=== PATIENT | male | born 1935 | race Caucasian/White ===

== ENCOUNTER 2020-09-07 16:32 | Inpatient (IN) | payer MEDICAID ==
[2020-09-07] MEDS ORDERED: SODIUM CHLORIDE 0.9% 1000 ML 2,000 ML ONE (16:50)
[2020-09-07] MEDS ORDERED: SODIUM CHLORIDE 0.9% 1000 ML 1,000 ML IV ONE ×2 (16:51)
--- NOTE | 2020-09-07 16:51 | Emergency Department Report ---
HPI - General Time Seen by Provider: 09/07/20 16:44 - HPI HPI: Room 22 The patient is an 85-year-old male present with a chief complaint of shortness of breath and altered mental status. Per EMS the patient was recently hospitalized for COVID-19 at [facility]. EMS states the patient was discharged from the hospital 09/03/2020. EMS reports over the past 2 days the patient has had worsening shortness of breath has become less responsive/altered. EMS found the patient today hypoxic in the 80s on room air. Patient was placed on a nonrebreather with improvement of his sats into the 90s. Patient has increased work of breathing and appears lethargic. When asked how he is feeling the patient replies "essence" ED Past Medical Hx - Past Medical History Hx CVA: Yes Hx HIV: No - Surgical History Past Surgical History?: No - Family History Family history: no significant - Social History Smoking Status: Unknown if ever smoked Substance Use Type: None - Medications Home Medications: Home Medications Medication Instructions Recorded Confirmed Last Taken Type Aspirin [Aspirin BABY CHEW TAB] 81 mg PO QDAY #30 tab.chew 12/12/13 Unknown Rx levoFLOXacin [Levaquin TAB] 500 mg PO QDAY #7 tablet 12/12/13 Unknown Rx ED Review of Systems ROS: Stated complaint: COVID Other details as noted in HPI Comment: Unobtainable due to pts medical conditions Physical Exam - Physical Exam Physical Exam: GENERAL: The patient is well-developed well-nourished male lying on stretcher exhibiting increased work of breathing appearing lethargic. [] HEENT: Normocephalic. Atraumatic. Patient has moist mucous membranes. NECK: Supple. Trachea midline CHEST/LUNGS: Increased work of breathing, accessory muscle use. HEART/CARDIOVASCULAR: Regular. There is no tachycardia. There is no gallop rub or murmur. ABDOMEN: Abdomen is soft, nontender. Patient has normal bowel sounds. There is no abdominal distention. SKIN: There is no rash. There is no diaphoresis. NEURO: The patient is awake but appears lethargic. The patient is cooperative. The patient has normal speech MUSCULOSKELETAL: There is no evidence of acute injury. - Central Line Placement Right Femoral Consent Obtained: emergent situation Time Out Performed: No Patient Placed on Monitor/Pulse Ox: Yes MD Prep: mask, gown, gloves Central Line Prep: Chlorhexidine scrub Local Anesthesia Used: Lidocaine 1% Amount of Anesthesia Used (mls): 3 Ultrasound Used for Placement: No Central Line Lumen Inserted: triple Bloods Obtained for Lab: No Central Line Position: good blood return, all ports aspirated, flus Dressing Applied: Tegaderm Patient Tolerated Procedure: no complications Complications: other (Blood return was dark red and nonpulsatile) - Intubation Sedative: Etomidate Mg Given: 20 Paralytic: Succinylcholine Mg Given: 100 Laryngoscope: fiberoptic video scope Size: 4 Assist Device Used: fiberoptic device ET Tube Size: 8 Tube Secured Depth (cm): 24 Tube Secured Location: lips Tube Placement Confirmation: visualized tube passing t, no breath sounds over epi, confirmation by capnometr Patient Tolerated Procedure: no complications Intubation Complications: other Additional Comments: The first 2 attempts using peripheral IV to push succinylcholine 100 mg did not result in paralysis. Central line was then placed by myself on third attempt succinylcholine the patient was paralyzed facilitating intubation. ED Medical Decision Making - Lab Data Result diagrams: 09/07/20 18:00 09/07/20 18:00 Laboratory Tests 09/07/20 09/07/20 09/07/20 17:25 18:00 18:00 WBC 23.5 H RBC 4.79 Hgb 15.2 Hct 45.0 MCV 94 MCH 32 MCHC 34 RDW 14.7 Plt Count 194 Add Manual Diff Complete Total Counted 100 Seg Neutrophils % Laboratory Manager Seg Neuts % (Manual) 94.0 H Band Neutrophils % 4.0 Lymphocytes % (Manual) 1.0 L Monocytes % (Manual) 1.0 Nucleated RBC % Not Reportable Seg Neutrophils # Man 22.1 H Band Neutrophils # 0.9 Lymphocytes # (Manual) 0.2 L Abs React Lymphs (Man) 0.0 Monocytes # (Manual) 0.2 Eosinophils # (Manual) 0.0 Basophils # (Manual) 0.0 Metamyelocytes # 0.0 Myelocytes # 0.0 Promyelocytes # 0.0 Blast Cells # 0.0 WBC Morphology Not Reportable Hypersegmented Neuts Not Reportable Hyposegmented Neuts Not Reportable Hypogranular Neuts Not Reportable Smudge Cells Not Reportable Toxic Granulation Not Reportable Toxic Vacuolation Not Reportable Dohle Bodies Not Reportable Pelger-Huet Anomaly Not Reportable Miroslava Rods Not Reportable Platelet Estimate Consistent w auto Clumped Platelets Not Reportable Plt Clumps, EDTA Not Reportable Large Platelets Not Reportable Giant Platelets Not Reportable Platelet Satelliting Not Reportable Plt Morphology Comment Not Reportable RBC Morphology Not Reportable Dimorphic RBCs Not Reportable Polychromasia Not Reportable Hypochromasia Not Reportable Poikilocytosis 2+ Anisocytosis 1+ Microcytosis Not Reportable Macrocytosis Not Reportable Spherocytes Not Reportable Pappenheimer Bodies Not Reportable Sickle Cells Not Reportable Target Cells Not Reportable Tear Drop Cells Not Reportable Ovalocytes Not Reportable Helmet Cells Not Reportable Morales-Kimbolton Bodies Not Reportable [place] Rings Not Reportable Vivienne Cells 2+ Bite Cells Not Reportable Crenated Cell Not Reportable Elliptocytes Not Reportable Acanthocytes (Spur) Not Reportable Rouleaux Not Reportable Hemoglobin C Crystals Not Reportable Schistocytes Not Reportable Malaria parasites Not Reportable Marquise Bodies Not Reportable Hem Pathologist Commnt No D-Dimer > 88692 H ABG pH ABG pCO2 ABG pO2 ABG HCO3 ABG O2 Saturation ABG O2 Content ABG Base Excess ABG Hemoglobin ABG Carboxyhemoglobin ABG Methemoglobin Oxyhemoglobin FiO2 Sodium Potassium Chloride Carbon Dioxide Anion Gap BUN Creatinine Estimated GFR BUN/Creatinine Ratio Glucose Lactic Acid Calcium Ferritin Total Bilirubin AST ALT Alkaline Phosphatase Troponin T Total Protein Albumin Albumin/Globulin Ratio Urine Color Leanna Urine Turbidity Clear Urine pH 5.0 Ur Specific Staples 1.023 Urine Protein 30 mg/dl Urine Glucose (UA) Neg Urine Ketones Tr Urine Blood Neg Urine Nitrite Neg Urine Bilirubin Neg Urine Urobilinogen 2.0 Ur Leukocyte Esterase Neg Urine WBC (Auto) 4.0 Urine RBC (Auto) 2.0 U Epithel Cells (Auto) 1.0 Urine Mucus 3+ 09/07/20 09/07/20 09/07/20 18:00 18:00 19:37 WBC RBC Hgb Hct MCV MCH MCHC RDW Plt Count Add Manual Diff Total Counted Seg Neutrophils % Seg Neuts % (Manual) Band Neutrophils % Lymphocytes % (Manual) Monocytes % (Manual) Nucleated RBC % Seg Neutrophils # Man Band Neutrophils # Lymphocytes # (Manual) Abs React Lymphs (Man) Monocytes # (Manual) Eosinophils # (Manual) Basophils # (Manual) Metamyelocytes # Myelocytes # Promyelocytes # Blast Cells # WBC Morphology Hypersegmented Neuts Hyposegmented Neuts Hypogranular Neuts Smudge Cells Toxic Granulation Toxic Vacuolation Dohle Bodies Pelger-Huet Anomaly Miroslava Rods Platelet Estimate Clumped Platelets Plt Clumps, EDTA Large Platelets Giant Platelets Platelet Satelliting Plt Morphology Comment RBC Morphology Dimorphic RBCs Polychromasia Hypochromasia Poikilocytosis Anisocytosis Microcytosis Macrocytosis Spherocytes Pappenheimer Bodies Sickle Cells Target Cells Tear Drop Cells Ovalocytes Helmet Cells Morales-Kimbolton Bodies [place] Rings [place] Cells Bite Cells Crenated Cell Elliptocytes Acanthocytes (Spur) Rouleaux Hemoglobin C Crystals Schistocytes Malaria parasites Marquise Bodies Hem Pathologist Commnt D-Dimer ABG pH ABG pCO2 ABG pO2 ABG HCO3 ABG O2 Saturation ABG O2 Content ABG Base Excess ABG Hemoglobin ABG Carboxyhemoglobin ABG Methemoglobin Oxyhemoglobin FiO2 Sodium 139 Potassium 4.2 Chloride 100.3 Carbon Dioxide 9 L* Anion Gap 34 BUN 24 H Creatinine 1.0 Estimated GFR > 60 BUN/Creatinine Ratio 24 Glucose 143 H Lactic Acid 8.80 H* Calcium 7.6 L Ferritin 849.7 H Total Bilirubin 1.80 H AST 45 H ALT 20 Alkaline Phosphatase 67 Troponin T < 0.010 Total Protein 5.6 L Albumin 2.8 L Albumin/Globulin Ratio 1.0 Urine Color Urine Turbidity Urine pH Ur Specific Staples Urine Protein Urine Glucose (UA) Urine Ketones Urine Blood Urine Nitrite Urine Bilirubin Urine Urobilinogen Ur Leukocyte Esterase Urine WBC (Auto) Urine RBC (Auto) U Epithel Cells (Auto) Urine Mucus 09/07/20 20:30 WBC RBC Hgb Hct MCV MCH MCHC RDW Plt Count Add Manual Diff Total Counted Seg Neutrophils % Seg Neuts % (Manual) Band Neutrophils % Lymphocytes % (Manual) Monocytes % (Manual) Nucleated RBC % Seg Neutrophils # Man Band Neutrophils # Lymphocytes # (Manual) Abs React Lymphs (Man) Monocytes # (Manual) Eosinophils # (Manual) Basophils # (Manual) Metamyelocytes # Myelocytes # Promyelocytes # Blast Cells # WBC Morphology Hypersegmented Neuts Hyposegmented Neuts Hypogranular Neuts Smudge Cells Toxic Granulation Toxic Vacuolation Dohle Bodies Pelger-Huet Anomaly Miroslava Rods Platelet Estimate Clumped Platelets Plt Clumps, EDTA Large Platelets Giant Platelets Platelet Satelliting Plt Morphology Comment RBC Morphology Dimorphic RBCs Polychromasia Hypochromasia Poikilocytosis Anisocytosis Microcytosis Macrocytosis Spherocytes Pappenheimer Bodies Sickle Cells Target Cells Tear Drop Cells Ovalocytes Helmet Cells Morales-Kimbolton Bodies [place] Rings Vivienne Cells Bite Cells Crenated Cell Elliptocytes Acanthocytes (Spur) Rouleaux Hemoglobin C Crystals Schistocytes Malaria parasites Marquise Bodies Hem Pathologist Commnt D-Dimer ABG pH 7.336 L ABG pCO2 26.9 ABG pO2 91.2 H ABG HCO3 14.1 L ABG O2 Saturation 96.8 ABG O2 Content 20.4 ABG Base Excess -9.9 L ABG Hemoglobin 15.2 ABG Carboxyhemoglobin 0.8 ABG Methemoglobin 0.6 Oxyhemoglobin 95.5 FiO2 100 Sodium Potassium Chloride Carbon Dioxide Anion Gap BUN Creatinine Estimated GFR BUN/Creatinine Ratio Glucose Lactic Acid Calcium Ferritin Total Bilirubin AST ALT Alkaline Phosphatase Troponin T Total Protein Albumin Albumin/Globulin Ratio Urine Color Urine Turbidity Urine pH Ur Specific Staples Urine Protein Urine Glucose (UA) Urine Ketones Urine Blood Urine Nitrite Urine Bilirubin Urine Urobilinogen Ur Leukocyte Esterase Urine WBC (Auto) Urine RBC (Auto) U Epithel Cells (Auto) Urine Mucus - EKG Data -: EKG Interpreted by Me Rate: tachycardia (160 bpm) - EKG Data When compared to previous EKG there are: previous EKG unavailable Interpretation: other (Atrial fibrillation with a rapid ventricular response) - Radiology Data Radiology results: report reviewed (Chest x-ray), image reviewed (Chest x-ray) interpreted by me: Chest [id number] bilateral infiltrates. No pneumothorax. No foreign body seen. Chest x-ray (read by radiologist)-patchy parenchymal opacities in both mid to lower lung zones are likely related to atypical pneumonia, including viral causes. - Differential Diagnosis COVID-19 pneumonia, respiratory failure, hypoxia Critical care attestation.: If time is entered above; I have spent that time in minutes in the direct care of this critically ill patient, excluding procedure time. ED Disposition Clinical Impression: Pneumonia, Suspected COVID-19 virus infection, Hypoxia, Atrial fibrillation with rapid ventricular response Disposition: OP ADMIT IP TO THIS HOSP Is pt being admited?: Yes Does the pt Need Aspirin: Yes Condition: Serious Instructions: Bacterial Pneumonia (ED) Referrals: PRIMARY CARE, [Primary Care Provider] - 3-5 Days Time of Disposition: 22:00 (Hospitalist notified (Dr. Olivares))
[2020-09-07 17:45] LABS: Bilirubin,Urine NEG (Negative); Blood,Urine NEG (Negative); Color,Urine Amber (Yellow); Mucus,Urine 3+ /HPF
--- NOTE | 2020-09-07 18:22 | XRay Report ---
CHEST 1 VIEW 6:00 PM INDICATION / CLINICAL INFORMATION: Hypoxia. COMPARISON: 12/09/13. FINDINGS: SUPPORT DEVICES: None. HEART / MEDIASTINUM: The heart size and pulmonary vasculature are normal. LUNGS / PLEURA: There are mild patchy multifocal parenchymal opacities in both mid to lower lung zone s, left greater than right. No pleural effusion. No pneumothorax. ADDITIONAL FINDINGS: No significant additional findings. IMPRESSION: Patchy parenchymal opacities in both mid to lower lung zones are likely related to atypic al pneumonia, including viral causes. Signer Name: Ashok Boone MD Signed: 09/07/2020 6:18 PM Workstation Name: [id number]
[2020-09-07 18:28] LABS: Hemoglobin 15.2 gm/dl (11.8-15.2); Mean Corpuscular HGB Conc 34 % (32-34); Mean Corpuscular Volume 94 fl (84-94); Platelet Count 194 K/mm3 (140-440); Red Blood Count 4.79 M/mm3 (3.65-5.03); Red Cell Distribution Width 14.7 % (13.2-15.2)
[2020-09-07] MEDS ORDERED: dexAMETHasone 20 MG/5 ML VIAL IV ONE (18:35)
[2020-09-07] MEDS ORDERED: NORepinephrine/NS 4 MG-250 ML 4 MG/250 ML BAG IV ONE (18:42)
[2020-09-07] MEDS ORDERED: SUCCINYLCHOLINE CHLORIDE 200 MG/10 ML INJ MDV ONE ×2 (18:44→19:01)
[2020-09-07] MEDS ORDERED: ETOMIDATE 20 MG/10 ML INJ IV ONE ×2 (18:44→19:48)
[2020-09-07 19:05] LABS: Anisocytosis 1+; Band Neutrophils # (Manual) 0.9 K/mm3; Burr Cells 2+; Poikilocytosis 2+; Total Cells Counted 100
[2020-09-07 19:06] LABS: Platelet Estimate Consistent w Auto
[2020-09-07] MEDS ORDERED: SUCCINYLCHOLINE CHLORIDE 200 MG/10 ML INJ MDV IV ONE (19:49)
[2020-09-07] MEDS ORDERED: dilTIAZem 25 MG/5 ML INJ IV ONE ×2 (19:57→20:37)
--- NOTE | 2020-09-07 20:46 | XRay Report ---
CHEST 1 VIEW INDICATION: Status post intubation COMPARISON: Compared to earlier the same day FINDINGS: SUPPORT DEVICES: Endotracheal tube has tip in the right mainstem bronchus. HEART / MEDIASTINUM: No significant abnormality. LUNGS / PLEURA: Bronchovascular markings-perihilar markings are increased. No pneumothorax. ADDITIONAL FINDINGS: IMPRESSION: 1. No interval change as compared to previous exam 2. Endotracheal tube placement as noted CRITICAL RESULT: Time of Discovery: 1940 hours central time Time of Communication: 194 hours Central time Licensed Practitioner Receiving Report: Dr. Isbell was notified by Dr. Frost Read Back Performed: Yes. Signer Name: Gagan Frost MD Signed: 09/07/2020 8:42 PM Workstation Name: [id number]
[2020-09-07 21:17] LABS: ABG Base Excess -9.9 mmol/L (-2.0-3.0); ABG HCO3 14.1 mmol/L (20.0-26.0); ABG Methemoglobin 0.6 % (0.0-1.5); ABG Oxygen Saturation 96.8 % (95.0-99.0); ABG PCO2 26.9 mm Hg; ABG PH 7.336 pH Units (7.350-7.450); ABG PO2 91.2 mm Hg (80.0-90.0)
[2020-09-07] MEDS: dilTIAZem/D5W 100 MG/100 ML BAG IV SCH (21:17)
--- NOTE | 2020-09-07 21:19 | XRay Report ---
CHEST 1 VIEW INDICATION: ET tube adjustment COMPARISON: Earlier the same day FINDINGS: SUPPORT DEVICES: Endotracheal tube has its tip 0.5 cm above the tatiana. Retraction of 2 cm is recomme nded. HEART / MEDIASTINUM: No significant abnormality. LUNGS / PLEURA: Bronchovascular markings remain prominent. No pneumothorax. ADDITIONAL FINDINGS: IMPRESSION: 1. Repositioned endotracheal tube as noted please see above comments Signer Name: Gagan Frost MD Signed: 09/07/2020 9:15 PM Workstation Name: [id number]
[2020-09-07] MEDS: NORepinephrine/NS 4 MG-250 ML 4 MG/250 ML BAG IV SCH (21:22)
[2020-09-07 21:51] LABS: Alanine Aminotransferase 20 units/L (7-56); Albumin 2.8 g/dL (3.9-5); BUN/Creatinine Ratio 24; Blood Urea Nitrogen 24 mg/dL (9-20); Calcium 7.6 mg/dL (8.4-10.2); Hemolysis Index 19
[2020-09-07] MEDS ORDERED: NORepinephrine/NS 4 MG-250 ML 4 MG/250 ML BAG IV SCH (22:00)
[2020-09-07] MEDS ORDERED: MINERAL OIL/PETROLATUM, WHITE OPHTH OINT 3.5 GM OU PRN (22:11)
[2020-09-07] MEDS ORDERED: LIP THERAPY VASELINE TP PRN (22:11)
[2020-09-07] MEDS ORDERED: MIDAZOLAM 2 MG/2 ML INJ IV PRN (22:11)
[2020-09-07 22:18] LABS: Partial Thromboplastin Time 72.7 Sec. (24.2-36.6)
[2020-09-07] MEDS: MIDAZOLAM 100 MG in SODIUM CHLORIDE 0.9% 80 ML IV SCH (23:00)
--- NOTE | 2020-09-08 00:49 | XRay Report ---
CHEST 1 VIEW 2256 INDICATION / CLINICAL INFORMATION: ET tube adjusted COMPARISON: 2058 FINDINGS: SUPPORT DEVICES: Endotracheal tube has been withdrawn mildly and is in better position with tip appro ximately 1.5 cm above the tatiana. HEART / MEDIASTINUM: Stable LUNGS / PLEURA: Patchy bilateral pulmonary infiltrates continue with perhaps mild worsening in the ri ght base better aeration in the left base. No pneumothorax. ADDITIONAL FINDINGS: No significant additional findings. Signer Name: Melo Tejada MD Signed: 09/08/2020 12:45 AM Workstation Name: [id number]
[2020-09-08] MEDS: NORepinephrine/NS 4 MG-250 ML 4 MG/250 ML BAG IV SCH ×5 (03:04→23:12)
[2020-09-08 04:40] LABS: ABG Base Excess -4.1 mmol/L (-2.0-3.0); ABG HCO3 17.2 mmol/L (20.0-26.0); ABG Methemoglobin 0.7 % (0.0-1.5); ABG PCO2 23.4 mm Hg; ABG PH 7.484 pH Units (7.350-7.450); ABG PO2 148.2 mm Hg (80.0-90.0)
--- NOTE | 2020-09-08 06:21 | History and Physical Report ---
History of Present Illness Date of examination: 09/07/20 Date of admission: 09/07/20 21:40 Chief complaint: Shortness of breath for 2 days. History of present illness: 85-year-old male with a recent diagnosis of Covid pneumonia with acute respiratory failure/hypoxia discharged on Thursday [facility] on 09/03/2020 has been short of breath for the past 2 days because of which EMS was called. When the EMS arrived the patient was found to be hypoxic with room air oxygenation is running around 80s and also patient with altered sensorium. Patient was placed on nonrebreather and that his oxygen saturations improved to the 90s. No fever. Patient is lethargic. Patient also has increased work of breathing and was getting tired because of which ER physician has intubated the patient. No fevers. Known Covid positive patient with decompensation. No chest pain. No diaphoresis. No palpitations. - Past Medical History --CVA: Yes - Surgical History Past Surgical History?: No - Family History Family history: no significant - Social History Smoking Status: Unknown if ever smoked Substance Use Type: None - Medications Home Medications: Home Medications Medication Instructions Recorded Confirmed Last Taken Type Aspirin [Aspirin BABY CHEW TAB] 81 mg PO QDAY #30 tab.chew 12/12/13 Unknown Rx levoFLOXacin [Levaquin TAB] 500 mg PO QDAY #7 tablet 12/12/13 Unknown Rx --Review of Systems ROS: Stated complaint: COVID Other details as noted in HPI Comment: Unobtainable due to pts medical conditions Medications and Allergies Allergies Allergy/AdvReac Type Severity Reaction Status Date / Time ceftriaxone Allergy Rash Verified 12/10/13 11:03 Home Medications Medication Instructions Recorded Confirmed Last Taken Type Aspirin [Aspirin BABY CHEW TAB] 81 mg PO QDAY #30 tab.chew 12/12/13 Unknown Rx levoFLOXacin [Levaquin TAB] 500 mg PO QDAY #7 tablet 12/12/13 Unknown Rx Active Meds: Active Medications Hydrophilic Ointment (Lip Therapy Vaseline) 1 applic TP Q2HR PRN PRN Reason: Dry Lips Diltiazem HCl (Cardizem/D5w 100mg/100ml) 100 mg in 100 mls @ 5 mls/hr IV TITR CRISTIN; Protocol Last Titration: 09/08/20 03:28 Dose: 15 mg/hr, 15 mls/hr Documented by: Norepinephrine (Levophed Drip 4 Mg/Ns 250 Ml) 4 mg in 250 mls @ 7.5 mls/hr IV TITR CRISTIN; Protocol Last Admin: 09/08/20 03:04 Dose: 2 mcg/min, 7.5 mls/hr Documented by: Midazolam HCl 100 mg/ Sodium (Chloride) 100 mls @ 2 mls/hr IV TITR CRISTIN; Protocol Last Titration: 09/08/20 00:00 Dose: 3 mg/hr, 3 mls/hr Documented by: Midazolam HCl (Midazolam 2 Mg/2 Ml Inj) 2 mg IV Q10MIN PRN PRN Reason: Sedation Multi-Ingred Cream/Lotion/Oil/Oint (Mineral Oil/Petrolatum, White Ophth Oint 3.5 Gm) 1 applic OU Q4HR PRN PRN Reason: Dry Eye(s) Exam - Physical Exam Narrative exam: Patient intubated. - Constitutional Vitals: Temp Pulse Resp BP Pulse Ox 97.5 F L 94 H 22 102/72 100 09/07/20 16:50 09/08/20 05:45 09/08/20 05:45 09/08/20 05:45 09/08/20 05:45 General appearance: Present: severe distress, well-nourished - EENT Eyes: Present: PERRL ENT: hearing intact, clear oral mucosa - Neck Neck: Present: supple, normal ROM - Respiratory Respiratory effort: normal Respiratory: bilateral: CTA, rhonchi (Scattered) - Cardiovascular Heart rate: 98 Rhythm: regular Heart Sounds: Present: S1 & S2. Absent: rub, click - Extremities Extremities: no ischemia, pulses intact, pulses symmetrical, No edema Peripheral Pulses: within normal limits - Abdominal General gastrointestinal: Present: soft, non-tender, non-distended, normal bowel sounds Male genitourinary: Present: normal - Integumentary Integumentary: Present: clear, warm, dry - Musculoskeletal Musculoskeletal: generalized weakness, other (Patient intubated) - Psychiatric Psychiatric: other (Patient intubated) - Neurologic Neurologic: moves all extremities, other (Neurologic examination could not be done because the patient was sedated) - Allied Health Allied health notes reviewed: nursing, case management HEART Score - HEART Score Troponin: Troponin T < 0.010 ng/mL (0.00-0.029) 09/07/20 18:00 Results - Labs CBC & Chem 7: 09/07/20 18:00 09/07/20 18:00 Labs: Laboratory Last Values WBC 23.5 K/mm3 (4.5-11.0) H 09/07/20 18:00 RBC 4.79 M/mm3 (3.65-5.03) 09/07/20 18:00 Hgb 15.2 gm/dl (11.8-15.2) 09/07/20 18:00 Hct 45.0 % (35.5-45.6) 09/07/20 18:00 MCV 94 fl (84-94) 09/07/20 18:00 MCH 32 pg (28-32) 09/07/20 18:00 MCHC 34 % (32-34) 09/07/20 18:00 RDW 14.7 % (13.2-15.2) 09/07/20 18:00 Plt Count 194 K/mm3 (140-440) 09/07/20 18:00 Add Manual Diff Complete 09/07/20 18:00 Total Counted 100 09/07/20 18:00 Seg Neutrophils % Condenser Setter 09/07/20 18:00 Seg Neuts % (Manual) 94.0 % (40.0-70.0) H 09/07/20 18:00 Band Neutrophils % 4.0 % 09/07/20 18:00 Lymphocytes % (Manual) 1.0 % (13.4-35.0) L 09/07/20 18:00 Monocytes % (Manual) 1.0 % (0.0-7.3) 09/07/20 18:00 Nucleated RBC % Not Reportable 09/07/20 18:00 Seg Neutrophils # Man 22.1 K/mm3 (1.8-7.7) H 09/07/20 18:00 Band Neutrophils # 0.9 K/mm3 09/07/20 18:00 Lymphocytes # (Manual) 0.2 K/mm3 (1.2-5.4) L 09/07/20 18:00 Abs React Lymphs (Man) 0.0 K/mm3 09/07/20 18:00 Monocytes # (Manual) 0.2 K/mm3 (0.0-0.8) 09/07/20 18:00 Eosinophils # (Manual) 0.0 K/mm3 (0.0-0.4) 09/07/20 18:00 Basophils # (Manual) 0.0 K/mm3 (0.0-0.1) 09/07/20 18:00 Metamyelocytes # 0.0 K/mm3 09/07/20 18:00 Myelocytes # 0.0 K/mm3 09/07/20 18:00 Promyelocytes # 0.0 K/mm3 09/07/20 18:00 Blast Cells # 0.0 K/mm3 09/07/20 18:00 WBC Morphology Not Reportable 09/07/20 18:00 Hypersegmented Neuts Not Reportable 09/07/20 18:00 Hyposegmented Neuts Not Reportable 09/07/20 18:00 Hypogranular Neuts Not Reportable 09/07/20 18:00 Smudge Cells Not Reportable 09/07/20 18:00 Toxic Granulation Not Reportable 09/07/20 18:00 Toxic Vacuolation Not Reportable 09/07/20 18:00 Dohle Bodies Not Reportable 09/07/20 18:00 Pelger-Huet Anomaly Not Reportable 09/07/20 18:00 Miroslava Rods Not Reportable 09/07/20 18:00 Platelet Estimate Consistent w auto 09/07/20 18:00 Clumped Platelets Not Reportable 09/07/20 18:00 Plt Clumps, EDTA Not Reportable 09/07/20 18:00 Large Platelets Not Reportable 09/07/20 18:00 Giant Platelets Not Reportable 09/07/20 18:00 Platelet Satelliting Not Reportable 09/07/20 18:00 Plt Morphology Comment Not Reportable 09/07/20 18:00 RBC Morphology Not Reportable 09/07/20 18:00 Dimorphic RBCs Not Reportable 09/07/20 18:00 Polychromasia Not Reportable 09/07/20 18:00 Hypochromasia Not Reportable 09/07/20 18:00 Poikilocytosis 2+ 09/07/20 18:00 Anisocytosis 1+ 09/07/20 18:00 Microcytosis Not Reportable 09/07/20 18:00 Macrocytosis Not Reportable 09/07/20 18:00 Spherocytes Not Reportable 09/07/20 18:00 Pappenheimer Bodies Not Reportable 09/07/20 18:00 Sickle Cells Not Reportable 09/07/20 18:00 Target Cells Not Reportable 09/07/20 18:00 Tear Drop Cells Not Reportable 09/07/20 18:00 Ovalocytes Not Reportable 09/07/20 18:00 Helmet Cells Not Reportable 09/07/20 18:00 Morales-Rosebud Bodies Not Reportable 09/07/20 18:00 [place] Rings Not Reportable 09/07/20 18:00 Vivienne Cells 2+ 09/07/20 18:00 Bite Cells Not Reportable 09/07/20 18:00 Crenated Cell Not Reportable 09/07/20 18:00 Elliptocytes Not Reportable 09/07/20 18:00 Acanthocytes (Spur) Not Reportable 09/07/20 18:00 Rouleaux Not Reportable 09/07/20 18:00 Hemoglobin C Crystals Not Reportable 09/07/20 18:00 Schistocytes Not Reportable 09/07/20 18:00 Malaria parasites Not Reportable 09/07/20 18:00 Marquise Bodies Not Reportable 09/07/20 18:00 Hem Pathologist Commnt No 09/07/20 18:00 APTT 72.7 Sec. (24.2-36.6) H* 09/07/20 18:00 D-Dimer > 92450 ng/mlDDU (0-234) H 09/07/20 18:00 D-Dimer Condenser Setter 09/07/20 18:00 ABG pH 7.484 pH Units (7.350-7.450) H 09/08/20 04:25 ABG pCO2 23.4 mm Hg 09/08/20 04:25 ABG pO2 148.2 mm Hg (80.0-90.0) H 09/08/20 04:25 ABG HCO3 17.2 mmol/L (20.0-26.0) L 09/08/20 04:25 ABG O2 Saturation 99.0 % (95.0-99.0) 09/08/20 04:25 ABG O2 Content 20.8 (0.0-44) 09/08/20 04:25 ABG Base Excess -4.1 mmol/L (-2.0-3.0) L 09/08/20 04:25 ABG Hemoglobin 15.0 gm/dl (14.0-18.0) 09/08/20 04:25 ABG Carboxyhemoglobin 0.6 % (0.0-5.0) 09/08/20 04:25 ABG Methemoglobin 0.7 % (0.0-1.5) 09/08/20 04:25 Oxyhemoglobin 97.6 % (95.0-99.0) 09/08/20 04:25 FiO2 100 % 09/08/20 04:25 Sodium 139 mmol/L (137-145) 09/07/20 18:00 Potassium 4.2 mmol/L (3.6-5.0) 09/07/20 18:00 Chloride 100.3 mmol/L (98-107) 09/07/20 18:00 Carbon Dioxide 9 mmol/L (22-30) L* 09/07/20 18:00 Anion Gap 34 mmol/L 09/07/20 18:00 BUN 24 mg/dL (9-20) H 09/07/20 18:00 Creatinine 1.0 mg/dL (0.8-1.3) 09/07/20 18:00 Estimated GFR > 60 ml/min 09/07/20 18:00 BUN/Creatinine Ratio 24 % 09/07/20 18:00 Glucose 143 mg/dL (75-100) H 09/07/20 18:00 Lactic Acid 3.80 mmol/L (0.7-2.0) H* 09/08/20 01:07 Calcium 7.6 mg/dL (8.4-10.2) L 09/07/20 18:00 Ferritin 849.7 ng/mL (30.0-300.0) H 09/07/20 18:00 Total Bilirubin 1.80 mg/dL (0.1-1.2) H 09/07/20 18:00 AST 45 units/L (5-40) H 09/07/20 18:00 ALT 20 units/L (7-56) 09/07/20 18:00 Alkaline Phosphatase 67 units/L (35-129) 09/07/20 18:00 Lactate Dehydrogenase 507 units/L (91-180) H 09/07/20 18:00 Troponin T < 0.010 ng/mL (0.00-0.029) 09/07/20 18:00 C-Reactive Protein 8.20 mg/dL (0.00-1.30) H 09/07/20 18:00 Total Protein 5.6 g/dL (6.3-8.2) L 09/07/20 18:00 Albumin 2.8 g/dL (3.9-5) L 09/07/20 18:00 Albumin/Globulin Ratio 1.0 % 09/07/20 18:00 Urine Color Leanna (Yellow) 09/07/20 17:25 Urine Turbidity Clear (Clear) 09/07/20 17:25 Urine pH 5.0 (5.0-7.0) 09/07/20 17:25 Ur Specific [place] 1.023 (1.003-1.030) 09/07/20 17: Urine Protein 30 mg/dl mg/dL (Negative) 09/07/20 17:25 Urine Glucose (UA) Neg mg/dL (Negative) 09/07/20 17:25 Urine Ketones Tr mg/dL (Negative) 09/07/20 17:25 Urine Blood Neg (Negative) 09/07/20 17:25 Urine Nitrite Neg (Negative) 09/07/20 17:25 Urine Bilirubin Neg (Negative) 09/07/20 17:25 Urine Urobilinogen 2.0 mg/dL (<2.0) 09/07/20 17:25 Ur Leukocyte Esterase Neg (Negative) 09/07/20 17:25 Urine WBC (Auto) 4.0 /HPF (0.0-6.0) 09/07/20 17:25 Urine RBC (Auto) 2.0 /HPF (0.0-6.0) 09/07/20 17:25 U Epithel Cells (Auto) 1.0 /HPF (0-13.0) 09/07/20 17:25 Urine Mucus 3+ /HPF 09/07/20 17:25 Short CBC 09/07/20 Range/Units 18:00 WBC 23.5 H (4.5-11.0) K/mm3 Hgb 15.2 (11.8-15.2) gm/dl Hct 45.0 (35.5-45.6) % Plt Count 194 (140-440) K/mm3 BMP 09/07/20 18:00 Sodium 139 Potassium 4.2 Chloride 100.3 Carbon Dioxide 9 L* BUN 24 H Creatinine 1.0 Glucose 143 H Calcium 7.6 L Cardiac Enzymes 09/07/20 Range/Units 18:00 Troponin T < 0.010 (0.00-0.029) ng/mL Liver Function 09/07/20 Range/Units 18:00 Total Bilirubin 1.80 H (0.1-1.2) mg/dL AST 45 H (5-40) units/L ALT 20 (7-56) units/L Alkaline Phosphatase 67 (35-129) units/L Albumin 2.8 L (3.9-5) g/dL Urine 09/07/20 Range/Units 17:25 Urine Color Leanna (Yellow) Urine pH 5.0 (5.0-7.0) Ur Specific [place] 1.023 (1.003-1.030) Urine Protein 30 mg/dl (Negative) mg/dL Urine Glucose (UA) Neg (Negative) mg/dL Microbiology: Microbiology 09/07/20 18:00 Peripheral/Venous Blood Culture - Preliminary Culture in Progress 09/07/20 18:00 Peripheral/Venous Blood Culture - Preliminary Culture in Progress - Imaging and Cardiology Chest x-ray: report reviewed Imaging and Cardiology: Chest x-ray IMPRESSION: Patchy parenchymal opacities in both mid to lower lung zones are likely related to atypical pneumonia, including viral causes. Reyez/IV: IV Catheter Type [Right INT / Saline Lock Antecubital] Assessment and Plan Assessment and plan: Critical care statement The high probability OF a clinically significant sudden or life-threatening deterioration of the cardiorespiratory system and endocrine system required my full and direct attention, intervention and postoperative management. The aggregate critical care time was 40 minutes. The time is in addition to time spent performing reported procedures but includes the followin: Data review and interpretation 2: Patient assessment and monitoring of vital signs 3: Documentation 4:: Medication orders and management Advance Directives: Yes (Full code) VTE prophylaxis?: Chemical Plan of care discussed with patient/family: Yes - Patient Problems (1) Acute respiratory failure with hypoxia Current Visit: Yes Status: Acute Plan to address problem: Patient intubated because of labored breathing and for protection of airway. Vent management Company Laborer consult requested (2) Pneumonia due to COVID-19 virus Current Visit: Yes Status: Acute Plan to address problem: Patient restarted on IV Decadron Patient was discharged on from [facility] We will get the records from [facility] ID consult (3) Sepsis Current Visit: Yes Status: Acute Qualifiers: Sepsis type: sepsis due to unspecified organism Plan to address problem: May be secondary to Covid or coronavirus Patient started on empiric antibiotics in the form of cefepime and vancomycin ID consult was requested No hypotension (4) Bilateral pneumonia Current Visit: Yes Status: Acute Qualifiers: Pneumonia type: due to unspecified organism Plan to address problem: Patient started on IV cefepime and vancomycin for sepsis which can be continued for the bilateral pneumonia also (5) 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: Chronic Qualifiers: CVA mechanism: thrombosis Laterality of affected vessel: unspecified Plan to address problem: PT OT after extubation (6) DVT prophylaxis Current Visit: Yes Status: Acute Plan to address problem: On Lovenox and GI prophylaxis
[2020-09-08] MEDS ORDERED: ACETAMINOPHEN 325 MG TAB PO PRN (06:29)
[2020-09-08] MEDS ORDERED: MORPHINE 2 MG/1 ML INJ IV PRN (06:29)
[2020-09-08] MEDS ORDERED: ONDANSETRON 4 MG/2 ML INJ IV PRN (06:29)
[2020-09-08] MEDS ORDERED: SODIUM CHLORIDE 0.9% 1000 ML 1,000 ML IV SCH (06:30)
[2020-09-08] MEDS ORDERED: SIMPLE SYRUP 15 ML FEEDTUBE PRN ×2 (06:31)
[2020-09-08] MEDS ORDERED: LIPASE 10,500/PROTEASE 25,000/AMYLASE 43,750 (UNITS) DR CAP FEEDTUBE PRN (06:31)
[2020-09-08] MEDS ORDERED: SODIUM BICARBONATE 325 MG TAB FEEDTUBE PRN (06:31)
[2020-09-08] MEDS ORDERED: VANCOMYCIN PHARMACY TO DOSE IV SCH (07:00)
[2020-09-08] MEDS ORDERED: CEFEPIME/NS 2 GM/100 ML 2 GM/100 ML BAG IV SCH (07:00)
[2020-09-08] MEDS ORDERED: ACETAMINOPHEN 325 MG/10.15 ML ORAL LIQD UNIT DOSE PO PRN (07:00)
[2020-09-08] MEDS ORDERED: VANCOMYCIN 2,000 MG in SODIUM CHLORIDE 0.9% 500 ML 500 ML IV SCH ×2 (08:00→16:00)
[2020-09-08] MEDS: dexAMETHasone 4 MG/ML VIAL IV SCH (09:47)
[2020-09-08] MEDS: FAMOTIDINE 20 MG/2 ML INJ IV SCH (09:48)
[2020-09-08 11:07] LABS: Hematocrit 49.6 % (35.5-45.6); Hemoglobin 17.1 gm/dl (11.8-15.2); Mean Corpuscular HGB Conc 35 % (32-34); Mean Corpuscular Volume 90 fl (84-94); Platelet Count 168 K/mm3 (140-440); Red Blood Count 5.49 M/mm3 (3.65-5.03); Red Cell Distribution Width 15.1 % (13.2-15.2)
[2020-09-08 11:27] LABS: Albumin 2.6 g/dL (3.9-5); Calcium 8.3 mg/dL (8.4-10.2)
[2020-09-08 11:29] LABS: Prealbumin 0.049 g/L (0.200-0.400)
[2020-09-08 11:47] LABS: Total Cells Counted 100
[2020-09-08 11:48] LABS: Anisocytosis 1+; Burr Cells 2+; Large Platelets Few; Platelet Estimate Consistent w Auto; Poikilocytosis 2+
[2020-09-08] MEDS: PIPERACILLIN/TAZOBACTAM 3.375 3.375 GM/50 ML BAG IV SCH (13:36)
--- NOTE | 2020-09-08 16:04 | XRay Report ---
ABDOMEN 1 VIEW(S) INDICATION: gastric tube placement COMPARISON: None available. FINDINGS: Nasogastric tube has its tip in the stomach Bowel gas pattern: Within normal limits. No dilated loops of large or small bowel. Free air: None. Calcified gallstones: None seen. Calcified urinary tract calculi: None seen. Additional Findings: None. Skeletal structures: No acute abnormality. IMPRESSION: 1. No acute findings. Signer Name: Gagan Frost MD Signed: 09/08/2020 3:59 PM Workstation Name: [id number]
[2020-09-08] MEDS: MIDAZOLAM 100 MG in SODIUM CHLORIDE 0.9% 80 ML IV SCH (17:43)
[2020-09-08] MEDS: dilTIAZem/D5W 100 MG/100 ML BAG IV SCH (17:51)
--- NOTE | 2020-09-08 18:16 | Consultation ---
History of Present Illness Consult date: 09/08/20 Requesting physician: BRIJESH CARDENAS Reason for consult: other (Acute Hypoxemic Respiratory Failure; COVID-19 infection) History of present illness: PULMONARY/CCM CONSULT NOTE (Full dictation # [id number]) Please see dictated notes for full details Medications and Allergies Allergies Allergy/AdvReac Type Severity Reaction Status Date / Time ceftriaxone Allergy Rash Verified 12/10/13 11:03 Home Medications Medication Instructions Recorded Confirmed Last Taken Type Aspirin [Aspirin BABY CHEW TAB] 81 mg PO QDAY #30 tab.chew 12/12/13 Unknown Rx levoFLOXacin [Levaquin TAB] 500 mg PO QDAY #7 tablet 12/12/13 Unknown Rx Active Meds: Active Medications Acetaminophen (Acetaminophen 325 Mg/10.15 Ml Oral Liqd Unit Dose) 650 mg PO Q4H PRN PRN Reason: Pain MILD(1-3)/Fever >100.5/BEST Lipase/Protease/Amylase (Lipase 10,500/Protease 25,000/Amylase 43,750 (Units) Dr Cap) 1 each FEEDTUBE PRN PRN PRN Reason: For Clogged Feeding Tube Dexamethasone (Dexamethasone 4 Mg/Ml Vial) 8 mg IV Q24HR CRISTIN Last Admin: 09/08/20 09:47 Dose: 8 mg Documented by: Enoxaparin Sodium (Enoxaparin 40 Mg/0.4 Ml Inj) 40 mg SUB-Q QDAY@2200 CRISTIN; Protocol Famotidine (Famotidine 20 Mg/2 Ml Inj) 20 mg IV BID CRISTIN Last Admin: 09/08/20 09:48 Dose: 20 mg Documented by: Hydrophilic Ointment (Lip Therapy Vaseline) 1 applic TP Q2HR PRN PRN Reason: Dry Lips Diltiazem HCl (Cardizem/D5w 100mg/100ml) 100 mg in 100 mls @ 5 mls/hr IV TITR CRISTIN; Protocol Last Admin: 09/08/20 17:51 Dose: 5 mg/hr, 5 mls/hr Documented by: Norepinephrine (Levophed Drip 4 Mg/Ns 250 Ml) 4 mg in 250 mls @ 7.5 mls/hr IV TITR CRISTIN; Protocol Last Admin: 09/08/20 17:25 Dose: 12 mcg/min, 45 mls/hr Documented by: Midazolam HCl 100 mg/ Sodium (Chloride) 100 mls @ 2 mls/hr IV TITR CRISTIN; Protocol Last Admin: 09/08/20 17:43 Dose: 4 mg/hr, 4 mls/hr Documented by: Sodium Chloride (Nacl 0.9% 1000 Ml) 1,000 mls @ 42 mls/hr IV DIRECT CRISTIN Piperacillin Sod/Tazobactam Sod (Zosyn/Ns 3.375gm/50ml) 3.375 gm in 50 mls @ 1 00 mls/hr IV Q8HR [facility] Last Admin: 09/08/20 13:36 Dose: 100 mls/hr Documented by: Vancomycin HCl 2,000 mg/ (Sodium Chloride) 540 mls @ 250 mls/hr IV Q24H CRISTIN Midazolam HCl (Midazolam 2 Mg/2 Ml Inj) 2 mg IV Q10MIN PRN PRN Reason: Sedation Morphine Sulfate (Morphine 2 Mg/1 Ml Inj) 2 mg IV Q4H PRN PRN Reason: Pain, Moderate (4-6) Multi-Ingred Cream/Lotion/Oil/Oint (Mineral Oil/Petrolatum, White Ophth Oint 3.5 Gm) 1 applic OU Q4HR PRN PRN Reason: Dry Eye(s) Ondansetron HCl (Ondansetron 4 Mg/2 Ml Inj) 4 mg IV Q8H PRN PRN Reason: Nausea And Vomiting Simple Syrup (Simple Syrup 15 Ml) 15 ml FEEDTUBE PRN PRN PRN Reason: Hypoglycemia Simple Syrup (Simple Syrup 15 Ml) 30 ml FEEDTUBE PRN PRN PRN Reason: Hypoglycemia Sodium Bicarbonate (Sodium Bicarbonate 325 Mg Tab) 325 mg FEEDTUBE PRN PRN PRN Reason: For Clogged Feeding Tube Sodium Chloride (Sodium Chloride 0.9% 10 Ml Flush Syringe) 10 ml IV BID [facility] Last Admin: 09/08/20 09:48 Dose: 10 ml Documented by: Sodium Chloride (Sodium Chloride 0.9% 10 Ml Flush Syringe) 10 ml IV PRN PRN PRN Reason: LINE FLUSH Physical Examination Vital signs: Vital Signs Pulse Resp Pulse Ox 161 H 30 H 92 09/07/20 16:35 09/07/20 16:35 09/07/20 16:35 Results - Laboratory Findings CBC and BMP: 09/09/20 04:54 09/09/20 04:54 ABG ABG pH 7.484 pH Units (7.350-7.450) H 09/08/20 04:25 ABG pCO2 23.4 mm Hg 09/08/20 04:25 ABG pO2 148.2 mm Hg (80.0-90.0) H 09/08/20 04:25 ABG O2 Saturation 99.0 % (95.0-99.0) 09/08/20 04:25 PT/INR, D-dimer D-Dimer > 28759 ng/mlDDU (0-234) H 09/07/20 18:00 D-Dimer Sales Inspector 09/07/20 18:00 Abnormal lab findings: Abnormal Labs 09/07/20 09/07/20 09/07/20 17:25 18:00 18:00 WBC 23.5 H RBC Hgb Hct MCHC Seg Neuts % (Manual) 94.0 H Lymphocytes % (Manual) 1.0 L Seg Neutrophils # Man 22.1 H Lymphocytes # (Manual) 0.2 L APTT D-Dimer > 09244 H ABG pH ABG pO2 ABG HCO3 ABG Base Excess Sodium Carbon Dioxide BUN Creatinine Glucose Hemoglobin A1c Lactic Acid Calcium Ferritin Total Bilirubin AST Lactate Dehydrogenase C-Reactive Protein Total Protein Albumin Prealbumin Coronavirus (PCR) Positive A 09/07/20 09/07/20 09/07/20 18:00 18:00 18:00 WBC RBC Hgb Hct MCHC Seg Neuts % (Manual) Lymphocytes % (Manual) Seg Neutrophils # Man Lymphocytes # (Manual) APTT 72.7 H* D-Dimer ABG pH ABG pO2 ABG HCO3 ABG Base Excess Sodium Carbon Dioxide 9 L* BUN 24 H Creatinine Glucose 143 H Hemoglobin A1c Lactic Acid Calcium 7.6 L Ferritin 849.7 H Total Bilirubin 1.80 H AST 45 H Lactate Dehydrogenase 507 H C-Reactive Protein 8.20 H Total Protein 5.6 L Albumin 2.8 L Prealbumin Coronavirus (PCR) 09/07/20 09/07/20 09/08/20 19:37 20:30 01:07 WBC RBC Hgb Hct MCHC Seg Neuts % (Manual) Lymphocytes % (Manual) Seg Neutrophils # Man Lymphocytes # (Manual) APTT D-Dimer ABG pH 7.336 L ABG pO2 91.2 H ABG HCO3 14.1 L ABG Base Excess -9.9 L Sodium Carbon Dioxide BUN Creatinine Glucose Hemoglobin A1c Lactic Acid 8.80 H* 3.80 H* Calcium Ferritin Total Bilirubin AST Lactate Dehydrogenase C-Reactive Protein Total Protein Albumin Prealbumin Coronavirus (PCR) 09/08/20 09/08/20 09/08/20 04:25 10:13 10:13 WBC 21.7 H RBC 5.49 H Hgb 17.1 H Hct 49.6 H MCHC 35 H Seg Neuts % (Manual) 96.0 H Lymphocytes % (Manual) 1.0 L Seg Neutrophils # Man 20.8 H Lymphocytes # (Manual) 0.2 L APTT D-Dimer ABG pH 7.484 H ABG pO2 148.2 H ABG HCO3 17.2 L ABG Base Excess -4.1 L Sodium Carbon Dioxide BUN Creatinine Glucose Hemoglobin A1c Lactic Acid 3.40 H* Calcium Ferritin Total Bilirubin AST Lactate Dehydrogenase C-Reactive Protein Total Protein Albumin Prealbumin Coronavirus (PCR) 09/08/20 09/08/20 09/08/20 10:13 10:13 10:13 WBC RBC Hgb Hct MCHC Seg Neuts % (Manual) Lymphocytes % (Manual) Seg Neutrophils # Man Lymphocytes # (Manual) APTT D-Dimer ABG pH ABG pO2 ABG HCO3 ABG Base Excess Sodium 135 L Carbon Dioxide 20 L D BUN 35 H Creatinine 1.6 H D Glucose 192 H Hemoglobin A1c 6.2 H Lactic Acid Calcium 8.3 L Ferritin Total Bilirubin 1.80 H AST 55 H Lactate Dehydrogenase C-Reactive Protein Total Protein Albumin 2.6 L Prealbumin 0.049 L Coronavirus (PCR)
--- NOTE | 2020-09-08 18:40 | Progress Note ---
Assessment and Plan -- Acute respiratory failure with hypoxia Patient intubated because of labored breathing and for protection of airway. Vent management Diesel Dinkey Engineer consult requested -- Pneumonia due to COVID-19 virus Patient restarted on IV Decadron Patient was discharged on from [facility] We will get the records from [facility] ID consult -- Sepsis with shock May be secondary to Covid or coronavirus Patient started on empiric antibiotics in the form of cefepime and vancomycin ID consult was requested started on levophed - wean as tolerated -- Bilateral pneumonia Patient started on IV cefepime and vancomycin for sepsis which can be continued for the bilateral pneumonia also --MYRON, likely ATN from profound sepsis monitor renal function, iv fluid, avoid nephrotoxin consult renal if no improvement -- CVA (cerebral vascular accident), h/o PT OT after extubation -- DVT prophylaxis On Lovenox and GI prophylaxis The high probability of a clinically significant, sudden or life threatening deterioration of the [department coordinator, 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 The aggregate critical care time was [34] minutes. This time is in addition to time spent performing reported procedures but includes the following: [x] Data Review and interpretation [x] Patient assessment and monitoring of vital signs [x] Documentation [x] Medication orders and management Brief History: 85-year-old male with a recent diagnosis of Covid pneumonia with acute respiratory failure/hypoxia discharged on [facility] on 09/03/2020 has been short of breath for the past 2 days because of which EMS was called. When the EMS arrived the patient was found to be hypoxic with room air oxygenation is running around 80s and also patient with altered sensorium. Patient was placed on nonrebreather and that his oxygen saturations improved to the 90s. Patient also has increased work of breathing and was getting tired because of which ER physician has intubated the patient. Placed on COVID protocol and admitted to ICU 09/08: resumed care. cont vent support, wean off pressor as tolerated. CC following. cont nebs, steroid for now. cont iv abx, follow ID recommendation. Subjective Date of service: 09/08/20 Interval history: Patient seen and examined remains on vent, on pressor discussed with RN at bedside Objective - Exam Narrative Exam: General appearance: Present: unresponsive on vent - EENT Eyes: Present: no congestion ENT:clear oral mucosa - Neck Neck: Present: supple, normal ROM - Respiratory Respiratory effort: on vent Respiratory: bilateral: CTA, rhonchi (Scattered) - Cardiovascular Heart rate: 98 Rhythm: regular Heart Sounds: Present: S1 & S2. Absent: rub, click - Extremities Extremities: no ischemia, pulses intact, pulses symmetrical, No edema Peripheral Pulses: within normal limits - Abdominal General gastrointestinal: Present: soft, non-tender, non-distended, normal bowel sounds Male genitourinary: Present: normal - Integumentary Integumentary: Present: clear, warm, dry - Musculoskeletal Musculoskeletal: generalized weakness, other (Patient intubated) - Psychiatric Psychiatric: other (Patient intubated and sedated) - Neurologic Neurologic: moves all extremities, other (Neurologic examination could not be done because the patient was sedated) - Constitutional Vitals: Vital Signs - 12hr 09/08/20 09/08/20 09/08/20 06:45 07:00 07:15 Temperature Pulse Rate 103 H 93 H 96 H Pulse Rate [ 100 H Right Radial] Respiratory 19 18 18 Rate Blood Pressure 102/67 100/76 102/69 O2 Sat by Pulse 97 97 97 Oximetry 09/08/20 09/08/20 09/08/20 07:30 07:31 07:45 Temperature Pulse Rate 93 H 88 97 H Pulse Rate [ Right Radial] Respiratory 18 18 Rate Blood Pressure 111/74 108/69 O2 Sat by Pulse 96 97 97 Oximetry 09/08/20 09/08/20 09/08/20 08:00 08:15 08:30 Temperature Pulse Rate 95 H 94 H 100 H Pulse Rate [ Right Radial] Respiratory 18 18 19 Rate Blood Pressure 115/76 109/85 104/75 O2 Sat by Pulse 97 97 96 Oximetry 09/08/20 09/08/20 09/08/20 08:45 09:00 09:15 Temperature Pulse Rate 94 H 95 H 94 H Pulse Rate [ 97 H Right Radial] Respiratory 18 18 18 Rate Blood Pressure 104/75 97/71 111/72 O2 Sat by Pulse 97 96 96 Oximetry 09/08/20 09/08/20 09/08/20 09:30 09:45 10:00 Temperature Pulse Rate 103 H 94 H 96 H Pulse Rate [ Right Radial] Respiratory 18 18 18 Rate Blood Pressure 100/74 109/70 109/74 O2 Sat by Pulse 96 97 97 Oximetry 09/08/20 09/08/20 09/08/20 10:15 10:30 10:45 Temperature Pulse Rate 95 H 100 H 92 H Pulse Rate [ Right Radial] Respiratory 18 17 20 Rate Blood Pressure 116/75 108/69 112/66 O2 Sat by Pulse 97 97 98 Oximetry 09/08/20 09/08/20 09/08/20 11:00 11:15 11:30 Temperature Pulse Rate 93 H 93 H 84 Pulse Rate [ Right Radial] Respiratory 17 18 18 Rate Blood Pressure 111/77 107/74 107/74 O2 Sat by Pulse 98 99 99 Oximetry 09/08/20 09/08/20 09/08/20 11:45 11:48 12:00 Temperature 97.8 F Pulse Rate 101 H 87 98 H Pulse Rate [ Right Radial] Respiratory 18 18 Rate Blood Pressure 118/79 118/79 108/84 O2 Sat by Pulse 98 98 98 Oximetry 09/08/20 09/08/20 09/08/20 12:15 12:30 12:45 Temperature Pulse Rate 94 H 95 H 86 Pulse Rate [ Right Radial] Respiratory 19 18 22 Rate Blood Pressure 108/84 115/79 113/73 O2 Sat by Pulse 99 96 97 Oximetry 09/08/20 09/08/20 09/08/20 13:00 13:15 13:30 Temperature Pulse Rate 92 H 98 H 102 H Pulse Rate [ Right Radial] Respiratory 17 22 18 Rate Blood Pressure 114/75 114/75 111/78 O2 Sat by Pulse 97 98 98 Oximetry 09/08/20 09/08/20 09/08/20 13:45 14:00 14:15 Temperature Pulse Rate 96 H 100 H 101 H Pulse Rate [ Right Radial] Respiratory 18 18 19 Rate Blood Pressure 107/71 116/78 106/77 O2 Sat by Pulse 98 98 97 Oximetry 09/08/20 09/08/20 09/08/20 14:30 14:45 15:00 Temperature Pulse Rate 110 H 100 H 103 H Pulse Rate [ Right Radial] Respiratory 18 17 18 Rate Blood Pressure 105/67 101/75 115/73 O2 Sat by Pulse 99 98 97 Oximetry 09/08/20 09/08/20 09/08/20 15:15 15:30 15:45 Temperature Pulse Rate 96 H 97 H 101 H Pulse Rate [ Right Radial] Respiratory 18 18 18 Rate Blood Pressure 109/74 95/74 111/75 O2 Sat by Pulse 98 96 97 Oximetry 09/08/20 09/08/20 09/08/20 16:00 16:15 16:28 Temperature 97.6 F Pulse Rate 101 H 101 H Pulse Rate [ 98 H Right Radial] Respiratory 20 24 18 Rate Blood Pressure 115/79 115/79 O2 Sat by Pulse 98 92 Oximetry 09/08/20 09/08/20 09/08/20 16:30 16:40 16:45 Temperature Pulse Rate 100 H 105 H 103 H Pulse Rate [ Right Radial] Respiratory 18 22 Rate Blood Pressure 91/64 91/64 91/64 O2 Sat by Pulse 96 97 96 Oximetry 09/08/20 09/08/20 09/08/20 17:00 17:15 17:30 Temperature Pulse Rate 104 H 102 H 100 H Pulse Rate [ Right Radial] Respiratory 22 25 H 22 Rate Blood Pressure 82/64 82/64 102/66 O2 Sat by Pulse 96 97 97 Oximetry 09/08/20 09/08/20 09/08/20 17:45 18:00 18:15 Temperature Pulse Rate 100 H 117 H 115 H Pulse Rate [ Right Radial] Respiratory 23 23 24 Rate Blood Pressure 112/73 110/71 120/78 O2 Sat by Pulse 97 97 96 Oximetry 09/08/20 09/08/20 18:31 18:39 Temperature 97.3 F L Pulse Rate 125 H Pulse Rate [ Right Radial] Respiratory 28 H Rate Blood Pressure 104/82 O2 Sat by Pulse 97 Oximetry - Labs CBC & Chem 7: 09/09/20 04:54 09/09/20 04:54 Labs: Abnormal lab results 09/07/20 09/07/20 09/07/20 Range/Units 17:25 18:00 18:00 WBC (4.5-11.0) K/mm3 RBC (3.65-5.03) M/mm3 Hgb (11.8-15.2) gm/dl Hct (35.5-45.6) % MCHC (32-34) % Seg Neuts % (Manual) 94.0 H (40.0-70.0) % Lymphocytes % (Manual) 1.0 L (13.4-35.0) % Seg Neutrophils # Man 22.1 H (1.8-7.7) K/mm3 Lymphocytes # (Manual) 0.2 L (1.2-5.4) K/mm3 APTT (24.2-36.6) Sec. D-Dimer > 26132 H (0-234) ng/mlDDU ABG pH (7.350-7.450) pH Units ABG pO2 (80.0-90.0) mm Hg ABG HCO3 (20.0-26.0) mmol/L ABG Base Excess (-2.0-3.0) mmol/L Sodium (137-145) mmol/L Carbon Dioxide (22-30) mmol/L BUN (9-20) mg/dL Creatinine (0.8-1.3) mg/dL Glucose (75-100) mg/dL Hemoglobin A1c (4-6) % Lactic Acid (0.7-2.0) mmol/L Calcium (8.4-10.2) mg/dL Ferritin (30.0-300.0) ng/mL Total Bilirubin (0.1-1.2) mg/dL AST (5-40) units/L Lactate Dehydrogenase (91-180) units/L C-Reactive Protein (0.00-1.30) mg/dL Total Protein (6.3-8.2) g/dL Albumin (3.9-5) g/dL Prealbumin (0.200-0.400) g/L Coronavirus (PCR) Positive A (Negative) 09/07/20 09/07/20 09/07/20 Range/Units 18:00 18:00 18:00 WBC (4.5-11.0) K/mm3 RBC (3.65-5.03) M/mm3 Hgb (11.8-15.2) gm/dl Hct (35.5-45.6) % MCHC (32-34) % Seg Neuts % (Manual) (40.0-70.0) % Lymphocytes % (Manual) (13.4-35.0) % Seg Neutrophils # Man (1.8-7.7) K/mm3 Lymphocytes # (Manual) (1.2-5.4) K/mm3 APTT 72.7 H* (24.2-36.6) Sec. D-Dimer (0-234) ng/mlDDU ABG pH (7.350-7.450) pH Units ABG pO2 (80.0-90.0) mm Hg ABG HCO3 (20.0-26.0) mmol/L ABG Base Excess (-2.0-3.0) mmol/L Sodium (137-145) mmol/L Carbon Dioxide 9 L* (22-30) mmol/L BUN 24 H (9-20) mg/dL Creatinine (0.8-1.3) mg/dL Glucose 143 H (75-100) mg/dL Hemoglobin A1c (4-6) % Lactic Acid (0.7-2.0) mmol/L Calcium 7.6 L (8.4-10.2) mg/dL Ferritin 849.7 H (30.0-300.0) ng/mL Total Bilirubin 1.80 H (0.1-1.2) mg/dL AST 45 H (5-40) units/L Lactate Dehydrogenase 507 H (91-180) units/L C-Reactive Protein 8.20 H (0.00-1.30) mg/dL Total Protein 5.6 L (6.3-8.2) g/dL Albumin 2.8 L (3.9-5) g/dL Prealbumin (0.200-0.400) g/L Coronavirus (PCR) (Negative) 09/07/20 09/07/20 09/08/20 Range/Units 19:37 20:30 01:07 WBC (4.5-11.0) K/mm3 RBC (3.65-5.03) M/mm3 Hgb (11.8-15.2) gm/dl Hct (35.5-45.6) % MCHC (32-34) % Seg Neuts % (Manual) (40.0-70.0) % Lymphocytes % (Manual) (13.4-35.0) % Seg Neutrophils # Man (1.8-7.7) K/mm3 Lymphocytes # (Manual) (1.2-5.4) K/mm3 APTT (24.2-36.6) Sec. D-Dimer (0-234) ng/mlDDU ABG pH 7.336 L (7.350-7.450) pH Units ABG pO2 91.2 H (80.0-90.0) mm Hg ABG HCO3 14.1 L (20.0-26.0) mmol/L ABG Base Excess -9.9 L (-2.0-3.0) mmol/L Sodium (137-145) mmol/L Carbon Dioxide (22-30) mmol/L BUN (9-20) mg/dL Creatinine (0.8-1.3) mg/dL Glucose (75-100) mg/dL Hemoglobin A1c (4-6) % Lactic Acid 8.80 H* 3.80 H* (0.7-2.0) mmol/L Calcium (8.4-10.2) mg/dL Ferritin (30.0-300.0) ng/mL Total Bilirubin (0.1-1.2) mg/dL AST (5-40) units/L Lactate Dehydrogenase (91-180) units/L C-Reactive Protein (0.00-1.30) mg/dL Total Protein (6.3-8.2) g/dL Albumin (3.9-5) g/dL Prealbumin (0.200-0.400) g/L Coronavirus (PCR) (Negative) 09/08/20 09/08/20 09/08/20 Range/Units 04:25 10:13 10:13 WBC 21.7 H (4.5-11.0) K/mm3 RBC 5.49 H (3.65-5.03) M/mm3 Hgb 17.1 H (11.8-15.2) gm/dl Hct 49.6 H (35.5-45.6) % MCHC 35 H (32-34) % Seg Neuts % (Manual) 96.0 H (40.0-70.0) % Lymphocytes % (Manual) 1.0 L (13.4-35.0) % Seg Neutrophils # Man 20.8 H (1.8-7.7) K/mm3 Lymphocytes # (Manual) 0.2 L (1.2-5.4) K/mm3 APTT (24.2-36.6) Sec. D-Dimer (0-234) ng/mlDDU ABG pH 7.484 H (7.350-7.450) pH Units ABG pO2 148.2 H (80.0-90.0) mm Hg ABG HCO3 17.2 L (20.0-26.0) mmol/L ABG Base Excess -4.1 L (-2.0-3.0) mmol/L Sodium (137-145) mmol/L Carbon Dioxide (22-30) mmol/L BUN (9-20) mg/dL Creatinine (0.8-1.3) mg/dL Glucose (75-100) mg/dL Hemoglobin A1c (4-6) % Lactic Acid 3.40 H* (0.7-2.0) mmol/L Calcium (8.4-10.2) mg/dL Ferritin (30.0-300.0) ng/mL Total Bilirubin (0.1-1.2) mg/dL AST (5-40) units/L Lactate Dehydrogenase (91-180) units/L C-Reactive Protein (0.00-1.30) mg/dL Total Protein (6.3-8.2) g/dL Albumin (3.9-5) g/dL Prealbumin (0.200-0.400) g/L Coronavirus (PCR) (Negative) 09/08/20 09/08/20 09/08/20 Range/Units 10:13 10:13 10:13 WBC (4.5-11.0) K/mm3 RBC (3.65-5.03) M/mm3 Hgb (11.8-15.2) gm/dl Hct (35.5-45.6) % MCHC (32-34) % Seg Neuts % (Manual) (40.0-70.0) % Lymphocytes % (Manual) (13.4-35.0) % Seg Neutrophils # Man (1.8-7.7) K/mm3 Lymphocytes # (Manual) (1.2-5.4) K/mm3 APTT (24.2-36.6) Sec. D-Dimer (0-234) ng/mlDDU ABG pH (7.350-7.450) pH Units ABG pO2 (80.0-90.0) mm Hg ABG HCO3 (20.0-26.0) mmol/L ABG Base Excess (-2.0-3.0) mmol/L Sodium 135 L (137-145) mmol/L Carbon Dioxide 20 L D (22-30) mmol/L BUN 35 H (9-20) mg/dL Creatinine 1.6 H D (0.8-1.3) mg/dL Glucose 192 H (75-100) mg/dL Hemoglobin A1c 6.2 H (4-6) % Lactic Acid (0.7-2.0) mmol/L Calcium 8.3 L (8.4-10.2) mg/dL Ferritin (30.0-300.0) ng/mL Total Bilirubin 1.80 H (0.1-1.2) mg/dL AST 55 H (5-40) units/L Lactate Dehydrogenase (91-180) units/L C-Reactive Protein (0.00-1.30) mg/dL Total Protein (6.3-8.2) g/dL Albumin 2.6 L (3.9-5) g/dL Prealbumin 0.049 L (0.200-0.400) g/L Coronavirus (PCR) (Negative) HEART Score - HEART Score Troponin: Troponin T < 0.010 ng/mL (0.00-0.029) 09/07/20 18:00
[2020-09-08 21:00] LABS: Hematocrit 45.1 % (35.5-45.6); Hemoglobin 15.3 gm/dl (11.8-15.2); Mean Corpuscular HGB Conc 34 % (32-34); Mean Corpuscular Volume 92 fl (84-94); Platelet Count 208 K/mm3 (140-440); Red Blood Count 4.91 M/mm3 (3.65-5.03); Red Cell Distribution Width 15.1 % (13.2-15.2)
[2020-09-08 21:11] LABS: Albumin 2.1 g/dL (3.9-5); Calcium 7.6 mg/dL (8.4-10.2)
[2020-09-08] MEDS ORDERED: ENOXAPARIN 40 MG/0.4 ML INJ SUB-Q SCH (22:00)
[2020-09-09 04:04] LABS: ABG Base Excess -7.5 mmol/L (-2.0-3.0); ABG HCO3 16.3 mmol/L (20.0-26.0); ABG Methemoglobin 0.6 % (0.0-1.5); ABG Oxygen Saturation 97.3 % (95.0-99.0); ABG PCO2 29.1 mm Hg; ABG PH 7.367 pH Units (7.350-7.450)
[2020-09-09 05:43] LABS: Hematocrit 44.3 % (35.5-45.6); Hemoglobin 15.2 gm/dl (11.8-15.2); Mean Corpuscular HGB Conc 34 % (32-34); Mean Corpuscular Volume 91 fl (84-94); Platelet Count 177 K/mm3 (140-440); Red Blood Count 4.86 M/mm3 (3.65-5.03)
[2020-09-09 05:48] LABS: Calcium 7.8 mg/dL (8.4-10.2)
[2020-09-09 06:09] LABS: Basophils % (Auto) 0.1 % (0.0-1.8); Lymphocytes % (Auto) 1.3 % (13.4-35.0); Monocytes % (Auto) 2.5 % (0.0-7.3)
[2020-09-09 06:10] LABS: Lymphocytes # (Auto) 0.4 K/mm3 (1.2-5.4); Monocytes # (Auto) 0.7 K/mm3 (0.0-0.8)
[2020-09-09] MEDS ORDERED: VANCOMYCIN/NS 1 GM/250 ML 1 GM/250 ML BAG IV SCH (09:00)
[2020-09-09] MEDS ORDERED: VANCOMYCIN 2,000 MG in SODIUM CHLORIDE 0.9% 500 ML 500 ML IV SCH (09:00)
--- NOTE | 2020-09-09 11:15 | Consultation ---
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 Of note, patient was admitted at [facility] from 08/26/2020-09/01/2020 secondary to severe COVID-19 pneumonia. Patient received oxygen supplementation via nasal cannula, dexamethasone and 3 days of remdesivir. Patient developed atrial fibrillation evaluated by cardiology, decision was noted to hold for long-term anticoagulation due to recent intracerebral hemorrhage. Repeat CT of the head shows resolution of previous hyperdense intraparenchymal hemorrhage in the right basal ganglia. Patient was offered subacute rehab but declined by family, patient is seen in the gym. Patient clinically improved and was discharged home. Upon EMS arrival patient was found hypoxic, O2 sats down to 80s, and also noted confused. Patient was placed on nonrebreather. In the ED, temperature 97.5, HR 161, RR 30, O2 sat 92, BP 60/42. Sats dropped to 89%. Patient was intubated. Initial WBC 23.5. Hemoglobin 15.2. Platelets 192. D-dimer 10,000. Ferritin 849. CRP 8.2. Lactate 8.8. Creatinine 1. AST 45. Urinalysis negative. Chest x-ray with bilateral patchy infiltrates. Blood cultures 09/07/2020 no growth today. Sputum culture 09/07/2020 pending. Review of Systems: Unable to obtain patient is intubated Medications and Allergies Allergies Allergy/AdvReac Type Severity Reaction Status Date / Time ceftriaxone Allergy Rash Verified 12/10/13 11:03 Home Medications Medication Instructions Recorded Confirmed Last Taken Type Aspirin [Aspirin BABY CHEW TAB] 81 mg PO QDAY #30 tab.chew 12/12/13 Unknown Rx levoFLOXacin [Levaquin TAB] 500 mg PO QDAY #7 tablet 12/12/13 Unknown Rx Active Meds: Active Medications Acetaminophen (Acetaminophen 325 Mg/10.15 Ml Oral Liqd Unit Dose) 650 mg PO Q4H PRN PRN Reason: Pain MILD(1-3)/Fever >100.5/BEST Lipase/Protease/Amylase (Lipase 10,500/Protease 25,000/Amylase 43,750 (Units) Dr Cap) 1 each FEEDTUBE PRN PRN PRN Reason: For Clogged Feeding Tube Dexamethasone (Dexamethasone 4 Mg/Ml Vial) 8 mg IV Q24HR CRISTIN Last Admin: 09/08/20 09:47 Dose: 8 mg Documented by: Enoxaparin Sodium (Enoxaparin 40 Mg/0.4 Ml Inj) 40 mg SUB-Q QDAY@2200 CRISTIN; Protocol Famotidine (Famotidine 20 Mg/2 Ml Inj) 20 mg IV BID CRISTIN Last Admin: 09/08/20 09:48 Dose: 20 mg Documented by: Hydrophilic Ointment (Lip Therapy Vaseline) 1 applic TP Q2HR PRN PRN Reason: Dry Lips Diltiazem HCl (Cardizem/D5w 100mg/100ml) 100 mg in 100 mls @ 5 mls/hr IV TITR CRISTIN; Protocol Last Titration: 09/08/20 18:57 Dose: 10 mg/hr, 10 mls/hr Documented by: Norepinephrine (Levophed Drip 4 Mg/Ns 250 Ml) 4 mg in 250 mls @ 7.5 mls/hr IV TITR CRISTIN; Protocol Last Admin: 09/08/20 23:12 Dose: 12 mcg/min, 45 mls/hr Documented by: Midazolam HCl 100 mg/ Sodium (Chloride) 100 mls @ 2 mls/hr IV TITR CRISTIN; Protocol Last Admin: 09/08/20 17:43 Dose: 4 mg/hr, 4 mls/hr Documented by: Sodium Chloride (Nacl 0.9% 1000 Ml) 1,000 mls @ 42 mls/hr IV DIRECT CRISTIN Piperacillin Sod/Tazobactam Sod (Zosyn/Ns 3.375gm/50ml) 3.375 gm in 50 mls @ 100 mls/hr IV Q8HR CRISTIN Last Admin: 09/08/20 13:36 Dose: 100 mls/hr Documented by: Vancomycin HCl (Vancomycin/Ns 1 Gm/250 Ml) 1 gm in 250 mls @ 166.667 mls/hr IV Q24H CRISTIN Midazolam HCl (Midazolam 2 Mg/2 Ml Inj) 2 mg IV Q10MIN PRN PRN Reason: Sedation Morphine Sulfate (Morphine 2 Mg/1 Ml Inj) 2 mg IV Q4H PRN PRN Reason: Pain, Moderate (4-6) Multi-Ingred Cream/Lotion/Oil/Oint (Mineral Oil/Petrolatum, White Ophth Oint 3.5 Gm) 1 applic OU Q4HR PRN PRN Reason: Dry Eye(s) Ondansetron HCl (Ondansetron 4 Mg/2 Ml Inj) 4 mg IV Q8H PRN PRN Reason: Nausea And Vomiting Simple Syrup (Simple Syrup 15 Ml) 15 ml FEEDTUBE PRN PRN PRN Reason: Hypoglycemia Simple Syrup (Simple Syrup 15 Ml) 30 ml FEEDTUBE PRN PRN PRN Reason: Hypoglycemia Sodium Bicarbonate (Sodium Bicarbonate 325 Mg Tab) 325 mg FEEDTUBE PRN PRN PRN Reason: For Clogged Feeding Tube Sodium Chloride (Sodium Chloride 0.9% 10 Ml Flush Syringe) 10 ml IV BID CRISTIN Last Admin: 09/08/20 09:48 Dose: 10 ml Documented by: Sodium Chloride (Sodium Chloride 0.9% 10 Ml Flush Syringe) 10 ml IV PRN PRN PRN Reason: LINE FLUSH Physical Examination - Physical Exam Narrative exam: General appearance: Sedated on the ventilator Eyes: anicteric sclerae, moist conjunctivae; no lid-lag; PERRLA HENT: Normocephalic, Atraumatic; normal external ears, nares open, oropharynx clear Neck: supple, tracheal midline, no JVD Lungs: CTA, with normal respiratory effort and no intercostal retractions CV: RRR no murmur Abdomen: Soft, non-tender; no masses or hepatosplenomegaly Extremities: no edema, no cyanosis Skin: No rash. Psych: no agitated Neuro: alert and oriented x 3. Moving all extermities - Constitutional Vitals: Vital Signs Temp Pulse Resp BP Pulse Ox 97.3 F L 89 18 113/76 96 09/08/20 18:39 09/09/20 08:13 09/09/20 06:45 09/09/20 08:13 09/09/20 08:13 Temperature -Last 24 Hours Temperature 97.3 F Temperature 97.6 F Temperature 97.8 F Results - Labs CBC & Chem 7: 09/09/20 04:54 09/09/20 04:54 Labs: Abnormal lab results 09/07/20 09/08/20 09/08/20 Range/Units 17:25 10:13 10:13 WBC 21.7 H (4.5-11.0) K/mm3 RBC 5.49 H (3.65-5.03) M/mm3 Hgb 17.1 H (11.8-15.2) gm/dl Hct 49.6 H (35.5-45.6) % MCHC 35 H (32-34) % Lymph % (Auto) (13.4-35.0) % Lymph # (Auto) (1.2-5.4) K/mm3 Seg Neutrophils % (40.0-70.0) % Seg Neuts % (Manual) 96.0 H (40.0-70.0) % Lymphocytes % (Manual) 1.0 L (13.4-35.0) % Seg Neutrophils # (1.8-7.7) K/mm3 Seg Neutrophils # Man 20.8 H (1.8-7.7) K/mm3 Lymphocytes # (Manual) 0.2 L (1.2-5.4) K/mm3 ABG pO2 (80.0-90.0) mm Hg ABG HCO3 (20.0-26.0) mmol/L ABG Base Excess (-2.0-3.0) mmol/L Sodium (137-145) mmol/L Carbon Dioxide (22-30) mmol/L BUN (9-20) mg/dL Creatinine (0.8-1.3) mg/dL Glucose (75-100) mg/dL Hemoglobin A1c (4-6) % Lactic Acid 3.40 H* (0.7-2.0) mmol/L Calcium (8.4-10.2) mg/dL Total Bilirubin (0.1-1.2) mg/dL AST (5-40) units/L Total Protein (6.3-8.2) g/dL Albumin (3.9-5) g/dL Prealbumin (0.200-0.400) g/L Coronavirus (PCR) Positive A (Negative) 09/08/20 09/08/20 09/08/20 Range/Units 10:13 10:13 10:13 WBC (4.5-11.0) K/mm3 RBC (3.65-5.03) M/mm3 Hgb (11.8-15.2) gm/dl Hct (35.5-45.6) % MCHC (32-34) % Lymph % (Auto) (13.4-35.0) % Lymph # (Auto) (1.2-5.4) K/mm3 Seg Neutrophils % (40.0-70.0) % Seg Neuts % (Manual) (40.0-70.0) % Lymphocytes % (Manual) (13.4-35.0) % Seg Neutrophils # (1.8-7.7) K/mm3 Seg Neutrophils # Man (1.8-7.7) K/mm3 Lymphocytes # (Manual) (1.2-5.4) K/mm3 ABG pO2 (80.0-90.0) mm Hg ABG HCO3 (20.0-26.0) mmol/L ABG Base Excess (-2.0-3.0) mmol/L Sodium 135 L (137-145) mmol/L Carbon Dioxide 20 L D (22-30) mmol/L BUN 35 H (9-20) mg/dL Creatinine 1.6 H D (0.8-1.3) mg/dL Glucose 192 H (75-100) mg/dL Hemoglobin A1c 6.2 H (4-6) % Lactic Acid (0.7-2.0) mmol/L Calcium 8.3 L (8.4-10.2) mg/dL Total Bilirubin 1.80 H (0.1-1.2) mg/dL AST 55 H (5-40) units/L Total Protein (6.3-8.2) g/dL Albumin 2.6 L (3.9-5) g/dL Prealbumin 0.049 L (0.200-0.400) g/L Coronavirus (PCR) (Negative) 09/08/20 09/08/20 09/08/20 Range/Units 20:18 20:18 20:18 WBC 29.8 H (4.5-11.0) K/mm3 RBC (3.65-5.03) M/mm3 Hgb 15.3 H (11.8-15.2) gm/dl Hct (35.5-45.6) % MCHC (32-34) % Lymph % (Auto) (13.4-35.0) % Lymph # (Auto) (1.2-5.4) K/mm3 Seg Neutrophils % (40.0-70.0) % Seg Neuts % (Manual) (40.0-70.0) % Lymphocytes % (Manual) (13.4-35.0) % Seg Neutrophils # (1.8-7.7) K/mm3 Seg Neutrophils # Man (1.8-7.7) K/mm3 Lymphocytes # (Manual) (1.2-5.4) K/mm3 ABG pO2 (80.0-90.0) mm Hg ABG HCO3 (20.0-26.0) mmol/L ABG Base Excess (-2.0-3.0) mmol/L Sodium 136 L (137-145) mmol/L Carbon Dioxide 17 L (22-30) mmol/L BUN 42 H (9-20) mg/dL Creatinine 1.9 H (0.8-1.3) mg/dL Glucose 203 H (75-100) mg/dL Hemoglobin A1c (4-6) % Lactic Acid 2.20 H* (0.7-2.0) mmol/L Calcium 7.6 L (8.4-10.2) mg/dL Total Bilirubin (0.1-1.2) mg/dL AST 51 H (5-40) units/L Total Protein 6.2 L (6.3-8.2) g/dL Albumin 2.1 L (3.9-5) g/dL Prealbumin (0.200-0.400) g/L Coronavirus (PCR) (Negative) 09/08/20 09/09/20 09/09/20 Range/Units 21:53 00:19 03:15 WBC (4.5-11.0) K/mm3 RBC (3.65-5.03) M/mm3 Hgb (11.8-15.2) gm/dl Hct (35.5-45.6) % MCHC (32-34) % Lymph % (Auto) (13.4-35.0) % Lymph # (Auto) (1.2-5.4) K/mm3 Seg Neutrophils % (40.0-70.0) % Seg Neuts % (Manual) (40.0-70.0) % Lymphocytes % (Manual) (13.4-35.0) % Seg Neutrophils # (1.8-7.7) K/mm3 Seg Neutrophils # Man (1.8-7.7) K/mm3 Lymphocytes # (Manual) (1.2-5.4) K/mm3 ABG pO2 97.0 H (80.0-90.0) mm Hg ABG HCO3 16.3 L (20.0-26.0) mmol/L ABG Base Excess -7.5 L (-2.0-3.0) mmol/L Sodium (137-145) mmol/L Carbon Dioxide (22-30) mmol/L BUN (9-20) mg/dL Creatinine (0.8-1.3) mg/dL Glucose (75-100) mg/dL Hemoglobin A1c (4-6) % Lactic Acid 3.20 H* 2.10 H* (0.7-2.0) mmol/L Calcium (8.4-10.2) mg/dL Total Bilirubin (0.1-1.2) mg/dL AST (5-40) units/L Total Protein (6.3-8.2) g/dL Albumin (3.9-5) g/dL Prealbumin (0.200-0.400) g/L Coronavirus (PCR) (Negative) 09/09/20 09/09/20 09/09/20 Range/Units 04:54 04:54 04:54 WBC 28.5 H (4.5-11.0) K/mm3 RBC (3.65-5.03) M/mm3 Hgb (11.8-15.2) gm/dl Hct (35.5-45.6) % MCHC (32-34) % Lymph % (Auto) 1.3 L (13.4-35.0) % Lymph # (Auto) 0.4 L (1.2-5.4) K/mm3 Seg Neutrophils % 96.1 H (40.0-70.0) % Seg Neuts % (Manual) (40.0-70.0) % Lymphocytes % (Manual) (13.4-35.0) % Seg Neutrophils # 27.4 H (1.8-7.7) K/mm3 Seg Neutrophils # Man (1.8-7.7) K/mm3 Lymphocytes # (Manual) (1.2-5.4) K/mm3 ABG pO2 (80.0-90.0) mm Hg ABG HCO3 (20.0-26.0) mmol/L ABG Base Excess (-2.0-3.0) mmol/L Sodium (137-145) mmol/L Carbon Dioxide 17 L (22-30) mmol/L BUN 45 H (9-20) mg/dL Creatinine 2.2 H (0.8-1.3) mg/dL Glucose 201 H (75-100) mg/dL Hemoglobin A1c (4-6) % Lactic Acid 2.90 H* (0.7-2.0) mmol/L Calcium 7.8 L (8.4-10.2) mg/dL Total Bilirubin (0.1-1.2) mg/dL AST (5-40) units/L Total Protein (6.3-8.2) g/dL Albumin (3.9-5) g/dL Prealbumin (0.200-0.400) g/L Coronavirus (PCR) (Negative) 09/09/20 09/09/20 Range/Units 06:56 09:04 WBC (4.5-11.0) K/mm3 RBC (3.65-5.03) M/mm3 Hgb (11.8-15.2) gm/dl Hct (35.5-45.6) % MCHC (32-34) % Lymph % (Auto) (13.4-35.0) % Lymph # (Auto) (1.2-5.4) K/mm3 Seg Neutrophils % (40.0-70.0) % Seg Neuts % (Manual) (40.0-70.0) % Lymphocytes % (Manual) (13.4-35.0) % Seg Neutrophils # (1.8-7.7) K/mm3 Seg Neutrophils # Man (1.8-7.7) K/mm3 Lymphocytes # (Manual) (1.2-5.4) K/mm3 ABG pO2 (80.0-90.0) mm Hg ABG HCO3 (20.0-26.0) mmol/L ABG Base Excess (-2.0-3.0) mmol/L Sodium (137-145) mmol/L Carbon Dioxide (22-30) mmol/L BUN (9-20) mg/dL Creatinine (0.8-1.3) mg/dL Glucose (75-100) mg/dL Hemoglobin A1c (4-6) % Lactic Acid 4.70 H* 3.70 H* (0.7-2.0) mmol/L Calcium (8.4-10.2) mg/dL Total Bilirubin (0.1-1.2) mg/dL AST (5-40) units/L Total Protein (6.3-8.2) g/dL Albumin (3.9-5) g/dL Prealbumin (0.200-0.400) g/L Coronavirus (PCR) (Negative) Assessment and Plan Cultures: Blood cultures 09/07/2020 no growth today. Sputum culture 09/07/2020 pending. 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 Urinalysis negative. #Severe COVID-19 pneumonia: Diagnosed initially on 08/26/2020, treated at [facility] with dexamethasone, remdesivir for 3 days. Anticoagulation was not given due to recent hemorrhagic CVA. Chest x-ray with bilateral patchy infiltrates. Inflammatory markers elevated, D-dimer> 10,000, f erritin 849, CRP 8.2. Procalcitonin 0.3. ? Bacterial pneumonia component. ?HAP #Acute hypoxemic respiratory failure: Initial sats dropped to 89%. Patient intubated in the ED, FiO2 40%, PEEP of 8 #A. fib: Diagnosed during recent admission at [facility]. Seen by cardiology, anticoagulation was hold off given recent hemorrhagic CVA. Currently on Cardizem drip. #Elevated LFTs: Likely secondary to COVID-19. #Recent hemorrhagic CVA: Diagnosed in July 2020. Recent CT of the head at [facility] shows resolution of previous hyperdense intraparenchymal hemorrhage in the right basal ganglia. #Ceftriaxone allergy? Unclear details. Tolerating Zosyn. Recommendations: Follow blood cultures, obtain sputum cultures Stop Zosyn Start Levaquin 750 mg IV daily Start vancomycin with PK consult Check MRSA PCR No indication for remdesivir as lack of benefit after 2 weeks of diagnosis, also patient received 3 days of treatment at [facility]. Continue steroids Anticoagulation per internal medicine and neurology, recent hemorrhagic CVA Cardiology consult [facility]VR A fib Dr. Alexander brown tomorrow Evaluation for DVT and PE Will follow. Guarded prognosis discussed with daughter Shona Rojo MD Infectious Diseases [facility] ([facility] M [phone] O [phone]
[2020-09-09] MEDS: PIPERACILLIN/TAZOBACTAM 3.375 3.375 GM/50 ML BAG IV SCH (11:49)
[2020-09-09] MEDS: FAMOTIDINE 20 MG/2 ML INJ IV SCH ×2 (11:50→13:18)
[2020-09-09] MEDS: dexAMETHasone 4 MG/ML VIAL IV SCH (13:18)
--- NOTE | 2020-09-09 14:38 | Progress Note ---
Assessment and Plan -- Acute respiratory failure with hypoxia due to Covid 19 vs Hospital acquired PNA Patient intubated because of labored breathing and for protection of airway. cont Vent management, Cupola Operator consult requested -- COVID-19 virus infection Diagnosed initially on 08/26/2020, treated at [facility] with dexamethasone, remdesivir for 3 days. Anticoagulation was not given due to recent hemorrhagic CVA. Chest x-ray with bilateral patchy infiltrates. Patient was discharged on from [facility] Patient restarted on IV Decadron ID consult -- Sepsis with shock May be secondary to Covid infection Patient started on empiric antibiotics in the form of cefepime and vancomycin ID consult was requested started on levophed - wean as tolerated -- Bilateral pneumonia due to Covid 19 vs Hospital acquired PNA Patient on IV levaquin and vancomycin, ID following --MYRON, likely ATN from profound sepsis monitor renal function, iv fluid, avoid nephrotoxin consult renal -- Hemorrhagic CVA (cerebral vascular accident), h/o PT OT after extubation --acute on chronic atrial fib cot rate control, not a candidate for AC for h/o recent Hemorrhagic CVA -- DVT prophylaxis On Lovenox and GI prophylaxis The high probability of a clinically significant, sudden or life threatening deterioration of the [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 The aggregate critical care time was [34] minutes. This time is in addition to time spent performing reported procedures but includes the following: [x] Data Review and interpretation [x] Patient assessment and monitoring of vital signs [x] Documentation [x] Medication orders and management Brief History: 85 years old male with history of hypertension, recent hemor rhagic CVA in July 2020, atrial fib not on AC for recent hemorrhagic CVA, COVID-19 pneumonia diagnosed on 08/26/2020, patient was admitted at [facility] from 08/26/2020-09/01/2020 secondary to severe COVID-19 pneumonia. Patient received oxygen supplementation via nasal cannula, dex amethasone and 3 days of remdesivir. Patient admitted on 09/07/2020 to [facility] secondary to worsening cough, dyspnea on exertion and shortness of breath for the past 2 days because of which EMS was called. When the EMS arrived the patient was found to be hypoxic with room air oxygenation is running around 80s and also patient with altered sensorium. Patient was placed on nonrebreather and that his oxygen saturations improved to the 90s. Patient also has increased work of breathing and was getting tired because of which ER physician has intubated the patient. Placed on COVID protocol and admitted to ICU 09/08: resumed care. cont vent support, wean off pressor as tolerated. CC following. cont nebs, steroid for now. cont iv abx, follow ID recommendation. 09/09: order CT head. cont current Mx. cont steroid, vent support, nebs. follow Id recommendation. consult renal for MYRON Subjective Date of service: 09/09/20 Interval history: Patient seen and examined remains on vent, on pressor discussed with RN at bedside Objective - Exam Narrative Exam: General appearance: Present: unresponsive on vent - EENT Eyes: Present: no congestion ENT:clear oral mucosa - Neck Neck: Present: supple, normal ROM - Respiratory Respiratory effort: on vent Respiratory: bilateral: CTA, rhonchi (Scattered) - Cardiovascular Heart rate: 98 Rhythm: regular Heart Sounds: Present: S1 & S2. Absent: rub, click - Extremities Extremities: no ischemia, pulses intact, pulses symmetrical, No edema Peripheral Pulses: within normal limits - Abdominal General gastrointestinal: Present: soft, non-tender, non-distended, normal bowel sounds Male genitourinary: Present: normal - Integumentary Integumentary: Present: clear, warm, dry - Musculoskeletal Musculoskeletal: generalized weakness, other (Patient intubated) - Psychiatric Psychiatric: other (Patient intubated and sedated) - Neurologic Neurologic: other (Neurologic examination could not be done because the patient was sedated) - Constitutional Vitals: Vital Signs - 12hr 09/09/20 09/09/20 09/09/20 02:45 03:00 03:15 Pulse Rate 107 H 107 H 103 H Respiratory 18 18 18 Rate Blood Pressure 108/78 116/75 116/77 O2 Sat by Pulse 97 97 97 Oximetry 09/09/20 09/09/20 09/09/20 03:30 03:45 04:00 Pulse Rate 108 H 101 H 99 H Respiratory 18 18 25 H Rate Blood Pressure 113/80 104/74 111/64 O2 Sat by Pulse 97 98 98 Oximetry 09/09/20 09/09/20 09/09/20 04:15 04:30 04:45 Pulse Rate 97 H 95 H 86 Respiratory 22 20 22 Rate Blood Pressure 107/71 113/62 124/76 O2 Sat by Pulse 97 97 97 Oximetry 09/09/20 09/09/20 09/09/20 05:01 05:15 05:30 Pulse Rate 94 H 97 H 96 H Respiratory 21 19 18 Rate Blood Pressure 124/76 120/83 107/74 O2 Sat by Pulse 98 97 97 Oximetry 09/09/20 09/09/20 09/09/20 05:45 06:00 06:15 Pulse Rate 99 H 98 H 90 Respiratory 18 25 H 18 Rate Blood Pressure 107/79 106/82 114/78 O2 Sat by Pulse 98 98 97 Oximetry 09/09/20 09/09/20 09/09/20 06:30 06:45 08:13 Pulse Rate 94 H 97 H 89 Respiratory 19 18 Rate Blood Pressure 112/76 112/76 113/76 O2 Sat by Pulse 98 96 96 Oximetry 09/09/20 12:33 Pulse Rate 96 H Respiratory Rate Blood Pressure 108/76 O2 Sat by Pulse 96 Oximetry - Labs CBC & Chem 7: 09/11/20 05:42 09/10/20 04:56 Labs: Abnormal lab results 09/07/20 09/08/20 09/08/20 Range/Units 17:25 20:18 20:18 WBC 29.8 H (4.5-11.0) K/mm3 Hgb 15.3 H (11.8-15.2) gm/dl Lymph % (Auto) (13.4-35.0) % Lymph # (Auto) (1.2-5.4) K/mm3 Seg Neutrophils % (40.0-70.0) % Seg Neutrophils # (1.8-7.7) K/mm3 ABG pO2 (80.0-90.0) mm Hg ABG HCO3 (20.0-26.0) mmol/L ABG Base Excess (-2.0-3.0) mmol/L Sodium 136 L (137-145) mmol/L Carbon Dioxide 17 L (22-30) mmol/L BUN 42 H (9-20) mg/dL Creatinine 1.9 H (0.8-1.3) mg/dL Glucose 203 H (75-100) mg/dL Lactic Acid (0.7-2.0) mmol/L Calcium 7.6 L (8.4-10.2) mg/dL AST 51 H (5-40) units/L Total Protein 6.2 L (6.3-8.2) g/dL Albumin 2.1 L (3.9-5) g/dL Coronavirus (PCR) Positive A (Negative) 09/08/20 09/08/20 09/09/20 Range/Units 20:18 21:53 00:19 WBC (4.5-11.0) K/mm3 Hgb (11.8-15.2) gm/dl Lymph % (Auto) (13.4-35.0) % Lymph # (Auto) (1.2-5.4) K/mm3 Seg Neutrophils % (40.0-70.0) % Seg Neutrophils # (1.8-7.7) K/mm3 ABG pO2 (80.0-90.0) mm Hg ABG HCO3 (20.0-26.0) mmol/L ABG Base Excess (-2.0-3.0) mmol/L Sodium (137-145) mmol/L Carbon Dioxide (22-30) mmol/L BUN (9-20) mg/dL Creatinine (0.8-1.3) mg/dL Glucose (75-100) mg/dL Lactic Acid 2.20 H* 3.20 H* 2.10 H* (0.7-2.0) mmol/L Calcium (8.4-10.2) mg/dL AST (5-40) units/L Total Protein (6.3-8.2) g/dL Albumin (3.9-5) g/dL Coronavirus (PCR) (Negative) 09/09/20 09/09/20 09/09/20 Range/Units 03:15 04:54 04:54 WBC 28.5 H (4.5-11.0) K/mm3 Hgb (11.8-15.2) gm/dl Lymph % (Auto) 1.3 L (13.4-35.0) % Lymph # (Auto) 0.4 L (1.2-5.4) K/mm3 Seg Neutrophils % 96.1 H (40.0-70.0) % Seg Neutrophils # 27.4 H (1.8-7.7) K/mm3 ABG pO2 97.0 H (80.0-90.0) mm Hg ABG HCO3 16.3 L (20.0-26.0) mmol/L ABG Base Excess -7.5 L (-2.0-3.0) mmol/L Sodium (137-145) mmol/L Carbon Dioxide 17 L (22-30) mmol/L BUN 45 H (9-20) mg/dL Creatinine 2.2 H (0.8-1.3) mg/dL Glucose 201 H (75-100) mg/dL Lactic Acid (0.7-2.0) mmol/L Calcium 7.8 L (8.4-10.2) mg/dL AST (5-40) units/L Total Protein (6.3-8.2) g/dL Albumin (3.9-5) g/dL Coronavirus (PCR) (Negative) 09/09/20 09/09/20 09/09/20 Range/Units 04:54 06:56 09:04 WBC (4.5-11.0) K/mm3 Hgb (11.8-15.2) gm/dl Lymph % (Auto) (13.4-35.0) % Lymph # (Auto) (1.2-5.4) K/mm3 Seg Neutrophils % (40.0-70.0) % Seg Neutrophils # (1.8-7.7) K/mm3 ABG pO2 (80.0-90.0) mm Hg ABG HCO3 (20.0-26.0) mmol/L ABG Base Excess (-2.0-3.0) mmol/L Sodium (137-145) mmol/L Carbon Dioxide (22-30) mmol/L BUN (9-20) mg/dL Creatinine (0.8-1.3) mg/dL Glucose (75-100) mg/dL Lactic Acid 2.90 H* 4.70 H* 3.70 H* (0.7-2.0) mmol/L Calcium (8.4-10.2) mg/dL AST (5-40) units/L Total Protein (6.3-8.2) g/dL Albumin (3.9-5) g/dL Coronavirus (PCR) (Negative) HEART Score - HEART Score Troponin: Troponin T < 0.010 ng/mL (0.00-0.029) 09/07/20 18:00
--- NOTE | 2020-09-09 14:45 | Consultation ---
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 Patient was not able to provide any history and there was no family member at the bedside. Patient was admitted at [facility] from 08/26/2020-09/01/2020 secondary to severe COVID-19 pneumonia. Patient received oxygen supplementation via nasal cannula, dexamethasone and 3 days of remdesivir. Patient developed atrial fibrillation evaluated by cardiology and put him on anticoagulation. Patient was offered subacute rehab but declined by family. Upon EMS arrival patient was found hypoxic, O2 sats down to 80s, and also noted confused. Patient was placed on nonrebreather. In the ED, temperature 97.5, HR 161, RR 30, O2 sat 92, BP 60/42. Sats dropped to 89%. Patient was intubated. Initial Creatinine was 1, increased to 2.2 today. Chest x-ray showed bilateral patchy infiltrates. Nephrology was consulted for further evaluation and treatment of MYRON. Past History Past Medical History: other (See HPI.) Medications and Allergies Allergies Allergy/AdvReac Type Severity Reaction Status Date / Time ceftriaxone Allergy Rash Verified 12/10/13 11:03 Home Medications Medication Instructions Recorded Confirmed Last Taken Type Aspirin [Aspirin BABY CHEW TAB] 81 mg PO QDAY #30 tab.chew 12/12/13 Unknown Rx levoFLOXacin [Levaquin TAB] 500 mg PO QDAY #7 tablet 12/12/13 Unknown Rx Active Meds: Active Medications Acetaminophen (Acetaminophen 325 Mg/10.15 Ml Oral Liqd Unit Dose) 650 mg PO Q4H PRN PRN Reason: Pain MILD(1-3)/Fever >100.5/BEST Lipase/Protease/Amylase (Lipase 10,500/Protease 25,000/Amylase 43,750 (Units) Dr Carey) 1 each FEEDTUBE PRN PRN PRN Reason: For Clogged Feeding Tube Dexamethasone (Dexamethasone 4 Mg/Ml Vial) 8 mg IV Q24HR CRISTIN Last Admin: 09/09/20 13:18 Dose: 8 mg Documented by: Enoxaparin Sodium (Enoxaparin 40 Mg/0.4 Ml Inj) 40 mg SUB-Q QDAY@2200 CRISTIN; Protocol Last Admin: 09/09/20 11:50 Dose: Not Given Documented by: Famotidine (Famotidine 20 Mg/2 Ml Inj) 20 mg IV BID [facility] Last Admin: 09/09/20 13:18 Dose: 20 mg Documented by: Hydrophilic Ointment (Lip Therapy Vaseline) 1 applic TP Q2HR PRN PRN Reason: Dry Lips Diltiazem HCl (Cardizem/D5w 100mg/100ml) 100 mg in 100 mls @ 5 mls/hr IV TITR CRISTIN; Protocol Last Titration: 09/08/20 18:57 Dose: 10 mg/hr, 10 mls/hr Documented by: Norepinephrine (Levophed Drip 4 Mg/Ns 250 Ml) 4 mg in 250 mls @ 7.5 mls/hr IV TITR CRISTIN; Protocol Last Admin: 09/08/20 23:12 Dose: 12 mcg/min, 45 mls/hr Documented by: Midazolam HCl 100 mg/ Sodium (Chloride) 100 mls @ 2 mls/hr IV TITR CRISTIN; Protocol Last Admin: 09/08/20 17:43 Dose: 4 mg/hr, 4 mls/hr Documented by: Sodium Chloride (Nacl 0.9% 1000 Ml) 1,000 mls @ 42 mls/hr IV DIRECT CRISTIN Last Admin: 09/09/20 13:18 Dose: 42 mls/hr Documented by: Vancomycin HCl (Vancomycin/Ns 1 Gm/250 Ml) 1 gm in 250 mls @ 166.667 mls/hr IV Q24H CRISTIN Levofloxacin/Dextrose (Levaquin 750mg/150ml) 750 mg in 150 mls @ 100 mls/hr IV Q48H CRISTIN Last Admin: 09/09/20 13:18 Dose: 100 mls/hr Documented by: Midazolam HCl (Midazolam 2 Mg/2 Ml Inj) 2 mg IV Q10MIN PRN PRN Reason: Sedation Morphine Sulfate (Morphine 2 Mg/1 Ml Inj) 2 mg IV Q4H PRN PRN Reason: Pain, Moderate (4-6) Multi-Ingred Cream/Lotion/Oil/Oint (Mineral Oil/Petrolatum, White Ophth Oint 3.5 Gm) 1 applic OU Q4HR PRN PRN Reason: Dry Eye(s) Ondansetron HCl (Ondansetron 4 Mg/2 Ml Inj) 4 mg IV Q8H PRN PRN Reason: Nausea And Vomiting Simple Syrup (Simple Syrup 15 Ml) 15 ml FEEDTUBE PRN PRN PRN Reason: Hypoglycemia Simple Syrup (Simple Syrup 15 Ml) 30 ml FEEDTUBE PRN PRN PRN Reason: Hypoglycemia Sodium Bicarbonate (Sodium Bicarbonate 325 Mg Tab) 325 mg FEEDTUBE PRN PRN PRN Reason: For Clogged Feeding Tube Sodium Chloride (Sodium Chloride 0.9% 10 Ml Flush Syringe) 10 ml IV BID CRISTIN Last Admin: 09/09/20 13:40 Dose: 10 ml Documented by: Sodium Chloride (Sodium Chloride 0.9% 10 Ml Flush Syringe) 10 ml IV PRN PRN PRN Reason: LINE FLUSH Review of Systems ROS unobtainable: due to mental status Exam - Vital Signs Vital signs: Vital Signs Pulse Resp Pulse Ox 161 H 30 H 92 09/07/20 16:35 09/07/20 16:35 09/07/20 16:35 Results - Lab Results 09/09/20 20:28 09/09/20 04:54 Most recent lab results ABG pH 7.367 pH Units (7.350-7.450) 09/09/20 03:15 ABG pCO2 29.1 mm Hg 09/09/20 03:15 ABG pO2 97.0 mm Hg (80.0-90.0) H 09/09/20 03:15 ABG HCO3 16.3 mmol/L (20.0-26.0) L 09/09/20 03:15 ABG O2 Saturation 97.3 % (95.0-99.0) 09/09/20 03:15 Calcium 7.8 mg/dL (8.4-10.2) L 09/09/20 04:54 Phosphorus 3.20 mg/dL (2.5-4.5) 09/08/20 10:13 Magnesium 2.00 mg/dL (1.7-2.3) 09/08/20 10:13 Assessment and Plan 1. Acute kidney injury: Vasomotor nephropathy in the setting of Shock and severe COVID infection. Low FeNa. Renal US ordered. Monitor renal function. Continue with IV fluids. Avoid nephrotoxic agents. Meds dosage based on GFR. 2. FEN: Anion-gap metabolic acidosis, 2/2 lactic acidosis, IV fluids, monitor. Monitor lytes and volume status. 3. Acute hypoxic resp failure, POA: 2/2 COVID PNA. Currently intubated on vent. Followed by Pulmonary. 4. Septic shock: 2/2 severe COVID infection. Levofloxacin and Vancomycin. Levophed, wean as tolerated. 5. Pneumonia due to COVID-19 virus, POA: IV Decadron. S/p Remdesivir at [facility]. Followed by ID. 6. H/o Hemorrhagic CVA. PT OT after extubation 7. Atrial fib: Rate control, per primary. Prognosis is guarded. Subjective: Patient was seen and examined at the bedside. Examination: General appearance: well-developed, appears emaciated, intubated, on vent HEENT: ATNC EYES: pupils appears equal Neck: trachea midline Respiratory: MV sounds Heart: S1S2, irregular, no murmur Gastrointestinal: soft, not tender, BS heard Integumentary: no rash, warm and dry Neurologic: not responding Ext: no edema : Reyez catheter
[2020-09-09 17:09] LABS: Creatinine,Urine 213.6 mg/dL (0.1-20.0)
--- NOTE | 2020-09-09 19:48 | Progress Note ---
Assessment and Plan Acute hypoxemic respiratory failure, on MVS COVID-19 infection. Bilateral pneumonia Acute encephalopathy, presumably toxic metabolic. Severe sepsis with shock. Acute kidney injury. History of cerebrovascular accident. Leukocytosis. Severe metabolic acidosis. Lactic acidosis. Elevated serum inflammatory markers to include D-dimers. - wean vasopressors for target MAP > 65 mmHg - continue Daily SAT and SBT assessment as tolerated - continue to wean supplemental oxygen for target O2 sat's > 90% acutely - VAP bundle addressed - continue lung protective strategies - continue bronchodilators with pulmonary hygiene per RT - wean per pulmonary driven protocols otherwise - continue accuchecks with glycemic control per SSI (While critically ill target blood glucose of 140-180 mg/dL; avoid hypoglycemia) - sedation prn for target RASS 0 to -1 - avoid nephrotoxins, renally dose all medications - continue to avoid benzodiazepine's, reduce the possibility of delirium - completed AB's per ID rec's - prn analgesia per CPOT score - Maintenance of sleep-wake cycle, avoid delirium - continue enteral nutritional support at goal rate as tolerated - G.I. & VTE prophylaxis - PT/OT/ROM exercises - continue mobility protocols for pressure ulcer prophylaxis - Monitor hemodynamics closely - continue other care per attending / other consultants - discharge planning ongoing concurrently COVID SPECIFIC INTERVENTIONS - Remdesivir / other COVID specific interventions per ID recommendations - continue systemic steroids for severe COVID-19 infection empirically - repeat COVID tests per facility protocol - Monitor inflammatory markers per facility protocol - ferritin, Ddimer, CRP - therapeutic anticoagulation per system Protocol based on d-dimer - Continue contact and airborne isolation - discharge planning ongoing concurrently .... Re-evaluate in am & prn CONDITION: CRITICAL PROGNOSIS: GUARDED CODE STATUS: FULL CODE The high probability of a clinically significant, sudden or life-threatening deterioration of the [respiratory, cardiovascular, hematologic, renal & neurologic] system(s) required my full and direct attention, intervention and personal management. The aggregate critical care time was [31] minutes without overlap. Time includes spent on; [x] Data Review and interpretation [x] Patient assessment and monitoring of vital signs [x] Documentation [x] Medication orders and management Subjective Date of service: 09/09/20 Principal diagnosis: Ac hypoxemic resp failure; COVID-19; Pneumonia; Septic Shock; MYRON; H/O CVA Interval history: Patient is seen today for: Acute hypoxemic respiratory failure; COVID-19 infection; Bilateral pneumonia; Acute encephalopathy, presumably toxic metabolic; Severe sepsis with shock; Acute kidney injury; History of cere brovascular accident Seen and examined at bedside; 24hour events reviewed; nursing and respiratory care staff consulted; no adverse overnight events reported to me; resting p eacefully in bed; remains on MVS; FiO2 at 60%; remains on Levophed drip; AMS is persistent; no emesis or overt aspiration Objective Vital Signs - 12hr 09/09/20 09/09/20 09/09/20 08:00 08:13 08:15 Pulse Rate 91 H 89 91 H Respiratory 18 18 Rate Blood Pressure 113/76 113/76 106/72 O2 Sat by Pulse 96 96 96 Oximetry 09/09/20 09/09/20 09/09/20 08:30 08:45 09:00 Pulse Rate 95 H 94 H 95 H Respiratory 17 20 21 Rate Blood Pressure 108/77 114/78 105/69 O2 Sat by Pulse 95 97 97 Oximetry 09/09/20 09/09/20 09/09/20 09:15 09:30 09:46 Pulse Rate 88 97 H 89 Respiratory 20 19 23 Rate Blood Pressure 103/64 120/74 95/65 O2 Sat by Pulse 96 96 96 Oximetry 09/09/20 09/09/20 09/09/20 10:00 10:15 10:30 Pulse Rate 96 H 90 81 Respiratory 21 23 21 Rate Blood Pressure 97/61 106/68 109/71 O2 Sat by Pulse 96 96 97 Oximetry 09/09/20 09/09/20 09/09/20 10:45 11:00 11:15 Pulse Rate 84 88 82 Respiratory 21 19 18 Rate Blood Pressure 113/75 103/81 124/74 O2 Sat by Pulse 97 97 97 Oximetry 09/09/20 09/09/20 09/09/20 11:30 11:45 12:00 Pulse Rate 94 H 85 85 Respiratory 21 22 22 Rate Blood Pressure 115/77 110/73 126/73 O2 Sat by Pulse 97 97 96 Oximetry 09/09/20 09/09/20 09/09/20 12:15 12:30 12:33 Pulse Rate 98 H 106 H 96 H Respiratory 22 22 Rate Blood Pressure 116/74 108/76 108/76 O2 Sat by Pulse 96 96 96 Oximetry 09/09/20 09/09/20 09/09/20 12:45 13:00 13:15 Pulse Rate 90 86 81 Respiratory 20 25 H 21 Rate Blood Pressure 118/83 113/73 111/85 O2 Sat by Pulse 96 96 96 Oximetry 09/09/20 09/09/20 09/09/20 13:30 13:45 14:00 Pulse Rate 93 H 83 89 Respiratory 22 24 23 Rate Blood Pressure 119/66 117/73 113/70 O2 Sat by Pulse 96 96 97 Oximetry 09/09/20 09/09/20 09/09/20 14:15 14:30 14:45 Pulse Rate 92 H 90 90 Respiratory 20 20 22 Rate Blood Pressure 119/74 114/78 109/78 O2 Sat by Pulse 97 97 97 Oximetry 09/09/20 09/09/20 09/09/20 15:00 15:15 15:30 Pulse Rate 83 83 99 H Respiratory 22 23 19 Rate Blood Pressure 109/77 113/76 118/75 O2 Sat by Pulse 97 97 97 Oximetry 09/09/20 09/09/20 09/09/20 15:45 16:00 16:12 Pulse Rate 90 83 99 H Respiratory 22 19 Rate Blood Pressure 111/73 102/73 102/73 O2 Sat by Pulse 97 97 97 Oximetry 09/09/20 09/09/20 09/09/20 16:15 16:30 16:45 Pulse Rate 81 95 H 84 Respiratory 22 22 19 Rate Blood Pressure 113/79 123/72 115/78 O2 Sat by Pulse 98 97 97 Oximetry 09/09/20 09/09/20 09/09/20 17:00 17:15 17:30 Pulse Rate 88 92 H 87 Respiratory 18 21 20 Rate Blood Pressure 111/69 114/67 117/75 O2 Sat by Pulse 97 97 98 Oximetry 09/09/20 09/09/20 09/09/20 17:45 18:00 18:15 Pulse Rate 86 84 91 H Respiratory 22 19 20 Rate Blood Pressure 112/70 109/67 113/68 O2 Sat by Pulse 98 98 98 Oximetry 09/09/20 18:30 Pulse Rate 85 Respiratory 19 Rate Blood Pressure 113/71 O2 Sat by Pulse 97 Oximetry Constitutional: appears uncomfortable, other (elderly obese male with mildly increased respiratory effort at rest on MVS) Eyes: non-icteric ENT: oropharynx moist, other (ETT 24 cm BREANN) Neck: supple, no lymphadenopathy, no JVD Effort: mildly labored Ascultation: Bilateral: diminished breath sounds, rhonchi Percussion: Bilateral: not dull Cardiovascular: regular rate and rhythm Gastrointestinal: normoactive bowel sounds, soft, non-tender, non-distended (protuberant) Integumentary: other (please see [facility] notes) Extremities: no cyanosis, pulses normal, no ischemia or petechiae Neurologic: pupils equal and round, unable to assess Psychiatric: other (unable to assess re: AMS) CBC and BMP: 09/10/20 04:56 09/10/20 04:56 ABG, PT/INR, D-dimer: ABG ABG pH 7.367 pH Units (7.350-7.450) 09/09/20 03:15 ABG pCO2 29.1 mm Hg 09/09/20 03:15 ABG pO2 97.0 mm Hg (80.0-90.0) H 09/09/20 03:15 ABG O2 Saturation 97.3 % (95.0-99.0) 09/09/20 03:15 PT/INR, D-dimer D-Dimer > 07396 ng/mlDDU (0-234) H 09/07/20 18:00 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 09/07/20 18:00 Abnormal lab findings: Abnormal Labs 09/07/20 09/07/20 09/07/20 17:25 18:00 18:00 WBC 23.5 H RBC Hgb Hct MCHC Lymph % (Auto) Lymph # (Auto) Seg Neutrophils % Seg Neuts % (Manual) 94.0 H Lymphocytes % (Manual) 1.0 L Seg Neutrophils # Seg Neutrophils # Man 22.1 H Lymphocytes # (Manual) 0.2 L APTT D-Dimer > 54005 H ABG pH ABG pO2 ABG HCO3 ABG Base Excess Sodium Carbon Dioxide BUN Creatinine Glucose Hemoglobin A1c Lactic Acid Calcium Ferritin Total Bilirubin AST Lactate Dehydrogenase C-Reactive Protein Total Protein Albumin Prealbumin Urine Creatinine Coronavirus (PCR) Positive A 09/07/20 09/07/20 09/07/20 18:00 18:00 18:00 WBC RBC Hgb Hct MCHC Lymph % (Auto) Lymph # (Auto) Seg Neutrophils % Seg Neuts % (Manual) Lymphocytes % (Manual) Seg Neutrophils # Seg Neutrophils # Man Lymphocytes # (Manual) APTT 72.7 H* D-Dimer ABG pH ABG pO2 ABG HCO3 ABG Base Excess Sodium Carbon Dioxide 9 L* BUN 24 H Creatinine Glucose 143 H Hemoglobin A1c Lactic Acid Calcium 7.6 L Ferritin 849.7 H Total Bilirubin 1.80 H AST 45 H Lactate Dehydrogenase 507 H C-Reactive Protein 8.20 H Total Protein 5.6 L Albumin 2.8 L Prealbumin Urine Creatinine Coronavirus (PCR) 09/07/20 09/07/20 09/08/20 19:37 20:30 01:07 WBC RBC Hgb Hct MCHC Lymph % (Auto) Lymph # (Auto) Seg Neutrophils % Seg Neuts % (Manual) Lymphocytes % (Manual) Seg Neutrophils # Seg Neutrophils # Man Lymphocytes # (Manual) APTT D-Dimer ABG pH 7.336 L ABG pO2 91.2 H ABG HCO3 14.1 L ABG Base Excess -9.9 L Sodium Carbon Dioxide BUN Creatinine Glucose Hemoglobin A1c Lactic Acid 8.80 H* 3.80 H* Calcium Ferritin Total Bilirubin AST Lactate Dehydrogenase C-Reactive Protein Total Protein Albumin Prealbumin Urine Creatinine Coronavirus (PCR) 09/08/20 09/08/20 09/08/20 04:25 10:13 10:13 WBC 21.7 H RBC 5.49 H Hgb 17.1 H Hct 49.6 H MCHC 35 H Lymph % (Auto) Lymph # (Auto) Seg Neutrophils % Seg Neuts % (Manual) 96.0 H Lymphocytes % (Manual) 1.0 L Seg Neutrophils # Seg Neutrophils # Man 20.8 H Lymphocytes # (Manual) 0.2 L APTT D-Dimer ABG pH 7.484 H ABG pO2 148.2 H ABG HCO3 17.2 L ABG Base Excess -4.1 L Sodium Carbon Dioxide BUN Creatinine Glucose Hemoglobin A1c Lactic Acid 3.40 H* Calcium Ferritin Total Bilirubin AST Lactate Dehydrogenase C-Reactive Protein Total Protein Albumin Prealbumin Urine Creatinine Coronavirus (PCR) 09/08/20 09/08/20 09/08/20 10:13 10:13 10:13 WBC RBC Hgb Hct MCHC Lymph % (Auto) Lymph # (Auto) Seg Neutrophils % Seg Neuts % (Manual) Lymphocytes % (Manual) Seg Neutrophils # Seg Neutrophils # Man Lymphocytes # (Manual) APTT D-Dimer ABG pH ABG pO2 ABG HCO3 ABG Base Excess Sodium 135 L Carbon Dioxide 20 L D BUN 35 H Creatinine 1.6 H D Glucose 192 H Hemoglobin A1c 6.2 H Lactic Acid Calcium 8.3 L Ferritin Total Bilirubin 1.80 H AST 55 H Lactate Dehydrogenase C-Reactive Protein Total Protein Albumin 2.6 L Prealbumin 0.049 L Urine Creatinine Coronavirus (PCR) 09/08/20 09/08/20 09/08/20 20:18 20:18 20:18 WBC 29.8 H RBC Hgb 15.3 H Hct MCHC Lymph % (Auto) Lymph # (Auto) Seg Neutrophils % Seg Neuts % (Manual) Lymphocytes % (Manual) Seg Neutrophils # Seg Neutrophils # Man Lymphocytes # (Manual) APTT D-Dimer ABG pH ABG pO2 ABG HCO3 ABG Base Excess Sodium 136 L Carbon Dioxide 17 L BUN 42 H Creatinine 1.9 H Glucose 203 H Hemoglobin A1c Lactic Acid 2.20 H* Calcium 7.6 L Ferritin Total Bilirubin AST 51 H Lactate Dehydrogenase C-Reactive Protein Total Protein 6.2 L Albumin 2.1 L Prealbumin Urine Creatinine Coronavirus (PCR) 09/08/20 09/09/20 09/09/20 21:53 00:19 03:15 WBC RBC Hgb Hct MCHC Lymph % (Auto) Lymph # (Auto) Seg Neutrophils % Seg Neuts % (Manual) Lymphocytes % (Manual) Seg Neutrophils # Seg Neutrophils # Man Lymphocytes # (Manual) APTT D-Dimer ABG pH ABG pO2 97.0 H ABG HCO3 16.3 L ABG Base Excess -7.5 L Sodium Carbon Dioxide BUN Creatinine Glucose Hemoglobin A1c Lactic Acid 3.20 H* 2.10 H* Calcium Ferritin Total Bilirubin AST Lactate Dehydrogenase C-Reactive Protein Total Protein Albumin Prealbumin Urine Creatinine Coronavirus (PCR) 09/09/20 09/09/20 09/09/20 04:54 04:54 04:54 WBC 28.5 H RBC Hgb Hct MCHC Lymph % (Auto) 1.3 L Lymph # (Auto) 0.4 L Seg Neutrophils % 96.1 H Seg Neuts % (Manual) Lymphocytes % (Manual) Seg Neutrophils # 27.4 H Seg Neutrophils # Man Lymphocytes # (Manual) APTT D-Dimer ABG pH ABG pO2 ABG HCO3 ABG Base Excess Sodium Carbon Dioxide 17 L BUN 45 H Creatinine 2.2 H Glucose 201 H Hemoglobin A1c Lactic Acid 2.90 H* Calcium 7.8 L Ferritin Total Bilirubin AST Lactate Dehydrogenase C-Reactive Protein Total Protein Albumin Prealbumin Urine Creatinine Coronavirus (PCR) 09/09/20 09/09/20 09/09/20 06:56 09:04 Unknown WBC RBC Hgb Hct MCHC Lymph % (Auto) Lymph # (Auto) Seg Neutrophils % Seg Neuts % (Manual) Lymphocytes % (Manual) Seg Neutrophils # Seg Neutrophils # Man Lymphocytes # (Manual) APTT D-Dimer ABG pH ABG pO2 ABG HCO3 ABG Base Excess Sodium Carbon Dioxide BUN Creatinine Glucose Hemoglobin A1c Lactic Acid 4.70 H* 3.70 H* Calcium Ferritin Total Bilirubin AST Lactate Dehydrogenase C-Reactive Protein Total Protein Albumin Prealbumin Urine Creatinine 213.6 H Coronavirus (PCR) Chest x-ray: other (none today) Allied health notes reviewed: nursing
[2020-09-09] MEDS ORDERED: fentaNYL 100 MCG/2 ML INJ IV PRN (19:53)
[2020-09-09] MEDS ORDERED: HEPARIN 10,000 UNITS/10 ML VIAL IV PRN (19:53)
[2020-09-09] MEDS ORDERED: fentaNYL DRIP Premix 2,000 MCG/100 ML BAG IV SCH (20:00)
[2020-09-09 21:48] LABS: Hematocrit 43.7 % (35.5-45.6); Hemoglobin 14.8 gm/dl (11.8-15.2)
[2020-09-09] MEDS: NORepinephrine/NS 4 MG-250 ML 4 MG/250 ML BAG IV SCH (21:53)
[2020-09-09] MEDS: MIDAZOLAM 100 MG in SODIUM CHLORIDE 0.9% 80 ML IV SCH (21:57)
[2020-09-09 22:03] LABS: INR 1.26 (0.87-1.13)
[2020-09-09 22:04] LABS: Partial Thromboplastin Time 40.7 Sec. (24.2-36.6)
[2020-09-10] MEDS: FAMOTIDINE 20 MG/2 ML INJ IV SCH ×2 (01:37→12:29)
[2020-09-10] MEDS: dexAMETHasone 4 MG/ML VIAL IV SCH ×2 (01:37→12:29)
[2020-09-10 03:30] LABS: ABG HCO3 15.1 mmol/L (20.0-26.0); ABG Methemoglobin 0.6 % (0.0-1.5); ABG Oxygen Saturation 98.3 % (95.0-99.0); ABG PCO2 25.8 mm Hg; ABG PH 7.386 pH Units (7.350-7.450); ABG PO2 120.7 mm Hg (80.0-90.0)
--- NOTE | 2020-09-10 04:05 | XRay Report ---
CHEST 1 VIEW 0128 INDICATION / CLINICAL INFORMATION: follow up respiratory failure COMPARISON: 09/07/2020 FINDINGS: SUPPORT DEVICES: Endotracheal tube is in a more proximal position now and is not satisfactory radiogr aphic position with tip approximately 6 cm above the tatiana. A nasogastric tube is now seen extending into the proximal stomach. HEART / MEDIASTINUM: Stable LUNGS / PLEURA: Bilateral interstitial infiltrates are again noted with slight worsening in the right base. No pneumothorax. ADDITIONAL FINDINGS: No significant additional findings. Signer Name: Melo Tejada MD Signed: 09/10/2020 4:00 AM Workstation Name: [id number]
--- NOTE | 2020-09-10 04:10 | Cat Scan Report ---
CT HEAD WITHOUT CONTRAST INDICATION: AMS TECHNIQUE: All CT scans at this location are performed using CT dose reduction for ALARA by means of automated exposure control. COMPARISON: 12/09/2013 FINDINGS: BRAIN: No hemorrhage or mass effect are seen. No evidence of acute infarction is noted. Atrophic hemphill ges are again noted. Moderate white matter microvascular changes have noticeably progressed. Interval right extreme capsular area infarction is seen which appears old. ORBITS: Normal as visualized. SOFT TISSUES OF HEAD: Normal. CALVARIUM: Normal. VISUALIZED PARANASAL SINUSES AND MASTOID AIR CELLS: Minimal mucosal thickening is seen in the right m axillary sinus. ADDITIONAL FINDINGS: None. IMPRESSION: No acute intracranial abnormality. Signer Name: Melo Tejada MD Signed: 09/10/2020 4:05 AM Workstation Name: [id number]
--- NOTE | 2020-09-10 04:34 | Consultation ---
PULMONARY CRITICAL CARE CONSULTATION CONSULTING PHYSICIAN: Dr. Olivares. REASON FOR CONSULTATION: Acute hypoxemic respiratory failure, COVID-19 infection. CHIEF COMPLAINT AND HISTORY OF PRESENT ILLNESS: As follows: The patient is now 85-year-old male with past medical history significant amongst other things for a diagnosis of prior cerebrovascular accident and apparently recent diagnosis of COVID pneumonia with acute hypoxemic respiratory failure, discharged on Thursday from medical center in the community and that is on the of this month who continued to remain short of breath. At home, emergency medical services were called. They found him hypoxemic. He was on room air. O2 sats were in the 80. He also had an acute encephalopathy, was placed on a nonrebreather and brought into the Emergency Room. In the Emergency Room, he was continued to remain lethargic, work of breathing was increased and he required intubation for airway protection and ventilatory support in the Emergency Room. We are asked to assist with management. When I stopped by to see him, he was resting on the mechanical ventilator with mildly increased respiratory effort at rest. He was not following commands, but had some spontaneous movements to his extremities. I do not have any history of vomiting or overt aspiration. The patient's tobacco use/abuse history is unknown. The above is as much of the history of presentation as I have. PAST MEDICAL HISTORY: As far as I can tell, cerebrovascular accident and his recent coronavirus positive diagnosis. PAST SURGICAL HISTORY: Unknown. MEDICATIONS: He was on at the time I stopped by to see him were reviewed. Pertinent medications included the following: Tylenol 650 mg p.o. q. 4 hours p.r.n. mild pain or fevers, Decadron 8 mg IV daily, Lovenox 40 mg subcutaneous daily, Pepcid 20 mg IV b.i.d., diltiazem drip was going at 5 mg per hour, Levophed drip had also been ordered at 12 mcg per minute, Versed drip at 4 mg per hour, Zosyn 3.375 grams IV q. 8 hours, vancomycin 2 g IV daily, morphine 2 mg IV q. 4 hours p.r.n. moderate pain, Zofran 4 mg IV q. 8 hours p.r.n. nausea and vomiting. ALLERGIES: ROCEPHIN, nature of this allergy is unknown. DIET: Obese gentleman, acute weight loss or gain history is unknown. FAMILY AND SOCIAL HISTORY: Apparently lived in the community. Alcohol, tobacco, or illicit drug use or abuse history is unknown. Family history is also unknown and unobtainable. REVIEW OF SYSTEMS: Unobtainable secondary to patient's medical and mental condition. Since he has been here, no gross hematochezia or melena, no gross hematuria, no hematemesis, no hemoptysis, no bloody tracheal secretions as you see, no witnessed seizures. Review of systems otherwise unobtainable or as in the body of the history above. PHYSICAL EXAMINATION: VITAL SIGNS: At presentation in the Emergency Room, review of the vital sign shows that he was afebrile, temperature was 97.5 degrees Fahrenheit with a pulse of 161, respiratory rate of 30, blood pressure 60/42 initially with O2 sats of 92%, inspired oxygen concentration at that time was not recorded. When I stopped by to see him, his O2 sats were 98% that was on the AC PRVC mode of ventilation, tidal volume 500, rate of 18, PEEP of 10 and 60% FiO2. GENERAL: He is an elderly looking obese male, normocephalic, on the mechanical ventilator with mildly increased respiratory effort at rest. HEAD, EYES, EARS, NOSE AND THROAT: Anicteric. No conjunctival erythema. Oropharynx was dry. No gross jugular venous distention. No thyromegaly. ET tube was taped at the lips around 24 cm. NECK: Grossly, there were no palpable lymph nodes in the supraclavicular or submandibular lymph node chains. LUNGS: Auscultation of both lung de leon revealed bilateral rhonchi. Slightly diminished breath sounds. No wheezing. HEART: Heart sounds 1 and 2 are heard. Regular tachycardia at the time of my evaluation without overt rubs or murmurs. ABDOMEN: Soft, full. Bowel sounds are positive, nontender, no palpable hepatosplenomegaly. EXTREMITIES: Without overt digital clubbing, no cyanosis, no pedal edema. Pedal pulses are 2+ bilaterally. NEUROLOGIC: Pupils are equal, round, about 3 mm, sluggishly reactive to light. Extraocular muscle movements could not be assessed. He had some spontaneous movements to his extremities with stimulation. SKIN: Poor turgor; however, without overt cellulitis or rash in the areas evaluated. PSYCHIATRIC: Mood and affect could not be assessed. LABORATORY DATA: From my review are as follows: Admission white cell count 23,500, hemoglobin 15.2, hematocrit 45.0, platelet count 194, 4% band forms on the manual differential. D-dimer was greater than 10,000. Arterial blood gas showed a pH of 7.34, pCO2 of 27, pO2 of 91 that was at presentation on 100%. Most recent gas showed a pH of 7.48, pCO2 of 23, pO2 of 148 that was on 100% at that time. Serum sodium 132, potassium 4.2, chloride 100, bicarbonate was 9, BUN was 24, creatinine was 1.0, glucose was 143. Lactic acid level was 8.8. Ferritin was up at 850, total bilirubin 1.8, AST 45. LDH 507. CRP 8.2. Procalcitonin 0.33. Urinalysis was negative for nitrites and leukocyte esterase. Coronavirus PCR was positive. Two sets of blood culture, no growth to rate. Chest x-ray showed endotracheal tube with the tip initially in the right main stem bronchus and retracted on the other x-ray. Mild interstitial infiltrates in the right lower lobe region in particular. No gross pneumothorax. No gross bony fracture that I can see. ASSESSMENT: 1. Acute hypoxemic respiratory failure, on mechanical ventilatory support. 2. COVID-19 infection. 3. Bilateral pneumonia, right greater than left. 4. Acute encephalopathy, presumably toxic metabolic. 5. Elevated serum inflammatory markers to include D-dimers. 6. Severe sepsis with shock. 7. History of cerebrovascular accident. 8. Leukocytosis. 9. Severe metabolic acidosis. 10. Lactic acidosis. 11. Acute kidney injury. 12. Elevated serum inflammatory markers. PLAN: We will keep him on full mechanical ventilatory support in the short time. Ventilator-associated pneumonia bundle has been introduced. Oxygen will be weaned to keep sats greater than or equal to about 92%. We will continue systemic steroids for severe COVID-19 infection. He will be kept in airborne and contact isolation. Repeat coronavirus PCR testing will be done per protocol. Infectious Disease consultation will be of benefit to assist with management of broad-spectrum antibiotics and de-escalation of therapy. We will trend inflammatory markers to help guide clinical decision making. He will be placed on full anticoagulation for severe hypercoagulable state with COVID-19 infection and elevated D-dimers. Enteral nutrition will be the feeding modality of choice. Vasopressors will be weaned to keep mean arterial pressures greater than or equal to about 65 mmHg. Gentle volume rehydration will be given for the acute kidney injury. Nephrology evaluation will be at the behest of the attending physician at this time. Inputs and outputs will be monitored. Electrolytes will be monitored closely and will be placed as necessary. He is appropriately on GI prophylaxis. He is going to be put on full anticoagulation. Flu and pneumonia vaccination will be addressed per protocol. Thank you very much for the consult. We will follow along and make further recommendations as picture progresses/becomes clearer. He is critically ill on life-sustaining interventions including mechanical ventilatory support and vasopressors at very high risk of from cardiopulmonary system, hematologic and renal system decompensation. At this time, I spent a total of about 35-40 minutes of critical care time without overlap and excluding any procedural time that may be necessary. I do believe he has a right femoral central line access ____ in a different location either with a PICC line or higher body central venous line once he is more stable. Again at this time, I spent about 35-40 minutes of critical care time without overlap and excluding any procedural time that may be necessary. Thank you very much for the consult. JOB# [id number] DEVANTE/DERRICK SAMUELS
[2020-09-10 05:13] LABS: Hematocrit 43.2 % (35.5-45.6); Hemoglobin 14.6 gm/dl (11.8-15.2); Mean Corpuscular HGB Conc 34 % (32-34); Mean Corpuscular Volume 90 fl (84-94); Platelet Count 164 K/mm3 (140-440); Red Cell Distribution Width 15.1 % (13.2-15.2)
[2020-09-10 05:28] LABS: Calcium 7.9 mg/dL (8.4-10.2)
[2020-09-10] MEDS: HEPARIN/ 0.45% NACL DRIP 25,000 UNIT/500 ML BAG IV SCH (05:53)
[2020-09-10 07:26] LABS: Anisocytosis 1+; Monocytes % (Manual) 1.5 % (0.0-7.3); Platelet Estimate Consistent w Auto; Total Cells Counted 200
--- NOTE | 2020-09-10 11:25 | Consultation ---
History of Present Illness Consult date: 09/10/20 Consult reason: atrial fibrillation History of present illness: This is an 85-year old male recently discharged [facility] with severe COVID-19 pneumonia, brought to this hospital 09/07 with altered mental status, shortness of breath, hypoxic respiratory failure subsequently requiring intubation in the emergency department. Chest x-ray reports bilateral infiltrates. Head CT scan reports no acute intracranial process. An ECG done shows atrial fibrillation with a rapid ventricular response for which he was place on intravenous Diltiazem for rate control. A cardiac consultation has been requested for management of atrial fibrillation. Past History Past Medical History: other (unable to obtain) Medications and Allergies Allergies Allergy/AdvReac Type Severity Reaction Status Date / Time ceftriaxone Allergy Rash Verified 12/10/13 11:03 Home Medications Medication Instructions Recorded Confirmed Last Taken Type Aspirin [Aspirin BABY CHEW TAB] 81 mg PO QDAY #30 tab.chew 12/12/13 Unknown Rx levoFLOXacin [Levaquin TAB] 500 mg PO QDAY #7 tablet 12/12/13 Unknown Rx Active Meds: Active Medications Acetaminophen (Acetaminophen 325 Mg/10.15 Ml Oral Liqd Unit Dose) 650 mg PO Q4H PRN PRN Reason: Pain MILD(1-3)/Fever >100.5/BEST Lipase/Protease/Amylase (Lipase 10,500/Protease 25,000/Amylase 43,750 (Units) Dr Carey) 1 each FEEDTUBE PRN PRN PRN Reason: For Clogged Feeding Tube Dexamethasone (Dexamethasone 4 Mg/Ml Vial) 6 mg IV Q24HR CRISTIN Stop: 09/18/20 10:01 Last Admin: 09/10/20 01:37 Dose: 6 mg Documented by: Famotidine (Famotidine 20 Mg/2 Ml Inj) 20 mg IV DAILY [facility] Fentanyl (Fentanyl 100 Mcg/2 Ml Inj) 50 mcg IV Q10MIN PRN PRN Reason: ANALGESIA Heparin Sodium (Porcine) (Heparin 10,000 Units/10 Ml Vial) 3,200 unit 40 unit/kg (3200 unit) IV Q6H PRN PRN Reason: Anti-Xa Assay < 0.1 units/ml Last Admin: 09/10/20 05:53 Dose: 3,200 unit Documented by: Hydrophilic Ointment (Lip Therapy Vaseline) 1 applic TP Q2HR PRN PRN Reason: Dry Lips Diltiazem HCl (Cardizem/D5w 100mg/100ml) 100 mg in 100 mls @ 5 mls/hr IV TITR CRISTIN; Protocol Last Titration: 09/08/20 18:57 Dose: 10 mg/hr, 10 mls/hr Documented by: Norepinephrine (Levophed Drip 4 Mg/Ns 250 Ml) 4 mg in 250 mls @ 7.5 mls/hr IV TITR CRISTIN; Protocol Last Admin: 09/09/20 21:53 Dose: 12 mcg/min, 45 mls/hr Documented by: Midazolam HCl 100 mg/ Sodium (Chloride) 100 mls @ 2 mls/hr IV TITR CRISTIN; Protocol Last Admin: 09/09/20 21:57 Dose: 4 mg/hr, 4 mls/hr Documented by: Sodium Chloride (Nacl 0.9% 1000 Ml) 1,000 mls @ 42 mls/hr IV DIRECT CRISTIN Last Admin: 09/09/20 13:18 Dose: 42 mls/hr Documented by: Levofloxacin/Dextrose (Levaquin 750mg/150ml) 750 mg in 150 mls @ 100 mls/hr IV Q48H CRISTIN Last Admin: 09/09/20 13:18 Dose: 100 mls/hr Documented by: Heparin Sodium/Sodium Chloride (Heparin/ 0.45% Nacl-25,000 Unit/500 Ml) 25,000 unit in 500 mls @ 23 mls/hr IV TITR CRISTIN; Protocol Last Admin: 09/10/20 05:53 Dose: 1,150 units/hr, 23 mls/hr Documented by: Fentanyl Citrate (Fentanyl Drip Premix) 2,000 mcg in 100 mls @ 3.98 mls/hr IV TITR CRISITN; Protocol Midazolam HCl (Midazolam 2 Mg/2 Ml Inj) 2 mg IV Q10MIN PRN PRN Reason: Sedation Morphine Sulfate (Morphine 2 Mg/1 Ml Inj) 2 mg IV Q4H PRN PRN Reason: Pain, Moderate (4-6) Multi-Ingred Cream/Lotion/Oil/Oint (Mineral Oil/Petrolatum, White Ophth Oint 3.5 Gm) 1 applic OU Q4HR PRN PRN Reason: Dry Eye(s) Ondansetron HCl (Ondansetron 4 Mg/2 Ml Inj) 4 mg IV Q8H PRN PRN Reason: Nausea And Vomiting Simple Syrup (Simple Syrup 15 Ml) 15 ml FEEDTUBE PRN PRN PRN Reason: Hypoglycemia Simple Syrup (Simple Syrup 15 Ml) 30 ml FEEDTUBE PRN PRN PRN Reason: Hypoglycemia Sodium Bicarbonate (Sodium Bicarbonate 325 Mg Tab) 325 mg FEEDTUBE PRN PRN PRN Reason: For Clogged Feeding Tube Sodium Chloride (Sodium Chloride 0.9% 10 Ml Flush Syringe) 10 ml IV BID CRISTIN Last Admin: 09/10/20 07:55 Dose: Not Given Documented by: Sodium Chloride (Sodium Chloride 0.9% 10 Ml Flush Syringe) 10 ml IV PRN PRN PRN Reason: LINE FLUSH Review of Systems ROS unobtainable: due to endotracheal tube Physical Examination Vital Signs Pulse Resp Pulse Ox 161 H 30 H 92 09/07/20 16:35 09/07/20 16:35 09/07/20 16:35 Narrative exam: Deferred due to isolation protocol Cardiac: Positive: irregularly irregular Results 09/10/20 04:56 09/10/20 04:56 Coagulation 09/09/20 Range/Units 20:28 PT 15.8 H (12.2-14.9) Sec. INR 1.26 H (0.87-1.13) APTT 40.7 H (24.2-36.6) Sec. CBC 09/09/20 09/10/20 Range/Units 20:28 04:56 WBC 24.2 H (4.5-11.0) K/mm3 RBC 4.80 (3.65-5.03) M/mm3 Hgb 14.8 14.6 (11.8-15.2) gm/dl Hct 43.7 43.2 (35.5-45.6) % Plt Count 153 164 (140-440) K/mm3 Comprehensive Metabolic Panel 09/10/20 Range/Units 04:56 Sodium 138 (137-145) mmol/L Potassium 4.6 (3.6-5.0) mmol/L Chloride 103.3 (98-107) mmol/L Carbon Dioxide 18 L (22-30) mmol/L BUN 62 H (9-20) mg/dL Creatinine 2.8 H (0.8-1.3) mg/dL Glucose 216 H (75-100) mg/dL Calcium 7.9 L (8.4-10.2) mg/dL Assessment and Plan - Patient Problems (1) Atrial fibrillation with rapid ventricular response Current Visit: Yes Status: Acute (2) Pneumonia due to COVID-19 virus Current Visit: Yes Status: Acute
--- NOTE | 2020-09-10 12:13 | Progress Note ---
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 Urinalysis negative. #Severe COVID-19 pneumonia: Diagnosed initially on 08/26/2020, treated at [facility] with dexamethasone, remdesivir for 3 days. Anticoagula tion was not given due to recent hemorrhagic CVA. Chest x-ray with bilateral patchy infiltrates. Inflammatory markers elevated, D-dimer> 10,000, ferritin 849, CRP 8.2. Procalcitonin 0.3. ? Bacterial pneumonia component. ?HAP #Acute hypoxemic respiratory failure: Initial sats dropped to 89%. Patient intubated in the ED, remains on the vent. #A. fib: Diagnosed during recent admission at [facility]. Cardiology following. #Elevated LFTs: Likely secondary to COVID-19. #Recent hemorrhagic CVA: Diagnosed in July 2020. Recent CT of the head at [facility] showed resolution of previous hyperdense intraparenchymal hemorrhage in the right basal ganglia. #Ceftriaxone allergy? Unclear details. Tolerating Zosyn. Recs: Continue renally adjusted levofloxacin, vancomycin empiric therapy f/u culture data No benefit with remdesivir at this time VTE evaluation given elevated D-dimer yAah Munoz MD, FACP [facility] O: [phone] F: [phone] Subjective Date of service: 09/10/20 Interval history: No fever. On the vent. Objective - Exam Narrative Exam: Physical Exam (reviewed in chart to minimize risk of transmission) Constitutional: deferred Head, Ears, Nose: deferred Eyes: deferred Neck: deferred Oral: deferred Cardiovascular: deferred Respiratory: deferred GI: deferred Musculoskeletal: deferred Skin: deferred Hem/Lymphatic: deferred Psych: deferred Neurological: deferred - Constitutional Vitals: Vital Signs Temp Pulse Resp BP Pulse Ox 97.3 F L 85 19 121/73 95 09/08/20 18:39 09/10/20 08:25 09/10/20 06:00 09/10/20 08:25 09/10/20 08:25 - Labs CBC & Chem 7: 09/10/20 04:56 09/10/20 04:56 Labs: Abnormal lab results 09/09/20 09/09/20 09/10/20 Range/Units 20:28 Unknown 02:24 WBC (4.5-11.0) K/mm3 Seg Neuts % (Manual) (40.0-70.0) % Lymphocytes % (Manual) (13.4-35.0) % Seg Neutrophils # Man (1.8-7.7) K/mm3 Lymphocytes # (Manual) (1.2-5.4) K/mm3 PT 15.8 H (12.2-14.9) Sec. INR 1.26 H (0.87-1.13) APTT 40.7 H (24.2-36.6) Sec. ABG pO2 120.7 H (80.0-90.0) mm Hg ABG HCO3 15.1 L (20.0-26.0) mmol/L ABG Base Excess -8.0 L (-2.0-3.0) mmol/L Carbon Dioxide (22-30) mmol/L BUN (9-20) mg/dL Creatinine (0.8-1.3) mg/dL Glucose (75-100) mg/dL Calcium (8.4-10.2) mg/dL Urine Creatinine 213.6 H (0.1-20.0) mg/dL 09/10/20 09/10/20 Range/Units 04:56 04:56 WBC 24.2 H (4.5-11.0) K/mm3 Seg Neuts % (Manual) 97.5 H (40.0-70.0) % Lymphocytes % (Manual) 1.0 L (13.4-35.0) % Seg Neutrophils # Man 23.6 H (1.8-7.7) K/mm3 Lymphocytes # (Manual) 0.2 L (1.2-5.4) K/mm3 PT (12.2-14.9) Sec. INR (0.87-1.13) APTT (24.2-36.6) Sec. ABG pO2 (80.0-90.0) mm Hg ABG HCO3 (20.0-26.0) mmol/L ABG Base Excess (-2.0-3.0) mmol/L Carbon Dioxide 18 L (22-30) mmol/L BUN 62 H (9-20) mg/dL Creatinine 2.8 H (0.8-1.3) mg/dL Glucose 216 H (75-100) mg/dL Calcium 7.9 L (8.4-10.2) mg/dL Urine Creatinine (0.1-20.0) mg/dL
[2020-09-10] MEDS: dilTIAZem/D5W 100 MG/100 ML BAG IV SCH (12:30)
--- NOTE | 2020-09-10 12:43 | Progress Note ---
Assessment and Plan Acute hypoxemic respiratory failure, on MVS COVID-19 infection. Bilateral pneumonia Acute encephalopathy, presumably toxic metabolic. Severe sepsis with shock. Acute kidney injury. History of cerebrovascular accident. Leukocytosis. Severe metabolic acidosis. Lactic acidosis. Elevated serum inflammatory markers to include D-dimers. - AMS is a rate limiting factor tyo safe extubation acutely if meets other criteria but will continue to monitor - continue care as below otherwise; - wean vasopressors for target MAP > 65 mmHg - continue Daily SAT and SBT assessment as tolerated - continue to wean supplemental oxygen for target O2 sat's > 90% acutely - VAP bundle addressed - continue lung protective strategies - continue bronchodilators with pulmonary hygiene per RT - wean per pulmonary driven protocols otherwise - continue accuchecks with glycemic control per SSI (While critically ill target blood glucose of 140-180 mg/dL; avoid hypoglycemia) - sedation prn for target RASS 0 to -1 - avoid nephrotoxins, renally dose all medications - continue to avoid benzodiazepine's, reduce the possibility of delirium - completed AB's per ID rec's - prn analgesia per CPOT score - Maintenance of sleep-wake cycle, avoid delirium - continue enteral nutritional support at goal rate as tolerated - G.I. & VTE prophylaxis - PT/OT/ROM exercises - continue mobility protocols for pressure ulcer prophylaxis - Monitor hemodynamics closely - continue other care per attending / other consultants - discharge planning ongoing concurrently COVID SPECIFIC INTERVENTIONS - Remdesivir / other COVID specific interventions per ID recommendations - continue systemic steroids for severe COVID-19 infection empirically - repeat COVID tests per facility protocol - Monitor inflammatory markers per facility protocol - ferritin, Ddimer, CRP - therapeutic anticoagulation per system Protocol based on d-dimer - Continue contact and airborne isolation - discharge planning ongoing concurrently .... Re-evaluate in am & prn CONDITION: CRITICAL PROGNOSIS: GUARDED CODE STATUS: FULL CODE The high probability of a clinically significant, sudden or life-threatening deterioration of the [respiratory, cardiovascular, hematologic, renal & neurologic] system(s) required my full and direct attention, intervention and personal management. The aggregate critical care time was [34] minutes without overlap. Time includes spent on; [x] Data Review and interpretation [x] Patient assessment and monitoring of vital signs [x] Documentation [x] Medication orders and management Subjective Date of service: 09/10/20 Principal diagnosis: Ac hypoxemic resp failure; COVID-19; Pneumonia; Septic Shock; MYRON; H/O CVA Interval history: Patient is seen today for: Acute hypoxemic respiratory failure; COVID-19 infection; Bilateral pneumonia; Acute encephalopathy, presumably toxic metabolic; Severe sepsis with shock; Acute kidney injury; History of cerebrovascular accident Seen and examined at bedside; 24hour events reviewed; nursing and respiratory care staff consulted; no adverse overnight events reported to me; resting peacefully in bed; remains on MVS; tolerating SBT with p-supp at 14 cm H2O Objective Vital Signs - 12hr 09/10/20 09/10/20 09/10/20 00:45 01:00 01:15 Pulse Rate 88 91 H 118 H Respiratory 19 18 20 Rate Blood Pressure 120/73 118/74 121/79 O2 Sat by Pulse 98 98 98 Oximetry 09/10/20 09/10/20 09/10/20 01:30 01:45 02:00 Pulse Rate 99 H 108 H 100 H Respiratory 20 18 19 Rate Blood Pressure 112/74 120/79 137/87 O2 Sat by Pulse 98 99 98 Oximetry 09/10/20 09/10/20 09/10/20 02:15 02:30 02:45 Pulse Rate 100 H 86 82 Respiratory 19 18 18 Rate Blood Pressure 128/74 119/76 123/73 O2 Sat by Pulse 98 98 98 Oximetry 09/10/20 09/10/20 09/10/20 03:00 03:07 03:52 Pulse Rate 88 105 H 103 H Respiratory 18 18 Rate Blood Pressure 125/88 125/88 125/88 O2 Sat by Pulse 98 98 92 Oximetry 09/10/20 09/10/20 09/10/20 04:00 04:15 04:30 Pulse Rate 86 102 H 97 H Respiratory 18 18 18 Rate Blood Pressure 133/85 135/92 135/84 O2 Sat by Pulse 93 94 93 Oximetry 09/10/20 09/10/20 09/10/20 04:45 05:00 05:15 Pulse Rate 88 95 H 93 H Respiratory 18 18 18 Rate Blood Pressure 136/85 140/83 138/76 O2 Sat by Pulse 93 93 94 Oximetry 09/10/20 09/10/20 09/10/20 05:30 05:45 06:00 Pulse Rate 111 H 87 104 H Respiratory 20 20 19 Rate Blood Pressure 132/79 131/82 137/78 O2 Sat by Pulse 93 94 94 Oximetry 09/10/20 09/10/20 09/10/20 06:15 06:30 06:45 Pulse Rate 107 H 101 H 91 H Respiratory 18 18 18 Rate Blood Pressure 131/84 132/78 133/72 O2 Sat by Pulse 94 95 95 Oximetry 09/10/20 09/10/20 09/10/20 07:00 07:15 07:30 Pulse Rate 90 89 93 H Respiratory 18 19 18 Rate Blood Pressure 141/81 124/76 113/77 O2 Sat by Pulse 95 92 95 Oximetry 09/10/20 09/10/20 09/10/20 07:46 08:00 08:15 Pulse Rate 100 H 86 93 H Respiratory 19 18 20 Rate Blood Pressure 118/71 112/71 121/73 O2 Sat by Pulse 95 95 95 Oximetry 09/10/20 09/10/20 09/10/20 08:25 08:30 08:45 Pulse Rate 85 118 H 101 H Respiratory 19 18 Rate Blood Pressure 121/73 110/77 112/67 O2 Sat by Pulse 95 95 96 Oximetry 09/10/20 09/10/20 09/10/20 09:00 09:15 09:30 Pulse Rate 90 92 H 83 Respiratory 17 17 18 Rate Blood Pressure 110/77 113/75 118/63 O2 Sat by Pulse 95 95 95 Oximetry 09/10/20 09/10/20 09/10/20 09:45 10:00 10:15 Pulse Rate 90 85 91 H Respiratory 17 18 18 Rate Blood Pressure 118/65 115/68 115/66 O2 Sat by Pulse 95 94 95 Oximetry 09/10/20 09/10/20 09/10/20 10:30 10:45 11:00 Pulse Rate 100 H 109 H 80 Respiratory 18 18 18 Rate Blood Pressure 109/76 113/69 120/70 O2 Sat by Pulse 94 94 94 Oximetry 09/10/20 09/10/20 09/10/20 11:15 11:30 11:45 Pulse Rate 87 77 91 H Respiratory 17 18 18 Rate Blood Pressure 114/65 106/67 123/76 O2 Sat by Pulse 95 95 95 Oximetry 09/10/20 09/10/20 12:00 12:15 Pulse Rate 100 H 81 Respiratory 18 18 Rate Blood Pressure 120/70 121/76 O2 Sat by Pulse 95 95 Oximetry Constitutional: appears uncomfortable, other (elderly obese male with mildly increased respiratory effort at rest on MVS) Eyes: non-icteric ENT: oropharynx moist, other (ETT 24 cm BREANN) Neck: supple, no lymphadenopathy, no JVD Effort: mildly labored Ascultation: Bilateral: diminished breath sounds, rhonchi Percussion: Bilateral: not dull Cardiovascular: regular rate and rhythm Gastrointestinal: normoactive bowel sounds, soft, non-tender, non-distended (protuberant) Integumentary: other (please see [facility] notes) Extremities: no cyanosis, pulses normal, no ischemia or petechiae Neurologic: pupils equal and round, unable to assess Psychiatric: other (unable to assess re: AMS) CBC and BMP: 09/11/20 05:42 09/11/20 05:42 ABG, PT/INR, D-dimer: ABG ABG pH 7.386 pH Units (7.350-7.450) 09/10/20 02:24 ABG pCO2 25.8 mm Hg 09/10/20 02:24 ABG pO2 120.7 mm Hg (80.0-90.0) H 09/10/20 02:24 ABG O2 Saturation 98.3 % (95.0-99.0) 09/10/20 02:24 PT/INR, D-dimer PT 15.8 Sec. (12.2-14.9) H 09/09/20 20:28 INR 1.26 (0.87-1.13) H 09/09/20 20:28 D-Dimer > 58556 ng/mlDDU (0-234) H 09/07/20 18:00 D-Dimer [employer] 09/07/20 18:00 Abnormal lab findings: Abnormal Labs 09/07/20 09/07/20 09/07/20 17:25 18:00 18:00 WBC 23.5 H RBC Hgb Hct MCHC Lymph % (Auto) Lymph # (Auto) Seg Neutrophils % Seg Neuts % (Manual) 94.0 H Lymphocytes % (Manual) 1.0 L Seg Neutrophils # Seg Neutrophils # Man 22.1 H Lymphocytes # (Manual) 0.2 L PT INR APTT D-Dimer > 86673 H ABG pH ABG pO2 ABG HCO3 ABG Base Excess Sodium Carbon Dioxide BUN Creatinine Glucose Hemoglobin A1c Lactic Acid Calcium Ferritin Total Bilirubin AST Lactate Dehydrogenase C-Reactive Protein Total Protein Albumin Prealbumin Urine Creatinine Coronavirus (PCR) Positive A 09/07/20 09/07/20 09/07/20 18:00 18:00 18:00 WBC RBC Hgb Hct MCHC Lymph % (Auto) Lymph # (Auto) Seg Neutrophils % Seg Neuts % (Manual) Lymphocytes % (Manual) Seg Neutrophils # Seg Neutrophils # Man Lymphocytes # (Manual) PT INR APTT 72.7 H* D-Dimer ABG pH ABG pO2 ABG HCO3 ABG Base Excess Sodium Carbon Dioxide 9 L* BUN 24 H Creatinine Glucose 143 H Hemoglobin A1c Lactic Acid Calcium 7.6 L Ferritin 849.7 H Total Bilirubin 1.80 H AST 45 H Lactate Dehydrogenase 507 H C-Reactive Protein 8.20 H Total Protein 5.6 L Albumin 2.8 L Prealbumin Urine Creatinine Coronavirus (PCR) 09/07/20 09/07/20 09/08/20 19:37 20:30 01:07 WBC RBC Hgb Hct MCHC Lymph % (Auto) Lymph # (Auto) Seg Neutrophils % Seg Neuts % (Manual) Lymphocytes % (Manual) Seg Neutrophils # Seg Neutrophils # Man Lymphocytes # (Manual) PT INR APTT D-Dimer ABG pH 7.336 L ABG pO2 91.2 H ABG HCO3 14.1 L ABG Base Excess -9.9 L Sodium Carbon Dioxide BUN Creatinine Glucose Hemoglobin A1c Lactic Acid 8.80 H* 3.80 H* Calcium Ferritin Total Bilirubin AST Lactate Dehydrogenase C-Reactive Protein Total Protein Albumin Prealbumin Urine Creatinine Coronavirus (PCR) 09/08/20 09/08/20 09/08/20 04:25 10:13 10:13 WBC 21.7 H RBC 5.49 H Hgb 17.1 H Hct 49.6 H MCHC 35 H Lymph % (Auto) Lymph # (Auto) Seg Neutrophils % Seg Neuts % (Manual) 96.0 H Lymphocytes % (Manual) 1.0 L Seg Neutrophils # Seg Neutrophils # Man 20.8 H Lymphocytes # (Manual) 0.2 L PT INR APTT D-Dimer ABG pH 7.484 H ABG pO2 148.2 H ABG HCO3 17.2 L ABG Base Excess -4.1 L Sodium Carbon Dioxide BUN Creatinine Glucose Hemoglobin A1c Lactic Acid 3.40 H* Calcium Ferritin Total Bilirubin AST Lactate Dehydrogenase C-Reactive Protein Total Protein Albumin Prealbumin Urine Creatinine Coronavirus (PCR) 09/08/20 09/08/20 09/08/20 10:13 10:13 10:13 WBC RBC Hgb Hct MCHC Lymph % (Auto) Lymph # (Auto) Seg Neutrophils % Seg Neuts % (Manual) Lymphocytes % (Manual) Seg Neutrophils # Seg Neutrophils # Man Lymphocytes # (Manual) PT INR APTT D-Dimer ABG pH ABG pO2 ABG HCO3 ABG Base Excess Sodium 135 L Carbon Dioxide 20 L D BUN 35 H Creatinine 1.6 H D Glucose 192 H Hemoglobin A1c 6.2 H Lactic Acid Calcium 8.3 L Ferritin Total Bilirubin 1.80 H AST 55 H Lactate Dehydrogenase C-Reactive Protein Total Protein Albumin 2.6 L Prealbumin 0.049 L Urine Creatinine Coronavirus (PCR) 09/08/20 09/08/20 09/08/20 20:18 20:18 20:18 WBC 29.8 H RBC Hgb 15.3 H Hct MCHC Lymph % (Auto) Lymph # (Auto) Seg Neutrophils % Seg Neuts % (Manual) Lymphocytes % (Manual) Seg Neutrophils # Seg Neutrophils # Man Lymphocytes # (Manual) PT INR APTT D-Dimer ABG pH ABG pO2 ABG HCO3 ABG Base Excess Sodium 136 L Carbon Dioxide 17 L BUN 42 H Creatinine 1.9 H Glucose 203 H Hemoglobin A1c Lactic Acid 2.20 H* Calcium 7.6 L Ferritin Total Bilirubin AST 51 H Lactate Dehydrogenase C-Reactive Protein Total Protein 6.2 L Albumin 2.1 L Prealbumin Urine Creatinine Coronavirus (PCR) 09/08/20 09/09/20 09/09/20 21:53 00:19 03:15 WBC RBC Hgb Hct MCHC Lymph % (Auto) Lymph # (Auto) Seg Neutrophils % Seg Neuts % (Manual) Lymphocytes % (Manual) Seg Neutrophils # Seg Neutrophils # Man Lymphocytes # (Manual) PT INR APTT D-Dimer ABG pH ABG pO2 97.0 H ABG HCO3 16.3 L ABG Base Excess -7.5 L Sodium Carbon Dioxide BUN Creatinine Glucose Hemoglobin A1c Lactic Acid 3.20 H* 2.10 H* Calcium Ferritin Total Bilirubin AST Lactate Dehydrogenase C-Reactive Protein Total Protein Albumin Prealbumin Urine Creatinine Coronavirus (PCR) 09/09/20 09/09/20 09/09/20 04:54 04:54 04:54 WBC 28.5 H RBC Hgb Hct MCHC Lymph % (Auto) 1.3 L Lymph # (Auto) 0.4 L Seg Neutrophils % 96.1 H Seg Neuts % (Manual) Lymphocytes % (Manual) Seg Neutrophils # 27.4 H Seg Neutrophils # Man Lymphocytes # (Manual) PT INR APTT D-Dimer ABG pH ABG pO2 ABG HCO3 ABG Base Excess Sodium Carbon Dioxide 17 L BUN 45 H Creatinine 2.2 H Glucose 201 H Hemoglobin A1c Lactic Acid 2.90 H* Calcium 7.8 L Ferritin Total Bilirubin AST Lactate Dehydrogenase C-Reactive Protein Total Protein Albumin Prealbumin Urine Creatinine Coronavirus (PCR) 09/09/20 09/09/20 09/09/20 06:56 09:04 20:28 WBC RBC Hgb Hct MCHC Lymph % (Auto) Lymph # (Auto) Seg Neutrophils % Seg Neuts % (Manual) Lymphocytes % (Manual) Seg Neutrophils # Seg Neutrophils # Man Lymphocytes # (Manual) PT 15.8 H INR 1.26 H APTT 40.7 H D-Dimer ABG pH ABG pO2 ABG HCO3 ABG Base Excess Sodium Carbon Dioxide BUN Creatinine Glucose Hemoglobin A1c Lactic Acid 4.70 H* 3.70 H* Calcium Ferritin Total Bilirubin AST Lactate Dehydrogenase C-Reactive Protein Total Protein Albumin Prealbumin Urine Creatinine Coronavirus (PCR) 09/09/20 09/10/20 09/10/20 Unknown 02:24 04:56 WBC 24.2 H RBC Hgb Hct MCHC Lymph % (Auto) Lymph # (Auto) Seg Neutrophils % Seg Neuts % (Manual) 97.5 H Lymphocytes % (Manual) 1.0 L Seg Neutrophils # Seg Neutrophils # Man 23.6 H Lymphocytes # (Manual) 0.2 L PT INR APTT D-Dimer ABG pH ABG pO2 120.7 H ABG HCO3 15.1 L ABG Base Excess -8.0 L Sodium Carbon Dioxide BUN Creatinine Glucose Hemoglobin A1c Lactic Acid Calcium Ferritin Total Bilirubin AST Lactate Dehydrogenase C-Reactive Protein Total Protein Albumin Prealbumin Urine Creatinine 213.6 H Coronavirus (PCR) 09/10/20 04:56 WBC RBC Hgb Hct MCHC Lymph % (Auto) Lymph # (Auto) Seg Neutrophils % Seg Neuts % (Manual) Lymphocytes % (Manual) Seg Neutrophils # Seg Neutrophils # Man Lymphocytes # (Manual) PT INR APTT D-Dimer ABG pH ABG pO2 ABG HCO3 ABG Base Excess Sodium Carbon Dioxide 18 L BUN 62 H Creatinine 2.8 H Glucose 216 H Hemoglobin A1c Lactic Acid Calcium 7.9 L Ferritin Total Bilirubin AST Lactate Dehydrogenase C-Reactive Protein Total Protein Albumin Prealbumin Urine Creatinine Coronavirus (PCR) Chest x-ray: image reviewed (RLL predominant infiltrate) Allied health notes reviewed: nursing
[2020-09-10] MEDS ORDERED: METOPROLOL TARTRATE 5 MG/5 ML INJ IV PRN (13:07)
--- NOTE | 2020-09-10 14:32 | Progress Note ---
Assessment and Plan -- Acute respiratory failure with hypoxia due to Covid 19 vs Hospital acquired PNA Patient intubated because of labored breathing and for protection of airway. cont Vent management, Optometric Technician consult requested -- COVID-19 virus infection Diagnosed initially on 08/26/2020, treated at [facility] with dexamethasone, remdesivir for 3 days. Anticoagulation was not given due to recent hemorrhagic CVA. Chest x-ray with bilateral patchy infiltrates. Patient was discharged on from [facility] repeat test on 09/07 for covid remains positive Patient restarted on IV Decadron ID consulted -- Sepsis with shock May be secondary to Covid infection Patient started on empiric antibiotics in the form of cefepime and vancomycin ID consult was requested started on levophed - wean as tolerated -- Bilateral pneumonia due to Covid 19 vs Hospital acquired PNA Patient on IV levaquin and vancomycin, ID following --MYRON, likely ATN from profound sepsis monitor renal function, iv fluid, avoid nephrotoxin consulted renal -- Hemorrhagic CVA (cerebral vascular accident), h/o PT OT after extubation --acute on chronic atrial fib cot rate control, initially not given AC for h/o recent Hemorrhagic CVA CT head showed no acute process, now on heparin drip -- DVT prophylaxis On heparin and GI prophylaxis The high probability of a clinically significant, sudden or life threatening deterioration of 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 The aggregate critical care time was [34] minutes. 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 Patient received oxygen supplementation via nasal cannula, dexamethasone and 3 days of remdesivir. Patient admitted on 09/07/2020 to [facility] secondary to worsening cough, dyspnea on exertion and shortness of breath for the past 2 days because of which EMS was called. When the EMS arrived the patient was found to be hypoxic with room air oxygenation is running around 80s and also patient with altered sensorium. Patient was placed on nonrebreather and that his oxygen saturations improved to the 90s. Patient also has increased work of breathing and was getting tired because of which ER physician has intubated the patient. Placed on COVID protocol and admitted to ICU 09/08: resumed care. cont vent support, wean off pressor as tolerated. CC following. cont nebs, steroid for now. cont iv abx, follow ID recommendation. 09/09: order CT head. cont current Mx. cont steroid, vent support, nebs. follow Id recommendation. consult renal for MYRON 09/10: CT head showed no acute process, patient started on heparin drip for chronic atrial fib. wean off vent as tolerated, started TF. follow clinically. called Son twice but no response. Subjective Date of service: 09/10/20 Principal diagnosis: Ac hypoxemic resp failure; COVID-19; Pneumonia; Septic Shock; MYRON; H/O CVA Interval history: Patient seen and examined remains on vent, on pressor discussed with RN at bedside Objective - Exam Narrative Exam: General appearance: Present: unresponsive on vent - EENT Eyes: Present: no congestion ENT:clear oral mucosa - Neck Neck: Present: supple, normal ROM - Respiratory Respiratory effort: on vent Respiratory: bilateral: CTA, rhonchi (Scattered) - Cardiovascular Heart rate: 98 Rhythm: regular Heart Sounds: Present: S1 & S2. Absent: rub, click - Extremities Extremities: no ischemia, pulses intact, pulses symmetrical, No edema Peripheral Pulses: within normal limits - Abdominal General gastrointestinal: Present: soft, non-tender, non-distended, normal bowel sounds Male genitourinary: Present: normal - Integumentary Integumentary: Present: clear, warm, dry - Musculoskeletal Musculoskeletal: generalized weakness, other (Patient intubated) - Psychiatric Psychiatric: other (Patient intubated and sedated) - Neurologic Neurologic: other (Neurologic examination could not be done because the patient was sedated) - Constitutional Vitals: Vital Signs - 12hr 09/10/20 09/10/20 09/10/20 02:45 03:00 03:07 Pulse Rate 82 88 105 H Respiratory 18 18 Rate Blood Pressure 123/73 125/88 125/88 O2 Sat by Pulse 98 98 98 Oximetry 09/10/20 09/10/20 09/10/20 03:52 04:00 04:15 Pulse Rate 103 H 86 102 H Respiratory 18 18 18 Rate Blood Pressure 125/88 133/85 135/92 O2 Sat by Pulse 92 93 94 Oximetry 09/10/20 09/10/20 09/10/20 04:30 04:45 05:00 Pulse Rate 97 H 88 95 H Respiratory 18 18 18 Rate Blood Pressure 135/84 136/85 140/83 O2 Sat by Pulse 93 93 93 Oximetry 09/10/20 09/10/20 09/10/20 05:15 05:30 05:45 Pulse Rate 93 H 111 H 87 Respiratory 18 20 20 Rate Blood Pressure 138/76 132/79 131/82 O2 Sat by Pulse 94 93 94 Oximetry 09/10/20 09/10/20 09/10/20 06:00 06:15 06:30 Pulse Rate 104 H 107 H 101 H Respiratory 19 18 18 Rate Blood Pressure 137/78 131/84 132/78 O2 Sat by Pulse 94 94 95 Oximetry 09/10/20 09/10/20 09/10/20 06:45 07:00 07:15 Pulse Rate 91 H 90 89 Respiratory 18 18 19 Rate Blood Pressure 133/72 141/81 124/76 O2 Sat by Pulse 95 95 92 Oximetry 09/10/20 09/10/20 09/10/20 07:30 07:46 08:00 Pulse Rate 93 H 100 H 86 Respiratory 18 19 18 Rate Blood Pressure 113/77 118/71 112/71 O2 Sat by Pulse 95 95 95 Oximetry 09/10/20 09/10/20 09/10/20 08:15 08:25 08:30 Pulse Rate 93 H 85 118 H Respiratory 20 19 Rate Blood Pressure 121/73 121/73 110/77 O2 Sat by Pulse 95 95 95 Oximetry 09/10/20 09/10/20 09/10/20 08:45 09:00 09:15 Pulse Rate 101 H 90 92 H Respiratory 18 17 17 Rate Blood Pressure 112/67 110/77 113/75 O2 Sat by Pulse 96 95 95 Oximetry 09/10/20 09/10/20 09/10/20 09:30 09:45 10:00 Pulse Rate 83 90 85 Respiratory 18 17 18 Rate Blood Pressure 118/63 118/65 115/68 O2 Sat by Pulse 95 95 94 Oximetry 09/10/20 09/10/20 09/10/20 10:15 10:30 10:45 Pulse Rate 91 H 100 H 109 H Respiratory 18 18 18 Rate Blood Pressure 115/66 109/76 113/69 O2 Sat by Pulse 95 94 94 Oximetry 09/10/20 09/10/20 09/10/20 11:00 11:15 11:30 Pulse Rate 80 86 77 Respiratory 18 18 18 Rate Blood Pressure 120/70 120/70 106/67 O2 Sat by Pulse 94 94 95 Oximetry 09/10/20 09/10/20 09/10/20 11:45 12:00 12:15 Pulse Rate 91 H 100 H 81 Respiratory 18 18 18 Rate Blood Pressure 123/76 120/70 121/76 O2 Sat by Pulse 95 95 95 Oximetry - Labs CBC & Chem 7: 09/11/20 05:42 09/10/20 04:56 Labs: Abnormal lab results 09/09/20 09/09/20 09/10/20 Range/Units 20:28 Unknown 02:24 WBC (4.5-11.0) K/mm3 Seg Neuts % (Manual) (40.0-70.0) % Lymphocytes % (Manual) (13.4-35.0) % Seg Neutrophils # Man (1.8-7.7) K/mm3 Lymphocytes # (Manual) (1.2-5.4) K/mm3 PT 15.8 H (12.2-14.9) Sec. INR 1.26 H (0.87-1.13) APTT 40.7 H (24.2-36.6) Sec. ABG pO2 120.7 H (80.0-90.0) mm Hg ABG HCO3 15.1 L (20.0-26.0) mmol/L ABG Base Excess -8.0 L (-2.0-3.0) mmol/L Carbon Dioxide (22-30) mmol/L BUN (9-20) mg/dL Creatinine (0.8-1.3) mg/dL Glucose (75-100) mg/dL Calcium (8.4-10.2) mg/dL Urine Creatinine 213.6 H (0.1-20.0) mg/dL 09/10/20 09/10/20 Range/Units 04:56 04:56 WBC 24.2 H (4.5-11.0) K/mm3 Seg Neuts % (Manual) 97.5 H (40.0-70.0) % Lymphocytes % (Manual) 1.0 L (13.4-35.0) % Seg Neutrophils # Man 23.6 H (1.8-7.7) K/mm3 Lymphocytes # (Manual) 0.2 L (1.2-5.4) K/mm3 PT (12.2-14.9) Sec. INR (0.87-1.13) APTT (24.2-36.6) Sec. ABG pO2 (80.0-90.0) mm Hg ABG HCO3 (20.0-26.0) mmol/L ABG Base Excess (-2.0-3.0) mmol/L Carbon Dioxide 18 L (22-30) mmol/L BUN 62 H (9-20) mg/dL Creatinine 2.8 H (0.8-1.3) mg/dL Glucose 216 H (75-100) mg/dL Calcium 7.9 L (8.4-10.2) mg/dL Urine Creatinine (0.1-20.0) mg/dL HEART Score - HEART Score Troponin: Troponin T < 0.010 ng/mL (0.00-0.029) 09/07/20 18:00
--- NOTE | 2020-09-10 14:34 | Progress Note ---
Assessment and Plan 1. Acute kidney injury: Vasomotor nephropathy in the setting of Shock and severe COVID infection. Low FeNa. Renal US ordered. Monitor renal function. Creatinine level continue to increase. Continue with IV fluids. Avoid nephrotoxic agents. Meds dosage based on GFR. 2. FEN: Anion-gap metabolic acidosis, 2/2 lactic acidosis, IV fluids, monitor. Monitor lytes and volume status. 3. Acute hypoxic resp failure, POA: 2/2 COVID PNA. Currently intubated on vent. Followed by Pulmonary. 4. Septic shock: 2/2 severe COVID infection. Levofloxacin and Vancomycin. Levophed, wean as tolerated. 5. Pneumonia due to COVID-19 virus, POA: IV Decadron. S/p Remdesivir at [facility]. Followed by ID. 6. H/o Hemorrhagic CVA. PT/OT after extubation 7. Atrial fib: Rate control, per primary. Prognosis is guarded. Subjective: Patient was seen and examined at the bedside. Examination: General appearance: well-developed, appears emaciated, intubated, on vent HEENT: ATNC EYES: pupils are equal Neck: trachea midline Respiratory: MV sounds Heart: S1S2, irregular, no murmur Gastrointestinal: soft, not tender, BS heard Integumentary: no rash, warm and dry Neurologic: not responding Ext: no edema : Reyez catheter Subjective Date of service: 09/10/20 Principal diagnosis: Ac hypoxemic resp failure; COVID-19; Pneumonia; Septic Shock; MYRON; H/O CVA Objective - Vital Signs Vital signs: Vital Signs - 12hr 09/10/20 09/10/20 09/10/20 02:45 03:00 03:07 Pulse Rate 82 88 105 H Respiratory 18 18 Rate Blood Pressure 123/73 125/88 125/88 O2 Sat by Pulse 98 98 98 Oximetry 09/10/20 09/10/20 09/10/20 03:52 04:00 04:15 Pulse Rate 103 H 86 102 H Respiratory 18 18 18 Rate Blood Pressure 125/88 133/85 135/92 O2 Sat by Pulse 92 93 94 Oximetry 09/10/20 09/10/20 09/10/20 04:30 04:45 05:00 Pulse Rate 97 H 88 95 H Respiratory 18 18 18 Rate Blood Pressure 135/84 136/85 140/83 O2 Sat by Pulse 93 93 93 Oximetry 09/10/20 09/10/20 09/10/20 05:15 05:30 05:45 Pulse Rate 93 H 111 H 87 Respiratory 18 20 20 Rate Blood Pressure 138/76 132/79 131/82 O2 Sat by Pulse 94 93 94 Oximetry 09/10/20 09/10/20 09/10/20 06:00 06:15 06:30 Pulse Rate 104 H 107 H 101 H Respiratory 19 18 18 Rate Blood Pressure 137/78 131/84 132/78 O2 Sat by Pulse 94 94 95 Oximetry 09/10/20 09/10/20 09/10/20 06:45 07:00 07:15 Pulse Rate 91 H 90 89 Respiratory 18 18 19 Rate Blood Pressure 133/72 141/81 124/76 O2 Sat by Pulse 95 95 92 Oximetry 09/10/20 09/10/20 09/10/20 07:30 07:46 08:00 Pulse Rate 93 H 100 H 86 Respiratory 18 19 18 Rate Blood Pressure 113/77 118/71 112/71 O2 Sat by Pulse 95 95 95 Oximetry 09/10/20 09/10/20 09/10/20 08:15 08:25 08:30 Pulse Rate 93 H 85 118 H Respiratory 20 19 Rate Blood Pressure 121/73 121/73 110/77 O2 Sat by Pulse 95 95 95 Oximetry 09/10/20 09/10/20 09/10/20 08:45 09:00 09:15 Pulse Rate 101 H 90 92 H Respiratory 18 17 17 Rate Blood Pressure 112/67 110/77 113/75 O2 Sat by Pulse 96 95 95 Oximetry 09/10/20 09/10/20 09/10/20 09:30 09:45 10:00 Pulse Rate 83 90 85 Respiratory 18 17 18 Rate Blood Pressure 118/63 118/65 115/68 O2 Sat by Pulse 95 95 94 Oximetry 09/10/20 09/10/20 09/10/20 10:15 10:30 10:45 Pulse Rate 91 H 100 H 109 H Respiratory 18 18 18 Rate Blood Pressure 115/66 109/76 113/69 O2 Sat by Pulse 95 94 94 Oximetry 09/10/20 09/10/20 09/10/20 11:00 11:15 11:30 Pulse Rate 80 86 77 Respiratory 18 18 18 Rate Blood Pressure 120/70 120/70 106/67 O2 Sat by Pulse 94 94 95 Oximetry 09/10/20 09/10/20 09/10/20 11:45 12:00 12:15 Pulse Rate 91 H 100 H 81 Respiratory 18 18 18 Rate Blood Pressure 123/76 120/70 121/76 O2 Sat by Pulse 95 95 95 Oximetry - Lab 09/10/20 04:56 09/10/20 04:56 Most recent lab results ABG pH 7.386 pH Units (7.350-7.450) 09/10/20 02:24 ABG pCO2 25.8 mm Hg 09/10/20 02:24 ABG pO2 120.7 mm Hg (80.0-90.0) H 09/10/20 02:24 ABG HCO3 15.1 mmol/L (20.0-26.0) L 09/10/20 02:24 ABG O2 Saturation 98.3 % (95.0-99.0) 09/10/20 02:24 Calcium 7.9 mg/dL (8.4-10.2) L 09/10/20 04:56 Phosphorus 3.20 mg/dL (2.5-4.5) 09/08/20 10:13 Magnesium 2.00 mg/dL (1.7-2.3) 09/08/20 10:13 Urine Creatinine 213.6 mg/dL (0.1-20.0) H 09/09/20 Unknown Urine Sodium 19 mmol/L 09/09/20 Unknown Medications & Allergies - Medications Allergies/Adverse Reactions: Allergies ceftriaxone Allergy (Verified 12/10/13 11:03) Rash RASH AND ITCHING PER OCTAVIO Home Medications: Home Medications Medication Instructions Recorded Confirmed Last Taken Type Aspirin [Aspirin BABY CHEW TAB] 81 mg PO QDAY #30 tab.chew 12/12/13 Unknown Rx levoFLOXacin [Levaquin TAB] 500 mg PO QDAY #7 tablet 12/12/13 Unknown Rx Active Medications: Generic Name Dose Route Start Last Admin Trade Name Freq PRN Reason Stop Dose Admin Acetaminophen 650 mg 09/08/20 07:00 Acetaminophen 325 Mg/10.15 Ml Oral Liqd Unit Dose PO Q4H PRN Pain MILD(1-3)/Fever >100.5/BEST Lipase/Protease/Amylase 1 each 09/08/20 06:31 Lipase 10,500/Protease 25,000/Amylase 43,750 (Units) Dr Cap FEEDTUBE PRN PRN For Clogged Feeding Tube Dexamethasone 6 mg 09/09/20 20:56 09/10/20 12:29 Dexamethasone 4 Mg/Ml Vial IV 09/18/20 10:01 6 mg Q24HR CRISTIN Administration Diltiazem HCl 60 mg 09/10/20 14:00 Diltiazem 60 Mg Tab PO Q6HR CRISTIN Famotidine 20 mg 09/10/20 10:00 09/10/20 12:29 Famotidine 20 Mg/2 Ml Inj IV 20 mg DAILY CRISTIN Administration Fentanyl 50 mcg 09/09/20 19:53 Fentanyl 100 Mcg/2 Ml Inj IV Q10MIN PRN ANALGESIA Heparin Sodium (Porcine) 3,200 unit 09/09/20 19:53 09/10/20 05:53 Heparin 10,000 Units/10 Ml Vial 40 unit/kg (3200 unit) 3,200 unit IV Administration Q6H PRN Anti-Xa Assay < 0.1 units/ml Hydrophilic Ointment 1 applic 09/07/20 22:11 Lip Therapy Vaseline TP Q2HR PRN Dry Lips Norepinephrine 4 mg in 250 mls @ 7.5 mls/hr 09/07/20 21:19 09/09/20 21:53 Levophed Drip 4 Mg/Ns 250 Ml IV 12 mcg/min TITR CRISTIN 45 mls/hr Administration Protocol 2 MCG/MIN Midazolam HCl 100 mg/ Sodium 100 mls @ 2 mls/hr 09/07/20 23:00 09/09/20 21:57 Chloride IV 4 mg/hr TITR CRISTIN 4 mls/hr Administration Protocol 2 MG/HR Sodium Chloride 1,000 mls @ 42 mls/hr 09/08/20 06:30 09/09/20 13:18 Nacl 0.9% 1000 Ml IV 42 mls/hr DIRECT CRISTIN Administration Levofloxacin/Dextrose 750 mg in 150 mls @ 100 mls/hr 09/09/20 13:00 09/09/20 13:18 Levaquin 750mg/150ml IV 100 mls/hr Q48H CRISTIN Administration Heparin Sodium/Sodium Chloride 25,000 unit in 500 mls @ 23 mls/hr 09/09/20 20:00 09/10/20 05:53 Heparin/ 0.45% Nacl-25,000 Unit/500 Ml IV 1,150 units/hr TITR CRISTIN 23 mls/hr Administration Protocol 1,150 UNITS/HR Fentanyl Citrate 2,000 mcg in 100 mls @ 3.98 mls/hr 09/09/20 20:00 Fentanyl Drip Premix IV TITR CRISTIN Protocol 1 MCG/KG/HR Metoprolol Tartrate 5 mg 09/10/20 13:07 Metoprolol Tartrate 5 Mg/5 Ml Inj IV Q6HR PRN HR>130 Midazolam HCl 2 mg 09/07/20 22:11 Midazolam 2 Mg/2 Ml Inj IV Q10MIN PRN Sedation Morphine Sulfate 2 mg 09/08/20 06:29 Morphine 2 Mg/1 Ml Inj IV Q4H PRN Pain, Moderate (4-6) Multi-Ingred Cream/Lotion/Oil/Oint 1 applic 09/07/20 22:11 Mineral Oil/Petrolatum, White Ophth Oint 3.5 Gm OU Q4HR PRN Dry Eye(s) Ondansetron HCl 4 mg 09/08/20 06:29 Ondansetron 4 Mg/2 Ml Inj IV Q8H PRN Nausea And Vomiting Simple Syrup 15 ml 09/08/20 06:31 Simple Syrup 15 Ml FEEDTUBE PRN PRN Hypoglycemia Simple Syrup 30 ml 09/08/20 06:31 Simple Syrup 15 Ml FEEDTUBE PRN PRN Hypoglycemia Sodium Bicarbonate 325 mg 09/08/20 06:31 Sodium Bicarbonate 325 Mg Tab FEEDTUBE PRN PRN For Clogged Feeding Tube Sodium Chloride 10 ml 09/08/20 10:00 09/10/20 12:29 Sodium Chloride 0.9% 10 Ml Flush Syringe IV 10 ml BID CRISTIN Administration Sodium Chloride 10 ml 09/08/20 06:29 Sodium Chloride 0.9% 10 Ml Flush Syringe IV PRN PRN LINE FLUSH
[2020-09-10] MEDS: dilTIAZem 60 MG TAB PO SCH ×2 (18:27→19:55)
[2020-09-11] MEDS: dilTIAZem 60 MG TAB PO SCH ×4 (01:49→18:17)
--- NOTE | 2020-09-11 03:14 | XRay Report ---
CHEST 1 VIEW [id number] INDICATION / CLINICAL INFORMATION: follow up respiratory failure COMPARISON: 09/10/2020 FINDINGS: SUPPORT DEVICES: Stable HEART / MEDIASTINUM: Stable LUNGS / PLEURA: Bilateral pulmonary infiltrates are again seen. These are cysts stable in the left [place] mildly more prominent on the right, particularly in the right upper lobe. There probably is a sm all right pleural effusion and may be a small left pleural effusion. No pneumothorax. ADDITIONAL FINDINGS: No significant additional findings. Signer Name: Melo Tejada MD Signed: 09/11/2020 3:10 AM Workstation Name: [id number]
[2020-09-11 06:22] LABS: Hematocrit 39.6 % (35.5-45.6); Hemoglobin 13.4 gm/dl (11.8-15.2)
[2020-09-11 06:46] LABS: Hematocrit 39.1 % (35.5-45.6); Hemoglobin 13.4 gm/dl (11.8-15.2); Mean Corpuscular HGB Conc 34 % (32-34); Mean Corpuscular Volume 91 fl (84-94); Platelet Count 118 K/mm3 (140-440); Red Blood Count 4.29 M/mm3 (3.65-5.03); Red Cell Distribution Width 15.3 % (13.2-15.2)
[2020-09-11 07:05] LABS: Calcium 7.5 mg/dL (8.4-10.2)
[2020-09-11] MEDS: HEPARIN/ 0.45% NACL DRIP 25,000 UNIT/500 ML BAG IV SCH ×2 (08:58→15:47)
[2020-09-11] MEDS: FAMOTIDINE 20 MG/2 ML INJ IV SCH (10:21)
[2020-09-11] MEDS: dexAMETHasone 4 MG/ML VIAL IV SCH (10:21)
--- NOTE | 2020-09-11 11:59 | Progress Note ---
Assessment and Plan Assessment and plan: -- Acute respiratory failure with hypoxia due to Covid 19 vs Hospital acquired PNA Patient intubated because of labored breathing and for protection of airway. cont Vent management, Chainstitch Elastic Attacher consult requested -- COVID-19 virus infection Diagnosed initially on 08/26/2020, treated at [facility] with dexamethasone, remdesivir for 3 days. Anticoagulation was not given due to recent hemorrhagic CVA. Chest x-ray with bilateral patchy infiltrates. Patient was discharged on from [facility] repeat test on 09/07 for covid remains positive Patient restarted on IV Decadron ID consulted -- Sepsis with shock May be secondary to Covid infection Patient started on empiric antibiotics in the form of cefepime and vancomycin ID consult was requested started on levophed - wean as tolerated -- Bilateral pneumonia due to Covid 19 vs Hospital acquired PNA Patient on IV levaquin and vancomycin, ID following --MYRON, likely ATN from profound sepsis monitor renal function, iv fluid, avoid nephrotoxin consulted renal -- Hemorrhagic CVA (cerebral vascular accident), h/o PT OT after extubation --acute on chronic atrial fib cot rate control, initially not given AC for h/o recent Hemorrhagic CVA CT head showed no acute process, now on heparin drip -- DVT prophylaxis On heparin and GI prophylaxis The high probability of a clinically significant, sudden or life threatening deterioration of the [wireless architect, 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 The aggregate critical care time was [34] minutes. 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 Patient received oxygen supplementation via nasal cannula, dexamethasone and 3 days of remdesivir. Patient admitted on 09/07/2020 to [facility] secondary to worsening cough, dyspnea on exertion and shortness of breath for the past 2 days because of which EMS was called. When the EMS arrived the patient was found to be hypoxic with room air oxygenation is running around 80s and also patient with altered sensorium. Patient was placed on nonrebreather and that his oxygen saturations improved to the 90s. Patient also has increased work of breathing and was getting tired because of which ER physician has intubated the patient. Placed on COVID protocol and admitted to ICU 09/08: resumed care. cont vent support, wean off pressor as tolerated. CC following. cont nebs, steroid for now. cont iv abx, follow ID recommendation. 09/09: order CT head. cont current Mx. cont steroid, vent support, nebs. follow Id recommendation. consult renal for MYRON 09/10: CT head showed no acute process, patient started on heparin drip for chronic atrial fib. wean off vent as tolerated, started TF. follow clinically. called Son twice but no response. 09/11/2020; continue on heparin drip, wean off vent as tolerated. Continue with tube feeding. Patient is comatose and prognosis is very poor. Discussed with patient daughter Brittanie at [phone] and discussed about his condition. Daughter said if his condition is no improvement by tomorrow we will make a decision whether to withdraw care. History Interval history: Patient was seen and evaluated this morning Patient is not sedated and on mechanical ventilation Hospitalist Physical - Physical exam Narrative exam: Patient is intubated and comatose The patient appeared well nourished and normally developed. Vital signs as documented. Head exam is unremarkable. No scleral icterus . Neck is without jugular venous distension, thyromegaly, or carotid bruits. Lungs are clear to auscultation. Cardiac exam reveals regular rate and Rhythm. Abdominal exam reveals normal bowel sounds, nontender, no organomegaly. Extremities are nonedematous and both femoral and pedal pulses are normal. 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 EXTRACTOR: Patient is comatose - Constitutional Vitals: Temp Pulse Resp BP Pulse Ox 96.1 F L 120 H 40 H 117/75 96 09/11/20 08:28 09/11/20 11:00 09/11/20 11:00 09/11/20 11:09/11/20 11:00 General appearance: Present: severe distress, well-nourished HEART Score - HEART Score Troponin: Troponin T < 0.010 ng/mL (0.00-0.029) 09/07/20 18:00 Results - Labs CBC & Chem 7: 09/11/20 05:42 09/11/20 05:42 Labs: Laboratory Last Values WBC 16.2 K/mm3 (4.5-11.0) H 09/11/20 05:42 RBC 4.29 M/mm3 (3.65-5.03) 09/11/20 05:42 Hgb 13.4 gm/dl (11.8-15.2) 09/11/20 05:42 Hgb 13.4 gm/dl (11.8-15.2) 09/11/20 05:42 Hct 39.1 % (35.5-45.6) 09/11/20 05:42 Hct 39.6 % (35.5-45.6) 09/11/20 05:42 MCV 91 fl (84-94) 09/11/20 05:42 MCH 31 pg (28-32) 09/11/20 05:42 MCHC 34 % (32-34) 09/11/20 05:42 RDW 15.3 % (13.2-15.2) H 09/11/20 05:42 Plt Count 116 K/mm3 (140-440) L 09/11/20 05:42 Plt Count 118 K/mm3 (140-440) L 09/11/20 05:42 Lymph % (Auto) 1.3 % (13.4-35.0) L 09/09/20 04:54 [place] % (Auto) 2.5 % (0.0-7.3) 09/09/20 04:54 Eos % (Auto) 0.0 % (0.0-4.3) 09/09/20 04:54 Baso % (Auto) 0.1 % (0.0-1.8) 09/09/20 04:54 Lymph # (Auto) 0.4 K/mm3 (1.2-5.4) L 09/09/20 04:54 [place] # (Auto) 0.7 K/mm3 (0.0-0.8) 09/09/20 04:54 Eos # (Auto) 0.0 K/mm3 (0.0-0.4) 09/09/20 04:54 Baso # (Auto) 0.0 K/mm3 (0.0-0.1) 09/09/20 04:54 Add Manual Diff Complete 09/10/20 04:56 Total Counted 200 09/10/20 04:56 Seg Neutrophils % Ignition Specialist 09/10/20 04:56 Seg Neuts % (Manual) 97.5 % (40.0-70.0) H 09/10/20 04:56 Band Neutrophils % 4.0 % 09/07/20 18:00 Lymphocytes % (Manual) 1.0 % (13.4-35.0) L 09/10/20 04:56 Monocytes % (Manual) 1.5 % (0.0-7.3) 09/10/20 04:56 Nucleated RBC % Not Reportable 09/10/20 04:56 Seg Neutrophils # 27.4 K/mm3 (1.8-7.7) H 09/09/20 04:54 Seg Neutrophils # Man 23.6 K/mm3 (1.8-7.7) H 09/10/20 04:56 Band Neutrophils # 0.0 K/mm3 09/10/20 04:56 Lymphocytes # (Manual) 0.2 K/mm3 (1.2-5.4) L 09/10/20 04:56 Abs React Lymphs (Man) 0.0 K/mm3 09/10/20 04:56 Monocytes # (Manual) 0.4 K/mm3 (0.0-0.8) 09/10/20 04:56 Eosinophils # (Manual) 0.0 K/mm3 (0.0-0.4) 09/10/20 04:56 Basophils # (Manual) 0.0 K/mm3 (0.0-0.1) 09/10/20 04:56 Metamyelocytes # 0.0 K/mm3 09/10/20 04:56 Myelocytes # 0.0 K/mm3 09/10/20 04:56 Promyelocytes # 0.0 K/mm3 09/10/20 04:56 Blast Cells # 0.0 K/mm3 09/10/20 04:56 WBC Morphology Not Reportable 09/10/20 04:56 Hypersegmented Neuts Not Reportable 09/10/20 04:56 Hyposegmented Neuts Not Reportable 09/10/20 04:56 Hypogranular Neuts Not Reportable 09/10/20 04:56 Smudge Cells Not Reportable 09/10/20 04:56 Toxic Granulation Not Reportable 09/10/20 04:56 Toxic Vacuolation Not Reportable 09/10/20 04:56 Dohle Bodies Not Reportable 09/10/20 04:56 Pelger-Huet Anomaly Not Reportable 09/10/20 04:56 Miroslava Rods Not Reportable 09/10/20 04:56 Platelet Estimate Consistent w auto 09/10/20 04:56 Clumped Platelets Not Reportable 09/10/20 04:56 Plt Clumps, EDTA Not Reportable 09/10/20 04:56 Large Platelets Not Reportable 09/10/20 04:56 Giant Platelets Not Reportable 09/10/20 04:56 Platelet Satelliting Not Reportable 09/10/20 04:56 Plt Morphology Comment Not Reportable 09/10/20 04:56 RBC Morphology Not Reportable 09/10/20 04:56 Dimorphic RBCs Not Reportable 09/10/20 04:56 Polychromasia Not Reportable 09/10/20 04:56 Hypochromasia Not Reportable 09/10/20 04:56 Poikilocytosis Not Reportable 09/10/20 04:56 Anisocytosis 1+ 09/10/20 04:56 Microcytosis Not Reportable 09/10/20 04:56 Macrocytosis Not Reportable 09/10/20 04:56 Spherocytes Not Reportable 09/10/20 04:56 Pappenheimer Bodies Not Reportable 09/10/20 04:56 Sickle Cells Not Reportable 09/10/20 04:56 Target Cells Not Reportable 09/10/20 04:56 Tear Drop Cells Not Reportable 09/10/20 04:56 Ovalocytes Not Reportable 09/10/20 04:56 Helmet Cells Not Reportable 09/10/20 04:56 Morales-[place]sk[place] Bodies Not Reportable 09/10/20 04:56 [place] Rings Not Reportable 09/10/20 04:56 [place] Cells Not Reportable 09/10/20 04:56 Bite Cells Not Reportable 09/10/20 04:56 Crenated Cell Not Reportable 09/10/20 04:56 Elliptocytes Not Reportable 09/10/20 04:56 Acanthocytes (Spur) Not Reportable 09/10/20 04:56 Rouleaux Not Reportable 09/10/20 04:56 Hemoglobin C Crystals Not Reportable 09/10/20 04:56 Schistocytes Not Reportable 09/10/20 04:56 Malaria parasites Not Reportable 09/10/20 04:56 Marquise Bodies Not Reportable 09/10/20 04:56 Hem Pathologist Commnt No 09/10/20 04:56 PT 15.8 Sec. (12.2-14.9) H 09/09/20 20:28 INR 1.26 (0.87-1.13) H 09/09/20 20:28 APTT 40.7 Sec. (24.2-36.6) H 09/09/20 20:28 D-Dimer > 92198 ng/mlDDU (0-234) H 09/07/20 18:00 D-Dimer Ignition Specialist 09/07/20 18:00 Heparin Anti-Xa Level 2.00 U.I./ml (0.3-0.7) H 09/11/20 01:02 ABG pH 7.428 (7.320-7.450) 09/11/20 05:11 POC ABG pCO2 22.8 mmHg (32.0-48.0) L 09/11/20 05:11 ABG pCO2 25.8 mm Hg 09/10/20 02:24 POC ABG pO2 76.3 mmHg (83-108) L 09/11/20 05:11 ABG pO2 120.7 mm Hg (80.0-90.0) H 09/10/20 02:24 POC ABG HCO3 14.7 09/11/20 05:11 ABG HCO3 15.1 mmol/L (20.0-26.0) L 09/10/20 02:24 ABG O2 Saturation 98.3 % (95.0-99.0) 09/10/20 02:24 ABG O2 Content 20.4 (0.0-44) 09/10/20 02:24 POC ABG Base Excess -7.1 09/11/20 05:11 ABG Base Excess -8.0 mmol/L (-2.0-3.0) L 09/10/20 02:24 ABG Hemoglobin 16.2 (12.0-17.5) 09/11/20 05:11 ABG Oxyhemoglobin 94.6 (94-98) 09/11/20 05:11 ABG Carboxyhemoglobin 0.8 % (0.0-5.0) 09/10/20 02:24 ABG Methemoglobin 0.3 (0.0-1.5) 09/11/20 05:11 ABG Sodium 136.0 mmol/L (136.0-145.0) 09/11/20 05:11 ABG Potassium 4.2 mmol/L (3.40-4.50) 09/11/20 05:11 ABG Chloride 106.0 mmol/L (98-107) 09/11/20 05:11 ABG Glucose 208 mg/dL (65-95) H 09/11/20 05:11 Oxyhemoglobin 97.0 % (95.0-99.0) 09/10/20 02:24 Carboxyhemoglobin 0.2 (0.5-1.5) L 09/11/20 05:11 FiO2 55 09/11/20 05:11 Sodium 140 mmol/L (137-145) 09/11/20 05:42 Potassium 4.4 mmol/L (3.6-5.0) 09/11/20 05:42 Chloride 108.7 mmol/L (98-107) H 09/11/20 05:42 Carbon Dioxide 15 mmol/L (22-30) L 09/11/20 05:42 Anion Gap 21 mmol/L 09/11/20 05:42 BUN 76 mg/dL (9-20) H 09/11/20 05:42 Creatinine 3.0 mg/dL (0.8-1.3) H 09/11/20 05:42 Estimated GFR 20 ml/min 09/11/20 05:42 BUN/Creatinine Ratio 25 % 09/11/20 05:42 Glucose 202 mg/dL (75-100) H 09/11/20 05:42 Hemoglobin A1c 6.2 % (4-6) H 09/08/20 10:13 Lactic Acid 3.70 mmol/L (0.7-2.0) H* 09/09/20 09:04 Calcium 7.5 mg/dL (8.4-10.2) L 09/11/20 05:42 Phosphorus 3.20 mg/dL (2.5-4.5) 09/08/20 10:13 Magnesium 2.00 mg/dL (1.7-2.3) 09/08/20 10:13 Ferritin 849.7 ng/mL (30.0-300.0) H 09/07/20 18:00 Total Bilirubin 1.20 mg/dL (0.1-1.2) 09/08/20 20:18 AST 51 units/L (5-40) H 09/08/20 20:18 ALT 22 units/L (7-56) 09/08/20 20:18 Alkaline Phosphatase 69 units/L (35-129) 09/08/20 20:18 Lactate Dehydrogenase 507 units/L (91-180) H 09/07/20 18:00 Troponin T < 0.010 ng/mL (0.00-0.029) 09/07/20 18:00 C-Reactive Protein 8.20 mg/dL (0.00-1.30) H 09/07/20 18:00 Total Protein 6.2 g/dL (6.3-8.2) L 09/08/20 20:18 Albumin 2.1 g/dL (3.9-5) L 09/08/20 20:18 Albumin/Globulin Ratio 0.5 % 09/08/20 20:18 Prealbumin 0.049 g/L (0.200-0.400) L 09/08/20 10:13 Procalcitonin 0.33 ng/mL (<0.15) 09/07/20 18:00 Arterial Blood Glucose 208 mg/dL (65-95) H 09/11/20 05:11 Arterial Blood Ionized Calcium 4.1 mg/dL (4.6-5.3) L 09/11/20 05:11 Urine Color Leanna (Yellow) 09/07/20 17:25 Urine Turbidity Clear (Clear) 09/07/20 17:25 Urine pH 5.0 (5.0-7.0) 09/07/20 17:25 Ur Specific [place] 1.023 (1.003-1.030) 09/07/20 17:25 Urine Protein 30 mg/dl mg/dL (Negative) 09/07/20 17:25 Urine Glucose (UA) Neg mg/dL (Negative) 09/07/20 17:25 Urine Ketones Tr mg/dL (Negative) 09/07/20 17:25 Urine Blood Neg (Negative) 09/07/20 17:25 Urine Nitrite Neg (Negative) 09/07/20 17:25 Urine Bilirubin Neg (Negative) 09/07/20 17: Urine Urobilinogen 2.0 mg/dL (<2.0) 09/07/20 17:25 Ur Leukocyte Esterase Neg (Negative) 09/07/20 17:25 Urine WBC (Auto) 4.0 /HPF (0.0-6.0) 09/07/20 17: Urine RBC (Auto) 2.0 /HPF (0.0-6.0) 09/07/20 17: U Epithel Cells (Auto) 1.0 /HPF (0-13.0) 09/07/20 17: Urine Mucus 3+ /HPF 09/07/20 17: Urine Creatinine 213.6 mg/dL (0.1-20.0) H 09/09/20 Unknown Urine Sodium 19 mmol/L 09/09/20 Unknown Random Vancomycin 14.3 ug/mL (0-40.0) 09/11/20 05:42 Coronavirus (PCR) Positive (Negative) A 09/07/20 17:25 Microbiology: Microbiology 09/07/20 18:00 Peripheral/Venous Blood Culture - Preliminary NO GROWTH AFTER 72 HOURS 09/07/20 18:00 Peripheral/Venous Blood Culture - Preliminary NO GROWTH AFTER 72 HOURS 09/07/20 Unknown Tracheal Aspirate Sputum Culture - Final Rain Albicans Reyez/IV: Voiding Method Indwelling Catheter IV Catheter Type [Right Triple Lumen Cath Femoral] IV Catheter Type [Right INT / Saline Lock Antecubital] Active Medications - Current Medications Current Medications: Generic Name Dose Route Start Last Admin Trade Name Freq PRN Reason Stop Dose Admin Acetaminophen 650 mg 09/08/20 07:00 Acetaminophen 325 Mg/10.15 Ml Oral Liqd Unit Dose PO Q4H PRN Pain MILD(1-3)/Fever >100.5/BEST Lipase/Protease/Amylase 1 each 09/08/20 06:31 Lipase 10,500/Protease 25,000/Amylase 43,750 (Units) Cap FEEDTUBE PRN PRN For Clogged Feeding Tube Dexamethasone 6 mg 09/09/20 20:56 09/11/20 10:21 Dexamethasone 4 Mg/Ml Vial IV 09/18/20 10:01 6 mg Q24HR CRISTIN Administration Diltiazem HCl 60 mg 09/10/20 14:00 09/11/20 05:33 Diltiazem 60 Mg Tab PO Not Given Q6HR CRISTIN Famotidine 20 mg 09/10/20 10:00 09/11/20 10:21 Famotidine 20 Mg/2 Ml Inj IV 20 mg DAILY CRISTIN Administration Fentanyl 50 mcg 09/09/20 19:53 Fentanyl 100 Mcg/2 Ml Inj IV Q10MIN PRN ANALGESIA Heparin Sodium (Porcine) 3,200 unit 09/09/20 19:53 09/10/20 05:53 Heparin 10,000 Units/10 Ml Vial 40 unit/kg (3200 unit) 3,200 unit IV Administration Q6H PRN Anti-Xa Assay < 0.1 units/ml Hydrophilic Ointment 1 applic 09/07/20 22:11 Lip Therapy Vaseline TP Q2HR PRN Dry Lips Norepinephrine 4 mg in 250 mls @ 7.5 mls/hr 09/07/20 21:19 09/09/20 21:53 Levophed Drip 4 Mg/Ns 250 Ml IV 12 mcg/min TITR CRISTIN 45 mls/hr Administration Protocol 2 MCG/MIN Midazolam HCl 100 mg/ Sodium 100 mls @ 2 mls/hr 09/07/20 23:00 09/09/20 21:57 Chloride IV 4 mg/hr TITR CRISTIN 4 mls/hr Administration Protocol 2 MG/HR Sodium Chloride 1,000 mls @ 42 mls/hr 09/08/20 06:30 09/09/20 13:18 Nacl 0.9% 1000 Ml IV 42 mls/hr DIRECT CRISTIN Administration Levofloxacin/Dextrose 750 mg in 150 mls @ 100 mls/hr 09/09/20 13:00 09/09/20 13:18 Levaquin 750mg/150ml IV 100 mls/hr Q48H CRISTIN Administration Heparin Sodium/Sodium Chloride 25,000 unit in 500 mls @ 23 mls/hr 09/09/20 20:00 09/11/20 08:58 Heparin/ 0.45% Nacl-25,000 Unit/500 Ml IV 850 units/hr TITR CRISTIN 17 mls/hr Administration Protocol 1,150 UNITS/HR Fentanyl Citrate 2,000 mcg in 100 mls @ 3.98 mls/hr 09/09/20 20:00 Fentanyl Drip Premix IV TITR CRISTIN Protocol 1 MCG/KG/HR Metoprolol Tartrate 5 mg 09/10/20 13:07 Metoprolol Tartrate 5 Mg/5 Ml Inj IV Q6HR PRN HR>130 Midazolam HCl 2 mg 09/07/20 22:11 Midazolam 2 Mg/2 Ml Inj IV Q10MIN PRN Sedation Morphine Sulfate 2 mg 09/08/20 06:29 Morphine 2 Mg/1 Ml Inj IV Q4H PRN Pain, Moderate (4-6) Multi-Ingred Cream/Lotion/Oil/Oint 1 applic 09/07/20 22:11 Mineral Oil/Petrolatum, White Ophth Oint 3.5 Gm OU Q4HR PRN Dry Eye(s) Ondansetron HCl 4 mg 09/08/20 06:29 Ondansetron 4 Mg/2 Ml Inj IV Q8H PRN Nausea And Vomiting Simple Syrup 15 ml 09/08/20 06:31 Simple Syrup 15 Ml FEEDTUBE PRN PRN Hypoglycemia Simple Syrup 30 ml 09/08/20 06:31 Simple Syrup 15 Ml FEEDTUBE PRN PRN Hypoglycemia Sodium Bicarbonate 325 mg 09/08/20 06:31 Sodium Bicarbonate 325 Mg Tab FEEDTUBE PRN PRN For Clogged Feeding Tube Sodium Chloride 10 ml 09/08/20 10:00 09/11/20 10:21 Sodium Chloride 0.9% 10 Ml Flush Syringe IV 10 ml BID CRISTIN Administration Sodium Chloride 10 ml 09/08/20 06:29 Sodium Chloride 0.9% 10 Ml Flush Syringe IV PRN PRN LINE FLUSH Nutrition/Malnutrition Assess - Dietary Evaluation Nutrition/Malnutrition Findings: Nutrition Notes Start: 09/08/20 09:03 Freq: Status: Active Protocol: Document 09/08/20 09:03 (Rec: 09/08/20 09:16 [id number]) Nutrition Notes Need for Assessment generated from: MD Order Initial or Follow up Assessment Current Diagnosis Sepsis,Stroke Other Pertinent Diagnosis COVID(+), ARF, pneumonia Current Diet TF Labs/Tests 09/07: BUN 24 Pertinent Medications Levophed Height 5 ft 4 in Weight 150 kg [place]l Body Weight (kg) 59.09 BMI 56.7 Weight Status Morbidly Obese Subjective/Other Information MD order for TF. Pt on hold in ED. Pt on the vent. Burn Absent Trauma Absent Current % PO Negligible Minimum of two criteria No physical signs of malnutrition #1 Nutrition Diagnosis Inadequate oral intake Etiology ARF As Evidenced by Signs and Symptoms Pt on vent and unable to consume PO Is patient on ventilator? Yes Is Patient Ambulatory and/or Out of Bed No REE-([facility]conf[facility]) 2509.752 Kcal/Kg value to use for calculation 12 Approximate Energy Requirements Using 1800 kcal/Kg Calculation Used for Recommendations Kcal/kg Additional Notes Pro: less than 148g (up to 2. 5g/kg IBW) Fluid: 1 ml/kcal Nutrition Intervention Change Diet Order: Start TF Nutrition Support: Vital AF 1.2 at 65 ml/hr Flush 100 ml q4h Kcal 1,872 Protein (gm) 117 Fluid (mL) 1,265 Goal #1 TF start/tolerance Goal #2 Meet at least 75% of protein and energy needs via TF Anticipated Discharge Needs: Unable to determine at this time Follow-Up By: 09/11/20 Additional Comments FU for TF start/tolerance
--- NOTE | 2020-09-11 12:08 | Progress Note ---
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 Urinalysis negative. #Severe COVID-19 pneumonia: Diagnosed initially on 08/26/2020, treated at [facility] with dexamethasone, remdesivir for 3 days. Anticoagulation was not given due to recent hemorrhagic CVA. Chest x-ray with bilateral patchy infiltrates. Inflammatory markers elevated, D-dimer> 10,000, ferritin 849, CRP 8.2. Procalcitonin 0.3. ? Bacterial pneumonia component. ?HAP #Acute hypoxemic respiratory failure: Initial sats dropped to 89%. Patient intubated in the ED, remains on the vent. #A. fib: Diagnosed during recent admission at [facility]. Cardiology following. #Elevated LFTs: Likely secondary to COVID-19. #Recent hemorrhagic CVA: Diagnosed in July 2020. Recent CT of the head at [facility] showed resolution of previous hyperdense intraparenchymal hemorrhage in the right basal ganglia. #Ceftriaxone allergy? Unclear details. Recs: Continue renally adjusted levofloxacin, empiric therapy, complete 5 days Vancomycin discontinued, negative cultures for MRSA agree with steroids No benefit with remdesivir VTE evaluation given elevated D-dimer, already on anticoagulation with heparin drip though for A.fib guarded prognosis Ayah Munoz MD, FACP [facility] O: [phone] F: [phone] Subjective Date of service: 09/11/20 Principal diagnosis: Ac hypoxemic resp failure; COVID-19; Pneumonia; Septic Shock; MYRON; H/O CVA Interval history: No fever. Remains on the vent. Objective - Exam Narrative Exam: Physical Exam (reviewed in chart to minimize risk of transmission) Constitutional: deferred Head, Ears, Nose: deferred Eyes: deferred Neck: deferred Oral: deferred Cardiovascular: deferred Respiratory: deferred GI: deferred Musculoskeletal: deferred Skin: deferred Hem/Lymphatic: deferred Psych: deferred Neurological: deferred - Constitutional Vitals: Vital Signs Temp Pulse Resp BP Pulse Ox 96.1 F L 120 H 40 H 117/75 96 09/11/20 08:28 09/11/20 11:00 09/11/20 11:00 09/11/20 11:00 09/11/20 11:00 Temperature -Last 24 Hours Temperature 96.1 F Temperature 93.3 F - Labs CBC & Chem 7: 09/11/20 05:42 09/11/20 05:42 Labs: Abnormal lab results 09/10/20 09/11/20 09/11/20 Range/Units 17:58 01:02 05:11 WBC (4.5-11.0) K/mm3 RDW (13.2-15.2) % Plt Count (140-440) K/mm3 Heparin Anti-Xa Level > 2.00 H 2.00 H (0.3-0.7) U.I./ml POC ABG pCO2 22.8 L (32.0-48.0) mmHg POC ABG pO2 76.3 L (83-108) mmHg ABG Glucose 208 H (65-95) mg/dL Carboxyhemoglobin 0.2 L (0.5-1.5) Chloride (98-107) mmol/L Carbon Dioxide (22-30) mmol/L BUN (9-20) mg/dL Creatinine (0.8-1.3) mg/dL Glucose (75-100) mg/dL Calcium (8.4-10.2) mg/dL Arterial Blood Glucose 208 H (65-95) mg/dL Arterial Blood Ionized Calcium 4.1 L (4.6-5.3) mg/dL 09/11/20 09/11/20 09/11/20 Range/Units 05:42 05:42 05:42 WBC 16.2 H (4.5-11.0) K/mm3 RDW 15.3 H (13.2-15.2) % Plt Count 116 L 118 L (140-440) K/mm3 Heparin Anti-Xa Level (0.3-0.7) U.I./ml POC ABG pCO2 (32.0-48.0) mmHg POC ABG pO2 (83-108) mmHg ABG Glucose (65-95) mg/dL Carboxyhemoglobin (0.5-1.5) Chloride 108.7 H (98-107) mmol/L Carbon Dioxide 15 L (22-30) mmol/L BUN 76 H (9-20) mg/dL Creatinine 3.0 H (0.8-1.3) mg/dL Glucose 202 H (75-100) mg/dL Calcium 7.5 L (8.4-10.2) mg/dL Arterial Blood Glucose (65-95) mg/dL Arterial Blood Ionized Calcium (4.6-5.3) mg/dL
--- NOTE | 2020-09-11 13:31 | Progress Note ---
Assessment and Plan - Patient Problems (1) Atrial fibrillation with rapid ventricular response Current Visit: Yes Status: Acute Plan to address problem: Continue treatment with diltiazem, beta-blockers as tolerated. Subjective Date of service: 09/11/20 Principal diagnosis: Ac hypoxemic resp failure; COVID-19; Pneumonia; Septic Shock; MYRON; H/O CVA Interval history: Patient is on the vent following acute respiratory failure and positive COVID-19 pneumonia. Atrial fibrillation has resolved, currently in the mild sinus tachycardia with PACs. Objective Vital Signs Temp Pulse Resp BP BP Pulse Ox 09/11/20 12:57 98.7 F 09/11/20 12:30 122 H 41 H 115/72 96 09/11/20 12:00 128 H 41 H 119/76 96 09/11/20 11:30 124 H 41 H 117/75 96 09/11/20 11:00 120 H 40 H 117/75 96 09/11/20 10:30 115 H 39 H 106/70 97 09/11/20 10:00 112 H 35 H 102/66 97 09/11/20 09:30 108 H 33 H 107/71 97 09/11/20 09:00 111 H 31 H 102/65 98 09/11/20 08:38 100 H 100/62 98 09/11/20 08:30 113 H 26 H 100/62 98 09/11/20 08:28 96.1 F L 09/11/20 07:30 112 H 21 97/65 98 09/11/20 07:00 113 H 18 103/68 98 09/11/20 06:00 111 H 22 108/79 97 09/11/20 05:30 88 20 91/58 97 09/11/20 05:00 89 18 90/64 96 09/11/20 04:30 96 H 16 101/63 95 09/11/20 04:25 91 H 96/56 95 09/11/20 04:00 93.3 F L 93 H 23 96/56 90 09/11/20 03:30 87 15 101/72 92 09/11/20 03:00 86 19 93/67 89 09/11/20 02:30 103 H 19 100/69 92 09/11/20 02:00 94 H 18 103/73 93 09/11/20 01:30 91 H 18 98/74 93 09/11/20 01:01 81 23 104/71 94 09/11/20 00:30 92 H 15 101/64 94 09/11/20 00:00 95 H 17 104/71 94 09/10/20 23:40 81 94/57 93 09/10/20 23:30 92 H 17 94/57 91 09/10/20 23:00 97 H 15 99/58 91 09/10/20 22:30 102 H 17 84/64 91 09/10/20 22:00 90 17 98/67 90 09/10/20 21:30 79 18 97/61 92 09/10/20 21:00 88 18 107/69 94 09/10/20 20:30 90 18 114/67 94 09/10/20 20:01 101 H 18 108/72 93 09/10/20 20:00 84 105/64 93 09/10/20 19:45 85 16 90/69 93 09/10/20 19:30 96 H 18 95/68 93 09/10/20 19:00 89 16 110/68 94 09/10/20 18:30 100 H 18 106/56 93 09/10/20 18:00 87 18 102/52 92 09/10/20 17:30 78 15 107/68 93 09/10/20 17:00 94 H 18 106/67 93 09/10/20 16:39 89 18 125/67 94 09/10/20 16:30 94 H 18 125/67 94 09/10/20 16:00 79 18 121/67 94 09/10/20 15:30 84 15 113/67 94 09/10/20 15:13 87 18 108/79 94 09/10/20 14:45 89 18 114/72 94 09/10/20 14:30 93 H 16 125/66 93 09/10/20 14:15 96 H 18 121/67 93 09/10/20 14:00 98 H 18 110/75 94 09/10/20 13:45 85 18 117/72 94 09/10/20 13:30 96 H 18 115/74 94 - Physical Examination Narrative exam: Full physical exam deferred due to patient's acute COVID-19 infection. General: Other ([place], on the vent) - Labs and Meds CBC 09/11/20 09/11/20 Range/Units 05:42 05:42 WBC 16.2 H (4.5-11.0) K/mm3 RBC 4.29 (3.65-5.03) M/mm3 Hgb 13.4 13.4 (11.8-15.2) gm/dl Hct 39.6 39.1 (35.5-45.6) % Plt Count 116 L 118 L (140-440) K/mm3 Comprehensive Metabolic Panel 09/11/20 Range/Units 05:42 Sodium 140 (137-145) mmol/L Potassium 4.4 (3.6-5.0) mmol/L Chloride 108.7 H (98-107) mmol/L Carbon Dioxide 15 L (22-30) mmol/L BUN 76 H (9-20) mg/dL Creatinine 3.0 H (0.8-1.3) mg/dL Glucose 202 H (75-100) mg/dL Calcium 7.5 L (8.4-10.2) mg/dL - Allied health notes Allied health notes reviewed: nursing
[2020-09-11] MEDS: METOPROLOL TARTRATE 25 MG TAB PO SCH ×2 (13:46→20:48)
--- NOTE | 2020-09-11 14:12 | Progress Note ---
Assessment and Plan 1. Acute kidney injury: Vasomotor nephropathy in the setting of Shock and severe COVID infection. Low FeNa. Renal US ordered. Monitor renal function. Creatinine level continue to increase. Continue with IV fluids. Avoid nephrotoxic agents. Meds dosage based on GFR. Monitor for [employer] needs. 2. FEN: Anion-gap metabolic acidosis, 2/2 lactic acidosis, monitor. Monitor lytes and volume status. 3. Acute hypoxic resp failure, POA: 2/2 COVID PNA. Currently intubated on vent. Followed by Pulmonary. 4. Septic shock: 2/2 severe COVID infection. Levofloxacin. Off pressors. 5. Pneumonia due to COVID-19 virus, POA: IV Decadron. S/p Remdesivir at [facility]. Followed by ID. 6. 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 7. Atrial fib: SR now. Followed by Cards. Prognosis is guarded. Subjective: Patient was seen and examined at the bedside. Examination: General appearance: well-developed, appears emaciated, intubated, on vent HEENT: ATNC EYES: pupils are equal Neck: trachea midline Respiratory: MV sounds Heart: S1S2, irregular, no murmur Gastrointestinal: soft, not tender, BS heard Integumentary: no rash, warm and dry Neurologic: not responding Ext: no edema Subjective Date of service: 09/11/20 Principal diagnosis: Ac hypoxemic resp failure; COVID-19; Pneumonia; Septic Shock; MYRON; H/O CVA Objective - Vital Signs Vital signs: Vital Signs - 12hr 09/11/20 09/11/20 09/11/20 02:30 03:00 03:30 Temperature Pulse Rate 103 H 86 87 Respiratory 19 19 15 Rate Blood Pressure 100/69 93/67 101/72 O2 Sat by Pulse 92 89 92 Oximetry 09/11/20 09/11/20 09/11/20 04:00 04:25 04:30 Temperature 93.3 F L Pulse Rate 93 H 91 H 96 H Respiratory 23 16 Rate Blood Pressure 96/56 96/56 101/63 O2 Sat by Pulse 90 95 95 Oximetry 09/11/20 09/11/20 09/11/20 05:00 05:30 06:00 Temperature Pulse Rate 89 88 111 H Respiratory 18 20 22 Rate Blood Pressure 90/64 91/58 108/79 O2 Sat by Pulse 96 97 97 Oximetry 09/11/20 09/11/20 09/11/20 07:00 07:30 08:28 Temperature 96.1 F L Pulse Rate 113 H 112 H Respiratory 18 21 Rate Blood Pressure 103/68 97/65 O2 Sat by Pulse 98 98 Oximetry 09/11/20 09/11/20 09/11/20 08:30 08:38 09:00 Temperature Pulse Rate 113 H 100 H 111 H Respiratory 26 H 31 H Rate Blood Pressure 100/62 100/62 102/65 O2 Sat by Pulse 98 98 98 Oximetry 09/11/20 09/11/20 09/11/20 09:30 10:00 10:30 Temperature Pulse Rate 108 H 112 H 115 H Respiratory 33 H 35 H 39 H Rate Blood Pressure 107/71 102/66 106/70 O2 Sat by Pulse 97 97 97 Oximetry 09/11/20 09/11/20 09/11/20 11:00 11:30 12:00 Temperature Pulse Rate 120 H 124 H 128 H Respiratory 40 H 41 H 41 H Rate Blood Pressure 117/75 117/75 119/76 O2 Sat by Pulse 96 96 96 Oximetry 09/11/20 09/11/20 09/11/20 12:30 12:57 13:00 Temperature 98.7 F Pulse Rate 122 H 129 H Respiratory 41 H 24 Rate Blood Pressure 115/72 110/73 O2 Sat by Pulse 96 97 Oximetry 09/11/20 13:30 Temperature Pulse Rate 127 H Respiratory 24 Rate Blood Pressure 106/67 O2 Sat by Pulse 96 Oximetry - Lab 09/11/20 05:42 09/11/20 05:42 Most recent lab results ABG pH 7.428 (7.320-7.450) 09/11/20 05:11 ABG pCO2 25.8 mm Hg 09/10/20 02:24 ABG pO2 120.7 mm Hg (80.0-90.0) H 09/10/20 02:24 ABG HCO3 15.1 mmol/L (20.0-26.0) L 09/10/20 02:24 ABG O2 Saturation 98.3 % (95.0-99.0) 09/10/20 02:24 Calcium 7.5 mg/dL (8.4-10.2) L 09/11/20 05:42 Phosphorus 3.20 mg/dL (2.5-4.5) 09/08/20 10:13 Magnesium 2.00 mg/dL (1.7-2.3) 09/08/20 10:13 Urine Creatinine 213.6 mg/dL (0.1-20.0) H 09/09/20 Unknown Urine Sodium 19 mmol/L 09/09/20 Unknown Medications & Allergies - Medications Allergies/Adverse Reactions: Allergies ceftriaxone Allergy (Verified 09/11/20 11:49) Rash RASH AND ITCHING PER OCTAVIO Home Medications: Home Medications Medication Instructions Recorded Confirmed Last Taken Type Aspirin [Aspirin BABY CHEW TAB] 81 mg PO QDAY #30 tab.chew 12/12/13 09/11/20 Unknown Rx Atorvastatin [Lipitor Tab] 80 mg PO QHS 09/11/20 09/11/20 Unknown History amLODIPine [Norvasc] 5 mg PO DAILY 09/11/20 09/11/20 Unknown History Active Medications: Generic Name Dose Route Start Last Admin Trade Name Freq PRN Reason Stop Dose Admin Acetaminophen 650 mg 09/08/20 07:00 Acetaminophen 325 Mg/10.15 Ml Oral Liqd Unit Dose PO Q4H PRN Pain MILD(1-3)/Fever >100.5/BEST Lipase/Protease/Amylase 1 each 09/08/20 06:31 Lipase 10,500/Protease 25,000/Amylase 43,750 (Units) Dr Carey FEEDTUBE PRN PRN For Clogged Feeding Tube Dexamethasone 6 mg 09/09/20 20:56 09/11/20 10:21 Dexamethasone 4 Mg/Ml Vial IV 09/18/20 10:01 6 mg Q24HR CRISTIN Administration Diltiazem HCl 60 mg 09/10/20 14:00 09/11/20 12:30 Diltiazem 60 Mg Tab PO 60 mg Q6HR CRISTIN Administration Famotidine 20 mg 09/10/20 10:00 09/11/20 10:21 Famotidine 20 Mg/2 Ml Inj IV 20 mg DAILY CRISTIN Administration Fentanyl 50 mcg 09/09/20 19:53 Fentanyl 100 Mcg/2 Ml Inj IV Q10MIN PRN ANALGESIA Heparin Sodium (Porcine) 3,200 unit 09/09/20 19:53 09/10/20 05:53 Heparin 10,000 Units/10 Ml Vial 40 unit/kg (3200 unit) 3,200 unit IV Administration Q6H PRN Anti-Xa Assay < 0.1 units/ml Hydrophilic Ointment 1 applic 09/07/20 22:11 Lip Therapy Vaseline TP Q2HR PRN Dry Lips Norepinephrine 4 mg in 250 mls @ 7.5 mls/hr 09/07/20 21:19 09/09/20 21:53 Levophed Drip 4 Mg/Ns 250 Ml IV 12 mcg/min TITR CRISTIN 45 mls/hr Administration Protocol 2 MCG/MIN Midazolam HCl 100 mg/ Sodium 100 mls @ 2 mls/hr 09/07/20 23:00 09/09/20 21:57 Chloride IV 4 mg/hr TITR CRISTIN 4 mls/hr Administration Protocol 2 MG/HR Sodium Chloride 1,000 mls @ 42 mls/hr 09/08/20 06:30 09/09/20 13:18 Nacl 0.9% 1000 Ml IV 42 mls/hr DIRECT CRISTIN Administration Levofloxacin/Dextrose 750 mg in 150 mls @ 100 mls/hr 09/09/20 13:00 09/11/20 13:43 Levaquin 750mg/150ml IV 100 mls/hr Q48H CRISTIN Administration Heparin Sodium/Sodium Chloride 25,000 unit in 500 mls @ 23 mls/hr 09/09/20 20:00 09/11/20 14:02 Heparin/ 0.45% Nacl-25,000 Unit/500 Ml IV 700 units/hr TITR CRISTIN 14 mls/hr Titration Protocol 1,150 UNITS/HR Fentanyl Citrate 2,000 mcg in 100 mls @ 3.98 mls/hr 09/09/20 20:00 Fentanyl Drip Premix IV TITR CRISTIN Protocol 1 MCG/KG/HR Metoprolol Tartrate 5 mg 09/10/20 13:07 Metoprolol Tartrate 5 Mg/5 Ml Inj IV Q6HR PRN HR>130 Metoprolol Tartrate 25 mg 09/11/20 14:00 09/11/20 13:46 Metoprolol Tartrate 25 Mg Tab PO 25 mg Q6H CRISTIN Administration Midazolam HCl 2 mg 09/07/20 22:11 Midazolam 2 Mg/2 Ml Inj IV Q10MIN PRN Sedation Morphine Sulfate 2 mg 09/08/20 06:29 Morphine 2 Mg/1 Ml Inj IV Q4H PRN Pain, Moderate (4-6) Multi-Ingred Cream/Lotion/Oil/Oint 1 applic 09/07/20 22:11 Mineral Oil/Petrolatum, White Ophth Oint 3.5 Gm OU Q4HR PRN Dry Eye(s) Ondansetron HCl 4 mg 09/08/20 06:29 Ondansetron 4 Mg/2 Ml Inj IV Q8H PRN Nausea And Vomiting Simple Syrup 15 ml 09/08/20 06:31 Simple Syrup 15 Ml FEEDTUBE PRN PRN Hypoglycemia Simple Syrup 30 ml 09/08/20 06:31 Simple Syrup 15 Ml FEEDTUBE PRN PRN Hypoglycemia Sodium Bicarbonate 325 mg 09/08/20 06:31 Sodium Bicarbonate 325 Mg Tab FEEDTUBE PRN PRN For Clogged Feeding Tube Sodium Chloride 10 ml 09/08/20 10:00 09/11/20 10:21 Sodium Chloride 0.9% 10 Ml Flush Syringe IV 10 ml BID CRISTIN Administration Sodium Chloride 10 ml 09/08/20 06:29 Sodium Chloride 0.9% 10 Ml Flush Syringe IV PRN PRN LINE FLUSH
--- NOTE | 2020-09-11 14:47 | Progress Note ---
Assessment and Plan Acute hypoxemic respiratory failure, on MVS COVID-19 infection. Bilateral pneumonia Acute encephalopathy, presumably toxic metabolic. Severe sepsis with shock. Acute kidney injury. History of cerebrovascular accident. Leukocytosis. Severe metabolic acidosis. Lactic acidosis. Elevated serum inflammatory markers to include D-dimers. - AMS remains rate limiting factor to safe extubation acutely if meets other criteria but will continue to monitor - neurology evaluation underway - continue care as below otherwise; - wean vasopressors for target MAP > 65 mmHg - continue Daily SAT and SBT assessment as tolerated - continue to wean supplemental oxygen for target O2 sat's > 90% acutely - VAP bundle addressed - continue lung protective strategies - continue bronchodilators with pulmonary hygiene per RT - wean per pulmonary driven protocols otherwise - continue accuchecks with glycemic control per SSI (While critically ill target blood glucose of 140-180 mg/dL; avoid hypoglycemia) - sedation prn for target RASS 0 to -1 - avoid nephrotoxins, renally dose all medications - continue to avoid benzodiazepine's, reduce the possibility of delirium - completed AB's per ID rec's - prn analgesia per CPOT score - Maintenance of sleep-wake cycle, avoid delirium - continue enteral nutritional support at goal rate as tolerated - G.I. & VTE prophylaxis - PT/OT/ROM exercises - continue mobility protocols for pressure ulcer prophylaxis - Monitor hemodynamics closely - continue other care per attending / other consultants - discharge planning ongoing concurrently COVID SPECIFIC INTERVENTIONS - Remdesivir / other COVID specific interventions per ID recommendations - continue systemic steroids for severe COVID-19 infection empirically - repeat COVID tests per facility protocol - Monitor inflammatory markers per facility protocol - ferritin, Ddimer, CRP - therapeutic anticoagulation per system Protocol based on d-dimer - Continue contact and airborne isolation - discharge planning ongoing concurrently .... Re-evaluate in am & prn CONDITION: CRITICAL PROGNOSIS: GUARDED CODE STATUS: FULL CODE The high probability of a clinically significant, sudden or life-threatening deterioration of the [respiratory, cardiovascular, hematologic, renal & neurologic] system(s) required my full and direct attention, intervention and personal management. The aggregate critical care time was [32] minutes without overlap. Time includes spent on; [x] Data Review and interpretation [x] Patient assessment and monitoring of vital signs [x] Documentation [x] Medication orders and management Subjective Date of service: 09/11/20 Principal diagnosis: Ac hypoxemic resp failure; COVID-19; Pneumonia; Septic Shock; MYRON; H/O CVA Interval history: Patient is seen today for: Acute hypoxemic respiratory failure; COVID-19 infection; Bilateral pneumonia; Acute encephalopathy, presumably toxic metabolic; Severe sepsis with shock; Acute kidney injury; History of cerebrovascular accident Seen and examined at bedside; 24hour events reviewed; nursing and respiratory care staff consulted; no adverse overnight events reported to me; resting peacefully in bed; remains on MVS; tolerating SBT wbut with p-supp at 14; no emesis por overt aspiration; AMS is persistent Objective Vital Signs - 12hr 09/11/20 09/11/20 09/11/20 03:00 03:30 04:00 Temperature 93.3 F L Pulse Rate 86 87 93 H Respiratory 19 15 23 Rate Blood Pressure 93/67 101/72 96/56 O2 Sat by Pulse 89 92 90 Oximetry 09/11/20 09/11/20 09/11/20 04:25 04:30 05:00 Temperature Pulse Rate 91 H 96 H 89 Respiratory 16 18 Rate Blood Pressure 96/56 101/63 90/64 O2 Sat by Pulse 95 95 96 Oximetry 09/11/20 09/11/20 09/11/20 05:30 06:00 07:00 Temperature Pulse Rate 88 111 H 113 H Respiratory 20 22 18 Rate Blood Pressure 91/58 108/79 103/68 O2 Sat by Pulse 97 97 98 Oximetry 09/11/20 09/11/20 09/11/20 07:30 08:28 08:30 Temperature 96.1 F L Pulse Rate 112 H 113 H Respiratory 21 26 H Rate Blood Pressure 97/65 100/62 O2 Sat by Pulse 98 98 Oximetry 09/11/20 09/11/20 09/11/20 08:38 09:00 09:30 Temperature Pulse Rate 100 H 111 H 108 H Respiratory 31 H 33 H Rate Blood Pressure 100/62 102/65 107/71 O2 Sat by Pulse 98 98 97 Oximetry 09/11/20 09/11/20 09/11/20 10:00 10:30 11:00 Temperature Pulse Rate 112 H 115 H 120 H Respiratory 35 H 39 H 40 H Rate Blood Pressure 102/66 106/70 117/75 O2 Sat by Pulse 97 97 96 Oximetry 09/11/20 09/11/20 09/11/20 11:30 12:00 12:30 Temperature Pulse Rate 124 H 128 H 122 H Respiratory 41 H 41 H 41 H Rate Blood Pressure 117/75 119/76 115/72 O2 Sat by Pulse 96 96 96 Oximetry 09/11/20 09/11/20 09/11/20 12:57 13:00 13:30 Temperature 98.7 F Pulse Rate 129 H 127 H Respiratory 24 24 Rate Blood Pressure 110/73 106/67 O2 Sat by Pulse 97 96 Oximetry 09/11/20 14:00 Temperature Pulse Rate 118 H Respiratory 29 H Rate Blood Pressure 103/67 O2 Sat by Pulse 96 Oximetry Constitutional: appears uncomfortable, other (elderly obese male with mildly increased respiratory effort at rest on MVS) Eyes: non-icteric ENT: oropharynx moist, other (ETT 24 cm BREANN) Neck: supple, no lymphadenopathy, no JVD Effort: mildly labored Ascultation: Bilateral: diminished breath sounds, rhonchi Percussion: Bilateral: not dull Cardiovascular: regular rate and rhythm Gastrointestinal: normoactive bowel sounds, soft, non-tender, non-distended (protuberant) Integumentary: other (please see [facility] notes) Extremities: no cyanosis, pulses normal, no ischemia or petechiae Neurologic: pupils equal and round, unable to assess Psychiatric: other (unable to assess re: AMS) CBC and BMP: 09/13/20 05:21 09/13/20 05:21 ABG, PT/INR, D-dimer: ABG ABG pH 7.428 (7.320-7.450) 09/11/20 05:11 POC ABG pCO2 22.8 mmHg (32.0-48.0) L 09/11/20 05:11 ABG pCO2 25.8 mm Hg 09/10/20 02:24 POC ABG pO2 76.3 mmHg (83-108) L 09/11/20 05:11 ABG pO2 120.7 mm Hg (80.0-90.0) H 09/10/20 02:24 POC ABG HCO3 14.7 09/11/20 05:11 ABG O2 Saturation 98.3 % (95.0-99.0) 09/10/20 02:24 PT/INR, D-dimer PT 15.8 Sec. 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 09/07/20 18:00 Abnormal lab findings: Abnormal Labs 09/07/20 09/07/20 09/07/20 17:25 18:00 18:00 WBC 23.5 H RBC Hgb Hct MCHC RDW Plt Count Lymph % (Auto) Lymph # (Auto) Seg Neutrophils % Seg Neuts % (Manual) 94.0 H Lymphocytes % (Manual) 1.0 L Seg Neutrophils # Seg Neutrophils # Man 22.1 H Lymphocytes # (Manual) 0.2 L PT INR APTT D-Dimer > 21784 H Heparin Anti-Xa Level ABG pH POC ABG pCO2 POC ABG pO2 ABG pO2 ABG HCO3 ABG Base Excess ABG Glucose Carboxyhemoglobin Sodium Chloride Carbon Dioxide BUN Creatinine Glucose Hemoglobin A1c Lactic Acid Calcium Ferritin Total Bilirubin AST Lactate Dehydrogenase C-Reactive Protein Total Protein Albumin Prealbumin Arterial Blood Glucose Arterial Blood Ionized Calcium Urine Creatinine Coronavirus (PCR) Positive A 09/07/20 09/07/20 09/07/20 18:00 18:00 18:00 WBC RBC Hgb Hct MCHC RDW Plt Count Lymph % (Auto) Lymph # (Auto) Seg Neutrophils % Seg Neuts % (Manual) Lymphocytes % (Manual) Seg Neutrophils # Seg Neutrophils # Man Lymphocytes # (Manual) PT INR APTT 72.7 H* D-Dimer Heparin Anti-Xa Level ABG pH POC ABG pCO2 POC ABG pO2 ABG pO2 ABG HCO3 ABG Base Excess ABG Glucose Carboxyhemoglobin Sodium Chloride Carbon Dioxide 9 L* BUN 24 H Creatinine Glucose 143 H Hemoglobin A1c Lactic Acid Calcium 7.6 L Ferritin 849.7 H Total Bilirubin 1.80 H AST 45 H Lactate Dehydrogenase 507 H C-Reactive Protein 8.20 H Total Protein 5.6 L Albumin 2.8 L Prealbumin Arterial Blood Glucose Arterial Blood Ionized Calcium Urine Creatinine Coronavirus (PCR) 09/07/20 09/07/20 09/08/20 19:37 20:30 01:07 WBC RBC Hgb Hct MCHC RDW Plt Count Lymph % (Auto) Lymph # (Auto) Seg Neutrophils % Seg Neuts % (Manual) Lymphocytes % (Manual) Seg Neutrophils # Seg Neutrophils # Man Lymphocytes # (Manual) PT INR APTT D-Dimer Heparin Anti-Xa Level ABG pH 7.336 L POC ABG pCO2 POC ABG pO2 ABG pO2 91.2 H ABG HCO3 14.1 L ABG Base Excess -9.9 L ABG Glucose Carboxyhemoglobin Sodium Chloride Carbon Dioxide BUN Creatinine Glucose Hemoglobin A1c Lactic Acid 8.80 H* 3.80 H* Calcium Ferritin Total Bilirubin AST Lactate Dehydrogenase C-Reactive Protein Total Protein Albumin Prealbumin Arterial Blood Glucose Arterial Blood Ionized Calcium Urine Creatinine Coronavirus (PCR) 09/08/20 09/08/20 09/08/20 04:25 10:13 10:13 WBC 21.7 H RBC 5.49 H Hgb 17.1 H Hct 49.6 H MCHC 35 H RDW Plt Count Lymph % (Auto) Lymph # (Auto) Seg Neutrophils % Seg Neuts % (Manual) 96.0 H Lymphocytes % (Manual) 1.0 L Seg Neutrophils # Seg Neutrophils # Man 20.8 H Lymphocytes # (Manual) 0.2 L PT INR APTT D-Dimer Heparin Anti-Xa Level ABG pH 7.484 H POC ABG pCO2 POC ABG pO2 ABG pO2 148.2 H ABG HCO3 17.2 L ABG Base Excess -4.1 L ABG Glucose Carboxyhemoglobin Sodium Chloride Carbon Dioxide BUN Creatinine Glucose Hemoglobin A1c Lactic Acid 3.40 H* Calcium Ferritin Total Bilirubin AST Lactate Dehydrogenase C-Reactive Protein Total Protein Albumin Prealbumin Arterial Blood Glucose Arterial Blood Ionized Calcium Urine Creatinine Coronavirus (PCR) 09/08/20 09/08/20 09/08/20 10:13 10:13 10:13 WBC RBC Hgb Hct MCHC RDW Plt Count Lymph % (Auto) Lymph # (Auto) Seg Neutrophils % Seg Neuts % (Manual) Lymphocytes % (Manual) Seg Neutrophils # Seg Neutrophils # Man Lymphocytes # (Manual) PT INR APTT D-Dimer Heparin Anti-Xa Level ABG pH POC ABG pCO2 POC ABG pO2 ABG pO2 ABG HCO3 ABG Base Excess ABG Glucose Carboxyhemoglobin Sodium 135 L Chloride Carbon Dioxide 20 L D BUN 35 H Creatinine 1.6 H D Glucose 192 H Hemoglobin A1c 6.2 H Lactic Acid Calcium 8.3 L Ferritin Total Bilirubin 1.80 H AST 55 H Lactate Dehydrogenase C-Reactive Protein Total Protein Albumin 2.6 L Prealbumin 0.049 L Arterial Blood Glucose Arterial Blood Ionized Calcium Urine Creatinine Coronavirus (PCR) 09/08/20 09/08/20 09/08/20 20:18 20:18 20:18 WBC 29.8 H RBC Hgb 15.3 H Hct MCHC RDW Plt Count Lymph % (Auto) Lymph # (Auto) Seg Neutrophils % Seg Neuts % (Manual) Lymphocytes % (Manual) Seg Neutrophils # Seg Neutrophils # Man Lymphocytes # (Manual) PT INR APTT D-Dimer Heparin Anti-Xa Level ABG pH POC ABG pCO2 POC ABG pO2 ABG pO2 ABG HCO3 ABG Base Excess ABG Glucose Carboxyhemoglobin Sodium 136 L Chloride Carbon Dioxide 17 L BUN 42 H Creatinine 1.9 H Glucose 203 H Hemoglobin A1c Lactic Acid 2.20 H* Calcium 7.6 L Ferritin Total Bilirubin AST 51 H Lactate Dehydrogenase C-Reactive Protein Total Protein 6.2 L Albumin 2.1 L Prealbumin Arterial Blood Glucose Arterial Blood Ionized Calcium Urine Creatinine Coronavirus (PCR) 09/08/20 09/09/20 09/09/20 21:53 00:19 03:15 WBC RBC Hgb Hct MCHC RDW Plt Count Lymph % (Auto) Lymph # (Auto) Seg Neutrophils % Seg Neuts % (Manual) Lymphocytes % (Manual) Seg Neutrophils # Seg Neutrophils # Man Lymphocytes # (Manual) PT INR APTT D-Dimer Heparin Anti-Xa Level ABG pH POC ABG pCO2 POC ABG pO2 ABG pO2 97.0 H ABG HCO3 16.3 L ABG Base Excess -7.5 L ABG Glucose Carboxyhemoglobin Sodium Chloride Carbon Dioxide BUN Creatinine Glucose Hemoglobin A1c Lactic Acid 3.20 H* 2.10 H* Calcium Ferritin Total Bilirubin AST Lactate Dehydrogenase C-Reactive Protein Total Protein Albumin Prealbumin Arterial Blood Glucose Arterial Blood Ionized Calcium Urine Creatinine Coronavirus (PCR) 09/09/20 09/09/20 09/09/20 04:54 04:54 04:54 WBC 28.5 H RBC Hgb Hct MCHC RDW Plt Count Lymph % (Auto) 1.3 L Lymph # (Auto) 0.4 L Seg Neutrophils % 96.1 H Seg Neuts % (Manual) Lymphocytes % (Manual) Seg Neutrophils # 27.4 H Seg Neutrophils # Man Lymphocytes # (Manual) PT INR APTT D-Dimer Heparin Anti-Xa Level ABG pH POC ABG pCO2 POC ABG pO2 ABG pO2 ABG HCO3 ABG Base Excess ABG Glucose Carboxyhemoglobin Sodium Chloride Carbon Dioxide 17 L BUN 45 H Creatinine 2.2 H Glucose 201 H Hemoglobin A1c Lactic Acid 2.90 H* Calcium 7.8 L Ferritin Total Bilirubin AST Lactate Dehydrogenase C-Reactive Protein Total Protein Albumin Prealbumin Arterial Blood Glucose Arterial Blood Ionized Calcium Urine Creatinine Coronavirus (PCR) 09/09/20 09/09/20 09/09/20 06:56 09:04 20:28 WBC RBC Hgb Hct MCHC RDW Plt Count Lymph % (Auto) Lymph # (Auto) Seg Neutrophils % Seg Neuts % (Manual) Lymphocytes % (Manual) Seg Neutrophils # Seg Neutrophils # Man Lymphocytes # (Manual) PT 15.8 H INR 1.26 H APTT 40.7 H D-Dimer Heparin Anti-Xa Level ABG pH POC ABG pCO2 POC ABG pO2 ABG pO2 ABG HCO3 ABG Base Excess ABG Glucose Carboxyhemoglobin Sodium Chloride Carbon Dioxide BUN Creatinine Glucose Hemoglobin A1c Lactic Acid 4.70 H* 3.70 H* Calcium Ferritin Total Bilirubin AST Lactate Dehydrogenase C-Reactive Protein Total Protein Albumin Prealbumin Arterial Blood Glucose Arterial Blood Ionized Calcium Urine Creatinine Coronavirus (PCR) 09/09/20 09/10/20 09/10/20 Unknown 02:24 04:56 WBC 24.2 H RBC Hgb Hct MCHC RDW Plt Count Lymph % (Auto) Lymph # (Auto) Seg Neutrophils % Seg Neuts % (Manual) 97.5 H Lymphocytes % (Manual) 1.0 L Seg Neutrophils # Seg Neutrophils # Man 23.6 H Lymphocytes # (Manual) 0.2 L PT INR APTT D-Dimer Heparin Anti-Xa Level ABG pH POC ABG pCO2 POC ABG pO2 ABG pO2 120.7 H ABG HCO3 15.1 L ABG Base Excess -8.0 L ABG Glucose Carboxyhemoglobin Sodium Chloride Carbon Dioxide BUN Creatinine Glucose Hemoglobin A1c Lactic Acid Calcium Ferritin Total Bilirubin AST Lactate Dehydrogenase C-Reactive Protein Total Protein Albumin Prealbumin Arterial Blood Glucose Arterial Blood Ionized Calcium Urine Creatinine 213.6 H Coronavirus (PCR) 09/10/20 09/10/20 09/11/20 04:56 17:58 01:02 WBC RBC Hgb Hct MCHC RDW Plt Count Lymph % (Auto) Lymph # (Auto) Seg Neutrophils % Seg Neuts % (Manual) Lymphocytes % (Manual) Seg Neutrophils # Seg Neutrophils # Man Lymphocytes # (Manual) PT INR APTT D-Dimer Heparin Anti-Xa Level > 2.00 H 2.00 H ABG pH POC ABG pCO2 POC ABG pO2 ABG pO2 ABG HCO3 ABG Base Excess ABG Glucose Carboxyhemoglobin Sodium Chloride Carbon Dioxide 18 L BUN 62 H Creatinine 2.8 H Glucose 216 H Hemoglobin A1c Lactic Acid Calcium 7.9 L Ferritin Total Bilirubin AST Lactate Dehydrogenase C-Reactive Protein Total Protein Albumin Prealbumin Arterial Blood Glucose Arterial Blood Ionized Calcium Urine Creatinine Coronavirus (PCR) 09/11/20 09/11/20 09/11/20 05:11 05:42 05:42 WBC RBC Hgb Hct MCHC RDW Plt Count 116 L Lymph % (Auto) Lymph # (Auto) Seg Neutrophils % Seg Neuts % (Manual) Lymphocytes % (Manual) Seg Neutrophils # Seg Neutrophils # Man Lymphocytes # (Manual) PT INR APTT D-Dimer Heparin Anti-Xa Level ABG pH POC ABG pCO2 22.8 L POC ABG pO2 76.3 L ABG pO2 ABG HCO3 ABG Base Excess ABG Glucose 208 H Carboxyhemoglobin 0.2 L Sodium Chloride 108.7 H Carbon Dioxide 15 L BUN 76 H Creatinine 3.0 H Glucose 202 H Hemoglobin A1c Lactic Acid Calcium 7.5 L Ferritin Total Bilirubin AST Lactate Dehydrogenase C-Reactive Protein Total Protein Albumin Prealbumin Arterial Blood Glucose 208 H Arterial Blood Ionized Calcium 4.1 L Urine Creatinine Coronavirus (PCR) 09/11/20 09/11/20 05:42 11:39 WBC 16.2 H RBC Hgb Hct MCHC RDW 15.3 H Plt Count 118 L Lymph % (Auto) Lymph # (Auto) Seg Neutrophils % Seg Neuts % (Manual) Lymphocytes % (Manual) Seg Neutrophils # Seg Neutrophils # Man Lymphocytes # (Manual) PT INR APTT D-Dimer Heparin Anti-Xa Level 1.82 H ABG pH POC ABG pCO2 POC ABG pO2 ABG pO2 ABG HCO3 ABG Base Excess ABG Glucose Carboxyhemoglobin Sodium Chloride Carbon Dioxide BUN Creatinine Glucose Hemoglobin A1c Lactic Acid Calcium Ferritin Total Bilirubin AST Lactate Dehydrogenase C-Reactive Protein Total Protein Albumin Prealbumin Arterial Blood Glucose Arterial Blood Ionized Calcium Urine Creatinine Coronavirus (PCR) Chest x-ray: pending Allied health notes reviewed: nursing
[2020-09-12] MEDS: dilTIAZem 60 MG TAB PO SCH ×4 (00:55→18:35)
[2020-09-12] MEDS: METOPROLOL TARTRATE 25 MG TAB PO SCH ×3 (02:26→20:09)
--- NOTE | 2020-09-12 03:21 | XRay Report ---
CHEST 1 VIEW [id number] INDICATION / CLINICAL INFORMATION: follow up respiratory failure COMPARISON: 09/11/2020 FINDINGS: SUPPORT DEVICES: Stable HEART / MEDIASTINUM: Stable LUNGS / PLEURA: Bilateral pulmonary infiltrates are again seen. Density in the right upper lobe is mi ldly improved. Basilar densities are similar. No pneumothorax. ADDITIONAL FINDINGS: No significant additional findings. Signer Name: Melo Tejada MD Signed: 09/12/2020 3:16 AM Workstation Name: [id number]
[2020-09-12 06:17] LABS: BUN/Creatinine Ratio 25; Blood Urea Nitrogen 89 mg/dL (9-20); Calcium 7.2 mg/dL (8.4-10.2); Hemolysis Index 125
[2020-09-12 06:26] LABS: ABG Base Excess -7.5 mmol/L (-2.0-3.0); ABG HCO3 15.5 mmol/L (20.0-26.0); ABG Methemoglobin 0.6 % (0.0-1.5); ABG Oxygen Saturation 99.3 % (95.0-99.0); ABG PH 7.409 pH Units (7.350-7.450); ABG PO2 195.5 mm Hg (80.0-90.0)
--- NOTE | 2020-09-12 08:31 | Progress Note ---
Assessment and Plan 1. Acute kidney injury: Vasomotor nephropathy in the setting of Shock and severe COVID infection. Low FeNa. Renal US ordered, spoke to US tech to do the test today. Monitor renal function. Creatinine level continue to increase. Avoid nephrotoxic agents. Meds dosage based on GFR. 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 Patient require hemodialysis due to worsening renal function, metabolic abnormalities and decreased UOP. D/w his son 09/12 over the phone and explained the indications, benefits, risks and alternatives involved in hemodialysis. He voiced understanding and gave verbal consent. Vascular was requested to place hemodialysis catheter. HD orders placed. Spoke to the lab about the incomplete chemistry results. They are going to re- run the sample. 2. FEN: Anion-gap metabolic acidosis, 2/2 lactic acidosis, monitor. Monitor lytes and volume status. 3. Acute hypoxic resp failure, POA: 2/2 COVID PNA. Currently intubated on vent. Followed by Pulmonary. 4. Septic shock: 2/2 severe COVID infection. Off pressors. 5. Pneumonia due to COVID-19 virus, POA: IV Decadron. S/p Remdesivir at [facility]. Followed by ID. 6. 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 7. Atrial fib: SR now. Followed by Cards. Prognosis is guarded. Subjective: Patient was seen and examined at the bedside. Examination: General appearance: well-developed, appears emaciated, intubated, on vent HEENT: ATNC EYES: pupils are equal Neck: trachea midline Respiratory: MV sounds Heart: S1S2, regular, no murmur Gastrointestinal: soft, not tender, BS heard Integumentary: no rash, warm and dry Neurologic: not responding Ext: no edema : Reyez catheter Subjective Date of service: 09/12/20 Principal diagnosis: Ac hypoxemic resp failure; COVID-19; Pneumonia; Septic Shock; MYRON; H/O CVA Objective - Vital Signs Vital signs: Vital Signs - 12hr 09/11/20 09/11/20 09/11/20 20:48 21:00 21:30 Pulse Rate 85 82 80 Respiratory 18 18 Rate Blood Pressure 95/68 92/56 88/55 O2 Sat by Pulse 99 99 Oximetry 09/11/20 09/11/20 09/11/20 22:00 22:28 22:30 Pulse Rate 79 81 77 Respiratory 18 16 Rate Blood Pressure 90/58 91/61 91/61 O2 Sat by Pulse 99 98 99 Oximetry 09/11/20 09/11/20 09/11/20 23:00 23:30 23:38 Pulse Rate 79 77 77 Respiratory 17 18 18 Rate Blood Pressure 88/56 88/58 88/58 O2 Sat by Pulse 99 98 99 Oximetry 09/12/20 09/12/20 09/12/20 00:00 00:10 00:30 Pulse Rate 76 73 77 Respiratory 18 18 Rate Blood Pressure 91/57 106/66 92/49 O2 Sat by Pulse 98 100 99 Oximetry 09/12/20 09/12/20 09/12/20 00:55 01:00 01:30 Pulse Rate 75 75 75 Respiratory 18 18 Rate Blood Pressure 91/70 94/59 92/59 O2 Sat by Pulse 100 100 Oximetry 09/12/20 09/12/20 09/12/20 02:00 02:26 02:30 Pulse Rate 74 73 76 Respiratory 18 18 Rate Blood Pressure 95/59 83/56 O2 Sat by Pulse 99 99 Oximetry 09/12/20 09/12/20 09/12/20 03:00 03:30 04:10 Pulse Rate 69 75 71 Respiratory 18 18 Rate Blood Pressure 94/58 102/67 O2 Sat by Pulse 99 100 99 Oximetry 09/12/20 06:40 Pulse Rate 71 Respiratory Rate Blood Pressure O2 Sat by Pulse Oximetry - Lab 09/11/20 05:42 09/12/20 05:25 Most recent lab results ABG pH 7.409 pH Units (7.350-7.450) 09/12/20 05:50 ABG pCO2 25.0 mm Hg 09/12/20 05:50 ABG pO2 195.5 mm Hg (80.0-90.0) H 09/12/20 05:50 ABG HCO3 15.5 mmol/L (20.0-26.0) L 09/12/20 05:50 ABG O2 Saturation 99.3 % (95.0-99.0) H 09/12/20 05:50 Calcium 7.2 mg/dL (8.4-10.2) L 09/12/20 05:25 Phosphorus 3.20 mg/dL (2.5-4.5) 09/08/20 10:13 Magnesium 2.00 mg/dL (1.7-2.3) 09/08/20 10:13 Urine Creatinine 213.6 mg/dL (0.1-20.0) H 09/09/20 Unknown Urine Sodium 19 mmol/L 09/09/20 Unknown Medications & Allergies - Medications Allergies/Adverse Reactions: Allergies ceftriaxone Allergy (Verified 09/11/20 11:49) Rash RASH AND ITCHING PER OCTAVIO Home Medications: Home Medications Medication Instructions Recorded Confirmed Last Taken Type Aspirin [Aspirin BABY CHEW TAB] 81 mg PO QDAY #30 tab.chew 12/12/13 09/11/20 Unknown Rx Atorvastatin [Lipitor Tab] 80 mg PO QHS 09/11/20 09/11/20 Unknown History amLODIPine [Norvasc] 5 mg PO DAILY 09/11/20 09/11/20 Unknown History Active Medications: Generic Name Dose Route Start Last Admin Trade Name Freq PRN Reason Stop Dose Admin Acetaminophen 650 mg 09/08/20 07:00 Acetaminophen 325 Mg/10.15 Ml Oral Liqd Unit Dose PO Q4H PRN Pain MILD(1-3)/Fever >100.5/BEST Lipase/Protease/Amylase 1 each 09/08/20 06:31 Lipase 10,500/Protease 25,000/Amylase 43,750 (Units) Dr Carey FEEDTUBE PRN PRN For Clogged Feeding Tube Dexamethasone 6 mg 09/09/20 20:56 09/11/20 10:21 Dexamethasone 4 Mg/Ml Vial IV 09/18/20 10:01 6 mg Q24HR CRISTIN Administration Diltiazem HCl 60 mg 09/10/20 14:00 09/12/20 06:40 Diltiazem 60 Mg Tab PO Not Given Q6HR CRISTIN Famotidine 20 mg 09/10/20 10:00 09/11/20 10:21 Famotidine 20 Mg/2 Ml Inj IV 20 mg DAILY CRISTIN Administration Fentanyl 50 mcg 09/09/20 19:53 Fentanyl 100 Mcg/2 Ml Inj IV Q10MIN PRN ANALGESIA Heparin Sodium (Porcine) 3,200 unit 09/09/20 19:53 09/10/20 05:53 Heparin 10,000 Units/10 Ml Vial 40 unit/kg (3200 unit) 3,200 unit IV Administration Q6H PRN Anti-Xa Assay < 0.1 units/ml Hydrophilic Ointment 1 applic 09/07/20 22:11 Lip Therapy Vaseline TP Q2HR PRN Dry Lips Norepinephrine 4 mg in 250 mls @ 7.5 mls/hr 09/07/20 21:19 09/09/20 21:53 Levophed Drip 4 Mg/Ns 250 Ml IV 12 mcg/min TITR CRISTIN 45 mls/hr Administration Protocol 2 MCG/MIN Midazolam HCl 100 mg/ Sodium 100 mls @ 2 mls/hr 09/07/20 23:00 09/09/20 21:57 Chloride IV 4 mg/hr TITR CRISTIN 4 mls/hr Administration Protocol 2 MG/HR Levofloxacin/Dextrose 750 mg in 150 mls @ 100 mls/hr 09/09/20 13:00 09/11/20 13:43 Levaquin 750mg/150ml IV 09/17/20 14:29 100 mls/hr Q48H CRISTIN Administration Heparin Sodium/Sodium Chloride 25,000 unit in 500 mls @ 23 mls/hr 09/09/20 20:00 09/11/20 15:47 Heparin/ 0.45% Nacl-25,000 Unit/500 Ml IV 700 units/hr TITR CRISTIN 14 mls/hr Administration Protocol 1,150 UNITS/HR Fentanyl Citrate 2,000 mcg in 100 mls @ 3.98 mls/hr 09/09/20 20:00 Fentanyl Drip Premix IV TITR CRISTIN Protocol 1 MCG/KG/HR Dextrose/Sodium Chloride 1,000 mls @ 75 mls/hr 09/11/20 17:00 D5ns IV DIRECT CRISTIN Metoprolol Tartrate 5 mg 09/10/20 13:07 Metoprolol Tartrate 5 Mg/5 Ml Inj IV Q6HR PRN HR>130 Metoprolol Tartrate 25 mg 09/11/20 14:00 09/12/20 02:26 Metoprolol Tartrate 25 Mg Tab PO Not Given Q6H CRISTIN Midazolam HCl 2 mg 09/07/20 22:11 Midazolam 2 Mg/2 Ml Inj IV Q10MIN PRN Sedation Morphine Sulfate 2 mg 09/08/20 06:29 Morphine 2 Mg/1 Ml Inj IV Q4H PRN Pain, Moderate (4-6) Multi-Ingred Cream/Lotion/Oil/Oint 1 applic 09/07/20 22:11 Mineral Oil/Petrolatum, White Ophth Oint 3.5 Gm OU Q4HR PRN Dry Eye(s) Ondansetron HCl 4 mg 09/08/20 06:29 Ondansetron 4 Mg/2 Ml Inj IV Q8H PRN Nausea And Vomiting Simple Syrup 15 ml 09/08/20 06:31 Simple Syrup 15 Ml FEEDTUBE PRN PRN Hypoglycemia Simple Syrup 30 ml 09/08/20 06:31 Simple Syrup 15 Ml FEEDTUBE PRN PRN Hypoglycemia Sodium Bicarbonate 325 mg 09/08/20 06:31 Sodium Bicarbonate 325 Mg Tab FEEDTUBE PRN PRN For Clogged Feeding Tube Sodium Chloride 10 ml 09/08/20 10:00 09/11/20 21:57 Sodium Chloride 0.9% 10 Ml Flush Syringe IV 10 ml BID CRISTIN Administration Sodium Chloride 10 ml 09/08/20 06:29 Sodium Chloride 0.9% 10 Ml Flush Syringe IV PRN PRN LINE FLUSH
--- NOTE | 2020-09-12 08:34 | Progress Note ---
Assessment and Plan Assessment and plan: -- Acute respiratory failure with hypoxia due to Covid 19 vs Hospital acquired PNA Patient intubated because of labored breathing and for protection of airway. cont Vent management, [employer] consult requested -- COVID-19 virus infection Diagnosed initially on 08/26/2020, treated at [facility] with dexamethasone, remdesivir for 3 days. Anticoagulation was not given due to recent hemorrhagic CVA. Chest x-ray with bilateral patchy infiltrates. Patient was discharged on from [facility] repeat test on 09/07 for covid remains positive Patient restarted on IV Decadron ID consulted -- Sepsis with shock May be secondary to Covid infection Patient started on empiric antibiotics in the form of cefepime and vancomycin ID consult was requested started on levophed - wean as tolerated -- Bilateral pneumonia due to Covid 19 vs Hospital acquired PNA Patient on IV levaquin and vancomycin, ID following --MYRON, likely ATN from profound sepsis monitor renal function, iv fluid, avoid nephrotoxin consulted renal -- Hemorrhagic CVA (cerebral vascular accident), h/o PT OT after extubation --acute on chronic atrial fib cot rate control, initially not given AC for h/o recent Hemorrhagic CVA CT head showed no acute process, now on heparin drip -- DVT prophylaxis On heparin and GI prophylaxis The high probability of a clinically significant, sudden or life threatening deterioration of the [spot worker, 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 The aggregate critical care time was [34] minutes. 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 Patient received oxygen supplementation via nasal cannula, dexamethasone and 3 days of remdesivir. Patient admitted on 09/07/2020 to [facility] secondary to worsening cough, dyspnea on exertion and shortness of breath for the past 2 days because of which EMS was called. When the EMS arrived the patient was found to be hypoxic with room air oxygenation is running around 80s and also patient with altered sensorium. Patient was placed on nonrebreather and that his oxygen saturations improved to the 90s. Patient also has increased work of breathing and was getting tired because of which ER physician has intubated the patient. Placed on COVID protocol and admitted to ICU 09/08: resumed care. cont vent support, wean off pressor as tolerated. CC following. cont nebs, steroid for now. cont iv abx, follow ID recommendation. 09/09: order CT head. cont current Mx. cont steroid, vent support, nebs. follow Id recommendation. consult renal for YMRON 09/10: CT head showed no acute process, patient started on heparin drip for chronic atrial fib. wean off vent as tolerated, started TF. follow clinically. called Son twice but no response. 09/11/2020; continue on heparin drip, wean off vent as tolerated. Continue with tube feeding. Patient is comatose and prognosis is very poor. Discussed with patient daughter Brittanie at [phone] and discussed about his condition. Daughter said if his condition is no improvement by tomorrow we will make a decision whether to withdraw care. 09/12/2020; patient is on a vent, deeply comatose. I discussed with pulmonary critical care and recommend evaluation by neurology for prognosis. EEG ordered. CT scan will be repeated. Plan was discussed with his daughter Brittanie at [phone]. History Interval history: Patient was seen and evaluated this morning Patient is not sedated and on mechanical ventilation Patient is deeply comatose Hospitalist Physical - Physical exam Narrative exam: Patient is intubated and comatose The patient appeared well nourished and normally developed. Vital signs as documented. Head exam is unremarkable. No scleral icterus . Neck is without jugular venous distension, thyromegaly, or carotid bruits. Lungs are clear to auscultation. Cardiac exam reveals regular rate and Rhythm. Abdominal exam reveals normal bowel sounds, nontender, no organomegaly. Extremities are nonedematous and both femoral and pedal pulses are normal. SHOP ASSISTANT: Patient is comatose - Constitutional Vitals: Temp Pulse Resp BP Pulse Ox 98.7 F 71 18 102/67 99 09/11/20 12:57 09/12/20 06:40 09/12/20 03:30 09/12/20 03:30 09/12/20 04:10 General appearance: Present: severe distress, well-nourished HEART Score - HEART Score Troponin: Troponin T < 0.010 ng/mL (0.00-0.029) 09/07/20 18:00 Results - Labs CBC & Chem 7: 09/11/20 05:42 09/12/20 05:25 Labs: Laboratory Last Values WBC 16.2 K/mm3 (4.5-11.0) H 09/11/20 05:42 RBC 4.29 M/mm3 (3.65-5.03) 09/11/20 05:42 Hgb 13.4 gm/dl (11.8-15.2) 09/11/20 05:42 Hgb 13.4 gm/dl (11.8-15.2) 09/11/20 05:42 Hct 39.1 % (35.5-45.6) 09/11/20 05:42 Hct 39.6 % (35.5-45.6) 09/11/20 05:42 MCV 91 fl (84-94) 09/11/20 05:42 MCH 31 pg (28-32) 09/11/20 05:42 MCHC 34 % (32-34) 09/11/20 05:42 RDW 15.3 % (13.2-15.2) H 09/11/20 05:42 Plt Count 116 K/mm3 (140-440) L 09/11/20 05:42 Plt Count 118 K/mm3 (140-440) L 09/11/20 05:42 Lymph % (Auto) 1.3 % (13.4-35.0) L 09/09/20 04:54 Gillespie % (Auto) 2.5 % (0.0-7.3) 09/09/20 04:54 Eos % (Auto) 0.0 % (0.0-4.3) 09/09/20 04:54 Baso % (Auto) 0.1 % (0.0-1.8) 09/09/20 04:54 Lymph # (Auto) 0.4 K/mm3 (1.2-5.4) L 09/09/20 04:54 Gillespie # (Auto) 0.7 K/mm3 (0.0-0.8) 09/09/20 04:54 Eos # (Auto) 0.0 K/mm3 (0.0-0.4) 09/09/20 04:54 Baso # (Auto) 0.0 K/mm3 (0.0-0.1) 09/09/20 04:54 Add Manual Diff Complete 09/10/20 04:56 Total Counted 200 09/10/20 04:56 Seg Neutrophils % Conveyor Mechanic 09/10/20 04:56 Seg Neuts % (Manual) 97.5 % (40.0-70.0) H 09/10/20 04:56 Band Neutrophils % 4.0 % 09/07/20 18:00 Lymphocytes % (Manual) 1.0 % (13.4-35.0) L 09/10/20 04:56 Monocytes % (Manual) 1.5 % (0.0-7.3) 09/10/20 04:56 Nucleated RBC % Not Reportable 09/10/20 04:56 Seg Neutrophils # 27.4 K/mm3 (1.8-7.7) H 09/09/20 04:54 Seg Neutrophils # Man 23.6 K/mm3 (1.8-7.7) H 09/10/20 04:56 Band Neutrophils # 0.0 K/mm3 09/10/20 04:56 Lymphocytes # (Manual) 0.2 K/mm3 (1.2-5.4) L 09/10/20 04:56 Abs React Lymphs (Man) 0.0 K/mm3 09/10/20 04:56 Monocytes # (Manual) 0.4 K/mm3 (0.0-0.8) 09/10/20 04:56 Eosinophils # (Manual) 0.0 K/mm3 (0.0-0.4) 09/10/20 04:56 Basophils # (Manual) 0.0 K/mm3 (0.0-0.1) 09/10/20 04:56 Metamyelocytes # 0.0 K/mm3 09/10/20 04:56 Myelocytes # 0.0 K/mm3 09/10/20 04:56 Promyelocytes # 0.0 K/mm3 09/10/20 04:56 Blast Cells # 0.0 K/mm3 09/10/20 04:56 WBC Morphology Not Reportable 09/10/20 04:56 Hypersegmented Neuts Not Reportable 09/10/20 04:56 Hyposegmented Neuts Not Reportable 09/10/20 04:56 Hypogranular Neuts Not Reportable 09/10/20 04:56 Smudge Cells Not Reportable 09/10/20 04:56 Toxic Granulation Not Reportable 09/10/20 04:56 Toxic Vacuolation Not Reportable 09/10/20 04:56 Dohle Bodies Not Reportable 09/10/20 04:56 Pelger-Huet Anomaly Not Reportable 09/10/20 04:56 Miroslava Rods Not Reportable 09/10/20 04:56 Platelet Estimate Consistent w auto 09/10/20 04:56 Clumped Platelets Not Reportable 09/10/20 04:56 Plt Clumps, EDTA Not Reportable 09/10/20 04:56 Large Platelets Not Reportable 09/10/20 04:56 Giant Platelets Not Reportable 09/10/20 04:56 Platelet Satelliting Not Reportable 09/10/20 04:56 Plt Morphology Comment Not Reportable 09/10/20 04:56 RBC Morphology Not Reportable 09/10/20 04:56 Dimorphic RBCs Not Reportable 09/10/20 04:56 Polychromasia Not Reportable 09/10/20 04:56 Hypochromasia Not Reportable 09/10/20 04:56 Poikilocytosis Not Reportable 09/10/20 04:56 Anisocytosis 1+ 09/10/20 04:56 Microcytosis Not Reportable 09/10/20 04:56 Macrocytosis Not Reportable 09/10/20 04:56 Spherocytes Not Reportable 09/10/20 04:56 Pappenheimer Bodies Not Reportable 09/10/20 04:56 Sickle Cells Not Reportable 09/10/20 04:56 Target Cells Not Reportable 09/10/20 04:56 Tear Drop Cells Not Reportable 09/10/20 04:56 Ovalocytes Not Reportable 09/10/20 04:56 Helmet Cells Not Reportable 09/10/20 04:56 [place] Bodies Not Reportable 09/10/20 04:56 Ada Rings Not Reportable 09/10/20 04:56 [place] Cells Not Reportable 09/10/20 04:56 Bite Cells Not Reportable 09/10/20 04:56 Crenated Cell Not Reportable 09/10/20 04:56 Elliptocytes Not Reportable 09/10/20 04:56 Acanthocytes (Spur) Not Reportable 09/10/20 04:56 Rouleaux Not Reportable 09/10/20 04:56 Hemoglobin C Crystals Not Reportable 09/10/20 04:56 Schistocytes Not Reportable 09/10/20 04:56 Malaria parasites Not Reportable 09/10/20 04:56 Marquise Bodies Not Reportable 09/10/20 04:56 Hem Pathologist Commnt No 09/10/20 04:56 PT 15.8 Sec. (12.2-14.9) H 09/09/20 20:28 INR 1.26 (0.87-1.13) H 09/09/20 20:28 APTT 40.7 Sec. (24.2-36.6) H 09/09/20 20:28 D-Dimer > 32885 ng/mlDDU (0-234) H 09/07/20 18:00 D-Dimer Conveyor Mechanic 09/07/20 18:00 Heparin Anti-Xa Level 1.14 U.I./ml (0.3-0.7) H 09/11/20 17:41 ABG pH 7.409 pH Units (7.350-7.450) 09/12/20 05:50 POC ABG pCO2 22.8 mmHg (32.0-48.0) L 09/11/20 05:11 ABG pCO2 25.0 mm Hg 09/12/20 05:50 POC ABG pO2 76.3 mmHg (83-108) L 09/11/20 05:11 ABG pO2 195.5 mm Hg (80.0-90.0) H 09/12/20 05:50 POC ABG HCO3 14.7 09/11/20 05:11 ABG HCO3 15.5 mmol/L (20.0-26.0) L 09/12/20 05:50 ABG O2 Saturation 99.3 % (95.0-99.0) H 09/12/20 05:50 ABG O2 Content 17.5 (0.0-44) 09/12/20 05:50 POC ABG Base Excess -7.1 09/11/20 05:11 ABG Base Excess -7.5 mmol/L (-2.0-3.0) L 09/12/20 05:50 ABG Hemoglobin 12.4 gm/dl (14.0-18.0) L 09/12/20 05:50 ABG Oxyhemoglobin 94.6 (94-98) 09/11/20 05:11 ABG Carboxyhemoglobin 0.7 % (0.0-5.0) 09/12/20 05:50 ABG Methemoglobin 0.6 % (0.0-1.5) 09/12/20 05:50 ABG Sodium 136.0 mmol/L (136.0-145.0) 09/11/20 05:11 ABG Potassium 4.2 mmol/L (3.40-4.50) 09/11/20 05:11 ABG Chloride 106.0 mmol/L (98-107) 09/11/20 05:11 ABG Glucose 208 mg/dL (65-95) H 09/11/20 05:11 Oxyhemoglobin 98.0 % (95.0-99.0) 09/12/20 05:50 Carboxyhemoglobin 0.2 (0.5-1.5) L 09/11/20 05:11 FiO2 45 % 09/12/20 05:50 Sodium TNR 09/12/20 05:25 Potassium TNR 09/12/20 05:25 Chloride TNR 09/12/20 05:25 Carbon Dioxide 15 mmol/L (22-30) L 09/12/20 05:25 Anion Gap TNR 09/12/20 05:25 BUN 89 mg/dL (9-20) H 09/12/20 05:25 Creatinine 3.5 mg/dL (0.8-1.3) H 09/12/20 05:25 Estimated GFR 17 ml/min 09/12/20 05:25 BUN/Creatinine Ratio 25 % 09/12/20 05:25 Glucose 282 mg/dL (75-100) H 09/12/20 05:25 Hemoglobin A1c 6.2 % (4-6) H 09/08/20 10:13 Lactic Acid 3.70 mmol/L (0.7-2.0) H* 09/09/20 09:04 Calcium 7.2 mg/dL (8.4-10.2) L 09/12/20 05:25 Phosphorus 3.20 mg/dL (2.5-4.5) 09/08/20 10:13 Magnesium 2.00 mg/dL (1.7-2.3) 09/08/20 10:13 Ferritin 849.7 ng/mL (30.0-300.0) H 09/07/20 18:00 Total Bilirubin 1.20 mg/dL (0.1-1.2) 09/08/20 20:18 AST 51 units/L (5-40) H 09/08/20 20:18 ALT 22 units/L (7-56) 09/08/20 20:18 Alkaline Phosphatase 69 units/L (35-129) 09/08/20 20:18 Lactate Dehydrogenase 507 units/L (91-180) H 09/07/20 18:00 Troponin T < 0.010 ng/mL (0.00-0.029) 09/07/20 18:00 C-Reactive Protein 8.20 mg/dL (0.00-1.30) H 09/07/20 18:00 Total Protein 6.2 g/dL (6.3-8.2) L 09/08/20 20:18 Albumin 2.1 g/dL (3.9-5) L 09/08/20 20:18 Albumin/Globulin Ratio 0.5 % 09/08/20 20:18 Prealbumin 0.049 g/L (0.200-0.400) L 09/08/20 10:13 Procalcitonin 0.33 ng/mL (<0.15) 09/07/20 18:00 Arterial Blood Glucose 208 mg/dL (65-95) H 09/11/20 05:11 Arterial Blood Ionized Calcium 4.1 mg/dL (4.6-5.3) L 09/11/20 05:11 Urine Color Leanna (Yellow) 09/07/20 17:25 Urine Turbidity Clear (Clear) 09/07/20 17:25 Urine pH 5.0 (5.0-7.0) 09/07/20 17:25 Ur Specific Hendricks 1.023 (1.003-1.030) 09/07/20 17:25 Urine Protein 30 mg/dl mg/dL (Negative) 09/07/20 17:25 Urine Glucose (UA) Neg mg/dL (Negative) 09/07/20 17:25 Urine Ketones Tr mg/dL (Negative) 09/07/20 17:25 Urine Blood Neg (Negative) 09/07/20 17:25 Urine Nitrite Neg (Negative) 09/07/20 17:25 Urine Bilirubin Neg (Negative) 09/07/20 17: Urine Urobilinogen 2.0 mg/dL (<2.0) 09/07/20 17:25 Ur Leukocyte Esterase Neg (Negative) 09/07/20 17:25 Urine WBC (Auto) 4.0 /HPF (0.0-6.0) 09/07/20 17:25 Urine RBC (Auto) 2.0 /HPF (0.0-6.0) 09/07/20 17: U Epithel Cells (Auto) 1.0 /HPF (0-13.0) 09/07/20 17: Urine Mucus 3+ /HPF 09/07/20 17: Urine Creatinine 213.6 mg/dL (0.1-20.0) H 09/09/20 Unknown Urine Sodium 19 mmol/L 09/09/20 Unknown Random Vancomycin 14.3 ug/mL (0-40.0) 09/11/20 05:42 Coronavirus (PCR) Positive (Negative) A 09/07/20 17:25 Microbiology: Microbiology 09/07/20 18:00 Peripheral/Venous Blood Culture - Preliminary NO GROWTH AFTER 4 DAYS 09/07/20 18:00 Peripheral/Venous Blood Culture - Preliminary NO GROWTH AFTER 4 DAYS Reyez/IV: Voiding Method Indwelling Catheter IV Catheter Type [Right Triple Lumen Cath Femoral] IV Catheter Type [Right INT / Saline Lock Antecubital] Active Medications - Current Medications Current Medications: Generic Name Dose Route Start Last Admin Trade Name Freq PRN Reason Stop Dose Admin Acetaminophen 650 mg 09/08/20 07:00 Acetaminophen 325 Mg/10.15 Ml Oral Liqd Unit Dose PO Q4H PRN Pain MILD(1-3)/Fever >100.5/BEST Lipase/Protease/Amylase 1 each 09/08/20 06:31 Lipase 10,500/Protease 25,000/Amylase 43,750 (Units) Cap FEEDTUBE PRN PRN For Clogged Feeding Tube Dexamethasone 6 mg 09/09/20 20:56 09/11/20 10:21 Dexamethasone 4 Mg/Ml Vial IV 09/18/20 10:01 6 mg Q24HR CRISTIN Administration Diltiazem HCl 60 mg 09/10/20 14:00 09/12/20 06:40 Diltiazem 60 Mg Tab PO Not Given Q6HR CRISTIN Famotidine 20 mg 09/10/20 10:00 09/11/20 10:21 Famotidine 20 Mg/2 Ml Inj IV 20 mg DAILY CRISTIN Administration Fentanyl 50 mcg 09/09/20 19:53 Fentanyl 100 Mcg/2 Ml Inj IV Q10MIN PRN ANALGESIA Heparin Sodium (Porcine) 3,200 unit 09/09/20 19:53 09/10/20 05:53 Heparin 10,000 Units/10 Ml Vial 40 unit/kg (3200 unit) 3,200 unit IV Administration Q6H PRN Anti-Xa Assay < 0.1 units/ml Hydrophilic Ointment 1 applic 09/07/20 22:11 Lip Therapy Vaseline TP Q2HR PRN Dry Lips Norepinephrine 4 mg in 250 mls @ 7.5 mls/hr 09/07/20 21:19 09/09/20 21:53 Levophed Drip 4 Mg/Ns 250 Ml IV 12 mcg/min TITR CRISTIN 45 mls/hr Administration Protocol 2 MCG/MIN Midazolam HCl 100 mg/ Sodium 100 mls @ 2 mls/hr 09/07/20 23:00 09/09/20 21:57 Chloride IV 4 mg/hr TITR CRISTIN 4 mls/hr Administration Protocol 2 MG/HR Levofloxacin/Dextrose 750 mg in 150 mls @ 100 mls/hr 09/09/20 13:00 09/11/20 13:43 Levaquin 750mg/150ml IV 09/17/20 14:29 100 mls/hr Q48H CRISTIN Administration Heparin Sodium/Sodium Chloride 25,000 unit in 500 mls @ 23 mls/hr 09/09/20 20:00 09/11/20 15:47 Heparin/ 0.45% Nacl-25,000 Unit/500 Ml IV 700 units/hr TITR CRISTIN 14 mls/hr Administration Protocol 1,150 UNITS/HR Fentanyl Citrate 2,000 mcg in 100 mls @ 3.98 mls/hr 09/09/20 20:00 Fentanyl Drip Premix IV TITR CRISTIN Protocol 1 MCG/KG/HR Dextrose/Sodium Chloride 1,000 mls @ 75 mls/hr 09/11/20 17:00 D5ns IV DIRECT CRISTIN Metoprolol Tartrate 5 mg 09/10/20 13:07 Metoprolol Tartrate 5 Mg/5 Ml Inj IV Q6HR PRN HR>130 Metoprolol Tartrate 25 mg 09/11/20 14:00 09/12/20 02:26 Metoprolol Tartrate 25 Mg Tab PO Not Given Q6H CRISTIN Midazolam HCl 2 mg 09/07/20 22:11 Midazolam 2 Mg/2 Ml Inj IV Q10MIN PRN Sedation Morphine Sulfate 2 mg 09/08/20 06:29 Morphine 2 Mg/1 Ml Inj IV Q4H PRN Pain, Moderate (4-6) Multi-Ingred Cream/Lotion/Oil/Oint 1 applic 09/07/20 22:11 Mineral Oil/Petrolatum, White Ophth Oint 3.5 Gm OU Q4HR PRN Dry Eye(s) Ondansetron HCl 4 mg 09/08/20 06:29 Ondansetron 4 Mg/2 Ml Inj IV Q8H PRN Nausea And Vomiting Simple Syrup 15 ml 09/08/20 06:31 Simple Syrup 15 Ml FEEDTUBE PRN PRN Hypoglycemia Simple Syrup 30 ml 09/08/20 06:31 Simple Syrup 15 Ml FEEDTUBE PRN PRN Hypoglycemia Sodium Bicarbonate 325 mg 09/08/20 06:31 Sodium Bicarbonate 325 Mg Tab FEEDTUBE PRN PRN For Clogged Feeding Tube Sodium Chloride 10 ml 09/08/20 10:00 09/11/20 21:57 Sodium Chloride 0.9% 10 Ml Flush Syringe IV 10 ml BID CRISTIN Administration Sodium Chloride 10 ml 09/08/20 06:29 Sodium Chloride 0.9% 10 Ml Flush Syringe IV PRN PRN LINE FLUSH Nutrition/Malnutrition Assess - Dietary Evaluation Nutrition/Malnutrition Findings: Nutrition Notes Start: 09/08/20 09:03 Freq: Status: Active Protocol: Document 09/11/20 13:32 LM (Rec: 09/11/20 14:43 LM [id number]) Nutrition Notes Initial or Follow up Brief Note Current Diagnosis Acute Kidney Injury,Sepsis, Stroke Other Pertinent Diagnosis COVID(+), ARF, pneumonia Current Diet Vital AF 1.2 at 65ml/hr Labs/Tests BUN 76 Cr 3 BG 202 Pertinent Medications Decadron Height 5 ft 4 in Weight 79.6 kg [place] Body Weight (kg) 59.09 BMI 30.1 Weight change and time frame Wt change noted. Weight Status Obese Subjective/Other Information Pt remains on ED and on the vent. Is patient on ventilator? Yes Is Patient Ambulatory and/or Out of Bed No REE-([place]-St. Jeor-confined to bed) 7529.797 Calculation [facility] Additional Notes Protein: 118 (>/=2g/kg IBW 59kg) Fluid: 1ml/kcal Nutrition Intervention Change Diet Order: Continue TF Nutrition Support: Change to Vital AF 1.2 at 55ml /hr Flush 90ml q4h Kcal 1,584 Protein (gm) 99 Fluid (mL) 1,071 Goal #1 TF start/tolerance Goal #2 Meet at least 75% of protein and energy needs via TF Anticipated Discharge Needs: Unable to determine at this time Follow-Up By: 09/12/20 Additional Comments F/U for TF start/rate, wt
[2020-09-12] MEDS: dexAMETHasone 4 MG/ML VIAL IV SCH (10:56)
[2020-09-12] MEDS: FAMOTIDINE 20 MG/2 ML INJ IV SCH (10:57)
[2020-09-12] MEDS ORDERED: SODIUM CHLORIDE 0.9% 100 ML IV PRN (12:00)
--- NOTE | 2020-09-12 12:10 | Consultation ---
History of Present Illness Consult date: 09/12/20 Reason for Consult: Brain Chief complaint: Altered Mental Status History of present illness: 85 yo male with COVID-19 who was found with hypoxemia of unknown duration by EMS and emergently intubated in the ED. Per RN, the patient has remained encephalopathic since being taken off sedation post-intubation w/ no signs of reactivity. Past History Past Medical History: other (unable to obtain) Medications and Allergies Allergies Allergy/AdvReac Type Severity Reaction Status Date / Time ceftriaxone Allergy Rash Verified 09/11/20 11:49 Home Medications Medication Instructions Recorded Confirmed Last Taken Type Aspirin [Aspirin BABY CHEW TAB] 81 mg PO QDAY #30 tab.chew 12/12/13 09/11/20 Unknown Rx Atorvastatin [Lipitor Tab] 80 mg PO QHS 09/11/20 09/11/20 Unknown History amLODIPine [Norvasc] 5 mg PO DAILY 09/11/20 09/11/20 Unknown History Active Meds: Active Medications Acetaminophen (Acetaminophen 325 Mg/10.15 Ml Oral Liqd Unit Dose) 650 mg PO Q4H PRN PRN Reason: Pain MILD(1-3)/Fever >100.5/BEST Lipase/Protease/Amylase (Lipase 10,500/Protease 25,000/Amylase 43,750 (Units) Dr Carey) 1 each FEEDTUBE PRN PRN PRN Reason: For Clogged Feeding Tube Dexamethasone (Dexamethasone 4 Mg/Ml Vial) 6 mg IV Q24HR [facility] Stop: 09/18/20 10:01 Last Admin: 09/11/20 10:21 Dose: 6 mg Documented by: Diltiazem HCl (Diltiazem 60 Mg Tab) 60 mg PO Q6HR [facility] Last Admin: 09/12/20 06:40 Dose: Not Given Documented by: Famotidine (Famotidine 20 Mg/2 Ml Inj) 20 mg IV DAILY [facility] Last Admin: 09/11/20 10:21 Dose: 20 mg Documented by: Fentanyl (Fentanyl 100 Mcg/2 Ml Inj) 50 mcg IV Q10MIN PRN PRN Reason: ANALGESIA Heparin Sodium (Porcine) (Heparin 10,000 Units/10 Ml Vial) 3,200 unit 40 unit/kg (3200 unit) IV Q6H PRN PRN Reason: Anti-Xa Assay < 0.1 units/ml Last Admin: 09/10/20 05:53 Dose: 3,200 unit Documented by: Hydrophilic Ointment (Lip Therapy Vaseline) 1 applic TP Q2HR PRN PRN Reason: Dry Lips Norepinephrine (Levophed Drip 4 Mg/Ns 250 Ml) 4 mg in 250 mls @ 7.5 mls/hr IV TITR CRISTIN; Protocol Last Admin: 09/09/20 21:53 Dose: 12 mcg/min, 45 mls/hr Documented by: Midazolam HCl 100 mg/ Sodium (Chloride) 100 mls @ 2 mls/hr IV TITR CRISTIN; Protocol Last Admin: 09/09/20 21:57 Dose: 4 mg/hr, 4 mls/hr Documented by: Levofloxacin/Dextrose (Levaquin 750mg/150ml) 750 mg in 150 mls @ 100 mls/hr IV Q48H CRISTIN Stop: 09/17/20 14:29 Last Admin: 09/11/20 13:43 Dose: 100 mls/hr Documented by: Heparin Sodium/Sodium Chloride (Heparin/ 0.45% Nacl-25,000 Unit/500 Ml) 25,000 unit in 500 mls @ 23 mls/hr IV TITR CRISTIN; Protocol Last Admin: 09/11/20 15:47 Dose: 700 units/hr, 14 mls/hr Documented by: Fentanyl Citrate (Fentanyl Drip Premix) 2,000 mcg in 100 mls @ 3.98 mls/hr IV TITR CRISTIN; Protocol Dextrose/Sodium Chloride (D5ns) 1,000 mls @ 75 mls/hr IV DIRECT CRISTIN Sodium Chloride (Nacl 0.9%) 100 mls @ 999 mls/hr IV ANNA MARIE PRN PRN Reason: Hypotension Metoprolol Tartrate (Metoprolol Tartrate 5 Mg/5 Ml Inj) 5 mg IV Q6HR PRN PRN Reason: HR>130 Metoprolol Tartrate (Metoprolol Tartrate 25 Mg Tab) 25 mg PO Q6H CRISTIN Last Admin: 09/12/20 02:26 Dose: Not Given Documented by: Midazolam HCl (Midazolam 2 Mg/2 Ml Inj) 2 mg IV Q10MIN PRN PRN Reason: Sedation Morphine Sulfate (Morphine 2 Mg/1 Ml Inj) 2 mg IV Q4H PRN PRN Reason: Pain, Moderate (4-6) Multi-Ingred Cream/Lotion/Oil/Oint (Mineral Oil/Petrolatum, White Ophth Oint 3.5 Gm) 1 applic OU Q4HR PRN PRN Reason: Dry Eye(s) Ondansetron HCl (Ondansetron 4 Mg/2 Ml Inj) 4 mg IV Q8H PRN PRN Reason: Nausea And Vomiting Simple Syrup (Simple Syrup 15 Ml) 15 ml FEEDTUBE PRN PRN PRN Reason: Hypoglycemia Simple Syrup (Simple Syrup 15 Ml) 30 ml FEEDTUBE PRN PRN PRN Reason: Hypoglycemia Sodium Bicarbonate (Sodium Bicarbonate 325 Mg Tab) 325 mg FEEDTUBE PRN PRN PRN Reason: For Clogged Feeding Tube Sodium Chloride (Sodium Chloride 0.9% 10 Ml Flush Syringe) 10 ml IV BID CRISTIN Last Admin: 09/11/20 21:57 Dose: 10 ml Documented by: Sodium Chloride (Sodium Chloride 0.9% 10 Ml Flush Syringe) 10 ml IV PRN PRN PRN Reason: LINE FLUSH Physical Examination - Vital Signs Vital Signs: Vital Signs Pulse Resp Pulse Ox 161 H 30 H 92 09/07/20 16:35 09/07/20 16:35 09/07/20 16:35 - Physical Exam Narrative exam: Patient not seen due to +COVID-19 status. Results - Laboratory Findings CBC and BMP: 09/11/20 05:42 09/12/20 05:25 Abnormal Lab Findings: Abnormal Labs 09/07/20 09/07/20 09/07/20 17:25 18:00 18:00 WBC 23.5 H RBC Hgb Hct MCHC RDW Plt Count Lymph % (Auto) Lymph # (Auto) Seg Neutrophils % Seg Neuts % (Manual) 94.0 H Lymphocytes % (Manual) 1.0 L Seg Neutrophils # Seg Neutrophils # Man 22.1 H Lymphocytes # (Manual) 0.2 L PT INR APTT D-Dimer > 82112 H Heparin Anti-Xa Level ABG pH POC ABG pCO2 POC ABG pO2 ABG pO2 ABG HCO3 ABG O2 Saturation ABG Base Excess ABG Hemoglobin ABG Glucose Carboxyhemoglobin Sodium Chloride Carbon Dioxide BUN Creatinine Glucose Hemoglobin A1c Lactic Acid Calcium Ferritin Total Bilirubin AST Lactate Dehydrogenase C-Reactive Protein Total Protein Albumin Prealbumin Arterial Blood Glucose Arterial Blood Ionized Calcium Urine Creatinine Coronavirus (PCR) Positive A 09/07/20 09/07/20 09/07/20 18:00 18:00 18:00 WBC RBC Hgb Hct MCHC RDW Plt Count Lymph % (Auto) Lymph # (Auto) Seg Neutrophils % Seg Neuts % (Manual) Lymphocytes % (Manual) Seg Neutrophils # Seg Neutrophils # Man Lymphocytes # (Manual) PT INR APTT 72.7 H* D-Dimer Heparin Anti-Xa Level ABG pH POC ABG pCO2 POC ABG pO2 ABG pO2 ABG HCO3 ABG O2 Saturation ABG Base Excess ABG Hemoglobin ABG Glucose Carboxyhemoglobin Sodium Chloride Carbon Dioxide 9 L* BUN 24 H Creatinine Glucose 143 H Hemoglobin A1c Lactic Acid Calcium 7.6 L Ferritin 849.7 H Total Bilirubin 1.80 H AST 45 H Lactate Dehydrogenase 507 H C-Reactive Protein 8.20 H Total Protein 5.6 L Albumin 2.8 L Prealbumin Arterial Blood Glucose Arterial Blood Ionized Calcium Urine Creatinine Coronavirus (PCR) 09/07/20 09/07/20 09/08/20 19:37 20:30 01:07 WBC RBC Hgb Hct MCHC RDW Plt Count Lymph % (Auto) Lymph # (Auto) Seg Neutrophils % Seg Neuts % (Manual) Lymphocytes % (Manual) Seg Neutrophils # Seg Neutrophils # Man Lymphocytes # (Manual) PT INR APTT D-Dimer Heparin Anti-Xa Level ABG pH 7.336 L POC ABG pCO2 POC ABG pO2 ABG pO2 91.2 H ABG HCO3 14.1 L ABG O2 Saturation ABG Base Excess -9.9 L ABG Hemoglobin ABG Glucose Carboxyhemoglobin Sodium Chloride Carbon Dioxide BUN Creatinine Glucose Hemoglobin A1c Lactic Acid 8.80 H* 3.80 H* Calcium Ferritin Total Bilirubin AST Lactate Dehydrogenase C-Reactive Protein Total Protein Albumin Prealbumin Arterial Blood Glucose Arterial Blood Ionized Calcium Urine Creatinine Coronavirus (PCR) 09/08/20 09/08/20 09/08/20 04:25 10:13 10:13 WBC 21.7 H RBC 5.49 H Hgb 17.1 H Hct 49.6 H MCHC 35 H RDW Plt Count Lymph % (Auto) Lymph # (Auto) Seg Neutrophils % Seg Neuts % (Manual) 96.0 H Lymphocytes % (Manual) 1.0 L Seg Neutrophils # Seg Neutrophils # Man 20.8 H Lymphocytes # (Manual) 0.2 L PT INR APTT D-Dimer Heparin Anti-Xa Level ABG pH 7.484 H POC ABG pCO2 POC ABG pO2 ABG pO2 148.2 H ABG HCO3 17.2 L ABG O2 Saturation ABG Base Excess -4.1 L ABG Hemoglobin ABG Glucose Carboxyhemoglobin Sodium Chloride Carbon Dioxide BUN Creatinine Glucose Hemoglobin A1c Lactic Acid 3.40 H* Calcium Ferritin Total Bilirubin AST Lactate Dehydrogenase C-Reactive Protein Total Protein Albumin Prealbumin Arterial Blood Glucose Arterial Blood Ionized Calcium Urine Creatinine Coronavirus (PCR) 09/08/20 09/08/20 09/08/20 10:13 10:13 10:13 WBC RBC Hgb Hct MCHC RDW Plt Count Lymph % (Auto) Lymph # (Auto) Seg Neutrophils % Seg Neuts % (Manual) Lymphocytes % (Manual) Seg Neutrophils # Seg Neutrophils # Man Lymphocytes # (Manual) PT INR APTT D-Dimer Heparin Anti-Xa Level ABG pH POC ABG pCO2 POC ABG pO2 ABG pO2 ABG HCO3 ABG O2 Saturation ABG Base Excess ABG Hemoglobin ABG Glucose Carboxyhemoglobin Sodium 135 L Chloride Carbon Dioxide 20 L D BUN 35 H Creatinine 1.6 H D Glucose 192 H Hemoglobin A1c 6.2 H Lactic Acid Calcium 8.3 L Ferritin Total Bilirubin 1.80 H AST 55 H Lactate Dehydrogenase C-Reactive Protein Total Protein Albumin 2.6 L Prealbumin 0.049 L Arterial Blood Glucose Arterial Blood Ionized Calcium Urine Creatinine Coronavirus (PCR) 09/08/20 09/08/20 09/08/20 20:18 20:18 20:18 WBC 29.8 H RBC Hgb 15.3 H Hct MCHC RDW Plt Count Lymph % (Auto) Lymph # (Auto) Seg Neutrophils % Seg Neuts % (Manual) Lymphocytes % (Manual) Seg Neutrophils # Seg Neutrophils # Man Lymphocytes # (Manual) PT INR APTT D-Dimer Heparin Anti-Xa Level ABG pH POC ABG pCO2 POC ABG pO2 ABG pO2 ABG HCO3 ABG O2 Saturation ABG Base Excess ABG Hemoglobin ABG Glucose Carboxyhemoglobin Sodium 136 L Chloride Carbon Dioxide 17 L BUN 42 H Creatinine 1.9 H Glucose 203 H Hemoglobin A1c Lactic Acid 2.20 H* Calcium 7.6 L Ferritin Total Bilirubin AST 51 H Lactate Dehydrogenase C-Reactive Protein Total Protein 6.2 L Albumin 2.1 L Prealbumin Arterial Blood Glucose Arterial Blood Ionized Calcium Urine Creatinine Coronavirus (PCR) 09/08/20 09/09/20 09/09/20 21:53 00:19 03:15 WBC RBC Hgb Hct MCHC RDW Plt Count Lymph % (Auto) Lymph # (Auto) Seg Neutrophils % Seg Neuts % (Manual) Lymphocytes % (Manual) Seg Neutrophils # Seg Neutrophils # Man Lymphocytes # (Manual) PT INR APTT D-Dimer Heparin Anti-Xa Level ABG pH POC ABG pCO2 POC ABG pO2 ABG pO2 97.0 H ABG HCO3 16.3 L ABG O2 Saturation ABG Base Excess -7.5 L ABG Hemoglobin ABG Glucose Carboxyhemoglobin Sodium Chloride Carbon Dioxide BUN Creatinine Glucose Hemoglobin A1c Lactic Acid 3.20 H* 2.10 H* Calcium Ferritin Total Bilirubin AST Lactate Dehydrogenase C-Reactive Protein Total Protein Albumin Prealbumin Arterial Blood Glucose Arterial Blood Ionized Calcium Urine Creatinine Coronavirus (PCR) 09/09/20 09/09/20 09/09/20 04:54 04:54 04:54 WBC 28.5 H RBC Hgb Hct MCHC RDW Plt Count Lymph % (Auto) 1.3 L Lymph # (Auto) 0.4 L Seg Neutrophils % 96.1 H Seg Neuts % (Manual) Lymphocytes % (Manual) Seg Neutrophils # 27.4 H Seg Neutrophils # Man Lymphocytes # (Manual) PT INR APTT D-Dimer Heparin Anti-Xa Level ABG pH POC ABG pCO2 POC ABG pO2 ABG pO2 ABG HCO3 ABG O2 Saturation ABG Base Excess ABG Hemoglobin ABG Glucose Carboxyhemoglobin Sodium Chloride Carbon Dioxide 17 L BUN 45 H Creatinine 2.2 H Glucose 201 H Hemoglobin A1c Lactic Acid 2.90 H* Calcium 7.8 L Ferritin Total Bilirubin AST Lactate Dehydrogenase C-Reactive Protein Total Protein Albumin Prealbumin Arterial Blood Glucose Arterial Blood Ionized Calcium Urine Creatinine Coronavirus (PCR) 09/09/20 09/09/20 09/09/20 06:56 09:04 20:28 WBC RBC Hgb Hct MCHC RDW Plt Count Lymph % (Auto) Lymph # (Auto) Seg Neutrophils % Seg Neuts % (Manual) Lymphocytes % (Manual) Seg Neutrophils # Seg Neutrophils # Man Lymphocytes # (Manual) PT 15.8 H INR 1.26 H APTT 40.7 H D-Dimer Heparin Anti-Xa Level ABG pH POC ABG pCO2 POC ABG pO2 ABG pO2 ABG HCO3 ABG O2 Saturation ABG Base Excess ABG Hemoglobin ABG Glucose Carboxyhemoglobin Sodium Chloride Carbon Dioxide BUN Creatinine Glucose Hemoglobin A1c Lactic Acid 4.70 H* 3.70 H* Calcium Ferritin Total Bilirubin AST Lactate Dehydrogenase C-Reactive Protein Total Protein Albumin Prealbumin Arterial Blood Glucose Arterial Blood Ionized Calcium Urine Creatinine Coronavirus (PCR) 09/09/20 09/10/20 09/10/20 Unknown 02:24 04:56 WBC 24.2 H RBC Hgb Hct MCHC RDW Plt Count Lymph % (Auto) Lymph # (Auto) Seg Neutrophils % Seg Neuts % (Manual) 97.5 H Lymphocytes % (Manual) 1.0 L Seg Neutrophils # Seg Neutrophils # Man 23.6 H Lymphocytes # (Manual) 0.2 L PT INR APTT D-Dimer Heparin Anti-Xa Level ABG pH POC ABG pCO2 POC ABG pO2 ABG pO2 120.7 H ABG HCO3 15.1 L ABG O2 Saturation ABG Base Excess -8.0 L ABG Hemoglobin ABG Glucose Carboxyhemoglobin Sodium Chloride Carbon Dioxide BUN Creatinine Glucose Hemoglobin A1c Lactic Acid Calcium Ferritin Total Bilirubin AST Lactate Dehydrogenase C-Reactive Protein Total Protein Albumin Prealbumin Arterial Blood Glucose Arterial Blood Ionized Calcium Urine Creatinine 213.6 H Coronavirus (PCR) 09/10/20 09/10/20 09/11/20 04:56 17:58 01:02 WBC RBC Hgb Hct MCHC RDW Plt Count Lymph % (Auto) Lymph # (Auto) Seg Neutrophils % Seg Neuts % (Manual) Lymphocytes % (Manual) Seg Neutrophils # Seg Neutrophils # Man Lymphocytes # (Manual) PT INR APTT D-Dimer Heparin Anti-Xa Level > 2.00 H 2.00 H ABG pH POC ABG pCO2 POC ABG pO2 ABG pO2 ABG HCO3 ABG O2 Saturation ABG Base Excess ABG Hemoglobin ABG Glucose Carboxyhemoglobin Sodium Chloride Carbon Dioxide 18 L BUN 62 H Creatinine 2.8 H Glucose 216 H Hemoglobin A1c Lactic Acid Calcium 7.9 L Ferritin Total Bilirubin AST Lactate Dehydrogenase C-Reactive Protein Total Protein Albumin Prealbumin Arterial Blood Glucose Arterial Blood Ionized Calcium Urine Creatinine Coronavirus (PCR) 09/11/20 09/11/20 09/11/20 05:11 05:42 05:42 WBC RBC Hgb Hct MCHC RDW Plt Count 116 L Lymph % (Auto) Lymph # (Auto) Seg Neutrophils % Seg Neuts % (Manual) Lymphocytes % (Manual) Seg Neutrophils # Seg Neutrophils # Man Lymphocytes # (Manual) PT INR APTT D-Dimer Heparin Anti-Xa Level ABG pH POC ABG pCO2 22.8 L POC ABG pO2 76.3 L ABG pO2 ABG HCO3 ABG O2 Saturation ABG Base Excess ABG Hemoglobin ABG Glucose 208 H Carboxyhemoglobin 0.2 L Sodium Chloride 108.7 H Carbon Dioxide 15 L BUN 76 H Creatinine 3.0 H Glucose 202 H Hemoglobin A1c Lactic Acid Calcium 7.5 L Ferritin Total Bilirubin AST Lactate Dehydrogenase C-Reactive Protein Total Protein Albumin Prealbumin Arterial Blood Glucose 208 H Arterial Blood Ionized Calcium 4.1 L Urine Creatinine Coronavirus (PCR) 09/11/20 09/11/20 09/11/20 05:42 11:39 17:41 WBC 16.2 H RBC Hgb Hct MCHC RDW 15.3 H Plt Count 118 L Lymph % (Auto) Lymph # (Auto) Seg Neutrophils % Seg Neuts % (Manual) Lymphocytes % (Manual) Seg Neutrophils # Seg Neutrophils # Man Lymphocytes # (Manual) PT INR APTT D-Dimer Heparin Anti-Xa Level 1.82 H 1.14 H ABG pH POC ABG pCO2 POC ABG pO2 ABG pO2 ABG HCO3 ABG O2 Saturation ABG Base Excess ABG Hemoglobin ABG Glucose Carboxyhemoglobin Sodium Chloride Carbon Dioxide BUN Creatinine Glucose Hemoglobin A1c Lactic Acid Calcium Ferritin Total Bilirubin AST Lactate Dehydrogenase C-Reactive Protein Total Protein Albumin Prealbumin Arterial Blood Glucose Arterial Blood Ionized Calcium Urine Creatinine Coronavirus (PCR) 09/12/20 09/12/20 09/12/20 05:25 05:50 09:52 WBC RBC Hgb Hct MCHC RDW Plt Count Lymph % (Auto) Lymph # (Auto) Seg Neutrophils % Seg Neuts % (Manual) Lymphocytes % (Manual) Seg Neutrophils # Seg Neutrophils # Man Lymphocytes # (Manual) PT INR APTT D-Dimer Heparin Anti-Xa Level < 0.10 L ABG pH POC ABG pCO2 POC ABG pO2 ABG pO2 195.5 H ABG HCO3 15.5 L ABG O2 Saturation 99.3 H ABG Base Excess -7.5 L ABG Hemoglobin 12.4 L ABG Glucose Carboxyhemoglobin Sodium Chloride Carbon Dioxide 15 L BUN 89 H Creatinine 3.5 H Glucose 282 H Hemoglobin A1c Lactic Acid Calcium 7.2 L Ferritin Total Bilirubin AST Lactate Dehydrogenase C-Reactive Protein Total Protein Albumin Prealbumin Arterial Blood Glucose Arterial Blood Ionized Calcium Urine Creatinine Coronavirus (PCR) Assessment and Plan 85 yo male with COVID-19 w/ noted hypoxemia of unknown duration, w/ concern w/ noted acute encephalopathy. 1. 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 2. Acute Ischemic Stroke - concern for a posterior circulation infarction; await MR Brain; Asprin 325 mg PO/NGT qday or ASA 300 mg HI qday if no contraindications. 3. Seizure/status epilepticus - confirm with EEG. 4. Metabolic Encephalopathy - in the setting of COVID-19. Dilan Boone MD Neurology
--- NOTE | 2020-09-12 12:52 | Progress Note ---
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 Urinalysis negative. #Severe COVID-19 pneumonia: Diagnosed initially on 08/26/2020, treated at [facility] with dexamethasone, remdesivir for 3 days. Anticoagulation was not given due to recent hemorrhagic CVA. Chest x-ray with bilateral patchy infiltrates. Inflammatory markers elevated, D-dimer> 10,000, ferritin 849, CRP 8.2. Procalcitonin 0.3. ? Bacterial pneumonia component. ?HAP. Rain in sputum is colonization, does not need treatment #Acute hypoxemic respiratory failure: Initial sats dropped to 89%. Patient intubated in the ED, remains on the vent. #A. fib: Diagnosed during recent admission at [facility]. Car diology following. #Elevated LFTs: Likely secondary to COVID-19. #Recent hemorrhagic CVA: Diagnosed in July 2020. Recent CT of the head at [facility] showed resolution of previous hyperdense intraparenchymal hemorrhage in the right basal ganglia. #Ceftriaxone allergy? Unclear details. #Acute encephalopathy: Neurology following. Recs: Continue renally adjusted levofloxacin, empiric therapy, complete 5 days agree with steroids per pulmonary No benefit with remdesivir VTE evaluation given elevated D-dimer, although already on anticoagulation for A.fib guarded prognosis Ayah Munoz MD, [facility] ([facility] O: [phone] F: [phone] Subjective Date of service: 09/12/20 Principal diagnosis: Ac hypoxemic resp failure; COVID-19; Pneumonia; Septic Shock; MYRON; H/O CVA Interval history: Afebrile, remains on the vent. Objective - Exam Narrative Exam: Physical Exam (reviewed in chart to minimize risk of transmission) Constitutional: deferred Head, Ears, Nose: deferred Eyes: deferred Neck: deferred Oral: deferred Cardiovascular: deferred Respiratory: deferred GI: deferred Musculoskeletal: deferred Skin: deferred Hem/Lymphatic: deferred Psych: deferred Neurological: deferred - Constitutional Vitals: Vital Signs Temp Pulse Resp BP Pulse Ox 98.7 F 70 18 95/67 96 09/11/20 12:57 09/12/20 08:28 09/12/20 03:30 09/12/20 08:28 09/12/20 08:28 Temperature -Last 24 Hours Temperature 98.7 F - Labs CBC & Chem 7: 09/11/20 05:42 09/12/20 05:25 Labs: Abnormal lab results 09/11/20 09/12/20 09/12/20 Range/Units 17:41 05:25 05:50 Heparin Anti-Xa Level 1.14 H (0.3-0.7) U.I./ml ABG pO2 195.5 H (80.0-90.0) mm Hg ABG HCO3 15.5 L (20.0-26.0) mmol/L ABG O2 Saturation 99.3 H (95.0-99.0) % ABG Base Excess -7.5 L (-2.0-3.0) mmol/L ABG Hemoglobin 12.4 L (14.0-18.0) gm/dl Carbon Dioxide 15 L (22-30) mmol/L BUN 89 H (9-20) mg/dL Creatinine 3.5 H (0.8-1.3) mg/dL Glucose 282 H (75-100) mg/dL Calcium 7.2 L (8.4-10.2) mg/dL 09/12/20 Range/Units 09:52 Heparin Anti-Xa Level < 0.10 L (0.3-0.7) U.I./ml ABG pO2 (80.0-90.0) mm Hg ABG HCO3 (20.0-26.0) mmol/L ABG O2 Saturation (95.0-99.0) % ABG Base Excess (-2.0-3.0) mmol/L ABG Hemoglobin (14.0-18.0) gm/dl Carbon Dioxide (22-30) mmol/L BUN (9-20) mg/dL Creatinine (0.8-1.3) mg/dL Glucose (75-100) mg/dL Calcium (8.4-10.2) mg/dL - Imaging and cardiology Chest x-ray: report reviewed, image reviewed (b/l pneumonia)
[2020-09-12 13:27] LABS: Hepatitis B Surface Antigen Non-Reactive (Negative); Hepatitis C Virus Antibody Non-Reactive (NonReactive)
--- NOTE | 2020-09-12 14:10 | Progress Note ---
Assessment and Plan - Patient Problems (1) Atrial fibrillation with rapid ventricular response Current Visit: Yes Status: Acute Plan to address problem: Continue treatment with diltiazem, beta-blockers as tolerated. Subjective Date of service: 09/12/20 Principal diagnosis: Ac hypoxemic resp failure; COVID-19; Pneumonia; Septic Shock; MYRON; H/O CVA Interval history: Patient is sedated, on the vent, current ventricular heart rate in the 70s. Objective Vital Signs Pulse Resp BP Pulse Ox 09/12/20 08:28 70 95/67 96 09/12/20 06:40 71 09/12/20 04:10 71 99 09/12/20 03:30 75 18 102/67 100 09/12/20 03:00 69 18 94/58 99 09/12/20 02:30 76 18 83/56 99 09/12/20 02:26 73 09/12/20 02:00 74 18 95/59 99 09/12/20 01:30 75 18 92/59 100 09/12/20 01:00 75 18 94/59 100 09/12/20 00:55 75 91/70 09/12/20 00:30 77 18 92/49 99 09/12/20 00:10 73 106/66 100 09/12/20 00:00 76 18 91/57 98 09/11/20 23:38 77 18 88/58 99 09/11/20 23:30 77 18 88/58 98 09/11/20 23:00 79 17 88/56 99 09/11/20 22:30 77 16 91/61 99 09/11/20 22:28 81 91/61 98 09/11/20 22:00 79 18 90/58 99 09/11/20 21:30 80 18 88/55 99 09/11/20 21:00 82 18 92/56 99 09/11/20 20:48 85 95/68 09/11/20 20:30 84 18 95/59 100 09/11/20 20:00 84 18 91/58 99 09/11/20 19:30 83 18 91/58 99 09/11/20 19:00 84 20 94/61 99 09/11/20 18:30 86 18 92/60 99 09/11/20 18:00 87 18 90/59 99 09/11/20 17:40 89 94/62 100 09/11/20 17:30 90 19 94/62 98 09/11/20 17:00 89 18 95/58 98 09/11/20 16:30 90 18 96/60 98 09/11/20 16:00 90 21 92/61 98 09/11/20 15:30 92 H 20 94/63 98 09/11/20 15:00 92 H 24 99/63 98 09/11/20 14:30 94 H 24 102/67 98 - Physical Examination Narrative exam: Full physical exam deferred due to patient's acute COVID-19 infection. General: Other ([place], on the vent) - Labs and Meds Comprehensive Metabolic Panel 09/12/20 Range/Units 05:25 Sodium TNR Potassium TNR Chloride TNR Carbon Dioxide 15 L (22-30) mmol/L BUN 89 H (9-20) mg/dL Creatinine 3.5 H (0.8-1.3) mg/dL Glucose 282 H (75-100) mg/dL Calcium 7.2 L (8.4-10.2) mg/dL - Allied health notes Allied health notes reviewed: nursing
--- NOTE | 2020-09-12 14:41 | Ultrasound Report ---
ULTRASOUND RENAL INDICATION / CLINICAL INFORMATION: Acute renal failure.. COMPARISON: None available. FINDINGS: RIGHT KIDNEY: Length = 8.9 cm. [normal > 9 cm] - Parenchymal Thickness = 1.2 cm. [normal > 1.5 cm] - Echogenicity: Normal. - Hydronephrosis: None. - Cyst or mass: No significant abnormality. - Stones: None seen. LEFT KIDNEY: Length = 9.7 cm. [normal > 9 cm] - Parenchymal Thickness = 1.2 cm. [normal > 1.5 cm] - Echogenicity: Normal. - Hydronephrosis: None. - Cyst or mass: No significant abnormality. - Stones: None seen. URINARY BLADDER: The bladder is empty and poorly evaluated FREE FLUID: None. ADDITIONAL FINDINGS: None. IMPRESSION: No significant abnormality. Signer Name: Arnaldo Beard Jr, MD Signed: 09/12/2020 2:37 PM Workstation Name: [id number]
--- NOTE | 2020-09-12 15:42 | Progress Note ---
Assessment and Plan Acute hypoxemic respiratory failure, on MVS COVID-19 infection. Bilateral pneumonia Acute encephalopathy, presumably toxic metabolic. Severe sepsis with shock. Acute kidney injury. History of cerebrovascular accident. Leukocytosis. Severe metabolic acidosis. Lactic acidosis. Elevated serum inflammatory markers to include D-dimers. - AMS remains rate limiting factor to safe extubation acutely if meets other criteria but will continue to monitor - neurology evaluation pending - wean vasopressors for target MAP > 65 mmHg - continue Daily SAT and SBT assessment as tolerated - continue to wean supplemental oxygen for target O2 sat's > 90% acutely - VAP bundle addressed - continue lung protective strategies - continue bronchodilators with pulmonary hygiene per RT - wean per pulmonary driven protocols otherwise - continue accuchecks with glycemic control per SSI (While critically ill target blood glucose of 140-180 mg/dL; avoid hypoglycemia) - sedation prn for target RASS 0 to -1 - avoid nephrotoxins, renally dose all medications - continue to avoid benzodiazepine's, reduce the possibility of delirium - completed AB's per ID rec's - prn analgesia per CPOT score - Maintenance of sleep-wake cycle, avoid delirium - continue enteral nutritional support at goal rate as tolerated - G.I. & VTE prophylaxis - PT/OT/ROM exercises - continue mobility protocols for pressure ulcer prophylaxis - Monitor hemodynamics closely - continue other care per attending / other consultants - discharge planning ongoing concurrently COVID SPECIFIC INTERVENTIONS - Remdesivir / other COVID specific interventions per ID recommendations - continue systemic steroids for severe COVID-19 infection empirically - repeat COVID tests per facility protocol - Monitor inflammatory markers per facility protocol - ferritin, Ddimer, CRP - therapeutic anticoagulation per system Protocol based on d-dimer - Continue contact and airborne isolation - discharge planning ongoing concurrently .... Re-evaluate in am & prn CONDITION: CRITICAL PROGNOSIS: GUARDED CODE STATUS: FULL CODE The high probability of a clinically significant, sudden or life-threatening deterioration of the [respiratory, cardiovascular, hematologic, renal & neurologic] system(s) required my full and direct attention, intervention and personal management. The aggregate critical care time was [33] minutes without overlap. Time includes spent on; [x] Data Review and interpretation [x] Patient assessment and monitoring of vital signs [x] Documentation [x] Medication orders and management Subjective Date of service: 09/12/20 Principal diagnosis: Ac hypoxemic resp failure; COVID-19; Pneumonia; Septic Shock; MYRON; H/O CVA Interval history: Patient is seen today for: Acute hypoxemic respiratory failure; COVID-19 infection; Bilateral pneumonia; Acute encephalopathy, presumably toxic metabolic; Severe sepsis with shock; Acute kidney injury; History of cerebrovascular accident Seen and examined at bedside; 24hour events reviewed; nursing and respiratory care staff consulted; no adverse overnight events reported to me; resting peacefully in bed; remains on MVS; remains unresponsive. No fevers, no vomiting. Placed on PSV 08/19, and is toelrating it but mental status changes persist Objective Vital Signs - 12hr 09/12/20 09/12/20 09/12/20 04:10 06:40 08:28 Pulse Rate 71 71 70 Blood Pressure 95/67 O2 Sat by Pulse 99 96 Oximetry 09/12/20 12:49 Pulse Rate 68 Blood Pressure 111/70 O2 Sat by Pulse 95 Oximetry Constitutional: appears uncomfortable, other (elderly obese male with mildly increased respiratory effort at rest on MVS) Eyes: non-icteric ENT: oropharynx moist, other (ETT 24 cm BREANN) Neck: supple, no lymphadenopathy, no JVD Effort: mildly labored Ascultation: Bilateral: diminished breath sounds, rhonchi Percussion: Bilateral: not dull Cardiovascular: regular rate and rhythm Gastrointestinal: normoactive bowel sounds, soft, non-tender, non-distended (protuberant) Integumentary: other (please see [facility] notes) Extremities: no cyanosis, pulses normal, no ischemia or petechiae Neurologic: pupils equal and round, unable to assess Psychiatric: other (unable to assess re: AMS) CBC and BMP: 09/19/20 04:26 09/19/20 04:26 ABG, PT/INR, D-dimer: ABG ABG pH 7.409 pH Units (7.350-7.450) 09/12/20 05:50 POC ABG pCO2 22.8 mmHg (32.0-48.0) L 09/11/20 05:11 ABG pCO2 25.0 mm Hg 09/12/20 05:50 POC ABG pO2 76.3 mmHg (83-108) L 09/11/20 05:11 ABG pO2 195.5 mm Hg (80.0-90.0) H 09/12/20 05:50 POC ABG HCO3 14.7 09/11/20 05:11 ABG O2 Saturation 99.3 % (95.0-99.0) H 09/12/20 05:50 PT/INR, D-dimer PT 15.8 Sec. (12.2-14.9) H 09/09/20 20:28 INR 1.26 (0.87-1.13) H 09/09/20 20:28 D-Dimer > 72105 ng/mlDDU (0-234) H 09/07/20 18:00 D-Dimer Director Of Research 09/07/20 18:00 Abnormal lab findings: Abnormal Labs 09/07/20 09/07/20 09/07/20 17:25 18:00 18:00 WBC 23.5 H RBC Hgb Hct MCHC RDW Plt Count Lymph % (Auto) Lymph # (Auto) Seg Neutrophils % Seg Neuts % (Manual) 94.0 H Lymphocytes % (Manual) 1.0 L Seg Neutrophils # Seg Neutrophils # Man 22.1 H Lymphocytes # (Manual) 0.2 L PT INR APTT D-Dimer > 68235 H Heparin Anti-Xa Level ABG pH POC ABG pCO2 POC ABG pO2 ABG pO2 ABG HCO3 ABG O2 Saturation ABG Base Excess ABG Hemoglobin ABG Glucose Carboxyhemoglobin Sodium Chloride Carbon Dioxide BUN Creatinine Glucose Hemoglobin A1c Lactic Acid Calcium Ferritin Total Bilirubin AST Lactate Dehydrogenase C-Reactive Protein Total Protein Albumin Prealbumin Arterial Blood Glucose Arterial Blood Ionized Calcium Urine Creatinine Coronavirus (PCR) Positive A 09/07/20 09/07/20 09/07/20 18:00 18:00 18:00 WBC RBC Hgb Hct MCHC RDW Plt Count Lymph % (Auto) Lymph # (Auto) Seg Neutrophils % Seg Neuts % (Manual) Lymphocytes % (Manual) Seg Neutrophils # Seg Neutrophils # Man Lymphocytes # (Manual) PT INR APTT 72.7 H* D-Dimer Heparin Anti-Xa Level ABG pH POC ABG pCO2 POC ABG pO2 ABG pO2 ABG HCO3 ABG O2 Saturation ABG Base Excess ABG Hemoglobin ABG Glucose Carboxyhemoglobin Sodium Chloride Carbon Dioxide 9 L* BUN 24 H Creatinine Glucose 143 H Hemoglobin A1c Lactic Acid Calcium 7.6 L Ferritin 849.7 H Total Bilirubin 1.80 H AST 45 H Lactate Dehydrogenase 507 H C-Reactive Protein 8.20 H Total Protein 5.6 L Albumin 2.8 L Prealbumin Arterial Blood Glucose Arterial Blood Ionized Calcium Urine Creatinine Coronavirus (PCR) 09/07/20 09/07/20 09/08/20 19:37 20:30 01:07 WBC RBC Hgb Hct MCHC RDW Plt Count Lymph % (Auto) Lymph # (Auto) Seg Neutrophils % Seg Neuts % (Manual) Lymphocytes % (Manual) Seg Neutrophils # Seg Neutrophils # Man Lymphocytes # (Manual) PT INR APTT D-Dimer Heparin Anti-Xa Level ABG pH 7.336 L POC ABG pCO2 POC ABG pO2 ABG pO2 91.2 H ABG HCO3 14.1 L ABG O2 Saturation ABG Base Excess -9.9 L ABG Hemoglobin ABG Glucose Carboxyhemoglobin Sodium Chloride Carbon Dioxide BUN Creatinine Glucose Hemoglobin A1c Lactic Acid 8.80 H* 3.80 H* Calcium Ferritin Total Bilirubin AST Lactate Dehydrogenase C-Reactive Protein Total Protein Albumin Prealbumin Arterial Blood Glucose Arterial Blood Ionized Calcium Urine Creatinine Coronavirus (PCR) 09/08/20 09/08/20 09/08/20 04:25 10:13 10:13 WBC 21.7 H RBC 5.49 H Hgb 17.1 H Hct 49.6 H MCHC 35 H RDW Plt Count Lymph % (Auto) Lymph # (Auto) Seg Neutrophils % Seg Neuts % (Manual) 96.0 H Lymphocytes % (Manual) 1.0 L Seg Neutrophils # Seg Neutrophils # Man 20.8 H Lymphocytes # (Manual) 0.2 L PT INR APTT D-Dimer Heparin Anti-Xa Level ABG pH 7.484 H POC ABG pCO2 POC ABG pO2 ABG pO2 148.2 H ABG HCO3 17.2 L ABG O2 Saturation ABG Base Excess -4.1 L ABG Hemoglobin ABG Glucose Carboxyhemoglobin Sodium Chloride Carbon Dioxide BUN Creatinine Glucose Hemoglobin A1c Lactic Acid 3.40 H* Calcium Ferritin Total Bilirubin AST Lactate Dehydrogenase C-Reactive Protein Total Protein Albumin Prealbumin Arterial Blood Glucose Arterial Blood Ionized Calcium Urine Creatinine Coronavirus (PCR) 09/08/20 09/08/20 09/08/20 10:13 10:13 10:13 WBC RBC Hgb Hct MCHC RDW Plt Count Lymph % (Auto) Lymph # (Auto) Seg Neutrophils % Seg Neuts % (Manual) Lymphocytes % (Manual) Seg Neutrophils # Seg Neutrophils # Man Lymphocytes # (Manual) PT INR APTT D-Dimer Heparin Anti-Xa Level ABG pH POC ABG pCO2 POC ABG pO2 ABG pO2 ABG HCO3 ABG O2 Saturation ABG Base Excess ABG Hemoglobin ABG Glucose Carboxyhemoglobin Sodium 135 L Chloride Carbon Dioxide 20 L D BUN 35 H Creatinine 1.6 H D Glucose 192 H Hemoglobin A1c 6.2 H Lactic Acid Calcium 8.3 L Ferritin Total Bilirubin 1.80 H AST 55 H Lactate Dehydrogenase C-Reactive Protein Total Protein Albumin 2.6 L Prealbumin 0.049 L Arterial Blood Glucose Arterial Blood Ionized Calcium Urine Creatinine Coronavirus (PCR) 09/08/20 09/08/20 09/08/20 20:18 20:18 20:18 WBC 29.8 H RBC Hgb 15.3 H Hct MCHC RDW Plt Count Lymph % (Auto) Lymph # (Auto) Seg Neutrophils % Seg Neuts % (Manual) Lymphocytes % (Manual) Seg Neutrophils # Seg Neutrophils # Man Lymphocytes # (Manual) PT INR APTT D-Dimer Heparin Anti-Xa Level ABG pH POC ABG pCO2 POC ABG pO2 ABG pO2 ABG HCO3 ABG O2 Saturation ABG Base Excess ABG Hemoglobin ABG Glucose Carboxyhemoglobin Sodium 136 L Chloride Carbon Dioxide 17 L BUN 42 H Creatinine 1.9 H Glucose 203 H Hemoglobin A1c Lactic Acid 2.20 H* Calcium 7.6 L Ferritin Total Bilirubin AST 51 H Lactate Dehydrogenase C-Reactive Protein Total Protein 6.2 L Albumin 2.1 L Prealbumin Arterial Blood Glucose Arterial Blood Ionized Calcium Urine Creatinine Coronavirus (PCR) 09/08/20 09/09/20 09/09/20 21:53 00:19 03:15 WBC RBC Hgb Hct MCHC RDW Plt Count Lymph % (Auto) Lymph # (Auto) Seg Neutrophils % Seg Neuts % (Manual) Lymphocytes % (Manual) Seg Neutrophils # Seg Neutrophils # Man Lymphocytes # (Manual) PT INR APTT D-Dimer Heparin Anti-Xa Level ABG pH POC ABG pCO2 POC ABG pO2 ABG pO2 97.0 H ABG HCO3 16.3 L ABG O2 Saturation ABG Base Excess -7.5 L ABG Hemoglobin ABG Glucose Carboxyhemoglobin Sodium Chloride Carbon Dioxide BUN Creatinine Glucose Hemoglobin A1c Lactic Acid 3.20 H* 2.10 H* Calcium Ferritin Total Bilirubin AST Lactate Dehydrogenase C-Reactive Protein Total Protein Albumin Prealbumin Arterial Blood Glucose Arterial Blood Ionized Calcium Urine Creatinine Coronavirus (PCR) 09/09/20 09/09/20 09/09/20 04:54 04:54 04:54 WBC 28.5 H RBC Hgb Hct MCHC RDW Plt Count Lymph % (Auto) 1.3 L Lymph # (Auto) 0.4 L Seg Neutrophils % 96.1 H Seg Neuts % (Manual) Lymphocytes % (Manual) Seg Neutrophils # 27.4 H Seg Neutrophils # Man Lymphocytes # (Manual) PT INR APTT D-Dimer Heparin Anti-Xa Level ABG pH POC ABG pCO2 POC ABG pO2 ABG pO2 ABG HCO3 ABG O2 Saturation ABG Base Excess ABG Hemoglobin ABG Glucose Carboxyhemoglobin Sodium Chloride Carbon Dioxide 17 L BUN 45 H Creatinine 2.2 H Glucose 201 H Hemoglobin A1c Lactic Acid 2.90 H* Calcium 7.8 L Ferritin Total Bilirubin AST Lactate Dehydrogenase C-Reactive Protein Total Protein Albumin Prealbumin Arterial Blood Glucose Arterial Blood Ionized Calcium Urine Creatinine Coronavirus (PCR) 09/09/20 09/09/20 09/09/20 06:56 09:04 20:28 WBC RBC Hgb Hct MCHC RDW Plt Count Lymph % (Auto) Lymph # (Auto) Seg Neutrophils % Seg Neuts % (Manual) Lymphocytes % (Manual) Seg Neutrophils # Seg Neutrophils # Man Lymphocytes # (Manual) PT 15.8 H INR 1.26 H APTT 40.7 H D-Dimer Heparin Anti-Xa Level ABG pH POC ABG pCO2 POC ABG pO2 ABG pO2 ABG HCO3 ABG O2 Saturation ABG Base Excess ABG Hemoglobin ABG Glucose Carboxyhemoglobin Sodium Chloride Carbon Dioxide BUN Creatinine Glucose Hemoglobin A1c Lactic Acid 4.70 H* 3.70 H* Calcium Ferritin Total Bilirubin AST Lactate Dehydrogenase C-Reactive Protein Total Protein Albumin Prealbumin Arterial Blood Glucose Arterial Blood Ionized Calcium Urine Creatinine Coronavirus (PCR) 09/09/20 09/10/20 09/10/20 Unknown 02:24 04:56 WBC 24.2 H RBC Hgb Hct MCHC RDW Plt Count Lymph % (Auto) Lymph # (Auto) Seg Neutrophils % Seg Neuts % (Manual) 97.5 H Lymphocytes % (Manual) 1.0 L Seg Neutrophils # Seg Neutrophils # Man 23.6 H Lymphocytes # (Manual) 0.2 L PT INR APTT D-Dimer Heparin Anti-Xa Level ABG pH POC ABG pCO2 POC ABG pO2 ABG pO2 120.7 H ABG HCO3 15.1 L ABG O2 Saturation ABG Base Excess -8.0 L ABG Hemoglobin ABG Glucose Carboxyhemoglobin Sodium Chloride Carbon Dioxide BUN Creatinine Glucose Hemoglobin A1c Lactic Acid Calcium Ferritin Total Bilirubin AST Lactate Dehydrogenase C-Reactive Protein Total Protein Albumin Prealbumin Arterial Blood Glucose Arterial Blood Ionized Calcium Urine Creatinine 213.6 H Coronavirus (PCR) 09/10/20 09/10/20 09/11/20 04:56 17:58 01:02 WBC RBC Hgb Hct MCHC RDW Plt Count Lymph % (Auto) Lymph # (Auto) Seg Neutrophils % Seg Neuts % (Manual) Lymphocytes % (Manual) Seg Neutrophils # Seg Neutrophils # Man Lymphocytes # (Manual) PT INR APTT D-Dimer Heparin Anti-Xa Level > 2.00 H 2.00 H ABG pH POC ABG pCO2 POC ABG pO2 ABG pO2 ABG HCO3 ABG O2 Saturation ABG Base Excess ABG Hemoglobin ABG Glucose Carboxyhemoglobin Sodium Chloride Carbon Dioxide 18 L BUN 62 H Creatinine 2.8 H Glucose 216 H Hemoglobin A1c Lactic Acid Calcium 7.9 L Ferritin Total Bilirubin AST Lactate Dehydrogenase C-Reactive Protein Total Protein Albumin Prealbumin Arterial Blood Glucose Arterial Blood Ionized Calcium Urine Creatinine Coronavirus (PCR) 09/11/20 09/11/20 09/11/20 05:11 05:42 05:42 WBC RBC Hgb Hct MCHC RDW Plt Count 116 L Lymph % (Auto) Lymph # (Auto) Seg Neutrophils % Seg Neuts % (Manual) Lymphocytes % (Manual) Seg Neutrophils # Seg Neutrophils # Man Lymphocytes # (Manual) PT INR APTT D-Dimer Heparin Anti-Xa Level ABG pH POC ABG pCO2 22.8 L POC ABG pO2 76.3 L ABG pO2 ABG HCO3 ABG O2 Saturation ABG Base Excess ABG Hemoglobin ABG Glucose 208 H Carboxyhemoglobin 0.2 L Sodium Chloride 108.7 H Carbon Dioxide 15 L BUN 76 H Creatinine 3.0 H Glucose 202 H Hemoglobin A1c Lactic Acid Calcium 7.5 L Ferritin Total Bilirubin AST Lactate Dehydrogenase C-Reactive Protein Total Protein Albumin Prealbumin Arterial Blood Glucose 208 H Arterial Blood Ionized Calcium 4.1 L Urine Creatinine Coronavirus (PCR) 09/11/20 09/11/20 09/11/20 05:42 11:39 17:41 WBC 16.2 H RBC Hgb Hct MCHC RDW 15.3 H Plt Count 118 L Lymph % (Auto) Lymph # (Auto) Seg Neutrophils % Seg Neuts % (Manual) Lymphocytes % (Manual) Seg Neutrophils # Seg Neutrophils # Man Lymphocytes # (Manual) PT INR APTT D-Dimer Heparin Anti-Xa Level 1.82 H 1.14 H ABG pH POC ABG pCO2 POC ABG pO2 ABG pO2 ABG HCO3 ABG O2 Saturation ABG Base Excess ABG Hemoglobin ABG Glucose Carboxyhemoglobin Sodium Chloride Carbon Dioxide BUN Creatinine Glucose Hemoglobin A1c Lactic Acid Calcium Ferritin Total Bilirubin AST Lactate Dehydrogenase C-Reactive Protein Total Protein Albumin Prealbumin Arterial Blood Glucose Arterial Blood Ionized Calcium Urine Creatinine Coronavirus (PCR) 09/12/20 09/12/20 09/12/20 05:25 05:50 09:52 WBC RBC Hgb Hct MCHC RDW Plt Count Lymph % (Auto) Lymph # (Auto) Seg Neutrophils % Seg Neuts % (Manual) Lymphocytes % (Manual) Seg Neutrophils # Seg Neutrophils # Man Lymphocytes # (Manual) PT INR APTT D-Dimer Heparin Anti-Xa Level < 0.10 L ABG pH POC ABG pCO2 POC ABG pO2 ABG pO2 195.5 H ABG HCO3 15.5 L ABG O2 Saturation 99.3 H ABG Base Excess -7.5 L ABG Hemoglobin 12.4 L ABG Glucose Carboxyhemoglobin Sodium Chloride Carbon Dioxide 15 L BUN 89 H Creatinine 3.5 H Glucose 282 H Hemoglobin A1c Lactic Acid Calcium 7.2 L Ferritin Total Bilirubin AST Lactate Dehydrogenase C-Reactive Protein Total Protein Albumin Prealbumin Arterial Blood Glucose Arterial Blood Ionized Calcium Urine Creatinine Coronavirus (PCR) Allied health notes reviewed: nursing
--- NOTE | 2020-09-12 18:15 | Event Note ---
Date: 09/12/20 The patient has acute renal failure and multi-system organ failure secondary to COVID-19 infection. The patient currently has no signs of reactivity after being taken off of sedation. The family is contemplating withdrawing care and have questioned whether or not they should withdraw care versus initiate dialysis. At this point the patient does not have any indications for emergency dialysis. Believe it is best for the family to discuss the patient's over status within the family as well as being updated by the primary team so they can make an informed decision prior to performing the procedure.
[2020-09-13] MEDS: dilTIAZem 60 MG TAB PO SCH ×4 (00:16→19:23)
[2020-09-13] MEDS: METOPROLOL TARTRATE 25 MG TAB PO SCH ×4 (02:17→20:03)
[2020-09-13 05:17] LABS: ABG Base Excess -7.8 mmol/L (-2.0-3.0); ABG HCO3 15.5 mmol/L (20.0-26.0); ABG Methemoglobin 0.6 % (0.0-1.5); ABG PCO2 25.7 mm Hg; ABG PH 7.399 pH Units (7.350-7.450); ABG PO2 72.8 mm Hg (80.0-90.0)
[2020-09-13 06:08] LABS: Hematocrit 38.5 % (35.5-45.6); Hemoglobin 12.9 gm/dl (11.8-15.2)
[2020-09-13 06:22] LABS: Calcium 7.5 mg/dL (8.4-10.2)
--- NOTE | 2020-09-13 08:53 | Progress Note ---
Assessment and Plan Assessment and plan: -- Acute respiratory failure with hypoxia due to Covid 19 vs Hospital acquired PNA Patient intubated because of labored breathing and for protection of airway. cont Vent management, Corporate Tax Preparer consult requested -- COVID-19 virus infection Diagnosed initially on 08/26/2020, treated at [facility] with dexamethasone, remdesivir for 3 days. Anticoagulation was not given due to recent hemorrhagic CVA. Chest x-ray with bilateral patchy infiltrates. Patient was discharged on from [facility] repeat test on 09/07 for covid remains positive Patient restarted on IV Decadron ID consulted -- Sepsis with shock May be secondary to Covid infection Patient started on empiric antibiotics in the form of cefepime and vancomycin ID consult was requested started on levophed - wean as tolerated -- Bilateral pneumonia due to Covid 19 vs Hospital acquired PNA Patient on IV levaquin and vancomycin, ID following --MYRON, likely ATN from profound sepsis monitor renal function, iv fluid, avoid nephrotoxin consulted renal -- Hemorrhagic CVA (cerebral vascular accident), h/o PT OT after extubation --acute on chronic atrial fib cot rate control, initially not given AC for h/o recent Hemorrhagic CVA CT head showed no acute process, now on heparin drip -- DVT prophylaxis On heparin and GI prophylaxis The high probability of a clinically significant, sudden or life threatening deterioration of the [squaring shear operator, 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 The aggregate critical care time was [34] minutes. 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 Patient received oxygen supplementation via nasal cannula, dexamethasone and 3 days of remdesivir. Patient admitted on 09/07/2020 to [facility] secondary to worsening cough, dyspnea on exertion and shortness of breath for the past 2 days because of which EMS was called. When the EMS arrived the patient was found to be hypoxic with room air oxygenation is running around 80s and also patient with altered sensorium. Patient was placed on nonrebreather and that his oxygen saturations improved to the 90s. Patient also has increased work of breathing and was getting tired because of which ER physician has intubated the patient. Placed on COVID protocol and admitted to ICU 09/08: resumed care. cont vent support, wean off pressor as tolerated. CC following. cont nebs, steroid for now. cont iv abx, follow ID recommendation. 09/09: order CT head. cont current Mx. cont steroid, vent support, nebs. follow Id recommendation. consult renal for MYRON 09/10: CT head showed no acute process, patient started on heparin drip for chronic atrial fib. wean off vent as tolerated, started TF. follow clinically. called Son twice but no response. 09/11/2020; continue on heparin drip, wean off vent as tolerated. Continue with tube feeding. Patient is comatose and prognosis is very poor. Discussed with patient daughter Brittanie at [phone] and discussed about his condition. Daughter said if his condition is no improvement by tomorrow we will make a decision whether to withdraw care. 09/12/2020; patient is on a vent, deeply comatose. I discussed with pulmonary critical care and recommend evaluation by neurology for prognosis. EEG ordered. CT scan will be repeated. Plan was discussed with his daughter Brittanie at [phone]. 09/13/2020; patient is on a vent, deeply comatose. I discussed with pulmonary critical care and recommend evaluation by neurology for prognosis. EEG ordered. CT scan will be repeated. Plan was discussed with his daughter Brittanie at [phone]. History Interval history: Patient was seen and evaluated this morning Patient is not sedated and on mechanical ventilation Patient is deeply comatose Hospitalist Physical - Physical exam Narrative exam: Patient is intubated and comatose The patient appeared well nourished and normally developed. Vital signs as documented. Head exam is unremarkable. No scleral icterus . Neck is without jugular venous distension, thyromegaly, or carotid bruits. Lungs are clear to auscultation. Cardiac exam reveals regular rate and Rhythm. Abdominal exam reveals normal bowel sounds, nontender, no organomegaly. Extremities are nonedematous and both femoral and pedal pulses are normal. TACTICAL/MOBILE WATCH OFFICER: Patient is comatose - Constitutional Vitals: Temp Pulse Resp BP Pulse Ox 98.7 F 67 15 128/77 95 09/11/20 12:57 09/13/20 08:39 09/13/20 08:39 09/13/20 08:39 09/13/20 08:39 General appearance: Present: severe distress, well-nourished HEART Score - HEART Score Troponin: Troponin T < 0.010 ng/mL (0.00-0.029) 09/07/20 18:00 Results - Labs CBC & Chem 7: 09/13/20 05:21 09/13/20 05:21 Labs: Laboratory Last Values WBC 16.2 K/mm3 (4.5-11.0) H 09/11/20 05:42 RBC 4.29 M/mm3 (3.65-5.03) 09/11/20 05:42 Hgb 12.9 gm/dl (11.8-15.2) 09/13/20 05:21 Hct 38.5 % (35.5-45.6) 09/13/20 05:21 MCV 91 fl (84-94) 09/11/20 05:42 MCH 31 pg (28-32) 09/11/20 05:42 MCHC 34 % (32-34) 09/11/20 05:42 RDW 15.3 % (13.2-15.2) H 09/11/20 05:42 Plt Count 126 K/mm3 (140-440) L 09/13/20 05:21 Lymph % (Auto) 1.3 % (13.4-35.0) L 09/09/20 04:54 [place] % (Auto) 2.5 % (0.0-7.3) 09/09/20 04:54 Eos % (Auto) 0.0 % (0.0-4.3) 09/09/20 04:54 Baso % (Auto) 0.1 % (0.0-1.8) 09/09/20 04:54 Lymph # (Auto) 0.4 K/mm3 (1.2-5.4) L 09/09/20 04:54 [place] # (Auto) 0.7 K/mm3 (0.0-0.8) 09/09/20 04:54 Eos # (Auto) 0.0 K/mm3 (0.0-0.4) 09/09/20 04:54 Baso # (Auto) 0.0 K/mm3 (0.0-0.1) 09/09/20 04:54 Add Manual Diff Complete 09/10/20 04:56 Total Counted 200 09/10/20 04:56 Seg Neutrophils % Public Health Engineer 09/10/20 04:56 Seg Neuts % (Manual) 97.5 % (40.0-70.0) H 09/10/20 04:56 Band Neutrophils % 4.0 % 09/07/20 18:00 Lymphocytes % (Manual) 1.0 % (13.4-35.0) L 09/10/20 04:56 Monocytes % (Manual) 1.5 % (0.0-7.3) 09/10/20 04:56 Nucleated RBC % Not Reportable 09/10/20 04:56 Seg Neutrophils # 27.4 K/mm3 (1.8-7.7) H 09/09/20 04:54 Seg Neutrophils # Man 23.6 K/mm3 (1.8-7.7) H 09/10/20 04:56 Band Neutrophils # 0.0 K/mm3 09/10/20 04:56 Lymphocytes # (Manual) 0.2 K/mm3 (1.2-5.4) L 09/10/20 04:56 Abs React Lymphs (Man) 0.0 K/mm3 09/10/20 04:56 Monocytes # (Manual) 0.4 K/mm3 (0.0-0.8) 09/10/20 04:56 Eosinophils # (Manual) 0.0 K/mm3 (0.0-0.4) 09/10/20 04:56 Basophils # (Manual) 0.0 K/mm3 (0.0-0.1) 09/10/20 04:56 Metamyelocytes # 0.0 K/mm3 09/10/20 04:56 Myelocytes # 0.0 K/mm3 09/10/20 04:56 Promyelocytes # 0.0 K/mm3 09/10/20 04:56 Blast Cells # 0.0 K/mm3 09/10/20 04:56 WBC Morphology Not Reportable 09/10/20 04:56 Hypersegmented Neuts Not Reportable 09/10/20 04:56 Hyposegmented Neuts Not Reportable 09/10/20 04:56 Hypogranular Neuts Not Reportable 09/10/20 04:56 Smudge Cells Not Reportable 09/10/20 04:56 Toxic Granulation Not Reportable 09/10/20 04:56 Toxic Vacuolation Not Reportable 09/10/20 04:56 Dohle Bodies Not Reportable 09/10/20 04:56 Pelger-Huet Anomaly Not Reportable 09/10/20 04:56 Miroslava Rods Not Reportable 09/10/20 04:56 Platelet Estimate Consistent w auto 09/10/20 04:56 Clumped Platelets Not Reportable 09/10/20 04:56 Plt Clumps, EDTA Not Reportable 09/10/20 04:56 Large Platelets Not Reportable 09/10/20 04:56 Giant Platelets Not Reportable 09/10/20 04:56 Platelet Satelliting Not Reportable 09/10/20 04:56 Plt Morphology Comment Not Reportable 09/10/20 04:56 RBC Morphology Not Reportable 09/10/20 04:56 Dimorphic RBCs Not Reportable 09/10/20 04:56 Polychromasia Not Reportable 09/10/20 04:56 Hypochromasia Not Reportable 09/10/20 04:56 Poikilocytosis Not Reportable 09/10/20 04:56 Anisocytosis 1+ 09/10/20 04:56 Microcytosis Not Reportable 09/10/20 04:56 Macrocytosis Not Reportable 09/10/20 04:56 Spherocytes Not Reportable 09/10/20 04:56 Pappenheimer Bodies Not Reportable 09/10/20 04:56 Sickle Cells Not Reportable 09/10/20 04:56 Target Cells Not Reportable 09/10/20 04:56 Tear Drop Cells Not Reportable 09/10/20 04:56 Ovalocytes Not Reportable 09/10/20 04:56 Helmet Cells Not Reportable 09/10/20 04:56 Morales-Quesada Bodies Not Reportable 09/10/20 04:56 [place] Rings Not Reportable 09/10/20 04:56 Vivienne Cells Not Reportable 09/10/20 04:56 Bite Cells Not Reportable 09/10/20 04:56 Crenated Cell Not Reportable 09/10/20 04:56 Elliptocytes Not Reportable 09/10/20 04:56 Acanthocytes (Spur) Not Reportable 09/10/20 04:56 Rouleaux Not Reportable 09/10/20 04:56 Hemoglobin C Crystals Not Reportable 09/10/20 04:56 Schistocytes Not Reportable 09/10/20 04:56 Malaria parasites Not Reportable 09/10/20 04:56 Marquise Bodies Not Reportable 09/10/20 04:56 Hem Pathologist Commnt No 09/10/20 04:56 PT 15.8 Sec. (12.2-14.9) H 09/09/20 20:28 INR 1.26 (0.87-1.13) H 09/09/20 20:28 APTT 40.7 Sec. (24.2-36.6) H 09/09/20 20:28 D-Dimer > 15975 ng/mlDDU (0-234) H 09/07/20 18:00 D-Dimer Public Health Engineer 09/07/20 18:00 Heparin Anti-Xa Level < 0.10 U.I./ml (0.3-0.7) L 09/12/20 09:52 ABG pH 7.399 pH Units (7.350-7.450) 09/13/20 04:40 POC ABG pCO2 22.8 mmHg (32.0-48.0) L 09/11/20 05:11 ABG pCO2 25.7 mm Hg 09/13/20 04:40 POC ABG pO2 76.3 mmHg (83-108) L 09/11/20 05:11 ABG pO2 72.8 mm Hg (80.0-90.0) L 09/13/20 04:40 POC ABG HCO3 14.7 09/11/20 05:11 ABG HCO3 15.5 mmol/L (20.0-26.0) L 09/13/20 04:40 ABG O2 Saturation 95.0 % (95.0-99.0) 09/13/20 04:40 ABG O2 Content 15.5 (0.0-44) 09/13/20 04:40 POC ABG Base Excess -7.1 09/11/20 05:11 ABG Base Excess -7.8 mmol/L (-2.0-3.0) L 09/13/20 04:40 ABG Hemoglobin 11.7 gm/dl (14.0-18.0) L 09/13/20 04:40 ABG Oxyhemoglobin 94.6 (94-98) 09/11/20 05:11 ABG Carboxyhemoglobin 0.9 % (0.0-5.0) 09/13/20 04:40 ABG Methemoglobin 0.6 % (0.0-1.5) 09/13/20 04:40 ABG Sodium 136.0 mmol/L (136.0-145.0) 09/11/20 05:11 ABG Potassium 4.2 mmol/L (3.40-4.50) 09/11/20 05:11 ABG Chloride 106.0 mmol/L (98-107) 09/11/20 05:11 ABG Glucose 208 mg/dL (65-95) H 09/11/20 05:11 Oxyhemoglobin 93.6 % (95.0-99.0) L 09/13/20 04:40 Carboxyhemoglobin 0.2 (0.5-1.5) L 09/11/20 05:11 FiO2 25 % 09/13/20 04:40 Sodium 141 mmol/L (137-145) 09/13/20 05:21 Potassium 5.1 mmol/L (3.6-5.0) H 09/13/20 05:21 Chloride 109.2 mmol/L (98-107) H 09/13/20 05:21 Carbon Dioxide 16 mmol/L (22-30) L 09/13/20 05:21 Anion Gap 21 mmol/L 09/13/20 05:21 BUN 101 mg/dL (9-20) H 09/13/20 05:21 Creatinine 3.8 mg/dL (0.8-1.3) H 09/13/20 05:21 Estimated GFR 15 ml/min 09/13/20 05:21 BUN/Creatinine Ratio 27 % 09/13/20 05:21 Glucose 230 mg/dL (75-100) H 09/13/20 05:21 POC Glucose 202 mg/dL (70-105) H 09/12/20 15:56 Hemoglobin A1c 6.2 % (4-6) H 09/08/20 10:13 Lactic Acid 3.70 mmol/L (0.7-2.0) H* 09/09/20 09:04 Calcium 7.5 mg/dL (8.4-10.2) L 09/13/20 05:21 Phosphorus 3.20 mg/dL (2.5-4.5) 09/08/20 10:13 Magnesium 2.00 mg/dL (1.7-2.3) 09/08/20 10:13 Ferritin 849.7 ng/mL (30.0-300.0) H 09/07/20 18:00 Total Bilirubin 1.20 mg/dL (0.1-1.2) 09/08/20 20:18 AST 51 units/L (5-40) H 09/08/20 20:18 ALT 22 units/L (7-56) 09/08/20 20:18 Alkaline Phosphatase 69 units/L (35-129) 09/08/20 20:18 Lactate Dehydrogenase 507 units/L (91-180) H 09/07/20 18:00 Troponin T < 0.010 ng/mL (0.00-0.029) 09/07/20 18:00 C-Reactive Protein 8.20 mg/dL (0.00-1.30) H 09/07/20 18:00 Total Protein 6.2 g/dL (6.3-8.2) L 09/08/20 20:18 Albumin 2.1 g/dL (3.9-5) L 09/08/20 20:18 Albumin/Globulin Ratio 0.5 % 09/08/20 20:18 Prealbumin 0.049 g/L (0.200-0.400) L 09/08/20 10:13 Procalcitonin 0.33 ng/mL (<0.15) 09/07/20 18:00 Arterial Blood Glucose 208 mg/dL (65-95) H 09/11/20 05:11 Arterial Blood Ionized Calcium 4.1 mg/dL (4.6-5.3) L 09/11/20 05:11 Urine Color Leanna (Yellow) 09/07/20 17:25 Urine Turbidity Clear (Clear) 09/07/20 17:25 Urine pH 5.0 (5.0-7.0) 09/07/20 17:25 Ur Specific [place] 1.023 (1.003-1.030) 09/07/20 17:25 Urine Protein 30 mg/dl mg/dL (Negative) 09/07/20 17:25 Urine Glucose (UA) Neg mg/dL (Negative) 09/07/20 17:25 Urine Ketones Tr mg/dL (Negative) 09/07/20 17:25 Urine Blood Neg (Negative) 09/07/20 17:25 Urine Nitrite Neg (Negative) 09/07/20 17:25 Urine Bilirubin Neg (Negative) 09/07/20 17:25 Urine Urobilinogen 2.0 mg/dL (<2.0) 09/07/20 17:25 Ur Leukocyte Esterase Neg (Negative) 09/07/20 17:25 Urine WBC (Auto) 4.0 /HPF (0.0-6.0) 09/07/20 17:25 Urine RBC (Auto) 2.0 /HPF (0.0-6.0) 09/07/20 17:25 U Epithel Cells (Auto) 1.0 /HPF (0-13.0) 09/07/20 17:25 Urine Mucus 3+ /HPF 09/07/20 17:25 Urine Creatinine 213.6 mg/dL (0.1-20.0) H 09/09/20 Unknown Urine Sodium 19 mmol/L 09/09/20 Unknown Nasal Screen MRSA (PCR) Negative (Negative) 09/09/20 17:33 Random Vancomycin 14.3 ug/mL (0-40.0) 09/11/20 05:42 Coronavirus (PCR) Positive (Negative) A 09/07/20 17:25 Hepatitis A IgM Ab Non-reactive (NonReactive) 09/12/20 11:08 Hep Bs Antigen Non-reactive (Negative) 09/12/20 11:08 Hep B Core IgM Ab Non-reactive (NonReactive) 09/12/20 11:08 Hepatitis C Antibody Non-reactive (NonReactive) 09/12/20 11:08 Microbiology: Microbiology 09/07/20 18:00 Peripheral/Venous Blood Culture - Final NO GROWTH AFTER 5 DAYS 09/07/20 18:00 Peripheral/Venous Blood Culture - Final NO GROWTH AFTER 5 DAYS Reyez/IV: Voiding Method Indwelling Catheter IV Catheter Type [Right Triple Lumen Cath Femoral] IV Catheter Type [Right INT / Saline Lock Antecubital] Active Medications - Current Medications Current Medications: Generic Name Dose Route Start Last Admin Trade Name Freq PRN Reason Stop Dose Admin Acetaminophen 650 mg 09/08/20 07:00 Acetaminophen 325 Mg/10.15 Ml Oral Liqd Unit Dose PO Q4H PRN Pain MILD(1-3)/Fever >100.5/BEST Lipase/Protease/Amylase 1 each 09/08/20 06:31 Lipase 10,500/Protease 25,000/Amylase 43,750 (Units) Dr Cap FEEDTUBE PRN PRN For Clogged Feeding Tube Dexamethasone 6 mg 09/09/20 20:56 09/12/20 10:56 Dexamethasone 4 Mg/Ml Vial IV 09/18/20 10:01 6 mg Q24HR CRISTIN Administration Diltiazem HCl 60 mg 09/10/20 14:00 09/13/20 06:21 Diltiazem 60 Mg Tab PO Not Given Q6HR CRISTIN Famotidine 20 mg 09/10/20 10:00 09/12/20 10:57 Famotidine 20 Mg/2 Ml Inj IV 20 mg DAILY CRISTIN Administration Fentanyl 50 mcg 09/09/20 19:53 Fentanyl 100 Mcg/2 Ml Inj IV Q10MIN PRN ANALGESIA Heparin Sodium (Porcine) 3,200 unit 09/09/20 19:53 09/10/20 05:53 Heparin 10,000 Units/10 Ml Vial 40 unit/kg (3200 unit) 3,200 unit IV Administration Q6H PRN Anti-Xa Assay < 0.1 units/ml Hydrophilic Ointment 1 applic 09/07/20 22:11 Lip Therapy Vaseline TP Q2HR PRN Dry Lips Norepinephrine 4 mg in 250 mls @ 7.5 mls/hr 09/07/20 21:19 09/09/20 21:53 Levophed Drip 4 Mg/Ns 250 Ml IV 12 mcg/min TITR CRISTIN 45 mls/hr Administration Protocol 2 MCG/MIN Midazolam HCl 100 mg/ Sodium 100 mls @ 2 mls/hr 09/07/20 23:00 09/09/20 21:57 Chloride IV 4 mg/hr TITR CRISTIN 4 mls/hr Administration Protocol 2 MG/HR Levofloxacin/Dextrose 750 mg in 150 mls @ 100 mls/hr 09/09/20 13:00 09/11/20 13:43 Levaquin 750mg/150ml IV 09/17/20 14:29 100 mls/hr Q48H CRISTIN Administration Heparin Sodium/Sodium Chloride 25,000 unit in 500 mls @ 23 mls/hr 09/09/20 20:00 09/11/20 15:47 Heparin/ 0.45% Nacl-25,000 Unit/500 Ml IV 700 units/hr TITR CRISTIN 14 mls/hr Administration Protocol 1,150 UNITS/HR Fentanyl Citrate 2,000 mcg in 100 mls @ 3.98 mls/hr 09/09/20 20:00 Fentanyl Drip Premix IV TITR CRISTIN Protocol 1 MCG/KG/HR Dextrose/Sodium Chloride 1,000 mls @ 75 mls/hr 09/11/20 17:00 D5ns IV DIRECT CRISTIN Sodium Chloride 100 mls @ 999 mls/hr 09/12/20 12:00 Nacl 0.9% IV ANNA MARIE PRN Hypotension Metoprolol Tartrate 5 mg 09/10/20 13:07 Metoprolol Tartrate 5 Mg/5 Ml Inj IV Q6HR PRN HR>130 Metoprolol Tartrate 25 mg 09/11/20 14:00 09/13/20 02:17 Metoprolol Tartrate 25 Mg Tab PO Not Given Q6H [facility] Midazolam HCl 2 mg 09/07/20 22:11 Midazolam 2 Mg/2 Ml Inj IV Q10MIN PRN Sedation Morphine Sulfate 2 mg 09/08/20 06:29 Morphine 2 Mg/1 Ml Inj IV Q4H PRN Pain, Moderate (4-6) Multi-Ingred Cream/Lotion/Oil/Oint 1 applic 09/07/20 22:11 Mineral Oil/Petrolatum, White Ophth Oint 3.5 Gm OU Q4HR PRN Dry Eye(s) Ondansetron HCl 4 mg 09/08/20 06:29 Ondansetron 4 Mg/2 Ml Inj IV Q8H PRN Nausea And Vomiting Simple Syrup 15 ml 09/08/20 06:31 Simple Syrup 15 Ml FEEDTUBE PRN PRN Hypoglycemia Simple Syrup 30 ml 09/08/20 06:31 Simple Syrup 15 Ml FEEDTUBE PRN PRN Hypoglycemia Sodium Bicarbonate 325 mg 09/08/20 06:31 Sodium Bicarbonate 325 Mg Tab FEEDTUBE PRN PRN For Clogged Feeding Tube Sodium Chloride 10 ml 09/08/20 10:00 09/13/20 07:43 Sodium Chloride 0.9% 10 Ml Flush Syringe IV Not Given BID CRISTIN Sodium Chloride 10 ml 09/08/20 06:29 Sodium Chloride 0.9% 10 Ml Flush Syringe IV PRN PRN LINE FLUSH Nutrition/Malnutrition Assess - Dietary Evaluation Nutrition/Malnutrition Findings: Nutrition Notes Start: 09/08/20 09:03 Freq: Status: Active Protocol: Document 09/12/20 13:30 (Rec: 09/12/20 13:32 [id number]) Nutrition Notes Initial or Follow up Brief Note Current Diagnosis Acute Kidney Injury,Sepsis, Stroke Other Pertinent Diagnosis COVID(+), ARF, pneumonia Current Diet Vital AF 1.2 at 65ml/hr Subjective/Other Information FU for assessment. Pt remains on hold in ED and on the vent. Nutrition Intervention Follow-Up By: 09/14/20 Additional Comments FU for TF start/tolerance
[2020-09-13] MEDS: FAMOTIDINE 20 MG/2 ML INJ IV SCH (10:27)
[2020-09-13] MEDS: dexAMETHasone 4 MG/ML VIAL IV SCH (10:27)
--- NOTE | 2020-09-13 10:27 | Progress Note ---
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 Urinalysis negative. #Severe COVID-19 pneumonia: Diagnosed initially on 08/26/2020, treated at [facility] with dexamethasone, remdesivir for 3 days. Anticoagulation was not given due to recent hemorrhagic CVA. Chest x-ray with bilateral patchy infiltrates. Inflammatory markers elevated, D-dimer> 10,000, ferritin 849, CRP 8.2. Procalcitonin 0.3. ? Bacterial pneumonia component. ?HAP. Rain in sputum is colonization, does not need treatment #Acute hypoxemic respiratory failure: Initial sats dropped to 89%. Patient intubated in the ED, remains on the vent. #A. fib: Diagnosed during recent admission at [facility]. Car diology following. #Elevated LFTs: Likely secondary to COVID-19. #Acute renal failure: renally dose abx. #Recent hemorrhagic CVA: Diagnosed in July 2020. Recent CT of the head at [facility] showed resolution of previous hyperdense intraparenchymal hemorrhage in the right basal ganglia. #Ceftriaxone allergy? Unclear details. #Acute encephalopathy: Neurology following. Recs: Continue renally adjusted levofloxacin, D5 of 5 today agree with steroids per pulmonary No benefit with remdesivir VTE evaluation given elevated D-dimer, although already on anticoagulation for A.fib poor prognosis, agree with goals of care discussion and possible comfort staci Munoz MD, FACP [facility] ([facility]) O: [phone] F: [phone] Subjective Date of service: 09/13/20 Principal diagnosis: Ac hypoxemic resp failure; COVID-19; Pneumonia; Septic Shock; MYRON; H/O CVA Interval history: Afebrile, remains on the vent. Objective - Exam Narrative Exam: Physical Exam (reviewed in chart to minimize risk of transmission) Constitutional: deferred Head, Ears, Nose: deferred Eyes: deferred Neck: deferred Oral: deferred Cardiovascular: deferred Respiratory: deferred GI: deferred Musculoskeletal: deferred Skin: deferred Hem/Lymphatic: deferred Psych: deferred Neurological: deferred - Constitutional Vitals: Vital Signs Temp Pulse Resp BP Pulse Ox 98.7 F 67 15 128/77 95 09/11/20 12:57 09/13/20 08:39 09/13/20 08:39 09/13/20 08:39 09/13/20 08:39 - Labs CBC & Chem 7: 09/13/20 05:21 09/13/20 05:21 Labs: Abnormal lab results 09/12/20 09/12/20 09/13/20 Range/Units 09:52 15:56 04:40 Plt Count (140-440) K/mm3 Heparin Anti-Xa Level < 0.10 L (0.3-0.7) U.I./ml ABG pO2 72.8 L (80.0-90.0) mm Hg ABG HCO3 15.5 L (20.0-26.0) mmol/L ABG Base Excess -7.8 L (-2.0-3.0) mmol/L ABG Hemoglobin 11.7 L (14.0-18.0) gm/dl Oxyhemoglobin 93.6 L (95.0-99.0) % Potassium (3.6-5.0) mmol/L Chloride (98-107) mmol/L Carbon Dioxide (22-30) mmol/L BUN (9-20) mg/dL Creatinine (0.8-1.3) mg/dL Glucose (75-100) mg/dL POC Glucose 202 H (70-105) mg/dL Calcium (8.4-10.2) mg/dL 09/13/20 09/13/20 Range/Units 05:21 05:21 Plt Count 126 L (140-440) K/mm3 Heparin Anti-Xa Level (0.3-0.7) U.I./ml ABG pO2 (80.0-90.0) mm Hg ABG HCO3 (20.0-26.0) mmol/L ABG Base Excess (-2.0-3.0) mmol/L ABG Hemoglobin (14.0-18.0) gm/dl Oxyhemoglobin (95.0-99.0) % Potassium 5.1 H (3.6-5.0) mmol/L Chloride 109.2 H (98-107) mmol/L Carbon Dioxide 16 L (22-30) mmol/L BUN 101 H (9-20) mg/dL Creatinine 3.8 H (0.8-1.3) mg/dL Glucose 230 H (75-100) mg/dL POC Glucose (70-105) mg/dL Calcium 7.5 L (8.4-10.2) mg/dL
--- NOTE | 2020-09-13 13:59 | Progress Note ---
Assessment and Plan 1. Acute kidney injury: Vasomotor nephropathy in the setting of Shock and severe COVID infection. Low FeNa. Renal US negative. Continue IV fluids. Monitor renal function. Creatinine level continue to increase. Avoid nephrotoxic agents. Meds dosage based on GFR. Monitor for [employer] RECEIVABLE [employer] needs. Patient require hemodialysis due to worsening renal function, metabolic abnormalities and decreased UOP. D/w his son 09/12 over the phone and explained the indications, benefits, risks and alternatives involved in hemodialysis. Ongoing goals of care discussion. Currently family haven't decided about dialysis 2. FEN: Hyperkalemia, kayexalate as needed, monitor. Anion-gap metabolic acidosis, 2/2 lactic acidosis, monitor. Monitor lytes and volume status. 3. Acute hypoxic resp failure, POA: 2/2 COVID PNA. Currently intubated on vent. Followed by Pulmonary. 4. Septic shock: 2/2 severe COVID infection. Off pressors. 5. Pneumonia due to COVID-19 virus, POA: IV Decadron. S/p Remdesivir at [facility]. Followed by ID. 6. H/o Hemorrhagic CVA. 7. Atrial fib: SR now. Followed by Cards. Prognosis is guarded. Subjective: Patient was seen and examined at the bedside. Examination: General appearance: well-developed, appears emaciated, intubated, on vent HEENT: ATNC EYES: pupils are equal Neck: trachea midline Respiratory: MV sounds Heart: S1S2, regular, no murmur Gastrointestinal: soft, not tender, BS heard Integumentary: no rash, warm and dry Neurologic: not responding Ext: no edema : Reyez catheter Subjective Date of service: 09/13/20 Principal diagnosis: Ac hypoxemic resp failure; COVID-19; Pneumonia; Septic Shock; MYRON; H/O CVA Objective - Vital Signs Vital signs: Vital Signs - 12hr 09/13/20 09/13/20 09/13/20 02:00 02:17 02:30 Pulse Rate 75 75 81 Respiratory 18 18 Rate Blood Pressure 121/85 125/81 123/75 O2 Sat by Pulse 93 95 Oximetry 09/13/20 09/13/20 09/13/20 03:00 03:30 04:00 Pulse Rate 76 75 76 Respiratory 18 17 18 Rate Blood Pressure 119/78 134/74 132/80 O2 Sat by Pulse 95 95 95 Oximetry 09/13/20 09/13/20 09/13/20 04:10 04:30 05:00 Pulse Rate 70 72 74 Respiratory 15 13 Rate Blood Pressure 131/79 129/83 O2 Sat by Pulse 95 94 93 Oximetry 09/13/20 09/13/20 09/13/20 05:30 06:00 06:21 Pulse Rate 69 69 79 Respiratory 18 19 Rate Blood Pressure 126/89 129/79 129/79 O2 Sat by Pulse 94 95 Oximetry 09/13/20 09/13/20 09/13/20 06:30 07:00 08:39 Pulse Rate 68 67 67 Respiratory 18 15 15 Rate Blood Pressure 131/82 128/77 128/77 O2 Sat by Pulse 95 95 95 Oximetry 09/13/20 12:00 Pulse Rate 69 Respiratory 10 L Rate Blood Pressure O2 Sat by Pulse 96 Oximetry - Lab 09/13/20 05:21 09/14/20 06:50 Most recent lab results ABG pH 7.399 pH Units (7.350-7.450) 09/13/20 04:40 ABG pCO2 25.7 mm Hg 09/13/20 04:40 ABG pO2 72.8 mm Hg (80.0-90.0) L 09/13/20 04:40 ABG HCO3 15.5 mmol/L (20.0-26.0) L 09/13/20 04:40 ABG O2 Saturation 95.0 % (95.0-99.0) 09/13/20 04:40 Calcium 7.5 mg/dL (8.4-10.2) L 09/13/20 05:21 Phosphorus 3.20 mg/dL (2.5-4.5) 09/08/20 10:13 Magnesium 2.00 mg/dL (1.7-2.3) 09/08/20 10:13 Urine Creatinine 213.6 mg/dL (0.1-20.0) H 09/09/20 Unknown Urine Sodium 19 mmol/L 09/09/20 Unknown Medications & Allergies - Medications Allergies/Adverse Reactions: Allergies ceftriaxone Allergy (Verified 09/11/20 11:49) Rash RASH AND ITCHING PER OCTAVIO Home Medications: Home Medications Medication Instructions Recorded Confirmed Last Taken Type Aspirin [Aspirin BABY CHEW TAB] 81 mg PO QDAY #30 tab.chew 12/12/13 09/11/20 Unknown Rx Atorvastatin [Lipitor Tab] 80 mg PO QHS 09/11/20 09/11/20 Unknown History amLODIPine [Norvasc] 5 mg PO DAILY 09/11/20 09/11/20 Unknown History Active Medications: Generic Name Dose Route Start Last Admin Trade Name Freq PRN Reason Stop Dose Admin Acetaminophen 650 mg 09/08/20 07:00 Acetaminophen 325 Mg/10.15 Ml Oral Liqd Unit Dose PO Q4H PRN Pain MILD(1-3)/Fever >100.5/BEST Lipase/Protease/Amylase 1 each 09/08/20 06:31 Lipase 10,500/Protease 25,000/Amylase 43,750 (Units) Dr Cap FEEDTUBE PRN PRN For Clogged Feeding Tube Dexamethasone 6 mg 09/09/20 20:56 09/12/20 10:56 Dexamethasone 4 Mg/Ml Vial IV 09/18/20 10:01 6 mg Q24HR CRISTIN Administration Diltiazem HCl 60 mg 09/10/20 14:00 09/13/20 06:21 Diltiazem 60 Mg Tab PO Not Given Q6HR CRISTIN Famotidine 20 mg 09/10/20 10:00 09/12/20 10:57 Famotidine 20 Mg/2 Ml Inj IV 20 mg DAILY CRISTIN Administration Fentanyl 50 mcg 09/09/20 19:53 Fentanyl 100 Mcg/2 Ml Inj IV Q10MIN PRN ANALGESIA Heparin Sodium (Porcine) 3,200 unit 09/09/20 19:53 09/10/20 05:53 Heparin 10,000 Units/10 Ml Vial 40 unit/kg (3200 unit) 3,200 unit IV Administration Q6H PRN Anti-Xa Assay < 0.1 units/ml Hydrophilic Ointment 1 applic 09/07/20 22:11 Lip Therapy Vaseline TP Q2HR PRN Dry Lips Norepinephrine 4 mg in 250 mls @ 7.5 mls/hr 09/07/20 21:19 09/09/20 21:53 Levophed Drip 4 Mg/Ns 250 Ml IV 12 mcg/min TITR CRISTIN 45 mls/hr Administration Protocol 2 MCG/MIN Midazolam HCl 100 mg/ Sodium 100 mls @ 2 mls/hr 09/07/20 23:00 09/09/20 21:57 Chloride IV 4 mg/hr TITR CRISTIN 4 mls/hr Administration Protocol 2 MG/HR Levofloxacin/Dextrose 750 mg in 150 mls @ 100 mls/hr 09/09/20 13:00 09/11/20 13:43 Levaquin 750mg/150ml IV 09/17/20 14:29 100 mls/hr Q48H CRISTIN Administration Heparin Sodium/Sodium Chloride 25,000 unit in 500 mls @ 23 mls/hr 09/09/20 20:00 09/11/20 15:47 Heparin/ 0.45% Nacl-25,000 Unit/500 Ml IV 700 units/hr TITR CRISTIN 14 mls/hr Administration Protocol 1,150 UNITS/HR Fentanyl Citrate 2,000 mcg in 100 mls @ 3.98 mls/hr 09/09/20 20:00 Fentanyl Drip Premix IV TITR CRISTIN Protocol 1 MCG/KG/HR Dextrose/Sodium Chloride 1,000 mls @ 75 mls/hr 09/11/20 17:00 D5ns IV DIRECT CRISTIN Sodium Chloride 100 mls @ 999 mls/hr 09/12/20 12:00 Nacl 0.9% IV ANNA MARIE PRN Hypotension Metoprolol Tartrate 5 mg 09/10/20 13:07 Metoprolol Tartrate 5 Mg/5 Ml Inj IV Q6HR PRN HR>130 Metoprolol Tartrate 25 mg 09/11/20 14:00 09/13/20 02:17 Metoprolol Tartrate 25 Mg Tab PO Not Given Q6H [facility] Midazolam HCl 2 mg 09/07/20 22:11 Midazolam 2 Mg/2 Ml Inj IV Q10MIN PRN Sedation Morphine Sulfate 2 mg 09/08/20 06:29 Morphine 2 Mg/1 Ml Inj IV Q4H PRN Pain, Moderate (4-6) Multi-Ingred Cream/Lotion/Oil/Oint 1 applic 09/07/20 22:11 Mineral Oil/Petrolatum, White Ophth Oint 3.5 Gm OU Q4HR PRN Dry Eye(s) Ondansetron HCl 4 mg 09/08/20 06:29 Ondansetron 4 Mg/2 Ml Inj IV Q8H PRN Nausea And Vomiting Simple Syrup 15 ml 09/08/20 06:31 Simple Syrup 15 Ml FEEDTUBE PRN PRN Hypoglycemia Simple Syrup 30 ml 09/08/20 06:31 Simple Syrup 15 Ml FEEDTUBE PRN PRN Hypoglycemia Sodium Bicarbonate 325 mg 09/08/20 06:31 Sodium Bicarbonate 325 Mg Tab FEEDTUBE PRN PRN For Clogged Feeding Tube Sodium Chloride 10 ml 09/08/20 10:00 09/13/20 07:43 Sodium Chloride 0.9% 10 Ml Flush Syringe IV Not Given BID CRISTIN Sodium Chloride 10 ml 09/08/20 06:29 Sodium Chloride 0.9% 10 Ml Flush Syringe IV PRN PRN LINE FLUSH
--- NOTE | 2020-09-13 14:05 | Progress Note ---
Assessment and Plan - Patient Problems (1) Atrial fibrillation with rapid ventricular response Current Visit: Yes Status: Acute Plan to address problem: Continue treatment with diltiazem, beta-blockers as tolerated for paroxysmal atrial fibrillation. Subjective Date of service: 09/13/20 Principal diagnosis: Ac hypoxemic resp failure; COVID-19; Pneumonia; Septic Shock; MYRON; H/O CVA Interval history: Patient is sedated, on the vent, current ventricular heart rate 65, sinus with PACs. Objective Vital Signs Pulse Resp BP Pulse Ox 09/13/20 12:00 69 10 L 96 09/13/20 08:39 67 15 128/77 95 09/13/20 07:00 67 15 128/77 95 09/13/20 06:30 68 18 131/82 95 09/13/20 06:21 79 129/79 09/13/20 06:00 69 19 129/79 95 09/13/20 05:30 69 18 126/89 94 09/13/20 05:00 74 13 129/83 93 09/13/20 04:30 72 15 131/79 94 09/13/20 04:10 70 95 09/13/20 04:00 76 18 132/80 95 09/13/20 03:30 75 17 134/74 95 09/13/20 03:00 76 18 119/78 95 09/13/20 02:30 81 18 123/75 95 09/13/20 02:17 75 125/81 09/13/20 02:00 75 18 121/85 93 09/13/20 01:30 76 13 134/81 93 09/13/20 01:00 77 20 132/80 94 09/13/20 00:30 73 15 123/75 93 09/13/20 00:16 77 121/81 09/13/20 00:15 76 18 121/81 94 09/13/20 00:10 71 129/83 95 09/13/20 00:00 78 18 121/81 93 09/12/20 23:30 79 17 131/82 93 09/12/20 23:00 79 19 125/84 94 09/12/20 22:30 77 18 125/84 94 09/12/20 22:00 78 17 128/78 94 09/12/20 21:46 75 122/87 94 09/12/20 21:30 75 13 122/87 93 09/12/20 21:00 75 13 120/78 93 09/12/20 20:30 71 19 122/72 93 09/12/20 20:09 75 120/76 09/12/20 20:00 77 18 120/76 94 09/12/20 19:30 70 18 125/75 94 09/12/20 19:00 74 17 118/76 94 09/12/20 18:30 70 18 126/75 93 09/12/20 18:00 71 18 129/77 94 09/12/20 17:30 76 18 127/80 95 09/12/20 17:00 74 16 126/81 94 09/12/20 16:32 93 H 94 09/12/20 16:30 71 18 111/70 94 09/12/20 16:00 67 18 113/67 94 09/12/20 15:30 64 18 105/66 96 09/12/20 15:00 68 19 108/68 94 09/12/20 14:30 69 19 119/71 95 - Physical Examination Narrative exam: Full physical exam deferred due to patient's acute COVID-19 infection. General: Other (Sedate, on the vent) - Labs and Meds CBC 09/13/20 Range/Units 05:21 Hgb 12.9 (11.8-15.2) gm/dl Hct 38.5 (35.5-45.6) % Plt Count 126 L (140-440) K/mm3 Comprehensive Metabolic Panel 09/13/20 Range/Units 05:21 Sodium 141 (137-145) mmol/L Potassium 5.1 H (3.6-5.0) mmol/L Chloride 109.2 H (98-107) mmol/L Carbon Dioxide 16 L (22-30) mmol/L BUN 101 H (9-20) mg/dL Creatinine 3.8 H (0.8-1.3) mg/dL Glucose 230 H (75-100) mg/dL Calcium 7.5 L (8.4-10.2) mg/dL - Allied health notes Allied health notes reviewed: nursing
--- NOTE | 2020-09-13 15:06 | Progress Note ---
Assessment and Plan - Patient Problems (1) Seizures Current Visit: Yes Status: Acute Plan to address problem: Plan: 1) Please give him IV 500 mg Keppra now and twice a day if family wants to continue supportive care. (2) Hypoxia Current Visit: Yes Status: Acute Plan to address problem: Plan: 1) Continue care as per critical care/primary team care. (3) Pneumonia due to COVID-19 virus Current Visit: Yes Status: Acute Plan to address problem: Plan: 1) Continue care as per critical care team. 2) (4) Encephalopathy due to 2019 novel coronavirus Current Visit: Yes Status: Acute Plan to address problem: Plan: 1) This is multi-factorial and most likely from covid 19 positive case with pneumonia. 2) Poor prognosis for full meaningful recovery. 3) May allow patient's family to visit him but must follow strict hospitals protocol/guideline when the patient is positive with covid 19. I discussed at length with the patient' family member/son on the phone regarding his condition and possible treatment options. I have answered multiple questions posed by the patient's family members to their best satisfactions. They agreed with the plan. Thank you very much for allowing us in the care of your patient. Please call us if you have any questions. Sirisha Del Valle MD Tele-neurologist [phone] Subjective Date of service: 09/13/20 Principal diagnosis: Ac hypoxemic resp failure; COVID-19; Pneumonia; Septic Shock; MYRON; H/O CVA Interval history: Patient is unable to see due to covid 19 positive test. Discussed with the patient's nurse who told me that patient is not responding to anything, to painful stimuli, or breathing over the vent. Sedation has been stopped for at least last [address] scan of the brain did not show any evidence of acute changes. He had an EEG done which did show some delta slowing consistent with seizure disorder as reported by the EEG reader/neurologist. He is chest x- ray still shows evidence of pneumonia. The family, his daughter Fredrick [phone] needs to be called to discuss since they want to withdraw the life support. During rounding while discussing with the nurse they provided me another number that is [phone] which belonged to his son Marcus Diez whose name is in the chart as for us to allow to speak about his father's condition. I called him and discuss all what I just dictated in my note.I explained to him that his father can survive on ventilator for next few days and we are to see if he responds to verbal stimuli or breathes over the vent then there is hope for survival. Therefore they may need to wait for another couple of days and see if he responds or not. His son wished that if the family can be revisited to see him or they can take his father's body to home. I discussed this issue with the patient's nurse and she said they can allow his family to visit him as they want to. Objective - Exam Narrative Exam: unable to examine due to covid 19 positive case - Vital Sign Vital Signs - 12hr 09/13/20 09/13/20 09/13/20 03:30 04:00 04:10 Pulse Rate 75 76 70 Respiratory 17 18 Rate Blood Pressure 134/74 132/80 O2 Sat by Pulse 95 95 95 Oximetry 09/13/20 09/13/20 09/13/20 04:30 05:00 05:30 Pulse Rate 72 74 69 Respiratory 15 13 18 Rate Blood Pressure 131/79 129/83 126/89 O2 Sat by Pulse 94 93 94 Oximetry 09/13/20 09/13/20 09/13/20 06:00 06:21 06:30 Pulse Rate 69 79 68 Respiratory 19 18 Rate Blood Pressure 129/79 129/79 131/82 O2 Sat by Pulse 95 95 Oximetry 09/13/20 09/13/20 09/13/20 07:00 08:39 12:00 Pulse Rate 67 67 69 Respiratory 15 15 10 L Rate Blood Pressure 128/77 128/77 O2 Sat by Pulse 95 95 96 Oximetry - Laboratory Findings CBC and BMP: 09/13/20 05:21 09/13/20 05:21 Abnormal Lab Findings: Abnormal Labs 09/07/20 09/07/20 09/07/20 17:25 18:00 18:00 WBC 23.5 H RBC Hgb Hct MCHC RDW Plt Count Lymph % (Auto) Lymph # (Auto) Seg Neutrophils % Seg Neuts % (Manual) 94.0 H Lymphocytes % (Manual) 1.0 L Seg Neutrophils # Seg Neutrophils # Man 22.1 H Lymphocytes # (Manual) 0.2 L PT INR APTT D-Dimer > 55138 H Heparin Anti-Xa Level ABG pH POC ABG pCO2 POC ABG pO2 ABG pO2 ABG HCO3 ABG O2 Saturation ABG Base Excess ABG Hemoglobin ABG Glucose Oxyhemoglobin Carboxyhemoglobin Sodium Potassium Chloride Carbon Dioxide BUN Creatinine Glucose POC Glucose Hemoglobin A1c Lactic Acid Calcium Ferritin Total Bilirubin AST Lactate Dehydrogenase C-Reactive Protein Total Protein Albumin Prealbumin Arterial Blood Glucose Arterial Blood Ionized Calcium Urine Creatinine Coronavirus (PCR) Positive A 09/07/20 09/07/20 09/07/20 18:00 18:00 18:00 WBC RBC Hgb Hct MCHC RDW Plt Count Lymph % (Auto) Lymph # (Auto) Seg Neutrophils % Seg Neuts % (Manual) Lymphocytes % (Manual) Seg Neutrophils # Seg Neutrophils # Man Lymphocytes # (Manual) PT INR APTT 72.7 H* D-Dimer Heparin Anti-Xa Level ABG pH POC ABG pCO2 POC ABG pO2 ABG pO2 ABG HCO3 ABG O2 Saturation ABG Base Excess ABG Hemoglobin ABG Glucose Oxyhemoglobin Carboxyhemoglobin Sodium Potassium Chloride Carbon Dioxide 9 L* BUN 24 H Creatinine Glucose 143 H POC Glucose Hemoglobin A1c Lactic Acid Calcium 7.6 L Ferritin 849.7 H Total Bilirubin 1.80 H AST 45 H Lactate Dehydrogenase 507 H C-Reactive Protein 8.20 H Total Protein 5.6 L Albumin 2.8 L Prealbumin Arterial Blood Glucose Arterial Blood Ionized Calcium Urine Creatinine Coronavirus (PCR) 09/07/20 09/07/20 09/08/20 19:37 20:30 01:07 WBC RBC Hgb Hct MCHC RDW Plt Count Lymph % (Auto) Lymph # (Auto) Seg Neutrophils % Seg Neuts % (Manual) Lymphocytes % (Manual) Seg Neutrophils # Seg Neutrophils # Man Lymphocytes # (Manual) PT INR APTT D-Dimer Heparin Anti-Xa Level ABG pH 7.336 L POC ABG pCO2 POC ABG pO2 ABG pO2 91.2 H ABG HCO3 14.1 L ABG O2 Saturation ABG Base Excess -9.9 L ABG Hemoglobin ABG Glucose Oxyhemoglobin Carboxyhemoglobin Sodium Potassium Chloride Carbon Dioxide BUN Creatinine Glucose POC Glucose Hemoglobin A1c Lactic Acid 8.80 H* 3.80 H* Calcium Ferritin Total Bilirubin AST Lactate Dehydrogenase C-Reactive Protein Total Protein Albumin Prealbumin Arterial Blood Glucose Arterial Blood Ionized Calcium Urine Creatinine Coronavirus (PCR) 09/08/20 09/08/20 09/08/20 04:25 10:13 10:13 WBC 21.7 H RBC 5.49 H Hgb 17.1 H Hct 49.6 H MCHC 35 H RDW Plt Count Lymph % (Auto) Lymph # (Auto) Seg Neutrophils % Seg Neuts % (Manual) 96.0 H Lymphocytes % (Manual) 1.0 L Seg Neutrophils # Seg Neutrophils # Man 20.8 H Lymphocytes # (Manual) 0.2 L PT INR APTT D-Dimer Heparin Anti-Xa Level ABG pH 7.484 H POC ABG pCO2 POC ABG pO2 ABG pO2 148.2 H ABG HCO3 17.2 L ABG O2 Saturation ABG Base Excess -4.1 L ABG Hemoglobin ABG Glucose Oxyhemoglobin Carboxyhemoglobin Sodium Potassium Chloride Carbon Dioxide BUN Creatinine Glucose POC Glucose Hemoglobin A1c Lactic Acid 3.40 H* Calcium Ferritin Total Bilirubin AST Lactate Dehydrogenase C-Reactive Protein Total Protein Albumin Prealbumin Arterial Blood Glucose Arterial Blood Ionized Calcium Urine Creatinine Coronavirus (PCR) 09/08/20 09/08/20 09/08/20 10:13 10:13 10:13 WBC RBC Hgb Hct MCHC RDW Plt Count Lymph % (Auto) Lymph # (Auto) Seg Neutrophils % Seg Neuts % (Manual) Lymphocytes % (Manual) Seg Neutrophils # Seg Neutrophils # Man Lymphocytes # (Manual) PT INR APTT D-Dimer Heparin Anti-Xa Level ABG pH POC ABG pCO2 POC ABG pO2 ABG pO2 ABG HCO3 ABG O2 Saturation ABG Base Excess ABG Hemoglobin ABG Glucose Oxyhemoglobin Carboxyhemoglobin Sodium 135 L Potassium Chloride Carbon Dioxide 20 L D BUN 35 H Creatinine 1.6 H D Glucose 192 H POC Glucose Hemoglobin A1c 6.2 H Lactic Acid Calcium 8.3 L Ferritin Total Bilirubin 1.80 H AST 55 H Lactate Dehydrogenase C-Reactive Protein Total Protein Albumin 2.6 L Prealbumin 0.049 L Arterial Blood Glucose Arterial Blood Ionized Calcium Urine Creatinine Coronavirus (PCR) 09/08/20 09/08/20 09/08/20 20:18 20:18 20:18 WBC 29.8 H RBC Hgb 15.3 H Hct MCHC RDW Plt Count Lymph % (Auto) Lymph # (Auto) Seg Neutrophils % Seg Neuts % (Manual) Lymphocytes % (Manual) Seg Neutrophils # Seg Neutrophils # Man Lymphocytes # (Manual) PT INR APTT D-Dimer Heparin Anti-Xa Level ABG pH POC ABG pCO2 POC ABG pO2 ABG pO2 ABG HCO3 ABG O2 Saturation ABG Base Excess ABG Hemoglobin ABG Glucose Oxyhemoglobin Carboxyhemoglobin Sodium 136 L Potassium Chloride Carbon Dioxide 17 L BUN 42 H Creatinine 1.9 H Glucose 203 H POC Glucose Hemoglobin A1c Lactic Acid 2.20 H* Calcium 7.6 L Ferritin Total Bilirubin AST 51 H Lactate Dehydrogenase C-Reactive Protein Total Protein 6.2 L Albumin 2.1 L Prealbumin Arterial Blood Glucose Arterial Blood Ionized Calcium Urine Creatinine Coronavirus (PCR) 09/08/20 09/09/20 09/09/20 21:53 00:19 03:15 WBC RBC Hgb Hct MCHC RDW Plt Count Lymph % (Auto) Lymph # (Auto) Seg Neutrophils % Seg Neuts % (Manual) Lymphocytes % (Manual) Seg Neutrophils # Seg Neutrophils # Man Lymphocytes # (Manual) PT INR APTT D-Dimer Heparin Anti-Xa Level ABG pH POC ABG pCO2 POC ABG pO2 ABG pO2 97.0 H ABG HCO3 16.3 L ABG O2 Saturation ABG Base Excess -7.5 L ABG Hemoglobin ABG Glucose Oxyhemoglobin Carboxyhemoglobin Sodium Potassium Chloride Carbon Dioxide BUN Creatinine Glucose POC Glucose Hemoglobin A1c Lactic Acid 3.20 H* 2.10 H* Calcium Ferritin Total Bilirubin AST Lactate Dehydrogenase C-Reactive Protein Total Protein Albumin Prealbumin Arterial Blood Glucose Arterial Blood Ionized Calcium Urine Creatinine Coronavirus (PCR) 09/09/20 09/09/20 09/09/20 04:54 04:54 04:54 WBC 28.5 H RBC Hgb Hct MCHC RDW Plt Count Lymph % (Auto) 1.3 L Lymph # (Auto) 0.4 L Seg Neutrophils % 96.1 H Seg Neuts % (Manual) Lymphocytes % (Manual) Seg Neutrophils # 27.4 H Seg Neutrophils # Man Lymphocytes # (Manual) PT INR APTT D-Dimer Heparin Anti-Xa Level ABG pH POC ABG pCO2 POC ABG pO2 ABG pO2 ABG HCO3 ABG O2 Saturation ABG Base Excess ABG Hemoglobin ABG Glucose Oxyhemoglobin Carboxyhemoglobin Sodium Potassium Chloride Carbon Dioxide 17 L BUN 45 H Creatinine 2.2 H Glucose 201 H POC Glucose Hemoglobin A1c Lactic Acid 2.90 H* Calcium 7.8 L Ferritin Total Bilirubin AST Lactate Dehydrogenase C-Reactive Protein Total Protein Albumin Prealbumin Arterial Blood Glucose Arterial Blood Ionized Calcium Urine Creatinine Coronavirus (PCR) 09/09/20 09/09/20 09/09/20 06:56 09:04 20:28 WBC RBC Hgb Hct MCHC RDW Plt Count Lymph % (Auto) Lymph # (Auto) Seg Neutrophils % Seg Neuts % (Manual) Lymphocytes % (Manual) Seg Neutrophils # Seg Neutrophils # Man Lymphocytes # (Manual) PT 15.8 H INR 1.26 H APTT 40.7 H D-Dimer Heparin Anti-Xa Level ABG pH POC ABG pCO2 POC ABG pO2 ABG pO2 ABG HCO3 ABG O2 Saturation ABG Base Excess ABG Hemoglobin ABG Glucose Oxyhemoglobin Carboxyhemoglobin Sodium Potassium Chloride Carbon Dioxide BUN Creatinine Glucose POC Glucose Hemoglobin A1c Lactic Acid 4.70 H* 3.70 H* Calcium Ferritin Total Bilirubin AST Lactate Dehydrogenase C-Reactive Protein Total Protein Albumin Prealbumin Arterial Blood Glucose Arterial Blood Ionized Calcium Urine Creatinine Coronavirus (PCR) 09/09/20 09/10/20 09/10/20 Unknown 02:24 04:56 WBC 24.2 H RBC Hgb Hct MCHC RDW Plt Count Lymph % (Auto) Lymph # (Auto) Seg Neutrophils % Seg Neuts % (Manual) 97.5 H Lymphocytes % (Manual) 1.0 L Seg Neutrophils # Seg Neutrophils # Man 23.6 H Lymphocytes # (Manual) 0.2 L PT INR APTT D-Dimer Heparin Anti-Xa Level ABG pH POC ABG pCO2 POC ABG pO2 ABG pO2 120.7 H ABG HCO3 15.1 L ABG O2 Saturation ABG Base Excess -8.0 L ABG Hemoglobin ABG Glucose Oxyhemoglobin Carboxyhemoglobin Sodium Potassium Chloride Carbon Dioxide BUN Creatinine Glucose POC Glucose Hemoglobin A1c Lactic Acid Calcium Ferritin Total Bilirubin AST Lactate Dehydrogenase C-Reactive Protein Total Protein Albumin Prealbumin Arterial Blood Glucose Arterial Blood Ionized Calcium Urine Creatinine 213.6 H Coronavirus (PCR) 09/10/20 09/10/20 09/11/20 04:56 17:58 01:02 WBC RBC Hgb Hct MCHC RDW Plt Count Lymph % (Auto) Lymph # (Auto) Seg Neutrophils % Seg Neuts % (Manual) Lymphocytes % (Manual) Seg Neutrophils # Seg Neutrophils # Man Lymphocytes # (Manual) PT INR APTT D-Dimer Heparin Anti-Xa Level > 2.00 H 2.00 H ABG pH POC ABG pCO2 POC ABG pO2 ABG pO2 ABG HCO3 ABG O2 Saturation ABG Base Excess ABG Hemoglobin ABG Glucose Oxyhemoglobin Carboxyhemoglobin Sodium Potassium Chloride Carbon Dioxide 18 L BUN 62 H Creatinine 2.8 H Glucose 216 H POC Glucose Hemoglobin A1c Lactic Acid Calcium 7.9 L Ferritin Total Bilirubin AST Lactate Dehydrogenase C-Reactive Protein Total Protein Albumin Prealbumin Arterial Blood Glucose Arterial Blood Ionized Calcium Urine Creatinine Coronavirus (PCR) 09/11/20 09/11/20 09/11/20 05:11 05:42 05:42 WBC RBC Hgb Hct MCHC RDW Plt Count 116 L Lymph % (Auto) Lymph # (Auto) Seg Neutrophils % Seg Neuts % (Manual) Lymphocytes % (Manual) Seg Neutrophils # Seg Neutrophils # Man Lymphocytes # (Manual) PT INR APTT D-Dimer Heparin Anti-Xa Level ABG pH POC ABG pCO2 22.8 L POC ABG pO2 76.3 L ABG pO2 ABG HCO3 ABG O2 Saturation ABG Base Excess ABG Hemoglobin ABG Glucose 208 H Oxyhemoglobin Carboxyhemoglobin 0.2 L Sodium Potassium Chloride 108.7 H Carbon Dioxide 15 L BUN 76 H Creatinine 3.0 H Glucose 202 H POC Glucose Hemoglobin A1c Lactic Acid Calcium 7.5 L Ferritin Total Bilirubin AST Lactate Dehydrogenase C-Reactive Protein Total Protein Albumin Prealbumin Arterial Blood Glucose 208 H Arterial Blood Ionized Calcium 4.1 L Urine Creatinine Coronavirus (PCR) 09/11/20 09/11/20 09/11/20 05:42 11:39 17:41 WBC 16.2 H RBC Hgb Hct MCHC RDW 15.3 H Plt Count 118 L Lymph % (Auto) Lymph # (Auto) Seg Neutrophils % Seg Neuts % (Manual) Lymphocytes % (Manual) Seg Neutrophils # Seg Neutrophils # Man Lymphocytes # (Manual) PT INR APTT D-Dimer Heparin Anti-Xa Level 1.82 H 1.14 H ABG pH POC ABG pCO2 POC ABG pO2 ABG pO2 ABG HCO3 ABG O2 Saturation ABG Base Excess ABG Hemoglobin ABG Glucose Oxyhemoglobin Carboxyhemoglobin Sodium Potassium Chloride Carbon Dioxide BUN Creatinine Glucose POC Glucose Hemoglobin A1c Lactic Acid Calcium Ferritin Total Bilirubin AST Lactate Dehydrogenase C-Reactive Protein Total Protein Albumin Prealbumin Arterial Blood Glucose Arterial Blood Ionized Calcium Urine Creatinine Coronavirus (PCR) 09/12/20 09/12/20 09/12/20 05:25 05:50 09:52 WBC RBC Hgb Hct MCHC RDW Plt Count Lymph % (Auto) Lymph # (Auto) Seg Neutrophils % Seg Neuts % (Manual) Lymphocytes % (Manual) Seg Neutrophils # Seg Neutrophils # Man Lymphocytes # (Manual) PT INR APTT D-Dimer Heparin Anti-Xa Level < 0.10 L ABG pH POC ABG pCO2 POC ABG pO2 ABG pO2 195.5 H ABG HCO3 15.5 L ABG O2 Saturation 99.3 H ABG Base Excess -7.5 L ABG Hemoglobin 12.4 L ABG Glucose Oxyhemoglobin Carboxyhemoglobin Sodium Potassium Chloride Carbon Dioxide 15 L BUN 89 H Creatinine 3.5 H Glucose 282 H POC Glucose Hemoglobin A1c Lactic Acid Calcium 7.2 L Ferritin Total Bilirubin AST Lactate Dehydrogenase C-Reactive Protein Total Protein Albumin Prealbumin Arterial Blood Glucose Arterial Blood Ionized Calcium Urine Creatinine Coronavirus (PCR) 09/12/20 09/13/20 09/13/20 15:56 04:40 05:21 WBC RBC Hgb Hct MCHC RDW Plt Count 126 L Lymph % (Auto) Lymph # (Auto) Seg Neutrophils % Seg Neuts % (Manual) Lymphocytes % (Manual) Seg Neutrophils # Seg Neutrophils # Man Lymphocytes # (Manual) PT INR APTT D-Dimer Heparin Anti-Xa Level ABG pH POC ABG pCO2 POC ABG pO2 ABG pO2 72.8 L ABG HCO3 15.5 L ABG O2 Saturation ABG Base Excess -7.8 L ABG Hemoglobin 11.7 L ABG Glucose Oxyhemoglobin 93.6 L Carboxyhemoglobin Sodium Potassium Chloride Carbon Dioxide BUN Creatinine Glucose POC Glucose 202 H Hemoglobin A1c Lactic Acid Calcium Ferritin Total Bilirubin AST Lactate Dehydrogenase C-Reactive Protein Total Protein Albumin Prealbumin Arterial Blood Glucose Arterial Blood Ionized Calcium Urine Creatinine Coronavirus (PCR) 09/13/20 05:21 WBC RBC Hgb Hct MCHC RDW Plt Count Lymph % (Auto) Lymph # (Auto) Seg Neutrophils % Seg Neuts % (Manual) Lymphocytes % (Manual) Seg Neutrophils # Seg Neutrophils # Man Lymphocytes # (Manual) PT INR APTT D-Dimer Heparin Anti-Xa Level ABG pH POC ABG pCO2 POC ABG pO2 ABG pO2 ABG HCO3 ABG O2 Saturation ABG Base Excess ABG Hemoglobin ABG Glucose Oxyhemoglobin Carboxyhemoglobin Sodium Potassium 5.1 H Chloride 109.2 H Carbon Dioxide 16 L BUN 101 H Creatinine 3.8 H Glucose 230 H POC Glucose Hemoglobin A1c Lactic Acid Calcium 7.5 L Ferritin Total Bilirubin AST Lactate Dehydrogenase C-Reactive Protein Total Protein Albumin Prealbumin Arterial Blood Glucose Arterial Blood Ionized Calcium Urine Creatinine Coronavirus (PCR)
--- NOTE | 2020-09-13 15:32 | Progress Note ---
Assessment and Plan Acute hypoxemic respiratory failure, on MVS COVID-19 infection. Bilateral pneumonia Acute encephalopathy, presumably toxic metabolic. Severe sepsis with shock. Acute kidney injury. History of cerebrovascular accident. Leukocytosis. Severe metabolic acidosis. Lactic acidosis. Elevated serum inflammatory markers to include D-dimers. - Azotemia per nephrology; family deciding on HD/UF - AMS remains rate limiting factor to safe extubation acutely if meets other criteria but will continue to monitor - neurology evaluation is ongoing; initial CT head without gross acute process - continue care as below otherwise; - prn vasopressors for target MAP > 65 mmHg - continue Daily SAT and SBT assessment as tolerated - continue to wean supplemental oxygen for target O2 sat's > 90% acutely - VAP bundle addressed - continue lung protective strategies - continue bronchodilators with pulmonary hygiene per RT - wean per pulmonary driven protocols otherwise - continue accuchecks with glycemic control per SSI (While critically ill target blood glucose of 140-180 mg/dL; avoid hypoglycemia) - sedation prn for target RASS 0 to -1 - avoid nephrotoxins, renally dose all medications - continue to avoid benzodiazepine's, reduce the possibility of delirium - completed AB's per ID rec's - prn analgesia per CPOT score - Maintenance of sleep-wake cycle, avoid delirium - continue enteral nutritional support at goal rate as tolerated - G.I. & VTE prophylaxis - PT/OT/ROM exercises - continue mobility protocols for pressure ulcer prophylaxis - Monitor hemodynamics closely - continue other care per attending / other consultants - discharge planning ongoing concurrently COVID SPECIFIC INTERVENTIONS - Remdesivir / other COVID specific interventions per ID recommendations - continue systemic steroids for severe COVID-19 infection empirically - repeat COVID tests per facility protocol - Monitor inflammatory markers per facility protocol - ferritin, Ddimer, CRP - therapeutic anticoagulation per system Protocol based on d-dimer - Continue contact and airborne isolation - discharge planning ongoing concurrently .... Re-evaluate in am & prn CONDITION: CRITICAL PROGNOSIS: GUARDED CODE STATUS: FULL CODE The high probability of a clinically significant, sudden or life-threatening deterioration of the [respiratory, cardiovascular, hematologic, renal & neurologic] system(s) required my full and direct attention, intervention and personal management. The aggregate critical care time was [34] minutes without overlap. Time includes spent on; [x] Data Review and interpretation [x] Patient assessment and monitoring of vital signs [x] Documentation [x] Medication orders and management Subjective Date of service: 09/13/20 Principal diagnosis: Ac hypoxemic resp failure; COVID-19; Pneumonia; Septic Shock; MYRON; H/O CVA Interval history: Patient is seen today for: Acute hypoxemic respiratory failure; COVID-19 infection; Bilateral pneumonia; Acute encephalopathy, presumably toxic metabolic; Severe sepsis with shock; Acute kidney injury; History of cerebrovascular accident Seen and examined at bedside; 24hour events reviewed; nursing and respiratory care staff consulted; no adverse overnight events reported to me; resting peacefully in bed; remains on MVS; AMS is persistent; tolerating PSV trials; no emesis or overt aspiration; Azotemia is worse Objective Vital Signs - 12hr 09/13/20 09/13/20 09/13/20 04:00 04:10 04:30 Pulse Rate 76 70 72 Respiratory 18 15 Rate Blood Pressure 132/80 131/79 O2 Sat by Pulse 95 95 94 Oximetry 09/13/20 09/13/20 09/13/20 05:00 05:30 06:00 Pulse Rate 74 69 69 Respiratory 13 18 19 Rate Blood Pressure 129/83 126/89 129/79 O2 Sat by Pulse 93 94 95 Oximetry 09/13/20 09/13/20 09/13/20 06:21 06:30 07:00 Pulse Rate 79 68 67 Respiratory 18 15 Rate Blood Pressure 129/79 131/82 128/77 O2 Sat by Pulse 95 95 Oximetry 09/13/20 09/13/20 08:39 12:00 Pulse Rate 67 69 Respiratory 15 10 L Rate Blood Pressure 128/77 O2 Sat by Pulse 95 96 Oximetry Constitutional: appears uncomfortable, other (elderly obese male with mildly increased respiratory effort at rest on MVS) Eyes: non-icteric ENT: oropharynx moist, other (ETT 24 cm BREANN) Neck: supple, no lymphadenopathy, no JVD Effort: mildly labored Ascultation: Bilateral: diminished breath sounds, rhonchi Percussion: Bilateral: not dull Cardiovascular: regular rate and rhythm Gastrointestinal: normoactive bowel sounds, soft, non-tender, non-distended (protuberant) Integumentary: other (please see [facility] notes) Extremities: no cyanosis, pulses normal, no ischemia or petechiae Neurologic: pupils equal and round, unable to assess Psychiatric: other (unable to assess re: AMS) CBC and BMP: 09/13/20 05:21 09/14/20 06:50 ABG, PT/INR, D-dimer: ABG ABG pH 7.399 pH Units (7.350-7.450) 09/13/20 04:40 POC ABG pCO2 22.8 mmHg (32.0-48.0) L 09/11/20 05:11 ABG pCO2 25.7 mm Hg 09/13/20 04:40 POC ABG pO2 76.3 mmHg (83-108) L 09/11/20 05:11 ABG pO2 72.8 mm Hg (80.0-90.0) L 09/13/20 04:40 POC ABG HCO3 14.7 09/11/20 05:11 ABG O2 Saturation 95.0 % (95.0-99.0) 09/13/20 04:40 PT/INR, D-dimer PT 15.8 Sec. (12.2-14.9) H 09/09/20 20:28 INR 1.26 (0.87-1.13) H 09/09/20 20:28 D-Dimer > 39902 ng/mlDDU (0-234) H 09/07/20 18:00 D-Dimer Building Code Inspector 09/07/20 18:00 Abnormal lab findings: Abnormal Labs 09/07/20 09/07/20 09/07/20 17:25 18:00 18:00 WBC 23.5 H RBC Hgb Hct MCHC RDW Plt Count Lymph % (Auto) Lymph # (Auto) Seg Neutrophils % Seg Neuts % (Manual) 94.0 H Lymphocytes % (Manual) 1.0 L Seg Neutrophils # Seg Neutrophils # Man 22.1 H Lymphocytes # (Manual) 0.2 L PT INR APTT D-Dimer > 45707 H Heparin Anti-Xa Level ABG pH POC ABG pCO2 POC ABG pO2 ABG pO2 ABG HCO3 ABG O2 Saturation ABG Base Excess ABG Hemoglobin ABG Glucose Oxyhemoglobin Carboxyhemoglobin Sodium Potassium Chloride Carbon Dioxide BUN Creatinine Glucose POC Glucose Hemoglobin A1c Lactic Acid Calcium Ferritin Total Bilirubin AST Lactate Dehydrogenase C-Reactive Protein Total Protein Albumin Prealbumin Arterial Blood Glucose Arterial Blood Ionized Calcium Urine Creatinine Coronavirus (PCR) Positive A 09/07/20 09/07/20 09/07/20 18:00 18:00 18:00 WBC RBC Hgb Hct MCHC RDW Plt Count Lymph % (Auto) Lymph # (Auto) Seg Neutrophils % Seg Neuts % (Manual) Lymphocytes % (Manual) Seg Neutrophils # Seg Neutrophils # Man Lymphocytes # (Manual) PT INR APTT 72.7 H* D-Dimer Heparin Anti-Xa Level ABG pH POC ABG pCO2 POC ABG pO2 ABG pO2 ABG HCO3 ABG O2 Saturation ABG Base Excess ABG Hemoglobin ABG Glucose Oxyhemoglobin Carboxyhemoglobin Sodium Potassium Chloride Carbon Dioxide 9 L* BUN 24 H Creatinine Glucose 143 H POC Glucose Hemoglobin A1c Lactic Acid Calcium 7.6 L Ferritin 849.7 H Total Bilirubin 1.80 H AST 45 H Lactate Dehydrogenase 507 H C-Reactive Protein 8.20 H Total Protein 5.6 L Albumin 2.8 L Prealbumin Arterial Blood Glucose Arterial Blood Ionized Calcium Urine Creatinine Coronavirus (PCR) 09/07/20 09/07/20 09/08/20 19:37 20:30 01:07 WBC RBC Hgb Hct MCHC RDW Plt Count Lymph % (Auto) Lymph # (Auto) Seg Neutrophils % Seg Neuts % (Manual) Lymphocytes % (Manual) Seg Neutrophils # Seg Neutrophils # Man Lymphocytes # (Manual) PT INR APTT D-Dimer Heparin Anti-Xa Level ABG pH 7.336 L POC ABG pCO2 POC ABG pO2 ABG pO2 91.2 H ABG HCO3 14.1 L ABG O2 Saturation ABG Base Excess -9.9 L ABG Hemoglobin ABG Glucose Oxyhemoglobin Carboxyhemoglobin Sodium Potassium Chloride Carbon Dioxide BUN Creatinine Glucose POC Glucose Hemoglobin A1c Lactic Acid 8.80 H* 3.80 H* Calcium Ferritin Total Bilirubin AST Lactate Dehydrogenase C-Reactive Protein Total Protein Albumin Prealbumin Arterial Blood Glucose Arterial Blood Ionized Calcium Urine Creatinine Coronavirus (PCR) 09/08/20 09/08/20 09/08/20 04:25 10:13 10:13 WBC 21.7 H RBC 5.49 H Hgb 17.1 H Hct 49.6 H MCHC 35 H RDW Plt Count Lymph % (Auto) Lymph # (Auto) Seg Neutrophils % Seg Neuts % (Manual) 96.0 H Lymphocytes % (Manual) 1.0 L Seg Neutrophils # Seg Neutrophils # Man 20.8 H Lymphocytes # (Manual) 0.2 L PT INR APTT D-Dimer Heparin Anti-Xa Level ABG pH 7.484 H POC ABG pCO2 POC ABG pO2 ABG pO2 148.2 H ABG HCO3 17.2 L ABG O2 Saturation ABG Base Excess -4.1 L ABG Hemoglobin ABG Glucose Oxyhemoglobin Carboxyhemoglobin Sodium Potassium Chloride Carbon Dioxide BUN Creatinine Glucose POC Glucose Hemoglobin A1c Lactic Acid 3.40 H* Calcium Ferritin Total Bilirubin AST Lactate Dehydrogenase C-Reactive Protein Total Protein Albumin Prealbumin Arterial Blood Glucose Arterial Blood Ionized Calcium Urine Creatinine Coronavirus (PCR) 09/08/20 09/08/20 09/08/20 10:13 10:13 10:13 WBC RBC Hgb Hct MCHC RDW Plt Count Lymph % (Auto) Lymph # (Auto) Seg Neutrophils % Seg Neuts % (Manual) Lymphocytes % (Manual) Seg Neutrophils # Seg Neutrophils # Man Lymphocytes # (Manual) PT INR APTT D-Dimer Heparin Anti-Xa Level ABG pH POC ABG pCO2 POC ABG pO2 ABG pO2 ABG HCO3 ABG O2 Saturation ABG Base Excess ABG Hemoglobin ABG Glucose Oxyhemoglobin Carboxyhemoglobin Sodium 135 L Potassium Chloride Carbon Dioxide 20 L D BUN 35 H Creatinine 1.6 H D Glucose 192 H POC Glucose Hemoglobin A1c 6.2 H Lactic Acid Calcium 8.3 L Ferritin Total Bilirubin 1.80 H AST 55 H Lactate Dehydrogenase C-Reactive Protein Total Protein Albumin 2.6 L Prealbumin 0.049 L Arterial Blood Glucose Arterial Blood Ionized Calcium Urine Creatinine Coronavirus (PCR) 09/08/20 09/08/20 09/08/20 20:18 20:18 20:18 WBC 29.8 H RBC Hgb 15.3 H Hct MCHC RDW Plt Count Lymph % (Auto) Lymph # (Auto) Seg Neutrophils % Seg Neuts % (Manual) Lymphocytes % (Manual) Seg Neutrophils # Seg Neutrophils # Man Lymphocytes # (Manual) PT INR APTT D-Dimer Heparin Anti-Xa Level ABG pH POC ABG pCO2 POC ABG pO2 ABG pO2 ABG HCO3 ABG O2 Saturation ABG Base Excess ABG Hemoglobin ABG Glucose Oxyhemoglobin Carboxyhemoglobin Sodium 136 L Potassium Chloride Carbon Dioxide 17 L BUN 42 H Creatinine 1.9 H Glucose 203 H POC Glucose Hemoglobin A1c Lactic Acid 2.20 H* Calcium 7.6 L Ferritin Total Bilirubin AST 51 H Lactate Dehydrogenase C-Reactive Protein Total Protein 6.2 L Albumin 2.1 L Prealbumin Arterial Blood Glucose Arterial Blood Ionized Calcium Urine Creatinine Coronavirus (PCR) 09/08/20 09/09/20 09/09/20 21:53 00:19 03:15 WBC RBC Hgb Hct MCHC RDW Plt Count Lymph % (Auto) Lymph # (Auto) Seg Neutrophils % Seg Neuts % (Manual) Lymphocytes % (Manual) Seg Neutrophils # Seg Neutrophils # Man Lymphocytes # (Manual) PT INR APTT D-Dimer Heparin Anti-Xa Level ABG pH POC ABG pCO2 POC ABG pO2 ABG pO2 97.0 H ABG HCO3 16.3 L ABG O2 Saturation ABG Base Excess -7.5 L ABG Hemoglobin ABG Glucose Oxyhemoglobin Carboxyhemoglobin Sodium Potassium Chloride Carbon Dioxide BUN Creatinine Glucose POC Glucose Hemoglobin A1c Lactic Acid 3.20 H* 2.10 H* Calcium Ferritin Total Bilirubin AST Lactate Dehydrogenase C-Reactive Protein Total Protein Albumin Prealbumin Arterial Blood Glucose Arterial Blood Ionized Calcium Urine Creatinine Coronavirus (PCR) 09/09/20 09/09/20 09/09/20 04:54 04:54 04:54 WBC 28.5 H RBC Hgb Hct MCHC RDW Plt Count Lymph % (Auto) 1.3 L Lymph # (Auto) 0.4 L Seg Neutrophils % 96.1 H Seg Neuts % (Manual) Lymphocytes % (Manual) Seg Neutrophils # 27.4 H Seg Neutrophils # Man Lymphocytes # (Manual) PT INR APTT D-Dimer Heparin Anti-Xa Level ABG pH POC ABG pCO2 POC ABG pO2 ABG pO2 ABG HCO3 ABG O2 Saturation ABG Base Excess ABG Hemoglobin ABG Glucose Oxyhemoglobin Carboxyhemoglobin Sodium Potassium Chloride Carbon Dioxide 17 L BUN 45 H Creatinine 2.2 H Glucose 201 H POC Glucose Hemoglobin A1c Lactic Acid 2.90 H* Calcium 7.8 L Ferritin Total Bilirubin AST Lactate Dehydrogenase C-Reactive Protein Total Protein Albumin Prealbumin Arterial Blood Glucose Arterial Blood Ionized Calcium Urine Creatinine Coronavirus (PCR) 09/09/20 09/09/20 09/09/20 06:56 09:04 20:28 WBC RBC Hgb Hct MCHC RDW Plt Count Lymph % (Auto) Lymph # (Auto) Seg Neutrophils % Seg Neuts % (Manual) Lymphocytes % (Manual) Seg Neutrophils # Seg Neutrophils # Man Lymphocytes # (Manual) PT 15.8 H INR 1.26 H APTT 40.7 H D-Dimer Heparin Anti-Xa Level ABG pH POC ABG pCO2 POC ABG pO2 ABG pO2 ABG HCO3 ABG O2 Saturation ABG Base Excess ABG Hemoglobin ABG Glucose Oxyhemoglobin Carboxyhemoglobin Sodium Potassium Chloride Carbon Dioxide BUN Creatinine Glucose POC Glucose Hemoglobin A1c Lactic Acid 4.70 H* 3.70 H* Calcium Ferritin Total Bilirubin AST Lactate Dehydrogenase C-Reactive Protein Total Protein Albumin Prealbumin Arterial Blood Glucose Arterial Blood Ionized Calcium Urine Creatinine Coronavirus (PCR) 09/09/20 09/10/20 09/10/20 Unknown 02:24 04:56 WBC 24.2 H RBC Hgb Hct MCHC RDW Plt Count Lymph % (Auto) Lymph # (Auto) Seg Neutrophils % Seg Neuts % (Manual) 97.5 H Lymphocytes % (Manual) 1.0 L Seg Neutrophils # Seg Neutrophils # Man 23.6 H Lymphocytes # (Manual) 0.2 L PT INR APTT D-Dimer Heparin Anti-Xa Level ABG pH POC ABG pCO2 POC ABG pO2 ABG pO2 120.7 H ABG HCO3 15.1 L ABG O2 Saturation ABG Base Excess -8.0 L ABG Hemoglobin ABG Glucose Oxyhemoglobin Carboxyhemoglobin Sodium Potassium Chloride Carbon Dioxide BUN Creatinine Glucose POC Glucose Hemoglobin A1c Lactic Acid Calcium Ferritin Total Bilirubin AST Lactate Dehydrogenase C-Reactive Protein Total Protein Albumin Prealbumin Arterial Blood Glucose Arterial Blood Ionized Calcium Urine Creatinine 213.6 H Coronavirus (PCR) 09/10/20 09/10/20 09/11/20 04:56 17:58 01:02 WBC RBC Hgb Hct MCHC RDW Plt Count Lymph % (Auto) Lymph # (Auto) Seg Neutrophils % Seg Neuts % (Manual) Lymphocytes % (Manual) Seg Neutrophils # Seg Neutrophils # Man Lymphocytes # (Manual) PT INR APTT D-Dimer Heparin Anti-Xa Level > 2.00 H 2.00 H ABG pH POC ABG pCO2 POC ABG pO2 ABG pO2 ABG HCO3 ABG O2 Saturation ABG Base Excess ABG Hemoglobin ABG Glucose Oxyhemoglobin Carboxyhemoglobin Sodium Potassium Chloride Carbon Dioxide 18 L BUN 62 H Creatinine 2.8 H Glucose 216 H POC Glucose Hemoglobin A1c Lactic Acid Calcium 7.9 L Ferritin Total Bilirubin AST Lactate Dehydrogenase C-Reactive Protein Total Protein Albumin Prealbumin Arterial Blood Glucose Arterial Blood Ionized Calcium Urine Creatinine Coronavirus (PCR) 09/11/20 09/11/20 09/11/20 05:11 05:42 05:42 WBC RBC Hgb Hct MCHC RDW Plt Count 116 L Lymph % (Auto) Lymph # (Auto) Seg Neutrophils % Seg Neuts % (Manual) Lymphocytes % (Manual) Seg Neutrophils # Seg Neutrophils # Man Lymphocytes # (Manual) PT INR APTT D-Dimer Heparin Anti-Xa Level ABG pH POC ABG pCO2 22.8 L POC ABG pO2 76.3 L ABG pO2 ABG HCO3 ABG O2 Saturation ABG Base Excess ABG Hemoglobin ABG Glucose 208 H Oxyhemoglobin Carboxyhemoglobin 0.2 L Sodium Potassium Chloride 108.7 H Carbon Dioxide 15 L BUN 76 H Creatinine 3.0 H Glucose 202 H POC Glucose Hemoglobin A1c Lactic Acid Calcium 7.5 L Ferritin Total Bilirubin AST Lactate Dehydrogenase C-Reactive Protein Total Protein Albumin Prealbumin Arterial Blood Glucose 208 H Arterial Blood Ionized Calcium 4.1 L Urine Creatinine Coronavirus (PCR) 09/11/20 09/11/20 09/11/20 05:42 11:39 17:41 WBC 16.2 H RBC Hgb Hct MCHC RDW 15.3 H Plt Count 118 L Lymph % (Auto) Lymph # (Auto) Seg Neutrophils % Seg Neuts % (Manual) Lymphocytes % (Manual) Seg Neutrophils # Seg Neutrophils # Man Lymphocytes # (Manual) PT INR APTT D-Dimer Heparin Anti-Xa Level 1.82 H 1.14 H ABG pH POC ABG pCO2 POC ABG pO2 ABG pO2 ABG HCO3 ABG O2 Saturation ABG Base Excess ABG Hemoglobin ABG Glucose Oxyhemoglobin Carboxyhemoglobin Sodium Potassium Chloride Carbon Dioxide BUN Creatinine Glucose POC Glucose Hemoglobin A1c Lactic Acid Calcium Ferritin Total Bilirubin AST Lactate Dehydrogenase C-Reactive Protein Total Protein Albumin Prealbumin Arterial Blood Glucose Arterial Blood Ionized Calcium Urine Creatinine Coronavirus (PCR) 09/12/20 09/12/20 09/12/20 05:25 05:50 09:52 WBC RBC Hgb Hct MCHC RDW Plt Count Lymph % (Auto) Lymph # (Auto) Seg Neutrophils % Seg Neuts % (Manual) Lymphocytes % (Manual) Seg Neutrophils # Seg Neutrophils # Man Lymphocytes # (Manual) PT INR APTT D-Dimer Heparin Anti-Xa Level < 0.10 L ABG pH POC ABG pCO2 POC ABG pO2 ABG pO2 195.5 H ABG HCO3 15.5 L ABG O2 Saturation 99.3 H ABG Base Excess -7.5 L ABG Hemoglobin 12.4 L ABG Glucose Oxyhemoglobin Carboxyhemoglobin Sodium Potassium Chloride Carbon Dioxide 15 L BUN 89 H Creatinine 3.5 H Glucose 282 H POC Glucose Hemoglobin A1c Lactic Acid Calcium 7.2 L Ferritin Total Bilirubin AST Lactate Dehydrogenase C-Reactive Protein Total Protein Albumin Prealbumin Arterial Blood Glucose Arterial Blood Ionized Calcium Urine Creatinine Coronavirus (PCR) 09/12/20 09/13/20 09/13/20 15:56 04:40 05:21 WBC RBC Hgb Hct MCHC RDW Plt Count 126 L Lymph % (Auto) Lymph # (Auto) Seg Neutrophils % Seg Neuts % (Manual) Lymphocytes % (Manual) Seg Neutrophils # Seg Neutrophils # Man Lymphocytes # (Manual) PT INR APTT D-Dimer Heparin Anti-Xa Level ABG pH POC ABG pCO2 POC ABG pO2 ABG pO2 72.8 L ABG HCO3 15.5 L ABG O2 Saturation ABG Base Excess -7.8 L ABG Hemoglobin 11.7 L ABG Glucose Oxyhemoglobin 93.6 L Carboxyhemoglobin Sodium Potassium Chloride Carbon Dioxide BUN Creatinine Glucose POC Glucose 202 H Hemoglobin A1c Lactic Acid Calcium Ferritin Total Bilirubin AST Lactate Dehydrogenase C-Reactive Protein Total Protein Albumin Prealbumin Arterial Blood Glucose Arterial Blood Ionized Calcium Urine Creatinine Coronavirus (PCR) 09/13/20 05:21 WBC RBC Hgb Hct MCHC RDW Plt Count Lymph % (Auto) Lymph # (Auto) Seg Neutrophils % Seg Neuts % (Manual) Lymphocytes % (Manual) Seg Neutrophils # Seg Neutrophils # Man Lymphocytes # (Manual) PT INR APTT D-Dimer Heparin Anti-Xa Level ABG pH POC ABG pCO2 POC ABG pO2 ABG pO2 ABG HCO3 ABG O2 Saturation ABG Base Excess ABG Hemoglobin ABG Glucose Oxyhemoglobin Carboxyhemoglobin Sodium Potassium 5.1 H Chloride 109.2 H Carbon Dioxide 16 L BUN 101 H Creatinine 3.8 H Glucose 230 H POC Glucose Hemoglobin A1c Lactic Acid Calcium 7.5 L Ferritin Total Bilirubin AST Lactate Dehydrogenase C-Reactive Protein Total Protein Albumin Prealbumin Arterial Blood Glucose Arterial Blood Ionized Calcium Urine Creatinine Coronavirus (PCR) Chest x-ray: other (none today) Allied health notes reviewed: nursing
[2020-09-13] MEDS ORDERED: SODIUM POLYSTYRENE 15 GM/60 ML ORAL LIQD PO ONE (22:56)
[2020-09-14] MEDS: D5W/0.9% NACL 1,000 ML IV SCH ×2 (04:14→16:21)
[2020-09-14] MEDS: METOPROLOL TARTRATE 25 MG TAB PO SCH ×4 (04:15→21:32)
[2020-09-14] MEDS: dilTIAZem 60 MG TAB PO SCH ×4 (04:16→17:50)
[2020-09-14 08:23] LABS: Calcium 7.6 mg/dL (8.4-10.2)
[2020-09-14] MEDS ORDERED: SODIUM POLYSTYRENE 15 GM/60 ML ORAL LIQD PO ONE (09:00)
[2020-09-14] MEDS: dexAMETHasone 4 MG/ML VIAL IV SCH (09:00)
[2020-09-14] MEDS: FAMOTIDINE 20 MG/2 ML INJ IV SCH (09:00)
--- NOTE | 2020-09-14 10:06 | Progress Note ---
<WILIAM SANDS - Last Filed: 09/14/20 15:15> Assessment and Plan (1) Acute respiratory failure with hypoxia Current Visit: Yes Status: Acute Plan to address problem: Patient currently intubated . Vent management and wean off vent as tolerated Faculty Neuropsychologist following-keep Sa02 >90% (2) Pneumonia due to COVID-19 virus Current Visit: Yes Status: Acute Plan to address problem: Continue to monitor inflammatory [id number], CRP and ferritin Continue IV Decadron Patient was discharged on from [facility] We will get the records from [facility] ID consult (3) Sepsis Current Visit: Yes Status: Acute Qualifiers: Sepsis type: sepsis due to unspecified organism Plan to address problem: Mostly 2/2 secondary to Covid or coronavirus empiric antibiotics in the form of cefepime and vancomycin Blood culture abd ID consulted (4) 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: Chronic Qualifiers: CVA mechanism: thrombosis Laterality of affected vessel: unspecified Plan to address problem: PT OT after extubation 5) Encephalopathy due to 2019 novel coronavirus Current Visit: Yes Status: Acute Plan to address problem: Neurologist consultedpt seen by neurologist -input appreciated (6) Seizures Current Visit: Yes Status: Acute Plan to address problem: Continue IV Keprra BID Seizure precaution (7) A-fib Current Visit: Yes Status: Acute Plan to address problem: goodwill representative consulted reviewed goodwill representative note-input appreciated -Continue Cardizem and BB (8) MYRON (acute kidney injury) Current Visit: Yes Status: Acute Plan to address problem: Vasomotor nephropathy in the setting of Shock and severe COVID infection. Monitor kidney function Renal US -negative. Continue IV fluids.. elevated Creatinine level -continue to increase. Avoid nephrotoxic agents. Per equine vet -Patient require hemodialysis due to worsening renal function, metabolic abnormalities and decreased UOP. (9) Hyperkalemia Current Visit: Yes Status: Acute Plan to address problem: patient given kayeaxalte today Monitor potassium level PRN kayaexalate-monitor electrolytes 10) Septic shock Current Visit: Yes Status: Acute Plan to address problem: secondery to covid 19 Off pressors now sedated on prdx gtt (11) DVT prophylaxis Current Visit: Yes Status: Acute Plan to address problem: On Lovenox and GI prophylaxia Subjective Date of service: 09/14/20 Principal diagnosis: Ac hypoxemic resp failure; COVID-19; Pneumonia; Septic Shock; MYRON; H/O CVA Interval history: Reviewed lab, mar, and v/s Patient seen at bedside-reviewed specialist note and reces. patient is intubated on vent-noted agitation but no purposeful response-on prdx gtt Elevated potassium-given kayeoxalate today Objective - Constitutional Vitals: Vital Signs - 12hr 09/13/20 09/13/20 09/13/20 22:31 23:00 23:31 Temperature Pulse Rate 71 72 74 Pulse Rate [ From Monitor] Respiratory 18 18 18 Rate Blood Pressure 130/70 121/71 121/71 O2 Sat by Pulse 96 96 96 Oximetry 09/14/20 09/14/20 09/14/20 00:00 00:31 03:28 Temperature 98.8 F Pulse Rate 73 81 Pulse Rate [ From Monitor] Respiratory 18 17 Rate Blood Pressure 122/72 122/72 O2 Sat by Pulse 96 94 Oximetry 09/14/20 09/14/20 09/14/20 05:13 08:00 09:29 Temperature Pulse Rate 76 80 Pulse Rate [ 79 From Monitor] Respiratory 17 Rate Blood Pressure 129/77 O2 Sat by Pulse 96 94 Oximetry 09/14/20 09:44 Temperature 97.3 F L Pulse Rate Pulse Rate [ From Monitor] Respiratory Rate Blood Pressure O2 Sat by Pulse Oximetry General appearance: Present: severe distress, other (in distress-sedated with prdx) - EENT Eyes: PERRL, EOM intact ENT: hearing intact, clear oral mucosa Ears: bilateral: normal - Neck Neck: supple, normal ROM - Respiratory Respiratory effort: accessory muscle use Respiratory: bilateral: diminished - Breasts Breasts: normal - Cardiovascular Heart rate: 122 Rhythm: regular Heart Sounds: Present: S1 & S2. Absent: gallop, rub Extremities: pulses intact, No edema, normal color, Full ROM - Gastrointestinal General gastrointestinal: Present: soft, non-tender, non-distended, normal bowel sounds - Genitourinary Male genitourinary: normal - Integumentary Integumentary: clear, warm, dry - Musculoskeletal Musculoskeletal: generalized weakness - Neurologic Neurologic: moves all extremities - Psychiatric Psychiatric: agitated (sedated) - Allied health notes Allied health notes reviewed: nursing - Labs CBC & Chem 7: 09/13/20 05:21 09/14/20 06:50 Labs: Abnormal lab results 09/14/20 09/14/20 09/14/20 Range/Units 03:46 05:32 06:50 Potassium 5.4 H (3.6-5.0) mmol/L Chloride 110.3 H (98-107) mmol/L Carbon Dioxide 17 L (22-30) mmol/L BUN 109 H (9-20) mg/dL Creatinine 3.8 H (0.8-1.3) mg/dL Glucose 270 H (75-100) mg/dL POC Glucose 163 H 202 H (70-105) mg/dL Calcium 7.6 L (8.4-10.2) mg/dL HEART Score - HEART Score Troponin: Troponin T < 0.010 ng/mL (0.00-0.029) 09/07/20 18:00 <MEMO SPIVEY - Last Filed: 09/15/20 11:37> Assessment and Plan I did not personally evaluate the patient but reviewed chart and provided virtual support to [employer] helping with surge of patients due to covid pandemic Objective - Constitutional Vitals: Vital Signs - 12hr 09/15/20 09/15/20 09/15/20 00:00 00:39 01:00 Temperature 97.3 F L Pulse Rate 68 69 70 Pulse Rate [ 71 From Monitor] Respiratory 14 14 Rate Blood Pressure 130/70 130/70 130/70 O2 Sat by Pulse 94 94 93 Oximetry 09/15/20 09/15/20 09/15/20 02:00 03:00 03:02 Temperature Pulse Rate 71 71 67 Pulse Rate [ From Monitor] Respiratory 13 13 Rate Blood Pressure 135/70 133/77 133/77 O2 Sat by Pulse 93 92 Oximetry 09/15/20 09/15/20 09/15/20 03:03 03:51 04:00 Temperature 97.8 F Pulse Rate 71 68 Pulse Rate [ 68 From Monitor] Respiratory 13 Rate Blood Pressure 133/77 133/77 O2 Sat by Pulse 92 Oximetry 09/15/20 09/15/20 09/15/20 05:00 05:19 05:40 Temperature Pulse Rate 69 2 L 64 Pulse Rate [ From Monitor] Respiratory 15 Rate Blood Pressure 123/74 131/80 123/74 O2 Sat by Pulse 92 96 Oximetry 09/15/20 09/15/20 09/15/20 06:00 08:00 08:10 Temperature 97.2 F L Pulse Rate 71 70 Pulse Rate [ From Monitor] Respiratory 17 Rate Blood Pressure 116/71 129/55 O2 Sat by Pulse 92 94 Oximetry 09/15/20 10:13 Temperature Pulse Rate 73 Pulse Rate [ From Monitor] Respiratory Rate Blood Pressure 124/68 O2 Sat by Pulse Oximetry - Labs CBC & Chem 7: 09/15/20 05:04 09/15/20 05:04 Labs: Abnormal lab results 09/14/20 09/14/20 09/14/20 Range/Units 12:01 16:38 23:42 Plt Count (140-440) K/mm3 ABG pO2 (80.0-90.0) mm Hg ABG HCO3 (20.0-26.0) mmol/L ABG O2 Saturation (95.0-99.0) % ABG Base Excess (-2.0-3.0) mmol/L ABG Hemoglobin (14.0-18.0) gm/dl Oxyhemoglobin (95.0-99.0) % Potassium (3.6-5.0) mmol/L Chloride (98-107) mmol/L Carbon Dioxide (22-30) mmol/L BUN (9-20) mg/dL Creatinine (0.8-1.3) mg/dL Glucose (75-100) mg/dL POC Glucose 231 H 292 H 299 H (70-105) mg/dL Calcium (8.4-10.2) mg/dL 09/15/20 09/15/20 09/15/20 Range/Units 04:40 05:04 05:04 Plt Count 118 L (140-440) K/mm3 ABG pO2 66.1 L (80.0-90.0) mm Hg ABG HCO3 13.9 L (20.0-26.0) mmol/L ABG O2 Saturation 94.1 L (95.0-99.0) % ABG Base Excess -8.3 L (-2.0-3.0) mmol/L ABG Hemoglobin 13.1 L (14.0-18.0) gm/dl Oxyhemoglobin 92.7 L (95.0-99.0) % Potassium 5.3 H (3.6-5.0) mmol/L Chloride 111.7 H (98-107) mmol/L Carbon Dioxide 15 L (22-30) mmol/L BUN > 112 H (9-20) mg/dL Creatinine 2.9 H (0.8-1.3) mg/dL Glucose 366 H (75-100) mg/dL POC Glucose (70-105) mg/dL Calcium 7.2 L (8.4-10.2) mg/dL 09/15/20 Range/Units 05:12 Plt Count (140-440) K/mm3 ABG pO2 (80.0-90.0) mm Hg ABG HCO3 (20.0-26.0) mmol/L ABG O2 Saturation (95.0-99.0) % ABG Base Excess (-2.0-3.0) mmol/L ABG Hemoglobin (14.0-18.0) gm/dl Oxyhemoglobin (95.0-99.0) % Potassium (3.6-5.0) mmol/L Chloride (98-107) mmol/L Carbon Dioxide (22-30) mmol/L BUN (9-20) mg/dL Creatinine (0.8-1.3) mg/dL Glucose (75-100) mg/dL POC Glucose 324 H (70-105) mg/dL Calcium (8.4-10.2) mg/dL HEART Score - HEART Score Troponin: Troponin T < 0.010 ng/mL (0.00-0.029) 09/07/20 18:00
--- NOTE | 2020-09-14 10:09 | Progress Note ---
Assessment and Plan 1. Acute kidney injury: Vasomotor nephropathy in the setting of Shock and severe COVID infection. Low FeNa. Renal US negative. Continue IV fluids. Monitor renal function. Creatinine level continue to increase. Avoid nephrotoxic agents. Meds dosage based on GFR. 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 Patient require hemodialysis due to worsening renal function, metabolic abnormalities and decreased UOP. D/w his son 09/12 over the phone and explained the indications, benefits, risks and alternatives involved in hemodialysis. Ongoing goals of care discussion. Currently family haven't decided about dialysis 2. FEN: Hyperkalemia, kayexalate as needed, monitor. Anion-gap metabolic acidosis, 2/2 lactic acidosis, monitor. Monitor lytes and volume status. 3. Acute hypoxic resp failure, POA: 2/2 COVID PNA. Currently intubated on vent. Followed by Pulmonary. 4. Septic shock: 2/2 severe COVID infection. Off pressors. 5. Pneumonia due to COVID-19 virus, POA: IV Decadron. S/p Remdesivir at [facility]. Followed by ID. 6. Acute Encephalopathy: Multi-factorial, most likely from covid 19 and pneumonia. Per Neuro Poor prognosis for full meaningful recovery. 7. H/o Hemorrhagic CVA. 8. Atrial fib: Mostly SR now. Followed by Cards. Prognosis is slim. Subjective: The patient was not examined today. However the examination findings from other providers noted. The current and previous medical records are reviewed in detail as are laboratory and imaging data reviewed when appropriate. Medications being given are also reviewed. In addition the case has been discussed with the attending hospitalist and the nurse when needed. New renal recommendations as above. Examination: Subjective Date of service: 09/14/20 Principal diagnosis: Ac hypoxemic resp failure; COVID-19; Pneumonia; Septic Shock; MYRON; H/O CVA Objective - Vital Signs Vital signs: Vital Signs - 12hr 09/13/20 09/13/20 09/13/20 22:31 23:00 23:31 Temperature Pulse Rate 71 72 74 Pulse Rate [ From Monitor] Respiratory 18 18 18 Rate Blood Pressure 130/70 121/71 121/71 O2 Sat by Pulse 96 96 96 Oximetry 09/14/20 09/14/20 09/14/20 00:00 00:31 03:28 Temperature 98.8 F Pulse Rate 73 81 Pulse Rate [ From Monitor] Respiratory 18 17 Rate Blood Pressure 122/72 122/72 O2 Sat by Pulse 96 94 Oximetry 09/14/20 09/14/20 09/14/20 05:13 08:00 09:29 Temperature Pulse Rate 76 80 Pulse Rate [ 79 From Monitor] Respiratory 17 Rate Blood Pressure 129/77 O2 Sat by Pulse 96 94 Oximetry 09/14/20 09:44 Temperature 97.3 F L Pulse Rate Pulse Rate [ From Monitor] Respiratory Rate Blood Pressure O2 Sat by Pulse Oximetry - Lab 09/13/20 05:21 09/14/20 06:50 Most recent lab results ABG pH 7.399 pH Units (7.350-7.450) 09/13/20 04:40 ABG pCO2 25.7 mm Hg 09/13/20 04:40 ABG pO2 72.8 mm Hg (80.0-90.0) L 09/13/20 04:40 ABG HCO3 15.5 mmol/L (20.0-26.0) L 09/13/20 04:40 ABG O2 Saturation 95.0 % (95.0-99.0) 09/13/20 04:40 Calcium 7.6 mg/dL (8.4-10.2) L 09/14/20 06:50 Phosphorus 3.20 mg/dL (2.5-4.5) 09/08/20 10:13 Magnesium 2.00 mg/dL (1.7-2.3) 09/08/20 10:13 Urine Creatinine 213.6 mg/dL (0.1-20.0) H 09/09/20 Unknown Urine Sodium 19 mmol/L 09/09/20 Unknown Medications & Allergies - Medications Allergies/Adverse Reactions: Allergies ceftriaxone Allergy (Verified 09/11/20 11:49) Rash RASH AND ITCHING PER OCTAVIO Home Medications: Home Medications Medication Instructions Recorded Confirmed Last Taken Type Aspirin [Aspirin BABY CHEW TAB] 81 mg PO QDAY #30 tab.chew 12/12/13 09/11/20 Unknown Rx Atorvastatin [Lipitor Tab] 80 mg PO QHS 09/11/20 09/11/20 Unknown History amLODIPine [Norvasc] 5 mg PO DAILY 09/11/20 09/11/20 Unknown History Active Medications: Generic Name Dose Route Start Last Admin Trade Name Freq PRN Reason Stop Dose Admin Acetaminophen 650 mg 09/08/20 07:00 Acetaminophen 325 Mg/10.15 Ml Oral Liqd Unit Dose PO Q4H PRN Pain MILD(1-3)/Fever >100.5/BEST Lipase/Protease/Amylase 1 each 09/08/20 06:31 Lipase 10,500/Protease 25,000/Amylase 43,750 (Units) Dr Cap FEEDTUBE PRN PRN For Clogged Feeding Tube Dexamethasone 6 mg 09/09/20 20:56 09/14/20 09:00 Dexamethasone 4 Mg/Ml Vial IV 09/18/20 10:01 6 mg Q24HR CRISTIN Administration Diltiazem HCl 60 mg 09/10/20 14:00 09/14/20 06:00 Diltiazem 60 Mg Tab PO Not Given Q6HR CRISTIN Famotidine 20 mg 09/10/20 10:00 09/14/20 09:00 Famotidine 20 Mg/2 Ml Inj IV 20 mg DAILY CRISTIN Administration Fentanyl 50 mcg 09/09/20 19:53 Fentanyl 100 Mcg/2 Ml Inj IV Q10MIN PRN ANALGESIA Heparin Sodium (Porcine) 3,200 unit 09/09/20 19:53 09/10/20 05:53 Heparin 10,000 Units/10 Ml Vial 40 unit/kg (3200 unit) 3,200 unit IV Administration Q6H PRN Anti-Xa Assay < 0.1 units/ml Hydrophilic Ointment 1 applic 09/07/20 22:11 Lip Therapy Vaseline TP Q2HR PRN Dry Lips Norepinephrine 4 mg in 250 mls @ 7.5 mls/hr 09/07/20 21:19 09/09/20 21:53 Levophed Drip 4 Mg/Ns 250 Ml IV 12 mcg/min TITR CRISTIN 45 mls/hr Administration Protocol 2 MCG/MIN Midazolam HCl 100 mg/ Sodium 100 mls @ 2 mls/hr 09/07/20 23:00 09/09/20 21:57 Chloride IV 4 mg/hr TITR CRISTIN 4 mls/hr Administration Protocol 2 MG/HR Levofloxacin/Dextrose 750 mg in 150 mls @ 100 mls/hr 09/09/20 13:00 09/13/20 16:30 Levaquin 750mg/150ml IV 09/17/20 14:29 100 mls/hr Q48H CRISTIN Administration Heparin Sodium/Sodium Chloride 25,000 unit in 500 mls @ 23 mls/hr 09/09/20 20:00 09/11/20 15:47 Heparin/ 0.45% Nacl-25,000 Unit/500 Ml IV 700 units/hr TITR CRISTIN 14 mls/hr Administration Protocol 1,150 UNITS/HR Fentanyl Citrate 2,000 mcg in 100 mls @ 3.98 mls/hr 09/09/20 20:00 Fentanyl Drip Premix IV TITR CRISTIN Protocol 1 MCG/KG/HR Dextrose/Sodium Chloride 1,000 mls @ 75 mls/hr 09/11/20 17:00 09/14/20 04:14 D5ns IV 75 mls/hr DIRECT CRISTIN Administration Sodium Chloride 100 mls @ 999 mls/hr 09/12/20 12:00 Nacl 0.9% IV ANNA MARIE PRN Hypotension Metoprolol Tartrate 5 mg 09/10/20 13:07 Metoprolol Tartrate 5 Mg/5 Ml Inj IV Q6HR PRN HR>130 Metoprolol Tartrate 25 mg 09/11/20 14:00 09/14/20 04:15 Metoprolol Tartrate 25 Mg Tab PO Not Given Q6H CRISTIN Midazolam HCl 2 mg 09/07/20 22:11 Midazolam 2 Mg/2 Ml Inj IV Q10MIN PRN Sedation Morphine Sulfate 2 mg 09/08/20 06:29 Morphine 2 Mg/1 Ml Inj IV Q4H PRN Pain, Moderate (4-6) Multi-Ingred Cream/Lotion/Oil/Oint 1 applic 09/07/20 22:11 Mineral Oil/Petrolatum, White Ophth Oint 3.5 Gm OU Q4HR PRN Dry Eye(s) Ondansetron HCl 4 mg 09/08/20 06:29 Ondansetron 4 Mg/2 Ml Inj IV Q8H PRN Nausea And Vomiting Simple Syrup 15 ml 09/08/20 06:31 Simple Syrup 15 Ml FEEDTUBE PRN PRN Hypoglycemia Simple Syrup 30 ml 09/08/20 06:31 Simple Syrup 15 Ml FEEDTUBE PRN PRN Hypoglycemia Sodium Bicarbonate 325 mg 09/08/20 06:31 Sodium Bicarbonate 325 Mg Tab FEEDTUBE PRN PRN For Clogged Feeding Tube Sodium Chloride 10 ml 09/08/20 10:00 09/14/20 09:09 Sodium Chloride 0.9% 10 Ml Flush Syringe IV 10 ml BID CRISTIN Administration Sodium Chloride 10 ml 09/08/20 06:29 Sodium Chloride 0.9% 10 Ml Flush Syringe IV PRN PRN LINE FLUSH
--- NOTE | 2020-09-14 15:23 | Progress Note ---
Assessment and Plan - Patient Problems (1) Atrial fibrillation with rapid ventricular response Current Visit: Yes Status: Acute Plan to address problem: Continue treatment with diltiazem, beta-blockers as tolerated for paroxysmal atrial fibrillation. Subjective Date of service: 09/14/20 Principal diagnosis: Ac hypoxemic resp failure; COVID-19; Pneumonia; Septic Shock; MYRON; H/O CVA Interval history: Patient is sedated, on the vent, current ventricular heart rate 70, sinus with PACs. Objective Vital Signs Temp Pulse Pulse Resp BP Pulse Ox 09/14/20 13:35 80 141/85 09/14/20 12:00 97.4 F L 78 79 17 94 09/14/20 11:35 78 20 145/85 94 09/14/20 11:23 78 145/85 09/14/20 09:50 81 145/85 95 09/14/20 09:44 97.3 F L 09/14/20 09:29 80 09/14/20 08:00 79 17 94 09/14/20 05:13 76 129/77 96 09/14/20 03:28 98.8 F 09/14/20 00:31 81 17 122/72 94 09/14/20 00:00 73 18 122/72 96 09/13/20 23:31 74 18 121/71 96 09/13/20 23:00 72 18 121/71 96 09/13/20 22:31 71 18 130/70 96 09/13/20 22:00 68 13 130/70 96 09/13/20 21:31 73 17 123/74 96 09/13/20 21:00 71 11 L 123/74 96 09/13/20 20:31 71 16 113/75 95 09/13/20 20:16 70 113/75 95 09/13/20 20:03 73 15 113/75 92 09/13/20 20:00 78 16 113/75 94 09/13/20 19:30 68 11 L 119/72 95 09/13/20 19:23 70 119/72 09/13/20 19:00 70 9 L 119/72 94 09/13/20 16:18 75 96 - Physical Examination Narrative exam: Full physical exam deferred due to patient's acute COVID-19 infection. General: Other (Sedate, on the vent) - Labs and Meds Comprehensive Metabolic Panel 09/14/20 Range/Units 06:50 Sodium 141 (137-145) mmol/L Potassium 5.4 H (3.6-5.0) mmol/L Chloride 110.3 H (98-107) mmol/L Carbon Dioxide 17 L (22-30) mmol/L BUN 109 H (9-20) mg/dL Creatinine 3.8 H (0.8-1.3) mg/dL Glucose 270 H (75-100) mg/dL Calcium 7.6 L (8.4-10.2) mg/dL - Allied health notes Allied health notes reviewed: nursing
--- NOTE | 2020-09-14 16:38 | Progress Note ---
Assessment and Plan Acute hypoxemic respiratory failure, on MVS COVID-19 infection. Bilateral pneumonia Acute encephalopathy, presumably toxic metabolic. Severe sepsis with shock. Acute kidney injury. History of cerebrovascular accident. Leukocytosis. Severe metabolic acidosis. Lactic acidosis. Elevated serum inflammatory markers to include D-dimers. - begin SSI - Lantus 5 units SQ q24h - Azotemia per nephrology; family deciding on HD/UF - AMS remains rate limiting factor to safe extubation acutely if meets other criteria but will continue to monitor - neurology evaluation is ongoing; initial CT head without gross acute process - continue care as below otherwise; - prn vasopressors for target MAP > 65 mmHg - continue Daily SAT and SBT assessment as tolerated - continue to wean supplemental oxygen for target O2 sat's > 90% acutely - VAP bundle addressed - continue lung protective strategies - continue bronchodilators with pulmonary hygiene per RT - wean per pulmonary driven protocols otherwise - continue accuchecks with glycemic control per SSI (While critically ill target blood glucose of 140-180 mg/dL; avoid hypoglycemia) - sedation prn for target RASS 0 to -1 - avoid nephrotoxins, renally dose all medications - continue to avoid benzodiazepine's, reduce the possibility of delirium - completed AB's per ID rec's - prn analgesia per CPOT score - Maintenance of sleep-wake cycle, avoid delirium - continue enteral nutritional support at goal rate as tolerated - G.I. & VTE prophylaxis - PT/OT/ROM exercises - continue mobility protocols for pressure ulcer prophylaxis - Monitor hemodynamics closely - continue other care per attending / other consultants - discharge planning ongoing concurrently COVID SPECIFIC INTERVENTIONS - Remdesivir / other COVID specific interventions per ID recommendations - continue systemic steroids for severe COVID-19 infection empirically - repeat COVID tests per facility protocol - Monitor inflammatory markers per facility protocol - ferritin, Ddimer, CRP - therapeutic anticoagulation per system Protocol based on d-dimer - Continue contact and airborne isolation - discharge planning ongoing concurrently .... Re-evaluate in am & prn CONDITION: CRITICAL PROGNOSIS: GUARDED CODE STATUS: FULL CODE The high probability of a clinically significant, sudden or life-threatening deterioration of the [respiratory, cardiovascular, hematologic, renal & neurol ogic] system(s) required my full and direct attention, intervention and personal management. The aggregate critical care time was [35] minutes without overlap. Time includes spent on; [x] Data Review and interpretation [x] Patient assessment and monitoring of vital signs [x] Documentation [x] Medication orders and management Subjective Date of service: 09/14/20 Principal diagnosis: Ac hypoxemic resp failure; COVID-19; Pneumonia; Septic Shock; MYRON; H/O CVA Interval history: Patient is seen today for: Acute hypoxemic respiratory failure; COVID-19 infection; Bilateral pneumonia; Acute encephalopathy, presumably toxic metabolic; Severe sepsis with shock; Acute kidney injury; History of cerebrovascular accident Seen and examined at bedside; 24hour events reviewed; nursing and respiratory care staff consulted; no adverse overnight events reported to me; resting peacefully in bed; remains on MVS; AMS is persistent; no emesis or overt aspira tion; tolerating SBT's decently Objective Vital Signs - 12hr 09/14/20 09/14/20 09/14/20 05:13 08:00 09:29 Temperature Pulse Rate 76 80 Pulse Rate [ 79 From Monitor] Respiratory 17 Rate Blood Pressure 129/77 O2 Sat by Pulse 96 94 Oximetry 09/14/20 09/14/20 09/14/20 09:44 09:50 11:23 Temperature 97.3 F L Pulse Rate 81 78 Pulse Rate [ From Monitor] Respiratory Rate Blood Pressure 145/85 145/85 O2 Sat by Pulse 95 Oximetry 09/14/20 09/14/20 09/14/20 11:35 12:00 13:35 Temperature 97.4 F L Pulse Rate 78 78 80 Pulse Rate [ 79 From Monitor] Respiratory 20 17 Rate Blood Pressure 145/85 141/85 O2 Sat by Pulse 94 94 Oximetry 09/14/20 15:30 Temperature Pulse Rate 80 Pulse Rate [ From Monitor] Respiratory Rate Blood Pressure 141/85 O2 Sat by Pulse 94 Oximetry Constitutional: appears uncomfortable, other (elderly obese male with mildly increased respiratory effort at rest on MVS) Eyes: non-icteric ENT: oropharynx moist, other (ETT 24 cm BREANN) Neck: supple, no lymphadenopathy, no JVD Effort: mildly labored Ascultation: Bilateral: diminished breath sounds, rhonchi Percussion: Bilateral: not dull Cardiovascular: regular rate and rhythm Gastrointestinal: normoactive bowel sounds, soft, non-tender, non-distended (protuberant) Integumentary: other (please see [facility] notes) Extremities: no cyanosis, pulses normal, no ischemia or petechiae Neurologic: pupils equal and round, unable to assess Psychiatric: other (unable to assess re: AMS) CBC and BMP: 09/15/20 05:04 09/15/20 05:04 ABG, PT/INR, D-dimer: ABG ABG pH 7.399 pH Units (7.350-7.450) 09/13/20 04:40 POC ABG pCO2 22.8 mmHg (32.0-48.0) L 09/11/20 05:11 ABG pCO2 25.7 mm Hg 09/13/20 04:40 POC ABG pO2 76.3 mmHg (83-108) L 09/11/20 05:11 ABG pO2 72.8 mm Hg (80.0-90.0) L 09/13/20 04:40 POC ABG HCO3 14.7 09/11/20 05:11 ABG O2 Saturation 95.0 % (95.0-99.0) 09/13/20 04:40 PT/INR, D-dimer PT 15.8 Sec. 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 09/07/20 18:00 Abnormal lab findings: Abnormal Labs 09/07/20 09/07/20 09/07/20 17:25 18:00 18:00 WBC 23.5 H RBC Hgb Hct MCHC RDW Plt Count Lymph % (Auto) Lymph # (Auto) Seg Neutrophils % Seg Neuts % (Manual) 94.0 H Lymphocytes % (Manual) 1.0 L Seg Neutrophils # Seg Neutrophils # Man 22.1 H Lymphocytes # (Manual) 0.2 L PT INR APTT D-Dimer > 18374 H Heparin Anti-Xa Level ABG pH POC ABG pCO2 POC ABG pO2 ABG pO2 ABG HCO3 ABG O2 Saturation ABG Base Excess ABG Hemoglobin ABG Glucose Oxyhemoglobin Carboxyhemoglobin Sodium Potassium Chloride Carbon Dioxide BUN Creatinine Glucose POC Glucose Hemoglobin A1c Lactic Acid Calcium Ferritin Total Bilirubin AST Lactate Dehydrogenase C-Reactive Protein Total Protein Albumin Prealbumin Arterial Blood Glucose Arterial Blood Ionized Calcium Urine Creatinine Coronavirus (PCR) Positive A 1209/07/20 09/07/20 18:00 18:00 18:00 WBC RBC Hgb Hct MCHC RDW Plt Count Lymph % (Auto) Lymph # (Auto) Seg Neutrophils % Seg Neuts % (Manual) Lymphocytes % (Manual) Seg Neutrophils # Seg Neutrophils # Man Lymphocytes # (Manual) PT INR APTT 72.7 H* D-Dimer Heparin Anti-Xa Level ABG pH POC ABG pCO2 POC ABG pO2 ABG pO2 ABG HCO3 ABG O2 Saturation ABG Base Excess ABG Hemoglobin ABG Glucose Oxyhemoglobin Carboxyhemoglobin Sodium Potassium Chloride Carbon Dioxide 9 L* BUN 24 H Creatinine Glucose 143 H POC Glucose Hemoglobin A1c Lactic Acid Calcium 7.6 L Ferritin 849.7 H Total Bilirubin 1.80 H AST 45 H Lactate Dehydrogenase 507 H C-Reactive Protein 8.20 H Total Protein 5.6 L Albumin 2.8 L Prealbumin Arterial Blood Glucose Arterial Blood Ionized Calcium Urine Creatinine Coronavirus (PCR) 09/07/20 09/07/20 09/08/20 19:37 20:30 01:07 WBC RBC Hgb Hct MCHC RDW Plt Count Lymph % (Auto) Lymph # (Auto) Seg Neutrophils % Seg Neuts % (Manual) Lymphocytes % (Manual) Seg Neutrophils # Seg Neutrophils # Man Lymphocytes # (Manual) PT INR APTT D-Dimer Heparin Anti-Xa Level ABG pH 7.336 L POC ABG pCO2 POC ABG pO2 ABG pO2 91.2 H ABG HCO3 14.1 L ABG O2 Saturation ABG Base Excess -9.9 L ABG Hemoglobin ABG Glucose Oxyhemoglobin Carboxyhemoglobin Sodium Potassium Chloride Carbon Dioxide BUN Creatinine Glucose POC Glucose Hemoglobin A1c Lactic Acid 8.80 H* 3.80 H* Calcium Ferritin Total Bilirubin AST Lactate Dehydrogenase C-Reactive Protein Total Protein Albumin Prealbumin Arterial Blood Glucose Arterial Blood Ionized Calcium Urine Creatinine Coronavirus (PCR) 09/08/20 09/08/20 09/08/20 04:25 10:13 10:13 WBC 21.7 H RBC 5.49 H Hgb 17.1 H Hct 49.6 H MCHC 35 H RDW Plt Count Lymph % (Auto) Lymph # (Auto) Seg Neutrophils % Seg Neuts % (Manual) 96.0 H Lymphocytes % (Manual) 1.0 L Seg Neutrophils # Seg Neutrophils # Man 20.8 H Lymphocytes # (Manual) 0.2 L PT INR APTT D-Dimer Heparin Anti-Xa Level ABG pH 7.484 H POC ABG pCO2 POC ABG pO2 ABG pO2 148.2 H ABG HCO3 17.2 L ABG O2 Saturation ABG Base Excess -4.1 L ABG Hemoglobin ABG Glucose Oxyhemoglobin Carboxyhemoglobin Sodium Potassium Chloride Carbon Dioxide BUN Creatinine Glucose POC Glucose Hemoglobin A1c Lactic Acid 3.40 H* Calcium Ferritin Total Bilirubin AST Lactate Dehydrogenase C-Reactive Protein Total Protein Albumin Prealbumin Arterial Blood Glucose Arterial Blood Ionized Calcium Urine Creatinine Coronavirus (PCR) 09/08/20 09/08/20 09/08/20 10:13 10:13 10:13 WBC RBC Hgb Hct MCHC RDW Plt Count Lymph % (Auto) Lymph # (Auto) Seg Neutrophils % Seg Neuts % (Manual) Lymphocytes % (Manual) Seg Neutrophils # Seg Neutrophils # Man Lymphocytes # (Manual) PT INR APTT D-Dimer Heparin Anti-Xa Level ABG pH POC ABG pCO2 POC ABG pO2 ABG pO2 ABG HCO3 ABG O2 Saturation ABG Base Excess ABG Hemoglobin ABG Glucose Oxyhemoglobin Carboxyhemoglobin Sodium 135 L Potassium Chloride Carbon Dioxide 20 L D BUN 35 H Creatinine 1.6 H D Glucose 192 H POC Glucose Hemoglobin A1c 6.2 H Lactic Acid Calcium 8.3 L Ferritin Total Bilirubin 1.80 H AST 55 H Lactate Dehydrogenase C-Reactive Protein Total Protein Albumin 2.6 L Prealbumin 0.049 L Arterial Blood Glucose Arterial Blood Ionized Calcium Urine Creatinine Coronavirus (PCR) 09/08/20 09/08/20 09/08/20 20:18 20:18 20:18 WBC 29.8 H RBC Hgb 15.3 H Hct MCHC RDW Plt Count Lymph % (Auto) Lymph # (Auto) Seg Neutrophils % Seg Neuts % (Manual) Lymphocytes % (Manual) Seg Neutrophils # Seg Neutrophils # Man Lymphocytes # (Manual) PT INR APTT D-Dimer Heparin Anti-Xa Level ABG pH POC ABG pCO2 POC ABG pO2 ABG pO2 ABG HCO3 ABG O2 Saturation ABG Base Excess ABG Hemoglobin ABG Glucose Oxyhemoglobin Carboxyhemoglobin Sodium 136 L Potassium Chloride Carbon Dioxide 17 L BUN 42 H Creatinine 1.9 H Glucose 203 H POC Glucose Hemoglobin A1c Lactic Acid 2.20 H* Calcium 7.6 L Ferritin Total Bilirubin AST 51 H Lactate Dehydrogenase C-Reactive Protein Total Protein 6.2 L Albumin 2.1 L Prealbumin Arterial Blood Glucose Arterial Blood Ionized Calcium Urine Creatinine Coronavirus (PCR) 09/08/20 09/09/20 09/09/20 21:53 00:19 03:15 WBC RBC Hgb Hct MCHC RDW Plt Count Lymph % (Auto) Lymph # (Auto) Seg Neutrophils % Seg Neuts % (Manual) Lymphocytes % (Manual) Seg Neutrophils # Seg Neutrophils # Man Lymphocytes # (Manual) PT INR APTT D-Dimer Heparin Anti-Xa Level ABG pH POC ABG pCO2 POC ABG pO2 ABG pO2 97.0 H ABG HCO3 16.3 L ABG O2 Saturation ABG Base Excess -7.5 L ABG Hemoglobin ABG Glucose Oxyhemoglobin Carboxyhemoglobin Sodium Potassium Chloride Carbon Dioxide BUN Creatinine Glucose POC Glucose Hemoglobin A1c Lactic Acid 3.20 H* 2.10 H* Calcium Ferritin Total Bilirubin AST Lactate Dehydrogenase C-Reactive Protein Total Protein Albumin Prealbumin Arterial Blood Glucose Arterial Blood Ionized Calcium Urine Creatinine Coronavirus (PCR) 09/09/20 09/09/20 09/09/20 04:54 04:54 04:54 WBC 28.5 H RBC Hgb Hct MCHC RDW Plt Count Lymph % (Auto) 1.3 L Lymph # (Auto) 0.4 L Seg Neutrophils % 96.1 H Seg Neuts % (Manual) Lymphocytes % (Manual) Seg Neutrophils # 27.4 H Seg Neutrophils # Man Lymphocytes # (Manual) PT INR APTT D-Dimer Heparin Anti-Xa Level ABG pH POC ABG pCO2 POC ABG pO2 ABG pO2 ABG HCO3 ABG O2 Saturation ABG Base Excess ABG Hemoglobin ABG Glucose Oxyhemoglobin Carboxyhemoglobin Sodium Potassium Chloride Carbon Dioxide 17 L BUN 45 H Creatinine 2.2 H Glucose 201 H POC Glucose Hemoglobin A1c Lactic Acid 2.90 H* Calcium 7.8 L Ferritin Total Bilirubin AST Lactate Dehydrogenase C-Reactive Protein Total Protein Albumin Prealbumin Arterial Blood Glucose Arterial Blood Ionized Calcium Urine Creatinine Coronavirus (PCR) 09/09/20 09/09/20 09/09/20 06:56 09:04 20:28 WBC RBC Hgb Hct MCHC RDW Plt Count Lymph % (Auto) Lymph # (Auto) Seg Neutrophils % Seg Neuts % (Manual) Lymphocytes % (Manual) Seg Neutrophils # Seg Neutrophils # Man Lymphocytes # (Manual) PT 15.8 H INR 1.26 H APTT 40.7 H D-Dimer Heparin Anti-Xa Level ABG pH POC ABG pCO2 POC ABG pO2 ABG pO2 ABG HCO3 ABG O2 Saturation ABG Base Excess ABG Hemoglobin ABG Glucose Oxyhemoglobin Carboxyhemoglobin Sodium Potassium Chloride Carbon Dioxide BUN Creatinine Glucose POC Glucose Hemoglobin A1c Lactic Acid 4.70 H* 3.70 H* Calcium Ferritin Total Bilirubin AST Lactate Dehydrogenase C-Reactive Protein Total Protein Albumin Prealbumin Arterial Blood Glucose Arterial Blood Ionized Calcium Urine Creatinine Coronavirus (PCR) 09/09/20 09/10/20 09/10/20 Unknown 02:24 04:56 WBC 24.2 H RBC Hgb Hct MCHC RDW Plt Count Lymph % (Auto) Lymph # (Auto) Seg Neutrophils % Seg Neuts % (Manual) 97.5 H Lymphocytes % (Manual) 1.0 L Seg Neutrophils # Seg Neutrophils # Man 23.6 H Lymphocytes # (Manual) 0.2 L PT INR APTT D-Dimer Heparin Anti-Xa Level ABG pH POC ABG pCO2 POC ABG pO2 ABG pO2 120.7 H ABG HCO3 15.1 L ABG O2 Saturation ABG Base Excess -8.0 L ABG Hemoglobin ABG Glucose Oxyhemoglobin Carboxyhemoglobin Sodium Potassium Chloride Carbon Dioxide BUN Creatinine Glucose POC Glucose Hemoglobin A1c Lactic Acid Calcium Ferritin Total Bilirubin AST Lactate Dehydrogenase C-Reactive Protein Total Protein Albumin Prealbumin Arterial Blood Glucose Arterial Blood Ionized Calcium Urine Creatinine 213.6 H Coronavirus (PCR) 09/10/20 09/10/20 09/11/20 04:56 17:58 01:02 WBC RBC Hgb Hct MCHC RDW Plt Count Lymph % (Auto) Lymph # (Auto) Seg Neutrophils % Seg Neuts % (Manual) Lymphocytes % (Manual) Seg Neutrophils # Seg Neutrophils # Man Lymphocytes # (Manual) PT INR APTT D-Dimer Heparin Anti-Xa Level > 2.00 H 2.00 H ABG pH POC ABG pCO2 POC ABG pO2 ABG pO2 ABG HCO3 ABG O2 Saturation ABG Base Excess ABG Hemoglobin ABG Glucose Oxyhemoglobin Carboxyhemoglobin Sodium Potassium Chloride Carbon Dioxide 18 L BUN 62 H Creatinine 2.8 H Glucose 216 H POC Glucose Hemoglobin A1c Lactic Acid Calcium 7.9 L Ferritin Total Bilirubin AST Lactate Dehydrogenase C-Reactive Protein Total Protein Albumin Prealbumin Arterial Blood Glucose Arterial Blood Ionized Calcium Urine Creatinine Coronavirus (PCR) 09/11/20 09/11/20 09/11/20 05:11 05:42 05:42 WBC RBC Hgb Hct MCHC RDW Plt Count 116 L Lymph % (Auto) Lymph # (Auto) Seg Neutrophils % Seg Neuts % (Manual) Lymphocytes % (Manual) Seg Neutrophils # Seg Neutrophils # Man Lymphocytes # (Manual) PT INR APTT D-Dimer Heparin Anti-Xa Level ABG pH POC ABG pCO2 22.8 L POC ABG pO2 76.3 L ABG pO2 ABG HCO3 ABG O2 Saturation ABG Base Excess ABG Hemoglobin ABG Glucose 208 H Oxyhemoglobin Carboxyhemoglobin 0.2 L Sodium Potassium Chloride 108.7 H Carbon Dioxide 15 L BUN 76 H Creatinine 3.0 H Glucose 202 H POC Glucose Hemoglobin A1c Lactic Acid Calcium 7.5 L Ferritin Total Bilirubin AST Lactate Dehydrogenase C-Reactive Protein Total Protein Albumin Prealbumin Arterial Blood Glucose 208 H Arterial Blood Ionized Calcium 4.1 L Urine Creatinine Coronavirus (PCR) 09/11/20 09/11/20 09/11/20 05:42 11:39 17:41 WBC 16.2 H RBC Hgb Hct MCHC RDW 15.3 H Plt Count 118 L Lymph % (Auto) Lymph # (Auto) Seg Neutrophils % Seg Neuts % (Manual) Lymphocytes % (Manual) Seg Neutrophils # Seg Neutrophils # Man Lymphocytes # (Manual) PT INR APTT D-Dimer Heparin Anti-Xa Level 1.82 H 1.14 H ABG pH POC ABG pCO2 POC ABG pO2 ABG pO2 ABG HCO3 ABG O2 Saturation ABG Base Excess ABG Hemoglobin ABG Glucose Oxyhemoglobin Carboxyhemoglobin Sodium Potassium Chloride Carbon Dioxide BUN Creatinine Glucose POC Glucose Hemoglobin A1c Lactic Acid Calcium Ferritin Total Bilirubin AST Lactate Dehydrogenase C-Reactive Protein Total Protein Albumin Prealbumin Arterial Blood Glucose Arterial Blood Ionized Calcium Urine Creatinine Coronavirus (PCR) 09/12/20 09/12/20 09/12/20 05:25 05:50 09:52 WBC RBC Hgb Hct MCHC RDW Plt Count Lymph % (Auto) Lymph # (Auto) Seg Neutrophils % Seg Neuts % (Manual) Lymphocytes % (Manual) Seg Neutrophils # Seg Neutrophils # Man Lymphocytes # (Manual) PT INR APTT D-Dimer Heparin Anti-Xa Level < 0.10 L ABG pH POC ABG pCO2 POC ABG pO2 ABG pO2 195.5 H ABG HCO3 15.5 L ABG O2 Saturation 99.3 H ABG Base Excess -7.5 L ABG Hemoglobin 12.4 L ABG Glucose Oxyhemoglobin Carboxyhemoglobin Sodium Potassium Chloride Carbon Dioxide 15 L BUN 89 H Creatinine 3.5 H Glucose 282 H POC Glucose Hemoglobin A1c Lactic Acid Calcium 7.2 L Ferritin Total Bilirubin AST Lactate Dehydrogenase C-Reactive Protein Total Protein Albumin Prealbumin Arterial Blood Glucose Arterial Blood Ionized Calcium Urine Creatinine Coronavirus (PCR) 09/12/20 09/13/20 09/13/20 15:56 04:40 05:21 WBC RBC Hgb Hct MCHC RDW Plt Count 126 L Lymph % (Auto) Lymph # (Auto) Seg Neutrophils % Seg Neuts % (Manual) Lymphocytes % (Manual) Seg Neutrophils # Seg Neutrophils # Man Lymphocytes # (Manual) PT INR APTT D-Dimer Heparin Anti-Xa Level ABG pH POC ABG pCO2 POC ABG pO2 ABG pO2 72.8 L ABG HCO3 15.5 L ABG O2 Saturation ABG Base Excess -7.8 L ABG Hemoglobin 11.7 L ABG Glucose Oxyhemoglobin 93.6 L Carboxyhemoglobin Sodium Potassium Chloride Carbon Dioxide BUN Creatinine Glucose POC Glucose 202 H Hemoglobin A1c Lactic Acid Calcium Ferritin Total Bilirubin AST Lactate Dehydrogenase C-Reactive Protein Total Protein Albumin Prealbumin Arterial Blood Glucose Arterial Blood Ionized Calcium Urine Creatinine Coronavirus (PCR) 09/13/20 09/14/20 09/14/20 05:21 03:46 05:32 WBC RBC Hgb Hct MCHC RDW Plt Count Lymph % (Auto) Lymph # (Auto) Seg Neutrophils % Seg Neuts % (Manual) Lymphocytes % (Manual) Seg Neutrophils # Seg Neutrophils # Man Lymphocytes # (Manual) PT INR APTT D-Dimer Heparin Anti-Xa Level ABG pH POC ABG pCO2 POC ABG pO2 ABG pO2 ABG HCO3 ABG O2 Saturation ABG Base Excess ABG Hemoglobin ABG Glucose Oxyhemoglobin Carboxyhemoglobin Sodium Potassium 5.1 H Chloride 109.2 H Carbon Dioxide 16 L BUN 101 H Creatinine 3.8 H Glucose 230 H POC Glucose 163 H 202 H Hemoglobin A1c Lactic Acid Calcium 7.5 L Ferritin Total Bilirubin AST Lactate Dehydrogenase C-Reactive Protein Total Protein Albumin Prealbumin Arterial Blood Glucose Arterial Blood Ionized Calcium Urine Creatinine Coronavirus (PCR) 09/14/20 09/14/20 06:50 12:01 WBC RBC Hgb Hct MCHC RDW Plt Count Lymph % (Auto) Lymph # (Auto) Seg Neutrophils % Seg Neuts % (Manual) Lymphocytes % (Manual) Seg Neutrophils # Seg Neutrophils # Man Lymphocytes # (Manual) PT INR APTT D-Dimer Heparin Anti-Xa Level ABG pH POC ABG pCO2 POC ABG pO2 ABG pO2 ABG HCO3 ABG O2 Saturation ABG Base Excess ABG Hemoglobin ABG Glucose Oxyhemoglobin Carboxyhemoglobin Sodium Potassium 5.4 H Chloride 110.3 H Carbon Dioxide 17 L BUN 109 H Creatinine 3.8 H Glucose 270 H POC Glucose 231 H Hemoglobin A1c Lactic Acid Calcium 7.6 L Ferritin Total Bilirubin AST Lactate Dehydrogenase C-Reactive Protein Total Protein Albumin Prealbumin Arterial Blood Glucose Arterial Blood Ionized Calcium Urine Creatinine Coronavirus (PCR) Chest x-ray: pending Allied health notes reviewed: nursing
[2020-09-14] MEDS ORDERED: DEXTROSE 50% IN WATER (25GM) 50 ML SYRINGE IV PRN (17:44)
[2020-09-14] MEDS ORDERED: INSULIN GLARGINE 100 UNITS/ML SUB-Q ONE (18:44)
[2020-09-14] MEDS: INSULIN REGULAR, HUMAN 100 UNIT/ML 3ML VIAL SUB-Q SCH (18:48)
[2020-09-15] MEDS: INSULIN REGULAR, HUMAN 100 UNIT/ML 3ML VIAL SUB-Q SCH ×4 (00:35→18:26)
[2020-09-15] MEDS: dilTIAZem 60 MG TAB PO SCH ×5 (03:02→23:50)
[2020-09-15] MEDS: METOPROLOL TARTRATE 25 MG TAB PO SCH ×4 (03:03→22:00)
[2020-09-15 04:50] LABS: ABG Base Excess -8.3 mmol/L (-2.0-3.0); ABG HCO3 13.9 mmol/L (20.0-26.0); ABG Methemoglobin 0.6 % (0.0-1.5); ABG Oxygen Saturation 94.1 % (95.0-99.0); ABG PCO2 21.6 mm Hg; ABG PH 7.426 pH Units (7.350-7.450); ABG PO2 66.1 mm Hg (80.0-90.0)
[2020-09-15 05:27] LABS: Hematocrit 39.9 % (35.5-45.6); Hemoglobin 13.4 gm/dl (11.8-15.2)
[2020-09-15] MEDS: D5W/0.9% NACL 1,000 ML IV SCH ×2 (05:39→21:48)
[2020-09-15 05:40] LABS: Calcium 7.2 mg/dL (8.4-10.2); Hemolysis Index 15
[2020-09-15 07:12] LABS: BUN/Creatinine Ratio 39; Blood Urea Nitrogen > 112 mg/dL (9-20)
[2020-09-15] MEDS ORDERED: LIPASE 10,500/PROTEASE 25,000/AMYLASE 43,750 (UNITS) DR CAP FEEDTUBE PRN (10:11)
[2020-09-15] MEDS ORDERED: SIMPLE SYRUP 15 ML FEEDTUBE PRN ×2 (10:11→10:31)
[2020-09-15] MEDS: dexAMETHasone 4 MG/ML VIAL IV SCH (10:12)
[2020-09-15] MEDS: FAMOTIDINE 20 MG TAB PO SCH (10:13)
--- NOTE | 2020-09-15 10:22 | Progress Note ---
Assessment and Plan - Patient Problems (1) Atrial fibrillation with rapid ventricular response Current Visit: Yes Status: Acute Plan to address problem: Continue treatment with diltiazem, beta-blockers as tolerated for paroxysmal atrial fibrillation. Subjective Date of service: 09/15/20 Principal diagnosis: Ac hypoxemic resp failure; COVID-19; Pneumonia; Septic Shock; MYRON; H/O CVA Interval history: Patient is sedated, on the vent, current ventricular heart rate 72, sinus with PACs. Objective Vital Signs Temp Pulse Pulse Resp BP Pulse Ox 09/15/20 08:10 70 129/55 94 09/15/20 08:00 97.2 F L 09/15/20 06:00 71 17 116/71 92 09/15/20 05:40 64 123/74 09/15/20 05:19 2 L 131/80 96 09/15/20 05:00 69 15 123/74 92 09/15/20 04:00 68 68 13 133/77 92 09/15/20 03:51 97.8 F 09/15/20 03:03 71 133/77 09/15/20 03:02 67 133/77 09/15/20 03:00 71 13 133/77 92 09/15/20 02:00 71 13 135/70 93 09/15/20 01:00 70 14 130/70 93 09/15/20 00:39 69 130/70 94 09/15/20 00:00 97.3 F L 68 71 14 130/70 94 09/14/20 23:00 65 13 118/74 94 09/14/20 22:32 66 13 118/74 95 09/14/20 22:00 67 13 118/74 94 09/14/20 21:32 75 141/75 09/14/20 21:09 72 141/79 94 09/14/20 21:00 72 14 141/79 95 09/14/20 20:02 70 14 140/80 94 09/14/20 20:00 97.9 F 69 69 19 97 09/14/20 17:50 73 149/86 09/14/20 16:00 97.9 F 73 72 19 97 09/14/20 15:30 80 141/85 94 09/14/20 13:35 80 141/85 09/14/20 12:00 97.4 F L 78 79 17 94 09/14/20 11:35 78 20 145/85 94 09/14/20 11:23 78 145/85 - Physical Examination Narrative exam: Full physical exam deferred due to patient's acute COVID-19 infection. General: Other ([place], on the vent) - Labs and Meds CBC 09/15/20 Range/Units 05:04 Hgb 13.4 (11.8-15.2) gm/dl Hct 39.9 (35.5-45.6) % Plt Count 118 L (140-440) K/mm3 Comprehensive Metabolic Panel 09/15/20 Range/Units 05:04 Sodium 143 (137-145) mmol/L Potassium 5.3 H (3.6-5.0) mmol/L Chloride 111.7 H (98-107) mmol/L Carbon Dioxide 15 L (22-30) mmol/L BUN > 112 H (9-20) mg/dL Creatinine 2.9 H (0.8-1.3) mg/dL Glucose 366 H (75-100) mg/dL Calcium 7.2 L (8.4-10.2) mg/dL - Allied health notes Allied health notes reviewed: nursing
[2020-09-15] MEDS: INSULIN GLARGINE 100 UNITS/ML SUB-Q SCH (10:29)
[2020-09-15] MEDS ORDERED: SODIUM BICARBONATE 325 MG TAB FEEDTUBE PRN (10:31)
--- NOTE | 2020-09-15 11:25 | Progress Note ---
Assessment and Plan Assessment and plan: 85-year-old male with a recent diagnosis of Covid pneumonia with acute respiratory failure/hypoxia discharged on Thursday [facility] on 09/03/2020 has been short of breath for the past 2 days because of which EMS was called. When the EMS arrived the patient was found to be hypoxic with room air oxy genation is running around 80s and also patient with altered sensorium. Patient was placed on nonrebreather and that his oxygen saturations improved to the 90s. No fever. Patient is lethargic. Patient also has increased work of breathing and was getting tired because of which ER physician has intubated the patient. No fevers. Known Covid positive patient with decompensation. No chest pain. No diaphoresis. No palpitations. 1: Reviewed lab, mar, and v/s Patient seen at bedside-reviewed specialist note and reces. patient is intubated on vent-noted agitation but no purposeful response-on prdx gtt Elevated potassium-given kayeoxalate yesterday we will check a repeat. Poor prognosis based on current evaluation. No acute pathology noted on CT scan. 09/16: Patient remains on full ventilatory support. Awaiting BMP reordered today. Steroids per ID. Antibiotics has been discontinued. Will monitor for any fever or any change in status. Will call family to discuss goals of care unfortunately this patient with poor prognosis. (1) Acute respiratory failure with hypoxia Current Visit: Yes Status: Acute Plan to address problem: Patient currently intubated . Vent management and wean off vent as tolerated Manager [employer] following-keep Sa02 >90% (2) Pneumonia due to COVID-19 virus Current Visit: Yes Status: Acute Plan to address problem: Continue to monitor inflammatory [id number], CRP and ferritin Continue IV Decadron Patient was discharged on from [facility] We will get the records from [facility] ID consult (3) Sepsis Current Visit: Yes Status: Acute Qualifiers: Sepsis type: sepsis due to unspecified organism Plan to address problem: Mostly 2/2 secondary to Covid or coronavirus empiric antibiotics in the form of cefepime and vancomycin Blood culture abd ID consulted (4) 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: Chronic Qualifiers: CVA mechanism: thrombosis Laterality of affected vessel: unspecified Plan to address problem: PT OT after extubation 5) Encephalopathy due to 2019 novel coronavirus Current Visit: Yes Status: Acute Plan to address problem: Neurologist consultedpt seen by neurologist -input appreciated (6) Seizures Current Visit: Yes Status: Acute Plan to address problem: Continue IV Keprra BID Seizure precaution (7) A-fib Current Visit: Yes Status: Acute Plan to address problem: job trainer consulted reviewed job trainer note-input appreciated -Continue Cardizem and BB (8) MYRON (acute kidney injury) Current Visit: Yes Status: Acute Plan to address problem: Vasomotor nephropathy in the setting of Shock and severe COVID infection. Monitor kidney function Renal US -negative. Continue IV fluids.. elevated Creatinine level -continue to increase. Avoid nephrotoxic agents. Per audio visual production specialist -Patient require hemodialysis due to worsening renal function, metabolic abnormalities and decreased UOP. 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 The aggregate critical care time was [34] minutes. This time is in addition to time spent performing reported procedures but includes the following: [x] Data Review and interpretation [x] Patient assessment and monitoring of vital signs [x] Documentation [x] Medication orders and management History Interval history: Patient seen and examined remains intubated altered mental status still persist. Hospitalist Physical - Physical exam Narrative exam: General appearance: Present: severe distress, other (in distress-sedated with prdx) - EENT Eyes: PERRL, EOM intact ENT: hearing intact, clear oral mucosa Ears: bilateral: normal - Neck Neck: supple, normal ROM - Respiratory Respiratory effort: accessory muscle use Respiratory: bilateral: diminished - Breasts Breasts: normal - Cardiovascular Heart rate: 122 Rhythm: regular Heart Sounds: Present: S1 & S2. Absent: gallop, rub Extremities: pulses intact, No edema, normal color, Full ROM - Gastrointestinal General gastrointestinal: Present: soft, non-tender, non-distended, normal bowel sounds - Genitourinary Male genitourinary: normal - Integumentary Integumentary: clear, warm, dry - Musculoskeletal Musculoskeletal: generalized weakness - Neurologic Neurologic: moves all extremities - Psychiatric Psychiatric: agitated (sedated) - Allied health notes Allied health notes reviewed: nursing - Constitutional Vitals: Temp Pulse Resp BP Pulse Ox 97.2 F L 73 17 124/68 94 09/15/20 08:00 09/15/20 10:13 09/15/20 06:00 09/15/20 10:13 09/15/20 08:10 General appearance: Present: severe distress, other (in distress-sedated with prdx) HEART Score - HEART Score Troponin: Troponin T < 0.010 ng/mL (0.00-0.029) 09/07/20 18:00 Results - Labs CBC & Chem 7: 09/15/20 05:04 09/15/20 05:04 Labs: Laboratory Last Values WBC 16.2 K/mm3 (4.5-11.0) H 09/11/20 05:42 RBC 4.29 M/mm3 (3.65-5.03) 09/11/20 05:42 Hgb 13.4 gm/dl (11.8-15.2) 09/15/20 05:04 Hct 39.9 % (35.5-45.6) 09/15/20 05:04 MCV 91 fl (84-94) 09/11/20 05:42 MCH 31 pg (28-32) 09/11/20 05:42 MCHC 34 % (32-34) 09/11/20 05:42 RDW 15.3 % (13.2-15.2) H 09/11/20 05:42 Plt Count 118 K/mm3 (140-440) L 09/15/20 05:04 Lymph % (Auto) 1.3 % (13.4-35.0) L 09/09/20 04:54 [place] % (Auto) 2.5 % (0.0-7.3) 09/09/20 04:54 Eos % (Auto) 0.0 % (0.0-4.3) 09/09/20 04:54 Baso % (Auto) 0.1 % (0.0-1.8) 09/09/20 04:54 Lymph # (Auto) 0.4 K/mm3 (1.2-5.4) L 09/09/20 04:54 [place] # (Auto) 0.7 K/mm3 (0.0-0.8) 09/09/20 04:54 Eos # (Auto) 0.0 K/mm3 (0.0-0.4) 09/09/20 04:54 Baso # (Auto) 0.0 K/mm3 (0.0-0.1) 09/09/20 04:54 Add Manual Diff Complete 09/10/20 04:56 Total Counted 200 09/10/20 04:56 Seg Neutrophils % Launch Engineer 09/10/20 04:56 Seg Neuts % (Manual) 97.5 % (40.0-70.0) H 09/10/20 04:56 Band Neutrophils % 4.0 % 09/07/20 18:00 Lymphocytes % (Manual) 1.0 % (13.4-35.0) L 09/10/20 04:56 Monocytes % (Manual) 1.5 % (0.0-7.3) 09/10/20 04:56 Nucleated RBC % Not Reportable 09/10/20 04:56 Seg Neutrophils # 27.4 K/mm3 (1.8-7.7) H 09/09/20 04:54 Seg Neutrophils # Man 23.6 K/mm3 (1.8-7.7) H 09/10/20 04:56 Band Neutrophils # 0.0 K/mm3 09/10/20 04:56 Lymphocytes # (Manual) 0.2 K/mm3 (1.2-5.4) L 09/10/20 04:56 Abs React Lymphs (Man) 0.0 K/mm3 09/10/20 04:56 Monocytes # (Manual) 0.4 K/mm3 (0.0-0.8) 09/10/20 04:56 Eosinophils # (Manual) 0.0 K/mm3 (0.0-0.4) 09/10/20 04:56 Basophils # (Manual) 0.0 K/mm3 (0.0-0.1) 09/10/20 04:56 Metamyelocytes # 0.0 K/mm3 09/10/20 04:56 Myelocytes # 0.0 K/mm3 09/10/20 04:56 Promyelocytes # 0.0 K/mm3 09/10/20 04:56 Blast Cells # 0.0 K/mm3 09/10/20 04:56 WBC Morphology Not Reportable 09/10/20 04:56 Hypersegmented Neuts Not Reportable 09/10/20 04:56 Hyposegmented Neuts Not Reportable 09/10/20 04:56 Hypogranular Neuts Not Reportable 09/10/20 04:56 Smudge Cells Not Reportable 09/10/20 04:56 Toxic Granulation Not Reportable 09/10/20 04:56 Toxic Vacuolation Not Reportable 09/10/20 04:56 Dohle Bodies Not Reportable 09/10/20 04:56 Pelger-Huet Anomaly Not Reportable 09/10/20 04:56 Miroslava Rods Not Reportable 09/10/20 04:56 Platelet Estimate Consistent w auto 09/10/20 04:56 Clumped Platelets Not Reportable 09/10/20 04:56 Plt Clumps, EDTA Not Reportable 09/10/20 04:56 Large Platelets Not Reportable 09/10/20 04:56 Giant Platelets Not Reportable 09/10/20 04:56 Platelet Satelliting Not Reportable 09/10/20 04:56 Plt Morphology Comment Not Reportable 09/10/20 04:56 RBC Morphology Not Reportable 09/10/20 04:56 Dimorphic RBCs Not Reportable 09/10/20 04:56 Polychromasia Not Reportable 09/10/20 04:56 Hypochromasia Not Reportable 09/10/20 04:56 Poikilocytosis Not Reportable 09/10/20 04:56 Anisocytosis 1+ 09/10/20 04:56 Microcytosis Not Reportable 09/10/20 04:56 Macrocytosis Not Reportable 09/10/20 04:56 Spherocytes Not Reportable 09/10/20 04:56 Pappenheimer Bodies Not Reportable 09/10/20 04:56 Sickle Cells Not Reportable 09/10/20 04:56 Target Cells Not Reportable 09/10/20 04:56 Tear Drop Cells Not Reportable 09/10/20 04:56 Ovalocytes Not Reportable 09/10/20 04:56 Helmet Cells Not Reportable 09/10/20 04:56 [place] Bodies Not Reportable 09/10/20 04:56 Azle Rings Not Reportable 09/10/20 04:56 Fenton Cells Not Reportable 09/10/20 04:56 Bite Cells Not Reportable 09/10/20 04:56 Crenated Cell Not Reportable 09/10/20 04:56 Elliptocytes Not Reportable 09/10/20 04:56 Acanthocytes (Spur) Not Reportable 09/10/20 04:56 Rouleaux Not Reportable 09/10/20 04:56 Hemoglobin C Crystals Not Reportable 09/10/20 04:56 Schistocytes Not Reportable 09/10/20 04:56 Malaria parasites Not Reportable 09/10/20 04:56 Marquise Bodies Not Reportable 09/10/20 04:56 Hem Pathologist Commnt No 09/10/20 04:56 PT 15.8 Sec. (12.2-14.9) H 09/09/20 20:28 INR 1.26 (0.87-1.13) H 09/09/20 20:28 APTT 40.7 Sec. (24.2-36.6) H 09/09/20 20:28 D-Dimer > 65619 ng/mlDDU (0-234) H 09/07/20 18:00 D-Dimer Launch Engineer 09/07/20 18:00 Heparin Anti-Xa Level < 0.10 U.I./ml (0.3-0.7) L 09/12/20 09:52 ABG pH 7.426 pH Units (7.350-7.450) 09/15/20 04:40 POC ABG pCO2 22.8 mmHg (32.0-48.0) L 09/11/20 05:11 ABG pCO2 21.6 mm Hg 09/15/20 04:40 POC ABG pO2 76.3 mmHg (83-108) L 09/11/20 05:11 ABG pO2 66.1 mm Hg (80.0-90.0) L 09/15/20 04:40 POC ABG HCO3 14.7 09/11/20 05:11 ABG HCO3 13.9 mmol/L (20.0-26.0) L 09/15/20 04:40 ABG O2 Saturation 94.1 % (95.0-99.0) L 09/15/20 04:40 ABG O2 Content 17.1 (0.0-44) 09/15/20 04:40 POC ABG Base Excess -7.1 09/11/20 05:11 ABG Base Excess -8.3 mmol/L (-2.0-3.0) L 09/15/20 04:40 ABG Hemoglobin 13.1 gm/dl (14.0-18.0) L 09/15/20 04:40 ABG Oxyhemoglobin 94.6 (94-98) 09/11/20 05:11 ABG Carboxyhemoglobin 0.9 % (0.0-5.0) 09/15/20 04:40 ABG Methemoglobin 0.6 % (0.0-1.5) 09/15/20 04:40 ABG Sodium 136.0 mmol/L (136.0-145.0) 09/11/20 05:11 ABG Potassium 4.2 mmol/L (3.40-4.50) 09/11/20 05:11 ABG Chloride 106.0 mmol/L (98-107) 09/11/20 05:11 ABG Glucose 208 mg/dL (65-95) H 09/11/20 05:11 Oxyhemoglobin 92.7 % (95.0-99.0) L 09/15/20 04:40 Carboxyhemoglobin 0.2 (0.5-1.5) L 09/11/20 05:11 FiO2 25 % 09/15/20 04:40 Sodium 143 mmol/L (137-145) 09/15/20 05:04 Potassium 5.3 mmol/L (3.6-5.0) H 09/15/20 05:04 Chloride 111.7 mmol/L (98-107) H 09/15/20 05:04 Carbon Dioxide 15 mmol/L (22-30) L 09/15/20 05:04 Anion Gap 22 mmol/L 09/15/20 05:04 BUN > 112 mg/dL (9-20) H 09/15/20 05:04 Creatinine 2.9 mg/dL (0.8-1.3) H 09/15/20 05:04 Estimated GFR 21 ml/min 09/15/20 05:04 BUN/Creatinine Ratio 39 % 09/15/20 05:04 Glucose 366 mg/dL (75-100) H 09/15/20 05:04 POC Glucose 324 mg/dL (70-105) H 09/15/20 05:12 Hemoglobin A1c 6.2 % (4-6) H 09/08/20 10:13 Lactic Acid 3.70 mmol/L (0.7-2.0) H* 09/09/20 09:04 Calcium 7.2 mg/dL (8.4-10.2) L 09/15/20 05:04 Phosphorus 3.20 mg/dL (2.5-4.5) 09/08/20 10:13 Magnesium 2.00 mg/dL (1.7-2.3) 09/08/20 10:13 Ferritin 849.7 ng/mL (30.0-300.0) H 09/07/20 18:00 Total Bilirubin 1.20 mg/dL (0.1-1.2) 09/08/20 20:18 AST 51 units/L (5-40) H 09/08/20 20:18 ALT 22 units/L (7-56) 09/08/20 20:18 Alkaline Phosphatase 69 units/L (35-129) 09/08/20 20:18 Lactate Dehydrogenase 507 units/L (91-180) H 09/07/20 18:00 Troponin T < 0.010 ng/mL (0.00-0.029) 09/07/20 18:00 C-Reactive Protein 8.20 mg/dL (0.00-1.30) H 09/07/20 18:00 Total Protein 6.2 g/dL (6.3-8.2) L 09/08/20 20:18 Albumin 2.1 g/dL (3.9-5) L 09/08/20 20:18 Albumin/Globulin Ratio 0.5 % 09/08/20 20:18 Prealbumin 0.049 g/L (0.200-0.400) L 09/08/20 10:13 Procalcitonin 0.33 ng/mL (<0.15) 09/07/20 18:00 Arterial Blood Glucose 208 mg/dL (65-95) H 09/11/20 05:11 Arterial Blood Ionized Calcium 4.1 mg/dL (4.6-5.3) L 09/11/20 05:11 Urine Color Leanna (Yellow) 09/07/20 17:25 Urine Turbidity Clear (Clear) 09/07/20 17:25 Urine pH 5.0 (5.0-7.0) 09/07/20 17:25 Ur Specific [place] 1.023 (1.003-1.030) 09/07/20 17:25 Urine Protein 30 mg/dl mg/dL (Negative) 09/07/20 17:25 Urine Glucose (UA) Neg mg/dL (Negative) 09/07/20 17:25 Urine Ketones Tr mg/dL (Negative) 09/07/20 17:25 Urine Blood Neg (Negative) 09/07/20 17:25 Urine Nitrite Neg (Negative) 09/07/20 17:25 Urine Bilirubin Neg (Negative) 09/07/20 17:25 Urine Urobilinogen 2.0 mg/dL (<2.0) 09/07/20 17:25 Ur Leukocyte Esterase Neg (Negative) 09/07/20 17:25 Urine WBC (Auto) 4.0 /HPF (0.0-6.0) 09/07/20 17:25 Urine RBC (Auto) 2.0 /HPF (0.0-6.0) 09/07/20 17:25 U Epithel Cells (Auto) 1.0 /HPF (0-13.0) 09/07/20 17:25 Urine Mucus 3+ /HPF 09/07/20 17:25 Urine Creatinine 213.6 mg/dL (0.1-20.0) H 09/09/20 Unknown Urine Sodium 19 mmol/L 09/09/20 Unknown Nasal Screen MRSA (PCR) Negative (Negative) 09/09/20 17:33 Random Vancomycin 14.3 ug/mL (0-40.0) 09/11/20 05:42 Coronavirus (PCR) Positive (Negative) A 09/07/20 17:25 Hepatitis A IgM Ab Non-reactive (NonReactive) 09/12/20 11:08 Hep Bs Antigen Non-reactive (Negative) 09/12/20 11:08 Hep B Core IgM Ab Non-reactive (NonReactive) 09/12/20 11:08 Hepatitis C Antibody Non-reactive (NonReactive) 09/12/20 11:08 Reyez/IV: Voiding Method Indwelling Catheter IV Catheter Type [Right Triple Lumen Cath Femoral] IV Catheter Type [Right INT / Saline Lock Antecubital] Active Medications - Current Medications Current Medications: Generic Name Dose Route Start Last Admin Trade Name Freq PRN Reason Stop Dose Admin Acetaminophen 650 mg 09/08/20 07:00 Acetaminophen 325 Mg/10.15 Ml Oral Liqd Unit Dose PO Q4H PRN Pain MILD(1-3)/Fever >100.5/BEST Lipase/Protease/Amylase 1 each 09/08/20 06:31 Lipase 10,500/Protease 25,000/Amylase 43,750 (Units) Cap FEEDTUBE PRN PRN For Clogged Feeding Tube Lipase/Protease/Amylase 1 each 09/15/20 10:11 Lipase 10,500/Protease 25,000/Amylase 43,750 (Units) Dr Cap FEEDTUBE PRN PRN For Clogged Feeding Tube Dexamethasone 6 mg 09/09/20 20:56 09/15/20 10:12 Dexamethasone 4 Mg/Ml Vial IV 09/18/20 10:01 6 mg Q24HR CRISTIN Administration Dextrose 50 ml 09/14/20 17:44 Dextrose 50% In Water (25gm) 50 Ml Syringe IV Q30MIN PRN Hypoglycemia Protocol Diltiazem HCl 60 mg 09/10/20 14:00 09/15/20 05:40 Diltiazem 60 Mg Tab PO 60 mg Q6HR CRISTIN Administration Famotidine 20 mg 09/15/20 10:00 09/15/20 10:13 Famotidine 20 Mg Tab PO 20 mg DAILY CRISTIN Administration Fentanyl 50 mcg 09/09/20 19:53 Fentanyl 100 Mcg/2 Ml Inj IV Q10MIN PRN ANALGESIA Heparin Sodium (Porcine) 3,200 unit 09/09/20 19:53 09/10/20 05:53 Heparin 10,000 Units/10 Ml Vial 40 unit/kg (3200 unit) 3,200 unit IV Administration Q6H PRN Anti-Xa Assay < 0.1 units/ml Hydrophilic Ointment 1 applic 09/07/20 22:11 Lip Therapy Vaseline TP Q2HR PRN Dry Lips Norepinephrine 4 mg in 250 mls @ 7.5 mls/hr 09/07/20 21:19 09/09/20 21:53 Levophed Drip 4 Mg/Ns 250 Ml IV 12 mcg/min TITR CRISTIN 45 mls/hr Administration Protocol 2 MCG/MIN Midazolam HCl 100 mg/ Sodium 100 mls @ 2 mls/hr 09/07/20 23:00 09/09/20 21:57 Chloride IV 4 mg/hr TITR CRISTIN 4 mls/hr Administration Protocol 2 MG/HR Levofloxacin/Dextrose 750 mg in 150 mls @ 100 mls/hr 09/09/20 13:00 09/13/20 16:30 Levaquin 750mg/150ml IV 09/17/20 14:29 100 mls/hr Q48H CRISTIN Administration Heparin Sodium/Sodium Chloride 25,000 unit in 500 mls @ 23 mls/hr 09/09/20 20:00 09/11/20 15:47 Heparin/ 0.45% Nacl-25,000 Unit/500 Ml IV 700 units/hr TITR CRISTIN 14 mls/hr Administration Protocol 1,150 UNITS/HR Fentanyl Citrate 2,000 mcg in 100 mls @ 3.98 mls/hr 09/09/20 20:00 Fentanyl Drip Premix IV TITR CRISTIN Protocol 1 MCG/KG/HR Dextrose/Sodium Chloride 1,000 mls @ 75 mls/hr 09/11/20 17:00 09/15/20 05:39 D5ns IV 75 mls/hr DIRECT CRISTIN Administration Sodium Chloride 100 mls @ 999 mls/hr 09/12/20 12:00 Nacl 0.9% IV ANNA MARIE PRN Hypotension Insulin Glargine 15 units 09/15/20 10:00 09/15/20 10:29 Insulin Glargine 100 Units/Ml SUB-Q 15 units DAILY CRISTIN Administration Insulin Human Regular 0 unit 09/14/20 18:00 09/15/20 05:40 Insulin Regular, Human 100 Unit/Ml 3ml Vial SUB-Q 4 unit Q6H CRISTIN Administration Protocol Metoprolol Tartrate 5 mg 09/10/20 13:07 Metoprolol Tartrate 5 Mg/5 Ml Inj IV Q6HR PRN HR>130 Metoprolol Tartrate 25 mg 09/11/20 14:00 09/15/20 10:13 Metoprolol Tartrate 25 Mg Tab PO 25 mg Q6H CRISTIN Administration Midazolam HCl 2 mg 09/07/20 22:11 Midazolam 2 Mg/2 Ml Inj IV Q10MIN PRN Sedation Morphine Sulfate 2 mg 09/08/20 06:29 Morphine 2 Mg/1 Ml Inj IV Q4H PRN Pain, Moderate (4-6) Multi-Ingred Cream/Lotion/Oil/Oint 1 applic 09/07/20 22:11 Mineral Oil/Petrolatum, White Ophth Oint 3.5 Gm OU Q4HR PRN Dry Eye(s) Ondansetron HCl 4 mg 09/08/20 06:29 Ondansetron 4 Mg/2 Ml Inj IV Q8H PRN Nausea And Vomiting Simple Syrup 15 ml 09/08/20 06:31 Simple Syrup 15 Ml FEEDTUBE PRN PRN Hypoglycemia Simple Syrup 30 ml 09/08/20 06:31 Simple Syrup 15 Ml FEEDTUBE PRN PRN Hypoglycemia Simple Syrup 15 ml 09/15/20 10:31 Simple Syrup 15 Ml FEEDTUBE PRN PRN Hypoglycemia Simple Syrup 30 ml 09/15/20 10:11 Simple Syrup 15 Ml FEEDTUBE PRN PRN Hypoglycemia Sodium Bicarbonate 325 mg 09/08/20 06:31 Sodium Bicarbonate 325 Mg Tab FEEDTUBE PRN PRN For Clogged Feeding Tube Sodium Bicarbonate 325 mg 09/15/20 10:31 Sodium Bicarbonate 325 Mg Tab FEEDTUBE PRN PRN For Clogged Feeding Tube Sodium Chloride 10 ml 09/08/20 10:00 09/15/20 10:29 Sodium Chloride 0.9% 10 Ml Flush Syringe IV 10 ml BID CRISTIN Administration Sodium Chloride 10 ml 09/08/20 06:29 Sodium Chloride 0.9% 10 Ml Flush Syringe IV PRN PRN LINE FLUSH Nutrition/Malnutrition Assess - Dietary Evaluation Nutrition/Malnutrition Findings: Nutrition Notes Start: 09/08/20 09:03 Freq: Status: Active Protocol: Document 09/15/20 09:59 MARION (Rec: 09/15/20 10:11 [email or web address] [id number]) Nutrition Notes Initial or Follow up Reassessment Current Diagnosis Acute Kidney Injury,Sepsis, Respiratory Failure,Stroke Other Pertinent Diagnosis COVID-19 (+), pneu, acute encephalopathy Current Diet TF - Vital AF 1.2 at 55ml/hr Labs/Tests K 5.3 (K been >5 since 09/13) BUN >112 Cr 2.9 BG 366 Pertinent Medications Lantus, Humulin R Height 5 ft 4 in Weight 79.6 kg [place] Body Weight (kg) 59.09 BMI 30.1 Weight Status Obese Subjective/Other Information Pt remains on vent support. Awaiting family's decision regarding HD, as pt's renal function is worsening. Per RN , TF infusing as ordered. RN informed (via phone) that TF formula will be changed today. Burn Absent Trauma Absent #1 Nutrition Diagnosis Inadequate oral intake Diagnosis Progress(for reassessment Continues documentation) Is patient on ventilator? Yes Is Patient Ambulatory and/or Out of Bed No REE-(Clymer-St. Jeor-confined to bed) 1665.792 Kcal/Kg value to use for calculation 18 Approximate Energy Requirements Using 1433 kcal/Kg Calculation Used for Recommendations Kcal/kg Additional Notes Pro needs >1.2g/kg adjBW: at least 83g/day Fluid needs per MD Nutrition Intervention Nutrition Support: Change TF formula to Nepro at 35ml/hr with 150ml water flush q4h. Kcal 1,512 Protein (gm) 68 Carbohydrates (gm) 135 Fat (gm) 81 Fluid (mL) 611 Fiber (gm) 11 Goal #1 TF tolerance Goal #2 TF to meet at least 75% energy and pro needs Follow-Up By: 09/17/20 Additional Comments F/U: TF formula change and tolerance, vent status, initiation of HD
--- NOTE | 2020-09-15 14:19 | Progress Note ---
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 Urinalysis negative. #Severe COVID-19 pneumonia: Diagnosed initially on 08/26/2020, treated at [facility] with dexamethasone, remdesivir for 3 days. Anticoagulation was not given due to recent hemorrhagic CVA. Chest x-ray with bilateral patchy infiltrates. Inflammatory markers elevated, D-dimer> 10,000, ferritin 849, CRP 8.2. Procalcitonin 0.3. ? Bacterial pneumonia component. ?HAP. Rain in sputum is colonization, does not need treatment #Acute hypoxemic respiratory failure: Initial sats dropped to 89%. Patient intubated in the ED, remains on the vent. #A. fib: Diagnosed during recent admission at [facility]. Car diology following. #Elevated LFTs: Likely secondary to COVID-19. #Acute renal failure: renally dose abx. #Recent hemorrhagic CVA: Diagnosed in July 2020. Recent CT of the head at [facility] showed resolution of previous hyperdense intraparenchymal hemorrhage in the right basal ganglia. #Ceftriaxone allergy? Unclear details. #Acute encephalopathy: Neurology following. Recs: Completed levofloxacin, order stopped. agree with steroids per pulmonary No benefit with remdesivir VTE evaluation given elevated D-dimer, although already on anticoagulation for A.fib poor prognosis, agree with goals of care discussion and possible comfort measures MD [facility] O: [phone] F: [phone] Subjective Date of service: 09/15/20 Principal diagnosis: Ac hypoxemic resp failure; COVID-19; Pneumonia; Septic Shock; MYRON; H/O CVA Interval history: Afebrile with a normal white count. Remains intubated Objective - Exam Narrative Exam: Physical exam deferred due to PPE conservation strategy. Please refer to primary team's note. - Constitutional Vitals: Vital Signs Temp Pulse Resp BP Pulse Ox 98.4 F 58 L 13 104/50 92 09/15/20 12:00 09/15/20 14:09 09/15/20 12:00 09/15/20 14:09 09/15/20 12:23 Temperature -Last 24 Hours Temperature 98.4 F Temperature 97.2 F Temperature 97.8 F Temperature 97.3 F Temperature 97.9 F Temperature 97.9 F - Labs CBC & Chem 7: 09/15/20 05:04 09/15/20 05:04 Labs: Abnormal lab results 09/14/20 09/14/20 09/15/20 Range/Units 16:38 23:42 04:40 Plt Count (140-440) K/mm3 ABG pO2 66.1 L (80.0-90.0) mm Hg ABG HCO3 13.9 L (20.0-26.0) mmol/L ABG O2 Saturation 94.1 L (95.0-99.0) % ABG Base Excess -8.3 L (-2.0-3.0) mmol/L ABG Hemoglobin 13.1 L (14.0-18.0) gm/dl Oxyhemoglobin 92.7 L (95.0-99.0) % Potassium (3.6-5.0) mmol/L Chloride (98-107) mmol/L Carbon Dioxide (22-30) mmol/L BUN (9-20) mg/dL Creatinine (0.8-1.3) mg/dL Glucose (75-100) mg/dL POC Glucose 292 H 299 H (70-105) mg/dL Calcium (8.4-10.2) mg/dL 09/15/20 09/15/20 09/15/20 Range/Units 05:04 05:04 05:12 Plt Count 118 L (140-440) K/mm3 ABG pO2 (80.0-90.0) mm Hg ABG HCO3 (20.0-26.0) mmol/L ABG O2 Saturation (95.0-99.0) % ABG Base Excess (-2.0-3.0) mmol/L ABG Hemoglobin (14.0-18.0) gm/dl Oxyhemoglobin (95.0-99.0) % Potassium 5.3 H (3.6-5.0) mmol/L Chloride 111.7 H (98-107) mmol/L Carbon Dioxide 15 L (22-30) mmol/L BUN > 112 H (9-20) mg/dL Creatinine 2.9 H (0.8-1.3) mg/dL Glucose 366 H (75-100) mg/dL POC Glucose 324 H (70-105) mg/dL Calcium 7.2 L (8.4-10.2) mg/dL 09/15/20 Range/Units 12:23 Plt Count (140-440) K/mm3 ABG pO2 (80.0-90.0) mm Hg ABG HCO3 (20.0-26.0) mmol/L ABG O2 Saturation (95.0-99.0) % ABG Base Excess (-2.0-3.0) mmol/L ABG Hemoglobin (14.0-18.0) gm/dl Oxyhemoglobin (95.0-99.0) % Potassium (3.6-5.0) mmol/L Chloride (98-107) mmol/L Carbon Dioxide (22-30) mmol/L BUN (9-20) mg/dL Creatinine (0.8-1.3) mg/dL Glucose (75-100) mg/dL POC Glucose 288 H (70-105) mg/dL Calcium (8.4-10.2) mg/dL
--- NOTE | 2020-09-15 14:58 | Progress Note ---
Assessment and Plan Acute hypoxemic respiratory failure, on MVS COVID-19 infection. Bilateral pneumonia Acute encephalopathy, presumably toxic metabolic. Severe sepsis with shock. Acute kidney injury. History of cerebrovascular accident. Leukocytosis. Severe metabolic acidosis. Lactic acidosis. Elevated serum inflammatory markers to include D-dimers. - AMS remains rate limiting factor to safe extubation acutely if meets other criteria but will continue to monitor; he will need a tracheostomy for continued weaning / possible liberation from ventilator - neurology evaluation is ongoing; initial CT head without gross acute process - Azotemia per nephrology; family deciding on HD/UF - continue care as below otherwise; - prn vasopressors for target MAP > 65 mmHg - continue Daily SAT and SBT assessment as tolerated - continue to wean supplemental oxygen for target O2 sat's > 90% acutely - VAP bundle addressed - continue lung protective strategies - continue bronchodilators with pulmonary hygiene per RT - wean per pulmonary driven protocols otherwise - continue SSI - continue Lantus - continue accuchecks with glycemic control per SSI (While critically ill target blood glucose of 140-180 mg/dL; avoid hypoglycemia) - sedation prn for target RASS 0 to -1 - avoid nephrotoxins, renally dose all medications - continue to avoid benzodiazepine's, reduce the possibility of delirium - completed AB's per ID rec's - prn analgesia per CPOT score - Maintenance of sleep-wake cycle, avoid delirium - continue enteral nutritional support at goal rate as tolerated - G.I. & VTE prophylaxis - PT/OT/ROM exercises - continue mobility protocols for pressure ulcer prophylaxis - Monitor hemodynamics closely - continue other care per attending / other consultants - discharge planning ongoing concurrently COVID SPECIFIC INTERVENTIONS - Remdesivir / other COVID specific interventions per ID recommendations - continue systemic steroids for severe COVID-19 infection empirically - repeat COVID tests per facility protocol - Monitor inflammatory markers per facility protocol - ferritin, Ddimer, CRP - therapeutic anticoagulation per system Protocol based on d-dimer - Continue contact and airborne isolation - discharge planning ongoing concurrently .... Re-evaluate in am & prn CONDITION: CRITICAL PROGNOSIS: GUARDED CODE STATUS: FULL CODE The high probability of a clinically significant, sudden or life-threatening deterioration of the [respiratory, cardiovascular, hematologic, renal & neurologic] system(s) required my full and direct attention, intervention and personal management. The aggregate critical care time was [32] minutes without overlap. Time includes spent on; [x] Data Review and interpretation [x] Patient assessment and monitoring of vital signs [x] Documentation [x] Medication orders and management Subjective Date of service: 09/15/20 Principal diagnosis: Ac hypoxemic resp failure; COVID-19; Pneumonia; Septic Shock; MYRON; H/O CVA Interval history: Patient is seen today for: Acute hypoxemic respiratory failure; COVID-19 infection; Bilateral pneumonia; Acute encephalopathy, presumably toxic metabolic; Severe sepsis with shock; Acute kidney injury; History of cerebrovascular accident Seen and examined at bedside; 24hour events reviewed; nursing and respiratory care staff consulted; no adverse overnight events reported to me; resting peacefully in bed; remains on MVS; AMS is persistent; now weaning tenuously; no emesis or overt aspiration Objective Vital Signs - 12hr 09/15/20 09/15/20 09/15/20 03:00 03:02 03:03 Temperature Pulse Rate 71 67 71 Pulse Rate [ From Monitor] Pulse Rate [ Right Dorsalis Pedis] Respiratory 13 Rate Blood Pressure 133/77 133/77 133/77 O2 Sat by Pulse 92 Oximetry 09/15/20 09/15/20 09/15/20 03:51 04:00 05:00 Temperature 97.8 F Pulse Rate 68 69 Pulse Rate [ 68 From Monitor] Pulse Rate [ Right Dorsalis Pedis] Respiratory 13 15 Rate Blood Pressure 133/77 123/74 O2 Sat by Pulse 92 92 Oximetry 09/15/20 09/15/20 09/15/20 05:19 05:40 06:00 Temperature Pulse Rate 2 L 64 71 Pulse Rate [ From Monitor] Pulse Rate [ Right Dorsalis Pedis] Respiratory 17 Rate Blood Pressure 131/80 123/74 116/71 O2 Sat by Pulse 96 92 Oximetry 09/15/20 09/15/20 09/15/20 07:00 08:00 08:10 Temperature 97.2 F L Pulse Rate 67 67 70 Pulse Rate [ 68 From Monitor] Pulse Rate [ 66 Right Dorsalis Pedis] Respiratory 13 16 Rate Blood Pressure 107/65 107/65 129/55 O2 Sat by Pulse 93 93 94 Oximetry 09/15/20 09/15/20 09/15/20 09:00 10:00 10:13 Temperature Pulse Rate 73 69 73 Pulse Rate [ From Monitor] Pulse Rate [ Right Dorsalis Pedis] Respiratory 15 15 Rate Blood Pressure 119/57 124/68 124/68 O2 Sat by Pulse 93 94 Oximetry 09/15/20 09/15/20 09/15/20 11:00 12:00 12:23 Temperature 98.4 F Pulse Rate 67 62 64 Pulse Rate [ 68 From Monitor] Pulse Rate [ 62 Right Dorsalis Pedis] Respiratory 13 13 Rate Blood Pressure 129/55 124/68 119/58 O2 Sat by Pulse 93 92 92 Oximetry 09/15/20 09/15/20 12:41 14:09 Temperature Pulse Rate 66 58 L Pulse Rate [ From Monitor] Pulse Rate [ Right Dorsalis Pedis] Respiratory Rate Blood Pressure 119/58 104/50 O2 Sat by Pulse Oximetry Constitutional: appears uncomfortable, other (elderly obese male with mildly increased respiratory effort at rest on MVS) Eyes: non-icteric ENT: oropharynx moist, other (ETT 24 cm BREANN) Neck: supple, no lymphadenopathy, no JVD Effort: mildly labored Ascultation: Bilateral: diminished breath sounds, rhonchi Percussion: Bilateral: not dull Cardiovascular: regular rate and rhythm Gastrointestinal: normoactive bowel sounds, soft, non-tender, non-distended (protuberant) Integumentary: other (please see [facility] notes) Extremities: no cyanosis, pulses normal, no ischemia or petechiae Neurologic: pupils equal and round, unable to assess Psychiatric: other (unable to assess re: AMS) CBC and BMP: 09/15/20 05:04 09/16/20 07:17 ABG, PT/INR, D-dimer: ABG ABG pH 7.426 pH Units (7.350-7.450) 09/15/20 04:40 POC ABG pCO2 22.8 mmHg (32.0-48.0) L 09/11/20 05:11 ABG pCO2 21.6 mm Hg 09/15/20 04:40 POC ABG pO2 76.3 mmHg (83-108) L 09/11/20 05:11 ABG pO2 66.1 mm Hg (80.0-90.0) L 09/15/20 04:40 POC ABG HCO3 14.7 09/11/20 05:11 ABG O2 Saturation 94.1 % (95.0-99.0) L 09/15/20 04:40 PT/INR, D-dimer PT 15.8 Sec. (12.2-14.9) H 09/09/20 20:28 INR 1.26 (0.87-1.13) H 09/09/20 20:28 D-Dimer > [id number] ng/mlDDU (0-234) H 09/07/20 18:00 D-Dimer [employer] Serviceperson 09/07/20 18:00 Abnormal lab findings: Abnormal Labs 09/07/20 09/07/20 09/07/20 17:25 18:00 18:00 WBC 23.5 H RBC Hgb Hct MCHC RDW Plt Count Lymph % (Auto) Lymph # (Auto) Seg Neutrophils % Seg Neuts % (Manual) 94.0 H Lymphocytes % (Manual) 1.0 L Seg Neutrophils # Seg Neutrophils # Man 22.1 H Lymphocytes # (Manual) 0.2 L PT INR APTT D-Dimer > 47158 H Heparin Anti-Xa Level ABG pH POC ABG pCO2 POC ABG pO2 ABG pO2 ABG HCO3 ABG O2 Saturation ABG Base Excess ABG Hemoglobin ABG Glucose Oxyhemoglobin Carboxyhemoglobin Sodium Potassium Chloride Carbon Dioxide BUN Creatinine Glucose POC Glucose Hemoglobin A1c Lactic Acid Calcium Ferritin Total Bilirubin AST Lactate Dehydrogenase C-Reactive Protein Total Protein Albumin Prealbumin Arterial Blood Glucose Arterial Blood Ionized Calcium Urine Creatinine Coronavirus (PCR) Positive A 09/07/20 09/07/20 09/07/20 18:00 18:00 18:00 WBC RBC Hgb Hct MCHC RDW Plt Count Lymph % (Auto) Lymph # (Auto) Seg Neutrophils % Seg Neuts % (Manual) Lymphocytes % (Manual) Seg Neutrophils # Seg Neutrophils # Man Lymphocytes # (Manual) PT INR APTT 72.7 H* D-Dimer Heparin Anti-Xa Level ABG pH POC ABG pCO2 POC ABG pO2 ABG pO2 ABG HCO3 ABG O2 Saturation ABG Base Excess ABG Hemoglobin ABG Glucose Oxyhemoglobin Carboxyhemoglobin Sodium Potassium Chloride Carbon Dioxide 9 L* BUN 24 H Creatinine Glucose 143 H POC Glucose Hemoglobin A1c Lactic Acid Calcium 7.6 L Ferritin 849.7 H Total Bilirubin 1.80 H AST 45 H Lactate Dehydrogenase 507 H C-Reactive Protein 8.20 H Total Protein 5.6 L Albumin 2.8 L Prealbumin Arterial Blood Glucose Arterial Blood Ionized Calcium Urine Creatinine Coronavirus (PCR) 09/07/20 09/07/20 09/08/20 19:37 20:30 01:07 WBC RBC Hgb Hct MCHC RDW Plt Count Lymph % (Auto) Lymph # (Auto) Seg Neutrophils % Seg Neuts % (Manual) Lymphocytes % (Manual) Seg Neutrophils # Seg Neutrophils # Man Lymphocytes # (Manual) PT INR APTT D-Dimer Heparin Anti-Xa Level ABG pH 7.336 L POC ABG pCO2 POC ABG pO2 ABG pO2 91.2 H ABG HCO3 14.1 L ABG O2 Saturation ABG Base Excess -9.9 L ABG Hemoglobin ABG Glucose Oxyhemoglobin Carboxyhemoglobin Sodium Potassium Chloride Carbon Dioxide BUN Creatinine Glucose POC Glucose Hemoglobin A1c Lactic Acid 8.80 H* 3.80 H* Calcium Ferritin Total Bilirubin AST Lactate Dehydrogenase C-Reactive Protein Total Protein Albumin Prealbumin Arterial Blood Glucose Arterial Blood Ionized Calcium Urine Creatinine Coronavirus (PCR) 09/08/20 09/08/20 09/08/20 04:25 10:13 10:13 WBC 21.7 H RBC 5.49 H Hgb 17.1 H Hct 49.6 H MCHC 35 H RDW Plt Count Lymph % (Auto) Lymph # (Auto) Seg Neutrophils % Seg Neuts % (Manual) 96.0 H Lymphocytes % (Manual) 1.0 L Seg Neutrophils # Seg Neutrophils # Man 20.8 H Lymphocytes # (Manual) 0.2 L PT INR APTT D-Dimer Heparin Anti-Xa Level ABG pH 7.484 H POC ABG pCO2 POC ABG pO2 ABG pO2 148.2 H ABG HCO3 17.2 L ABG O2 Saturation ABG Base Excess -4.1 L ABG Hemoglobin ABG Glucose Oxyhemoglobin Carboxyhemoglobin Sodium Potassium Chloride Carbon Dioxide BUN Creatinine Glucose POC Glucose Hemoglobin A1c Lactic Acid 3.40 H* Calcium Ferritin Total Bilirubin AST Lactate Dehydrogenase C-Reactive Protein Total Protein Albumin Prealbumin Arterial Blood Glucose Arterial Blood Ionized Calcium Urine Creatinine Coronavirus (PCR) 09/08/20 09/08/20 09/08/20 10:13 10:13 10:13 WBC RBC Hgb Hct MCHC RDW Plt Count Lymph % (Auto) Lymph # (Auto) Seg Neutrophils % Seg Neuts % (Manual) Lymphocytes % (Manual) Seg Neutrophils # Seg Neutrophils # Man Lymphocytes # (Manual) PT INR APTT D-Dimer Heparin Anti-Xa Level ABG pH POC ABG pCO2 POC ABG pO2 ABG pO2 ABG HCO3 ABG O2 Saturation ABG Base Excess ABG Hemoglobin ABG Glucose Oxyhemoglobin Carboxyhemoglobin Sodium 135 L Potassium Chloride Carbon Dioxide 20 L D BUN 35 H Creatinine 1.6 H D Glucose 192 H POC Glucose Hemoglobin A1c 6.2 H Lactic Acid Calcium 8.3 L Ferritin Total Bilirubin 1.80 H AST 55 H Lactate Dehydrogenase C-Reactive Protein Total Protein Albumin 2.6 L Prealbumin 0.049 L Arterial Blood Glucose Arterial Blood Ionized Calcium Urine Creatinine Coronavirus (PCR) 09/08/20 09/08/20 09/08/20 20:18 20:18 20:18 WBC 29.8 H RBC Hgb 15.3 H Hct MCHC RDW Plt Count Lymph % (Auto) Lymph # (Auto) Seg Neutrophils % Seg Neuts % (Manual) Lymphocytes % (Manual) Seg Neutrophils # Seg Neutrophils # Man Lymphocytes # (Manual) PT INR APTT D-Dimer Heparin Anti-Xa Level ABG pH POC ABG pCO2 POC ABG pO2 ABG pO2 ABG HCO3 ABG O2 Saturation ABG Base Excess ABG Hemoglobin ABG Glucose Oxyhemoglobin Carboxyhemoglobin Sodium 136 L Potassium Chloride Carbon Dioxide 17 L BUN 42 H Creatinine 1.9 H Glucose 203 H POC Glucose Hemoglobin A1c Lactic Acid 2.20 H* Calcium 7.6 L Ferritin Total Bilirubin AST 51 H Lactate Dehydrogenase C-Reactive Protein Total Protein 6.2 L Albumin 2.1 L Prealbumin Arterial Blood Glucose Arterial Blood Ionized Calcium Urine Creatinine Coronavirus (PCR) 09/08/20 09/09/20 09/09/20 21:53 00:19 03:15 WBC RBC Hgb Hct MCHC RDW Plt Count Lymph % (Auto) Lymph # (Auto) Seg Neutrophils % Seg Neuts % (Manual) Lymphocytes % (Manual) Seg Neutrophils # Seg Neutrophils # Man Lymphocytes # (Manual) PT INR APTT D-Dimer Heparin Anti-Xa Level ABG pH POC ABG pCO2 POC ABG pO2 ABG pO2 97.0 H ABG HCO3 16.3 L ABG O2 Saturation ABG Base Excess -7.5 L ABG Hemoglobin ABG Glucose Oxyhemoglobin Carboxyhemoglobin Sodium Potassium Chloride Carbon Dioxide BUN Creatinine Glucose POC Glucose Hemoglobin A1c Lactic Acid 3.20 H* 2.10 H* Calcium Ferritin Total Bilirubin AST Lactate Dehydrogenase C-Reactive Protein Total Protein Albumin Prealbumin Arterial Blood Glucose Arterial Blood Ionized Calcium Urine Creatinine Coronavirus (PCR) 09/09/20 09/09/20 09/09/20 04:54 04:54 04:54 WBC 28.5 H RBC Hgb Hct MCHC RDW Plt Count Lymph % (Auto) 1.3 L Lymph # (Auto) 0.4 L Seg Neutrophils % 96.1 H Seg Neuts % (Manual) Lymphocytes % (Manual) Seg Neutrophils # 27.4 H Seg Neutrophils # Man Lymphocytes # (Manual) PT INR APTT D-Dimer Heparin Anti-Xa Level ABG pH POC ABG pCO2 POC ABG pO2 ABG pO2 ABG HCO3 ABG O2 Saturation ABG Base Excess ABG Hemoglobin ABG Glucose Oxyhemoglobin Carboxyhemoglobin Sodium Potassium Chloride Carbon Dioxide 17 L BUN 45 H Creatinine 2.2 H Glucose 201 H POC Glucose Hemoglobin A1c Lactic Acid 2.90 H* Calcium 7.8 L Ferritin Total Bilirubin AST Lactate Dehydrogenase C-Reactive Protein Total Protein Albumin Prealbumin Arterial Blood Glucose Arterial Blood Ionized Calcium Urine Creatinine Coronavirus (PCR) 09/09/20 09/09/20 09/09/20 06:56 09:04 20:28 WBC RBC Hgb Hct MCHC RDW Plt Count Lymph % (Auto) Lymph # (Auto) Seg Neutrophils % Seg Neuts % (Manual) Lymphocytes % (Manual) Seg Neutrophils # Seg Neutrophils # Man Lymphocytes # (Manual) PT 15.8 H INR 1.26 H APTT 40.7 H D-Dimer Heparin Anti-Xa Level ABG pH POC ABG pCO2 POC ABG pO2 ABG pO2 ABG HCO3 ABG O2 Saturation ABG Base Excess ABG Hemoglobin ABG Glucose Oxyhemoglobin Carboxyhemoglobin Sodium Potassium Chloride Carbon Dioxide BUN Creatinine Glucose POC Glucose Hemoglobin A1c Lactic Acid 4.70 H* 3.70 H* Calcium Ferritin Total Bilirubin AST Lactate Dehydrogenase C-Reactive Protein Total Protein Albumin Prealbumin Arterial Blood Glucose Arterial Blood Ionized Calcium Urine Creatinine Coronavirus (PCR) 09/09/20 09/10/20 09/10/20 Unknown 02:24 04:56 WBC 24.2 H RBC Hgb Hct MCHC RDW Plt Count Lymph % (Auto) Lymph # (Auto) Seg Neutrophils % Seg Neuts % (Manual) 97.5 H Lymphocytes % (Manual) 1.0 L Seg Neutrophils # Seg Neutrophils # Man 23.6 H Lymphocytes # (Manual) 0.2 L PT INR APTT D-Dimer Heparin Anti-Xa Level ABG pH POC ABG pCO2 POC ABG pO2 ABG pO2 120.7 H ABG HCO3 15.1 L ABG O2 Saturation ABG Base Excess -8.0 L ABG Hemoglobin ABG Glucose Oxyhemoglobin Carboxyhemoglobin Sodium Potassium Chloride Carbon Dioxide BUN Creatinine Glucose POC Glucose Hemoglobin A1c Lactic Acid Calcium Ferritin Total Bilirubin AST Lactate Dehydrogenase C-Reactive Protein Total Protein Albumin Prealbumin Arterial Blood Glucose Arterial Blood Ionized Calcium Urine Creatinine 213.6 H Coronavirus (PCR) 09/10/20 09/10/20 09/11/20 04:56 17:58 01:02 WBC RBC Hgb Hct MCHC RDW Plt Count Lymph % (Auto) Lymph # (Auto) Seg Neutrophils % Seg Neuts % (Manual) Lymphocytes % (Manual) Seg Neutrophils # Seg Neutrophils # Man Lymphocytes # (Manual) PT INR APTT D-Dimer Heparin Anti-Xa Level > 2.00 H 2.00 H ABG pH POC ABG pCO2 POC ABG pO2 ABG pO2 ABG HCO3 ABG O2 Saturation ABG Base Excess ABG Hemoglobin ABG Glucose Oxyhemoglobin Carboxyhemoglobin Sodium Potassium Chloride Carbon Dioxide 18 L BUN 62 H Creatinine 2.8 H Glucose 216 H POC Glucose Hemoglobin A1c Lactic Acid Calcium 7.9 L Ferritin Total Bilirubin AST Lactate Dehydrogenase C-Reactive Protein Total Protein Albumin Prealbumin Arterial Blood Glucose Arterial Blood Ionized Calcium Urine Creatinine Coronavirus (PCR) 09/11/20 09/11/20 09/11/20 05:11 05:42 05:42 WBC RBC Hgb Hct MCHC RDW Plt Count 116 L Lymph % (Auto) Lymph # (Auto) Seg Neutrophils % Seg Neuts % (Manual) Lymphocytes % (Manual) Seg Neutrophils # Seg Neutrophils # Man Lymphocytes # (Manual) PT INR APTT D-Dimer Heparin Anti-Xa Level ABG pH POC ABG pCO2 22.8 L POC ABG pO2 76.3 L ABG pO2 ABG HCO3 ABG O2 Saturation ABG Base Excess ABG Hemoglobin ABG Glucose 208 H Oxyhemoglobin Carboxyhemoglobin 0.2 L Sodium Potassium Chloride 108.7 H Carbon Dioxide 15 L BUN 76 H Creatinine 3.0 H Glucose 202 H POC Glucose Hemoglobin A1c Lactic Acid Calcium 7.5 L Ferritin Total Bilirubin AST Lactate Dehydrogenase C-Reactive Protein Total Protein Albumin Prealbumin Arterial Blood Glucose 208 H Arterial Blood Ionized Calcium 4.1 L Urine Creatinine Coronavirus (PCR) 09/11/20 09/11/20 09/11/20 05:42 11:39 17:41 WBC 16.2 H RBC Hgb Hct MCHC RDW 15.3 H Plt Count 118 L Lymph % (Auto) Lymph # (Auto) Seg Neutrophils % Seg Neuts % (Manual) Lymphocytes % (Manual) Seg Neutrophils # Seg Neutrophils # Man Lymphocytes # (Manual) PT INR APTT D-Dimer Heparin Anti-Xa Level 1.82 H 1.14 H ABG pH POC ABG pCO2 POC ABG pO2 ABG pO2 ABG HCO3 ABG O2 Saturation ABG Base Excess ABG Hemoglobin ABG Glucose Oxyhemoglobin Carboxyhemoglobin Sodium Potassium Chloride Carbon Dioxide BUN Creatinine Glucose POC Glucose Hemoglobin A1c Lactic Acid Calcium Ferritin Total Bilirubin AST Lactate Dehydrogenase C-Reactive Protein Total Protein Albumin Prealbumin Arterial Blood Glucose Arterial Blood Ionized Calcium Urine Creatinine Coronavirus (PCR) 09/12/20 09/12/20 09/12/20 05:25 05:50 09:52 WBC RBC Hgb Hct MCHC RDW Plt Count Lymph % (Auto) Lymph # (Auto) Seg Neutrophils % Seg Neuts % (Manual) Lymphocytes % (Manual) Seg Neutrophils # Seg Neutrophils # Man Lymphocytes # (Manual) PT INR APTT D-Dimer Heparin Anti-Xa Level < 0.10 L ABG pH POC ABG pCO2 POC ABG pO2 ABG pO2 195.5 H ABG HCO3 15.5 L ABG O2 Saturation 99.3 H ABG Base Excess -7.5 L ABG Hemoglobin 12.4 L ABG Glucose Oxyhemoglobin Carboxyhemoglobin Sodium Potassium Chloride Carbon Dioxide 15 L BUN 89 H Creatinine 3.5 H Glucose 282 H POC Glucose Hemoglobin A1c Lactic Acid Calcium 7.2 L Ferritin Total Bilirubin AST Lactate Dehydrogenase C-Reactive Protein Total Protein Albumin Prealbumin Arterial Blood Glucose Arterial Blood Ionized Calcium Urine Creatinine Coronavirus (PCR) 09/12/20 09/13/20 09/13/20 15:56 04:40 05:21 WBC RBC Hgb Hct MCHC RDW Plt Count 126 L Lymph % (Auto) Lymph # (Auto) Seg Neutrophils % Seg Neuts % (Manual) Lymphocytes % (Manual) Seg Neutrophils # Seg Neutrophils # Man Lymphocytes # (Manual) PT INR APTT D-Dimer Heparin Anti-Xa Level ABG pH POC ABG pCO2 POC ABG pO2 ABG pO2 72.8 L ABG HCO3 15.5 L ABG O2 Saturation ABG Base Excess -7.8 L ABG Hemoglobin 11.7 L ABG Glucose Oxyhemoglobin 93.6 L Carboxyhemoglobin Sodium Potassium Chloride Carbon Dioxide BUN Creatinine Glucose POC Glucose 202 H Hemoglobin A1c Lactic Acid Calcium Ferritin Total Bilirubin AST Lactate Dehydrogenase C-Reactive Protein Total Protein Albumin Prealbumin Arterial Blood Glucose Arterial Blood Ionized Calcium Urine Creatinine Coronavirus (PCR) 09/13/20 09/14/20 09/14/20 05:21 03:46 05:32 WBC RBC Hgb Hct MCHC RDW Plt Count Lymph % (Auto) Lymph # (Auto) Seg Neutrophils % Seg Neuts % (Manual) Lymphocytes % (Manual) Seg Neutrophils # Seg Neutrophils # Man Lymphocytes # (Manual) PT INR APTT D-Dimer Heparin Anti-Xa Level ABG pH POC ABG pCO2 POC ABG pO2 ABG pO2 ABG HCO3 ABG O2 Saturation ABG Base Excess ABG Hemoglobin ABG Glucose Oxyhemoglobin Carboxyhemoglobin Sodium Potassium 5.1 H Chloride 109.2 H Carbon Dioxide 16 L BUN 101 H Creatinine 3.8 H Glucose 230 H POC Glucose 163 H 202 H Hemoglobin A1c Lactic Acid Calcium 7.5 L Ferritin Total Bilirubin AST Lactate Dehydrogenase C-Reactive Protein Total Protein Albumin Prealbumin Arterial Blood Glucose Arterial Blood Ionized Calcium Urine Creatinine Coronavirus (PCR) 09/14/20 09/14/20 09/14/20 06:50 12:01 16:38 WBC RBC Hgb Hct MCHC RDW Plt Count Lymph % (Auto) Lymph # (Auto) Seg Neutrophils % Seg Neuts % (Manual) Lymphocytes % (Manual) Seg Neutrophils # Seg Neutrophils # Man Lymphocytes # (Manual) PT INR APTT D-Dimer Heparin Anti-Xa Level ABG pH POC ABG pCO2 POC ABG pO2 ABG pO2 ABG HCO3 ABG O2 Saturation ABG Base Excess ABG Hemoglobin ABG Glucose Oxyhemoglobin Carboxyhemoglobin Sodium Potassium 5.4 H Chloride 110.3 H Carbon Dioxide 17 L BUN 109 H Creatinine 3.8 H Glucose 270 H POC Glucose 231 H 292 H Hemoglobin A1c Lactic Acid Calcium 7.6 L Ferritin Total Bilirubin AST Lactate Dehydrogenase C-Reactive Protein Total Protein Albumin Prealbumin Arterial Blood Glucose Arterial Blood Ionized Calcium Urine Creatinine Coronavirus (PCR) 09/14/20 09/15/20 09/15/20 23:42 04:40 05:04 WBC RBC Hgb Hct MCHC RDW Plt Count 118 L Lymph % (Auto) Lymph # (Auto) Seg Neutrophils % Seg Neuts % (Manual) Lymphocytes % (Manual) Seg Neutrophils # Seg Neutrophils # Man Lymphocytes # (Manual) PT INR APTT D-Dimer Heparin Anti-Xa Level ABG pH POC ABG pCO2 POC ABG pO2 ABG pO2 66.1 L ABG HCO3 13.9 L ABG O2 Saturation 94.1 L ABG Base Excess -8.3 L ABG Hemoglobin 13.1 L ABG Glucose Oxyhemoglobin 92.7 L Carboxyhemoglobin Sodium Potassium Chloride Carbon Dioxide BUN Creatinine Glucose POC Glucose 299 H Hemoglobin A1c Lactic Acid Calcium Ferritin Total Bilirubin AST Lactate Dehydrogenase C-Reactive Protein Total Protein Albumin Prealbumin Arterial Blood Glucose Arterial Blood Ionized Calcium Urine Creatinine Coronavirus (PCR) 09/15/20 09/15/20 09/15/20 05:04 05:12 12:23 WBC RBC Hgb Hct MCHC RDW Plt Count Lymph % (Auto) Lymph # (Auto) Seg Neutrophils % Seg Neuts % (Manual) Lymphocytes % (Manual) Seg Neutrophils # Seg Neutrophils # Man Lymphocytes # (Manual) PT INR APTT D-Dimer Heparin Anti-Xa Level ABG pH POC ABG pCO2 POC ABG pO2 ABG pO2 ABG HCO3 ABG O2 Saturation ABG Base Excess ABG Hemoglobin ABG Glucose Oxyhemoglobin Carboxyhemoglobin Sodium Potassium 5.3 H Chloride 111.7 H Carbon Dioxide 15 L BUN > 112 H Creatinine 2.9 H Glucose 366 H POC Glucose 324 H 288 H Hemoglobin A1c Lactic Acid Calcium 7.2 L Ferritin Total Bilirubin AST Lactate Dehydrogenase C-Reactive Protein Total Protein Albumin Prealbumin Arterial Blood Glucose Arterial Blood Ionized Calcium Urine Creatinine Coronavirus (PCR) Chest x-ray: pending Allied health notes reviewed: nursing
--- NOTE | 2020-09-15 15:50 | Progress Note ---
Assessment and Plan 1. Acute kidney injury: Vasomotor nephropathy in the setting of Shock and severe COVID infection. Low FeNa. Renal US negative. Continue IV fluids. Monitor renal function. Creatinine level si slightly better. Avoid nephrotoxic agents. Meds dosage based on GFR. Monitor for [employer] needs. Patient require hemodialysis due to worsening renal function, metabolic abnormalities and decreased UOP. D/w his son 09/12 over the phone and explained the indications, benefits, risks and alternatives involved in hemodialysis. Ongoing goals of care discussion. Currently family haven't decided about dialysis 2. FEN: Hyperkalemia, kayexalate as needed, monitor. Anion-gap metabolic acidosis, 2/2 lactic acidosis, monitor. Monitor lytes and volume status. 3. Acute hypoxic resp failure, POA: 2/2 COVID PNA. Currently intubated on vent. Followed by Pulmonary. 4. Septic shock: 2/2 severe COVID infection. Off pressors. 5. Pneumonia due to COVID-19 virus, POA: IV Decadron. S/p Remdesivir at [facility]. Followed by ID. 6. Acute Encephalopathy: Multi-factorial, most likely from covid 19 and pneumonia. Per Neuro Poor prognosis for full meaningful recovery. 7. H/o Hemorrhagic CVA. 8. Atrial fib: Mostly SR now. Followed by Cards. Prognosis is slim. Subjective: The patient was not examined today. However the examination findings from other providers noted. The current and previous medical records are reviewed in detail as are laboratory and imaging data reviewed when appropriate. Medications being given are also reviewed. In addition the case has been discussed with the attending hospitalist and the nurse when needed. New renal recommendations as above. Examination: Subjective Date of service: 09/15/20 Principal diagnosis: Ac hypoxemic resp failure; COVID-19; Pneumonia; Septic Shock; MRYON; H/O CVA Objective - Vital Signs Vital signs: Vital Signs - 12hr 09/15/20 09/15/20 09/15/20 03:51 04:00 05:00 Temperature 97.8 F Pulse Rate 68 69 Pulse Rate [ 68 From Monitor] Pulse Rate [ Right Dorsalis Pedis] Respiratory 13 15 Rate Blood Pressure 133/77 123/74 O2 Sat by Pulse 92 92 Oximetry 09/15/20 09/15/20 09/15/20 05:19 05:40 06:00 Temperature Pulse Rate 2 L 64 71 Pulse Rate [ From Monitor] Pulse Rate [ Right Dorsalis Pedis] Respiratory 17 Rate Blood Pressure 131/80 123/74 116/71 O2 Sat by Pulse 96 92 Oximetry 09/15/20 09/15/20 09/15/20 07:00 08:00 08:10 Temperature 97.2 F L Pulse Rate 67 67 70 Pulse Rate [ 68 From Monitor] Pulse Rate [ 66 Right Dorsalis Pedis] Respiratory 13 16 Rate Blood Pressure 107/65 107/65 129/55 O2 Sat by Pulse 93 93 94 Oximetry 09/15/20 09/15/20 09/15/20 09:00 10:00 10:13 Temperature Pulse Rate 73 69 73 Pulse Rate [ From Monitor] Pulse Rate [ Right Dorsalis Pedis] Respiratory 15 15 Rate Blood Pressure 119/57 124/68 124/68 O2 Sat by Pulse 93 94 Oximetry 09/15/20 09/15/20 09/15/20 11:00 12:00 12:23 Temperature 98.4 F Pulse Rate 67 62 64 Pulse Rate [ 68 From Monitor] Pulse Rate [ 62 Right Dorsalis Pedis] Respiratory 13 13 Rate Blood Pressure 129/55 124/68 119/58 O2 Sat by Pulse 93 92 92 Oximetry 09/15/20 09/15/20 09/15/20 12:41 14:09 15:05 Temperature Pulse Rate 66 58 L 58 L Pulse Rate [ From Monitor] Pulse Rate [ Right Dorsalis Pedis] Respiratory 12 Rate Blood Pressure 119/58 104/50 93/49 O2 Sat by Pulse 93 Oximetry - Lab 09/15/20 05:04 09/16/20 07:17 Most recent lab results ABG pH 7.426 pH Units (7.350-7.450) 09/15/20 04:40 ABG pCO2 21.6 mm Hg 09/15/20 04:40 ABG pO2 66.1 mm Hg (80.0-90.0) L 09/15/20 04:40 ABG HCO3 13.9 mmol/L (20.0-26.0) L 09/15/20 04:40 ABG O2 Saturation 94.1 % (95.0-99.0) L 09/15/20 04:40 Calcium 7.2 mg/dL (8.4-10.2) L 09/15/20 05:04 Phosphorus 3.20 mg/dL (2.5-4.5) 09/08/20 10:13 Magnesium 2.00 mg/dL (1.7-2.3) 09/08/20 10:13 Urine Creatinine 213.6 mg/dL (0.1-20.0) H 09/09/20 Unknown Urine Sodium 19 mmol/L 09/09/20 Unknown Medications & Allergies - Medications Allergies/Adverse Reactions: Allergies ceftriaxone Allergy (Verified 09/11/20 11:49) Rash RASH AND ITCHING PER OCTAVIO Home Medications: Home Medications Medication Instructions Recorded Confirmed Last Taken Type Aspirin [Aspirin BABY CHEW TAB] 81 mg PO QDAY #30 tab.chew 12/12/13 09/11/20 Unknown Rx Atorvastatin [Lipitor Tab] 80 mg PO QHS 09/11/20 09/11/20 Unknown History amLODIPine [Norvasc] 5 mg PO DAILY 09/11/20 09/11/20 Unknown History Active Medications: Generic Name Dose Route Start Last Admin Trade Name Freq PRN Reason Stop Dose Admin Acetaminophen 650 mg 09/08/20 07:00 Acetaminophen 325 Mg/10.15 Ml Oral Liqd Unit Dose PO Q4H PRN Pain MILD(1-3)/Fever >100.5/BEST Lipase/Protease/Amylase 1 each 09/08/20 06:31 Lipase 10,500/Protease 25,000/Amylase 43,750 (Units) Dr Aurelio DEL CASTILLO PRN PRN For Clogged Feeding Tube Lipase/Protease/Amylase 1 each 09/15/20 10:11 Lipase 10,500/Protease 25,000/Amylase 43,750 (Units) Dr Aurelio DEL CASTILLO PRN PRN For Clogged Feeding Tube Dexamethasone 6 mg 09/09/20 20:56 09/15/20 10:12 Dexamethasone 4 Mg/Ml Vial IV 09/18/20 10:01 6 mg Q24HR CRISTIN Administration Dextrose 50 ml 09/14/20 17:44 Dextrose 50% In Water (25gm) 50 Ml Syringe IV Q30MIN PRN Hypoglycemia Protocol Diltiazem HCl 60 mg 09/10/20 14:00 09/15/20 12:41 Diltiazem 60 Mg Tab PO 60 mg Q6HR CRISTIN Administration Famotidine 20 mg 09/15/20 10:00 09/15/20 10:13 Famotidine 20 Mg Tab PO 20 mg DAILY CRISTIN Administration Fentanyl 50 mcg 09/09/20 19:53 Fentanyl 100 Mcg/2 Ml Inj IV Q10MIN PRN ANALGESIA Heparin Sodium (Porcine) 3,200 unit 09/09/20 19:53 09/10/20 05:53 Heparin 10,000 Units/10 Ml Vial 40 unit/kg (3200 unit) 3,200 unit IV Administration Q6H PRN Anti-Xa Assay < 0.1 units/ml Hydrophilic Ointment 1 applic 09/07/20 22:11 Lip Therapy Vaseline TP Q2HR PRN Dry Lips Norepinephrine 4 mg in 250 mls @ 7.5 mls/hr 09/07/20 21:19 09/09/20 21:53 Levophed Drip 4 Mg/Ns 250 Ml IV 12 mcg/min TITR CRISTIN 45 mls/hr Administration Protocol 2 MCG/MIN Midazolam HCl 100 mg/ Sodium 100 mls @ 2 mls/hr 09/07/20 23:00 09/09/20 21:57 Chloride IV 4 mg/hr TITR CRISTIN 4 mls/hr Administration Protocol 2 MG/HR Heparin Sodium/Sodium Chloride 25,000 unit in 500 mls @ 23 mls/hr 09/09/20 20:00 09/11/20 15:47 Heparin/ 0.45% Nacl-25,000 Unit/500 Ml IV 700 units/hr TITR CRISTIN 14 mls/hr Administration Protocol 1,150 UNITS/HR Fentanyl Citrate 2,000 mcg in 100 mls @ 3.98 mls/hr 09/09/20 20:00 Fentanyl Drip Premix IV TITR CRISTIN Protocol 1 MCG/KG/HR Dextrose/Sodium Chloride 1,000 mls @ 75 mls/hr 09/11/20 17:00 09/15/20 05:39 D5ns IV 75 mls/hr DIRECT CRISTIN Administration Sodium Chloride 100 mls @ 999 mls/hr 09/12/20 12:00 Nacl 0.9% IV ANNA MARIE PRN Hypotension Insulin Glargine 15 units 09/15/20 10:00 09/15/20 10:29 Insulin Glargine 100 Units/Ml SUB-Q 15 units DAILY CRISTIN Administration Insulin Human Regular 0 unit 09/14/20 18:00 09/15/20 13:04 Insulin Regular, Human 100 Unit/Ml 3ml Vial SUB-Q 6 unit Q6H CRISTIN Administration Protocol Metoprolol Tartrate 5 mg 09/10/20 13:07 Metoprolol Tartrate 5 Mg/5 Ml Inj IV Q6HR PRN HR>130 Metoprolol Tartrate 25 mg 09/11/20 14:00 09/15/20 14:09 Metoprolol Tartrate 25 Mg Tab PO Not Given Q6H CRISTIN Midazolam HCl 2 mg 09/07/20 22:11 Midazolam 2 Mg/2 Ml Inj IV Q10MIN PRN Sedation Morphine Sulfate 2 mg 09/08/20 06:29 Morphine 2 Mg/1 Ml Inj IV Q4H PRN Pain, Moderate (4-6) Multi-Ingred Cream/Lotion/Oil/Oint 1 applic 09/07/20 22:11 Mineral Oil/Petrolatum, White Ophth Oint 3.5 Gm OU Q4HR PRN Dry Eye(s) Ondansetron HCl 4 mg 09/08/20 06:29 Ondansetron 4 Mg/2 Ml Inj IV Q8H PRN Nausea And Vomiting Simple Syrup 15 ml 09/08/20 06:31 Simple Syrup 15 Ml FEEDTUBE PRN PRN Hypoglycemia Simple Syrup 30 ml 09/08/20 06:31 Simple Syrup 15 Ml FEEDTUBE PRN PRN Hypoglycemia Simple Syrup 15 ml 09/15/20 10:31 Simple Syrup 15 Ml FEEDTUBE PRN PRN Hypoglycemia Simple Syrup 30 ml 09/15/20 10:11 Simple Syrup 15 Ml FEEDTUBE PRN PRN Hypoglycemia Sodium Bicarbonate 325 mg 09/08/20 06:31 Sodium Bicarbonate 325 Mg Tab FEEDTUBE PRN PRN For Clogged Feeding Tube Sodium Bicarbonate 325 mg 09/15/20 10:31 Sodium Bicarbonate 325 Mg Tab FEEDTUBE PRN PRN For Clogged Feeding Tube Sodium Chloride 10 ml 09/08/20 10:00 09/15/20 10:29 Sodium Chloride 0.9% 10 Ml Flush Syringe IV 10 ml BID CRISTIN Administration Sodium Chloride 10 ml 09/08/20 06:29 Sodium Chloride 0.9% 10 Ml Flush Syringe IV PRN PRN LINE FLUSH
[2020-09-15] MEDS ORDERED: SODIUM POLYSTYRENE 15 GM/60 ML ORAL LIQD PO ONE (16:00)
[2020-09-16] MEDS: INSULIN REGULAR, HUMAN 100 UNIT/ML 3ML VIAL SUB-Q SCH ×4 (00:15→18:55)
[2020-09-16] MEDS: METOPROLOL TARTRATE 25 MG TAB PO SCH ×4 (02:00→20:36)
[2020-09-16] MEDS: dilTIAZem 60 MG TAB PO SCH ×3 (06:54→18:54)
--- NOTE | 2020-09-16 07:07 | Progress Note ---
Assessment and Plan Assessment and plan: 85-year-old male with a recent diagnosis of Covid pneumonia with acute respiratory failure/hypoxia discharged on Thursday [facility] on 09/03/2020 has been short of breath for the past 2 days because of which EMS was called. When the EMS arrived the patient was found to be hypoxic with room air oxy genation is running around 80s and also patient with altered sensorium. Patient was placed on nonrebreather and that his oxygen saturations improved to the 90s. No fever. Patient is lethargic. Patient also has increased work of breathing and was getting tired because of which ER physician has intubated the patient. No fevers. Known Covid positive patient with decompensation. No chest pain. No diaphoresis. No palpitations. 1: Reviewed lab, mar, and v/s Patient seen at bedside-reviewed specialist note and reces. patient is intubated on vent-noted agitation but no purposeful response-on prdx gtt Elevated potassium-given kayeoxalate yesterday we will check a repeat. Poor prognosis based on current evaluation. No acute pathology noted on CT scan. 09/16: Patient remains on full ventilatory support. Awaiting BMP reordered today. Steroids per ID. Antibiotics has been discontinued. Will monitor for any fever or any change in status. Will call family to discuss goals of care unfortunately this patient with poor prognosis. (1) Acute respiratory failure with hypoxia Current Visit: Yes Status: Acute Plan to address problem: Patient currently intubated . Vent management and wean off vent as tolerated It Quality Assurance Analyst following-keep Sa02 >90% (2) Pneumonia due to COVID-19 virus Current Visit: Yes Status: Acute Plan to address problem: Continue to monitor inflammatory [id number], CRP and ferritin Continue IV Decadron Patient was discharged on from [facility] We will get the records from [facility] ID consult (3) Sepsis Current Visit: Yes Status: Acute Qualifiers: Sepsis type: sepsis due to unspecified organism Plan to address problem: Mostly 2/2 secondary to Covid or coronavirus empiric antibiotics in the form of cefepime and vancomycin Blood culture abd ID consulted (4) 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: Chronic Qualifiers: CVA mechanism: thrombosis Laterality of affected vessel: unspecified Plan to address problem: PT OT after extubation 5) Encephalopathy due to 2019 novel coronavirus Current Visit: Yes Status: Acute Plan to address problem: Neurologist consultedpt seen by neurologist -input appreciated (6) Seizures Current Visit: Yes Status: Acute Plan to address problem: Continue IV Keprra BID Seizure precaution (7) A-fib Current Visit: Yes Status: Acute Plan to address problem: newspaper journalist consulted reviewed newspaper journalist note-input appreciated -Continue Cardizem and BB (8) MYRON (acute kidney injury) Current Visit: Yes Status: Acute Plan to address problem: Vasomotor nephropathy in the setting of Shock and severe COVID infection. Monitor kidney function Renal US -negative. Continue IV fluids.. elevated Creatinine level -continue to increase. Avoid nephrotoxic agents. Per bacteriologist industrial -Patient require hemodialysis due to worsening renal function, metabolic abnormalities and decreased UOP. (9) Hyperkalemia Current Visit: Yes Status: Acute Plan to address problem: patient given kayeaxalte today Monitor potassium level PRN kayaexalate-monitor electrolytes 10) Septic shock Current Visit: Yes Status: Acute Plan to address problem: secondery to covid 19 Off pressors now sedated on prdx gtt (11) DVT prophylaxis Current Visit: Yes Status: Acute Plan to address problem: On Lovenox and GI prophylaxia The high probability of a clinically significant, sudden or life threatening deterioration of the [supervisor volunteer services, 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 The aggregate critical care time was [34] minutes. This time is in addition to time spent performing reported procedures but includes the following: [x] Data Review and interpretation [x] Patient assessment and monitoring of vital signs [x] Documentation [x] Medication orders and management History Interval history: Patient seen and examined remains intubated altered mental status still persist. Hospitalist Physical - Physical exam Narrative exam: General appearance: Present: severe distress, other (in distress-sedated with prdx) - EENT Eyes: PERRL, EOM intact ENT: hearing intact, clear oral mucosa Ears: bilateral: normal - Neck Neck: supple, normal ROM - Respiratory Respiratory effort: accessory muscle use Respiratory: bilateral: diminished - Breasts Breasts: normal - Cardiovascular Heart rate: 122 Rhythm: regular Heart Sounds: Present: S1 & S2. Absent: gallop, rub Extremities: pulses intact, No edema, normal color, Full ROM - Gastrointestinal General gastrointestinal: Present: soft, non-tender, non-distended, normal bowel sounds - Genitourinary Male genitourinary: normal - Integumentary Integumentary: clear, warm, dry - Musculoskeletal Musculoskeletal: generalized weakness - Neurologic Neurologic: moves all extremities - Psychiatric Psychiatric: agitated (sedated) - Allied health notes Allied health notes reviewed: nursing - Constitutional Vitals: Temp Pulse Resp BP Pulse Ox 97.4 F L 76 12 123/72 93 09/16/20 03:27 09/16/20 06:54 09/16/20 06:00 09/16/20 06:54 09/16/20 06:00 General appearance: Present: severe distress, other (in distress-sedated with prdx) HEART Score - HEART Score Troponin: Troponin T < 0.010 ng/mL (0.00-0.029) 09/07/20 18:00 Results - Labs CBC & Chem 7: 09/15/20 05:04 09/15/20 05:04 Labs: Laboratory Last Values WBC 16.2 K/mm3 (4.5-11.0) H 09/11/20 05:42 RBC 4.29 M/mm3 (3.65-5.03) 09/11/20 05:42 Hgb 13.4 gm/dl (11.8-15.2) 09/15/20 05:04 Hct 39.9 % (35.5-45.6) 09/15/20 05:04 MCV 91 fl (84-94) 09/11/20 05:42 MCH 31 pg (28-32) 09/11/20 05:42 MCHC 34 % (32-34) 09/11/20 05:42 RDW 15.3 % (13.2-15.2) H 09/11/20 05:42 Plt Count 118 K/mm3 (140-440) L 09/15/20 05:04 Lymph % (Auto) 1.3 % (13.4-35.0) L 09/09/20 04:54 [place] % (Auto) 2.5 % (0.0-7.3) 09/09/20 04:54 Eos % (Auto) 0.0 % (0.0-4.3) 09/09/20 04:54 Baso % (Auto) 0.1 % (0.0-1.8) 09/09/20 04:54 Lymph # (Auto) 0.4 K/mm3 (1.2-5.4) L 09/09/20 04:54 [place] # (Auto) 0.7 K/mm3 (0.0-0.8) 09/09/20 04:54 Eos # (Auto) 0.0 K/mm3 (0.0-0.4) 09/09/20 04:54 Baso # (Auto) 0.0 K/mm3 (0.0-0.1) 09/09/20 04:54 Add Manual Diff Complete 09/10/20 04:56 Total Counted 200 09/10/20 04:56 Seg Neutrophils % Renal Social Worker 09/10/20 04:56 Seg Neuts % (Manual) 97.5 % (40.0-70.0) H 09/10/20 04:56 Band Neutrophils % 4.0 % 09/07/20 18:00 Lymphocytes % (Manual) 1.0 % (13.4-35.0) L 09/10/20 04:56 Monocytes % (Manual) 1.5 % (0.0-7.3) 09/10/20 04:56 Nucleated RBC % Not Reportable 09/10/20 04:56 Seg Neutrophils # 27.4 K/mm3 (1.8-7.7) H 09/09/20 04:54 Seg Neutrophils # Man 23.6 K/mm3 (1.8-7.7) H 09/10/20 04:56 Band Neutrophils # 0.0 K/mm3 09/10/20 04:56 Lymphocytes # (Manual) 0.2 K/mm3 (1.2-5.4) L 09/10/20 04:56 Abs React Lymphs (Man) 0.0 K/mm3 09/10/20 04:56 Monocytes # (Manual) 0.4 K/mm3 (0.0-0.8) 09/10/20 04:56 Eosinophils # (Manual) 0.0 K/mm3 (0.0-0.4) 09/10/20 04:56 Basophils # (Manual) 0.0 K/mm3 (0.0-0.1) 09/10/20 04:56 Metamyelocytes # 0.0 K/mm3 09/10/20 04:56 Myelocytes # 0.0 K/mm3 09/10/20 04:56 Promyelocytes # 0.0 K/mm3 09/10/20 04:56 Blast Cells # 0.0 K/mm3 09/10/20 04:56 WBC Morphology Not Reportable 09/10/20 04:56 Hypersegmented Neuts Not Reportable 09/10/20 04:56 Hyposegmented Neuts Not Reportable 09/10/20 04:56 Hypogranular Neuts Not Reportable 09/10/20 04:56 Smudge Cells Not Reportable 09/10/20 04:56 Toxic Granulation Not Reportable 09/10/20 04:56 Toxic Vacuolation Not Reportable 09/10/20 04:56 Dohle Bodies Not Reportable 09/10/20 04:56 Pelger-Huet Anomaly Not Reportable 09/10/20 04:56 Miroslava Rods Not Reportable 09/10/20 04:56 Platelet Estimate Consistent w auto 09/10/20 04:56 Clumped Platelets Not Reportable 09/10/20 04:56 Plt Clumps, EDTA Not Reportable 09/10/20 04:56 Large Platelets Not Reportable 09/10/20 04:56 Giant Platelets Not Reportable 09/10/20 04:56 Platelet Satelliting Not Reportable 09/10/20 04:56 Plt Morphology Comment Not Reportable 09/10/20 04:56 RBC Morphology Not Reportable 09/10/20 04:56 Dimorphic RBCs Not Reportable 09/10/20 04:56 Polychromasia Not Reportable 09/10/20 04:56 Hypochromasia Not Reportable 09/10/20 04:56 Poikilocytosis Not Reportable 09/10/20 04:56 Anisocytosis 1+ 09/10/20 04:56 Microcytosis Not Reportable 09/10/20 04:56 Macrocytosis Not Reportable 09/10/20 04:56 Spherocytes Not Reportable 09/10/20 04:56 Pappenheimer Bodies Not Reportable 09/10/20 04:56 Sickle Cells Not Reportable 09/10/20 04:56 Target Cells Not Reportable 09/10/20 04:56 Tear Drop Cells Not Reportable 09/10/20 04:56 Ovalocytes Not Reportable 09/10/20 04:56 Helmet Cells Not Reportable 09/10/20 04:56 [place] Bodies Not Reportable 09/10/20 04:56 [place] Rings Not Reportable 09/10/20 04:56 [place] Cells Not Reportable 09/10/20 04:56 Bite Cells Not Reportable 09/10/20 04:56 Crenated Cell Not Reportable 09/10/20 04:56 Elliptocytes Not Reportable 09/10/20 04:56 Acanthocytes (Spur) Not Reportable 09/10/20 04:56 Rouleaux Not Reportable 09/10/20 04:56 Hemoglobin C Crystals Not Reportable 09/10/20 04:56 Schistocytes Not Reportable 09/10/20 04:56 Malaria parasites Not Reportable 09/10/20 04:56 Marquise Bodies Not Reportable 09/10/20 04:56 Hem Pathologist Commnt No 09/10/20 04:56 PT 15.8 Sec. (12.2-14.9) H 09/09/20 20:28 INR 1.26 (0.87-1.13) H 09/09/20 20:28 APTT 40.7 Sec. (24.2-36.6) H 09/09/20 20:28 D-Dimer > 72661 ng/mlDDU (0-234) H 09/07/20 18:00 D-Dimer Renal Social Worker 09/07/20 18:00 Heparin Anti-Xa Level < 0.10 U.I./ml (0.3-0.7) L 09/12/20 09:52 ABG pH 7.426 pH Units (7.350-7.450) 09/15/20 04:40 POC ABG pCO2 22.8 mmHg (32.0-48.0) L 09/11/20 05:11 ABG pCO2 21.6 mm Hg 09/15/20 04:40 POC ABG pO2 76.3 mmHg (83-108) L 09/11/20 05:11 ABG pO2 66.1 mm Hg (80.0-90.0) L 09/15/20 04:40 POC ABG HCO3 14.7 09/11/20 05:11 ABG HCO3 13.9 mmol/L (20.0-26.0) L 09/15/20 04:40 ABG O2 Saturation 94.1 % (95.0-99.0) L 09/15/20 04:40 ABG O2 Content 17.1 (0.0-44) 09/15/20 04:40 POC ABG Base Excess -7.1 09/11/20 05:11 ABG Base Excess -8.3 mmol/L (-2.0-3.0) L 09/15/20 04:40 ABG Hemoglobin 13.1 gm/dl (14.0-18.0) L 09/15/20 04:40 ABG Oxyhemoglobin 94.6 (94-98) 09/11/20 05:11 ABG Carboxyhemoglobin 0.9 % (0.0-5.0) 09/15/20 04:40 ABG Methemoglobin 0.6 % (0.0-1.5) 09/15/20 04:40 ABG Sodium 136.0 mmol/L (136.0-145.0) 09/11/20 05:11 ABG Potassium 4.2 mmol/L (3.40-4.50) 09/11/20 05:11 ABG Chloride 106.0 mmol/L (98-107) 09/11/20 05:11 ABG Glucose 208 mg/dL (65-95) H 09/11/20 05:11 Oxyhemoglobin 92.7 % (95.0-99.0) L 09/15/20 04:40 Carboxyhemoglobin 0.2 (0.5-1.5) L 09/11/20 05:11 FiO2 25 % 09/15/20 04:40 Sodium 143 mmol/L (137-145) 09/15/20 05:04 Potassium 5.3 mmol/L (3.6-5.0) H 09/15/20 05:04 Chloride 111.7 mmol/L (98-107) H 09/15/20 05:04 Carbon Dioxide 15 mmol/L (22-30) L 09/15/20 05:04 Anion Gap 22 mmol/L 09/15/20 05:04 BUN > 112 mg/dL (9-20) H 09/15/20 05:04 Creatinine 2.9 mg/dL (0.8-1.3) H 09/15/20 05:04 Estimated GFR 21 ml/min 09/15/20 05:04 BUN/Creatinine Ratio 39 % 09/15/20 05:04 Glucose 366 mg/dL (75-100) H 09/15/20 05:04 POC Glucose 285 mg/dL (70-105) H 09/16/20 05:30 Hemoglobin A1c 6.2 % (4-6) H 09/08/20 10:13 Lactic Acid 3.70 mmol/L (0.7-2.0) H* 09/09/20 09:04 Calcium 7.2 mg/dL (8.4-10.2) L 09/15/20 05:04 Phosphorus 3.20 mg/dL (2.5-4.5) 09/08/20 10:13 Magnesium 2.00 mg/dL (1.7-2.3) 09/08/20 10:13 Ferritin 849.7 ng/mL (30.0-300.0) H 09/07/20 18:00 Total Bilirubin 1.20 mg/dL (0.1-1.2) 09/08/20 20:18 AST 51 units/L (5-40) H 09/08/20 20:18 ALT 22 units/L (7-56) 09/08/20 20:18 Alkaline Phosphatase 69 units/L (35-129) 09/08/20 20:18 Lactate Dehydrogenase 507 units/L (91-180) H 09/07/20 18:00 Troponin T < 0.010 ng/mL (0.00-0.029) 09/07/20 18:00 C-Reactive Protein 8.20 mg/dL (0.00-1.30) H 09/07/20 18:00 Total Protein 6.2 g/dL (6.3-8.2) L 09/08/20 20:18 Albumin 2.1 g/dL (3.9-5) L 09/08/20 20:18 Albumin/Globulin Ratio 0.5 % 09/08/20 20:18 Prealbumin 0.049 g/L (0.200-0.400) L 09/08/20 10:13 Procalcitonin 0.33 ng/mL (<0.15) 09/07/20 18:00 Arterial Blood Glucose 208 mg/dL (65-95) H 09/11/20 05:11 Arterial Blood Ionized Calcium 4.1 mg/dL (4.6-5.3) L 09/11/20 05:11 Urine Color Leanna (Yellow) 09/07/20 17:25 Urine Turbidity Clear (Clear) 09/07/20 17:25 Urine pH 5.0 (5.0-7.0) 09/07/20 17:25 Ur Specific [place] 1.023 (1.003-1.030) 09/07/20 17:25 Urine Protein 30 mg/dl mg/dL (Negative) 09/07/20 17:25 Urine Glucose (UA) Neg mg/dL (Negative) 09/07/20 17:25 Urine Ketones Tr mg/dL (Negative) 09/07/20 17:25 Urine Blood Neg (Negative) 09/07/20 17:25 Urine Nitrite Neg (Negative) 09/07/20 17:25 Urine Bilirubin Neg (Negative) 09/07/20 17:25 Urine Urobilinogen 2.0 mg/dL (<2.0) 09/07/20 17:25 Ur Leukocyte Esterase Neg (Negative) 09/07/20 17:25 Urine WBC (Auto) 4.0 /HPF (0.0-6.0) 09/07/20 17:25 Urine RBC (Auto) 2.0 /HPF (0.0-6.0) 09/07/20 17:25 U Epithel Cells (Auto) 1.0 /HPF (0-13.0) 09/07/20 17:25 Urine Mucus 3+ /HPF 09/07/20 17:25 Urine Creatinine 213.6 mg/dL (0.1-20.0) H 09/09/20 Unknown Urine Sodium 19 mmol/L 09/09/20 Unknown Nasal Screen MRSA (PCR) Negative (Negative) 09/09/20 17:33 Random Vancomycin 14.3 ug/mL (0-40.0) 09/11/20 05:42 Coronavirus (PCR) Positive (Negative) A 09/07/20 17:25 Hepatitis A IgM Ab Non-reactive (NonReactive) 09/12/20 11:08 Hep Bs Antigen Non-reactive (Negative) 09/12/20 11:08 Hep B Core IgM Ab Non-reactive (NonReactive) 09/12/20 11:08 Hepatitis C Antibody Non-reactive (NonReactive) 09/12/20 11:08 Reyez/IV: Voiding Method Indwelling Catheter IV Catheter Type [Right Triple Lumen Cath Femoral] IV Catheter Type [Right INT / Saline Lock Antecubital] Active Medications - Current Medications Current Medications: Generic Name Dose Route Start Last Admin Trade Name Freq PRN Reason Stop Dose Admin Acetaminophen 650 mg 09/08/20 07:00 Acetaminophen 325 Mg/10.15 Ml Oral Liqd Unit Dose PO Q4H PRN Pain MILD(1-3)/Fever >100.5/BEST Lipase/Protease/Amylase 1 each 09/08/20 06:31 Lipase 10,500/Protease 25,000/Amylase 43,750 (Units) Cap FEEDTUBE PRN PRN For Clogged Feeding Tube Lipase/Protease/Amylase 1 each 09/15/20 10:11 Lipase 10,500/Protease 25,000/Amylase 43,750 (Units) Cap FEEDTUBE PRN PRN For Clogged Feeding Tube Dexamethasone 6 mg 09/09/20 20:56 09/15/20 10:12 Dexamethasone 4 Mg/Ml Vial IV 09/18/20 10:01 6 mg Q24HR CRISTIN Administration Dextrose 50 ml 09/14/20 17:44 Dextrose 50% In Water (25gm) 50 Ml Syringe IV Q30MIN PRN Hypoglycemia Protocol Diltiazem HCl 60 mg 09/10/20 14:00 09/16/20 06:54 Diltiazem 60 Mg Tab PO Not Given Q6HR CRISTIN Famotidine 20 mg 09/15/20 10:00 09/15/20 10:13 Famotidine 20 Mg Tab PO 20 mg DAILY CRISTIN Administration Fentanyl 50 mcg 09/09/20 19:53 Fentanyl 100 Mcg/2 Ml Inj IV Q10MIN PRN ANALGESIA Heparin Sodium (Porcine) 3,200 unit 09/09/20 19:53 09/10/20 05:53 Heparin 10,000 Units/10 Ml Vial 40 unit/kg (3200 unit) 3,200 unit IV Administration Q6H PRN Anti-Xa Assay < 0.1 units/ml Hydrophilic Ointment 1 applic 09/07/20 22:11 Lip Therapy Vaseline TP Q2HR PRN Dry Lips Norepinephrine 4 mg in 250 mls @ 7.5 mls/hr 09/07/20 21:19 09/09/20 21:53 Levophed Drip 4 Mg/Ns 250 Ml IV 12 mcg/min TITR CRISTIN 45 mls/hr Administration Protocol 2 MCG/MIN Midazolam HCl 100 mg/ Sodium 100 mls @ 2 mls/hr 09/07/20 23:00 09/09/20 21:57 Chloride IV 4 mg/hr TITR CRISTIN 4 mls/hr Administration Protocol 2 MG/HR Heparin Sodium/Sodium Chloride 25,000 unit in 500 mls @ 23 mls/hr 09/09/20 20:00 09/11/20 15:47 Heparin/ 0.45% Nacl-25,000 Unit/500 Ml IV 700 units/hr TITR CRISTIN 14 mls/hr Administration Protocol 1,150 UNITS/HR Fentanyl Citrate 2,000 mcg in 100 mls @ 3.98 mls/hr 09/09/20 20:00 Fentanyl Drip Premix IV TITR CRISTIN Protocol 1 MCG/KG/HR Dextrose/Sodium Chloride 1,000 mls @ 75 mls/hr 09/11/20 17:00 09/15/20 21:48 D5ns IV 75 mls/hr DIRECT CRISTIN Administration Sodium Chloride 100 mls @ 999 mls/hr 09/12/20 12:00 Nacl 0.9% IV ANNA MARIE PRN Hypotension Insulin Glargine 15 units 09/15/20 10:00 09/15/20 10:29 Insulin Glargine 100 Units/Ml SUB-Q 15 units DAILY [facility] Administration Insulin Human Regular 0 unit 09/14/20 18:00 09/16/20 06:56 Insulin Regular, Human 100 Unit/Ml 3ml Vial SUB-Q 6 unit Q6H [facility] Administration Protocol Metoprolol Tartrate 5 mg 09/10/20 13:07 Metoprolol Tartrate 5 Mg/5 Ml Inj IV Q6HR PRN HR>130 Metoprolol Tartrate 25 mg 09/11/20 14:00 09/16/20 02:00 Metoprolol Tartrate 25 Mg Tab PO Not Given Q6H [facility] Midazolam HCl 2 mg 09/07/20 22:11 Midazolam 2 Mg/2 Ml Inj IV Q10MIN PRN Sedation Morphine Sulfate 2 mg 09/08/20 06:29 Morphine 2 Mg/1 Ml Inj IV Q4H PRN Pain, Moderate (4-6) Multi-Ingred Cream/Lotion/Oil/Oint 1 applic 09/07/20 22:11 Mineral Oil/Petrolatum, White Ophth Oint 3.5 Gm OU Q4HR PRN Dry Eye(s) Ondansetron HCl 4 mg 09/08/20 06:29 Ondansetron 4 Mg/2 Ml Inj IV Q8H PRN Nausea And Vomiting Simple Syrup 15 ml 09/08/20 06:31 Simple Syrup 15 Ml FEEDTUBE PRN PRN Hypoglycemia Simple Syrup 30 ml 09/08/20 06:31 Simple Syrup 15 Ml FEEDTUBE PRN PRN Hypoglycemia Simple Syrup 15 ml 09/15/20 10:31 Simple Syrup 15 Ml FEEDTUBE PRN PRN Hypoglycemia Simple Syrup 30 ml 09/15/20 10:11 Simple Syrup 15 Ml FEEDTUBE PRN PRN Hypoglycemia Sodium Bicarbonate 325 mg 09/08/20 06:31 Sodium Bicarbonate 325 Mg Tab FEEDTUBE PRN PRN For Clogged Feeding Tube Sodium Bicarbonate 325 mg 09/15/20 10:31 Sodium Bicarbonate 325 Mg Tab FEEDTUBE PRN PRN For Clogged Feeding Tube Sodium Chloride 10 ml 09/08/20 10:00 09/15/20 21:48 Sodium Chloride 0.9% 10 Ml Flush Syringe IV 10 ml BID CRISTIN Administration Sodium Chloride 10 ml 09/08/20 06:29 Sodium Chloride 0.9% 10 Ml Flush Syringe IV PRN PRN LINE FLUSH Nutrition/Malnutrition Assess - Dietary Evaluation Nutrition/Malnutrition Findings: Nutrition Notes Start: 09/08/20 09:03 Freq: Status: Active Protocol: Document 09/15/20 09:59 MARION (Rec: 09/15/20 10:11 CAPARTH [id number]) Nutrition Notes Initial or Follow up Reassessment Current Diagnosis Acute Kidney Injury,Sepsis, Respiratory Failure,Stroke Other Pertinent Diagnosis COVID-19 (+), pneu, acute encephalopathy Current Diet TF - Vital AF 1.2 at 55ml/hr Labs/Tests K 5.3 (K been >5 since 09/13) BUN >112 Cr 2.9 BG 366 Pertinent Medications Lantus, Humulin R Height 5 ft 4 in Weight 79.6 kg [place] Body Weight (kg) 59.09 BMI 30.1 Weight Status Obese Subjective/Other Information Pt remains on vent support. Awaiting family's decision regarding HD, as pt's renal function is worsening. Per RN , TF infusing as ordered. RN informed (via phone) that TF formula will be changed today. Burn Absent Trauma Absent #1 Nutrition Diagnosis Inadequate oral intake Diagnosis Progress(for reassessment Continues documentation) Is patient on ventilator? Yes Is Patient Ambulatory and/or Out of Bed No REE-([place] Jeor-confined to bed) 1665.792 Kcal/Kg value to use for calculation 18 Approximate Energy Requirements Using 1433 kcal/Kg Calculation Used for Recommendations Kcal/kg Additional Notes Pro needs >1.2g/kg adjBW: at least 83g/day Fluid needs per MD Nutrition Intervention Nutrition Support: Change TF formula to Nepro at 35ml/hr with 150ml water flush q4h. Kcal 1,512 Protein (gm) 68 Carbohydrates (gm) 135 Fat (gm) 81 Fluid (mL) 611 Fiber (gm) 11 Goal #1 TF tolerance Goal #2 TF to meet at least 75% energy and pro needs Follow-Up By: 09/17/20 Additional Comments F/U: TF formula change and tolerance, vent status, initiation of HD
[2020-09-16 07:51] LABS: Calcium 7.3 mg/dL (8.4-10.2)
[2020-09-16] MEDS: INSULIN GLARGINE 100 UNITS/ML SUB-Q SCH (10:37)
[2020-09-16] MEDS: FAMOTIDINE 20 MG TAB PO SCH (10:38)
[2020-09-16] MEDS: dexAMETHasone 4 MG/ML VIAL IV SCH (10:38)
--- NOTE | 2020-09-16 15:14 | Progress Note ---
Assessment and Plan Acute hypoxemic respiratory failure, on MVS COVID-19 infection. Bilateral pneumonia Acute encephalopathy, presumably toxic metabolic. Severe sepsis with shock. Acute kidney injury. History of cerebrovascular accident. Leukocytosis. Severe metabolic acidosis. Lactic acidosis. Elevated serum inflammatory markers to include D-dimers. - ETT day # 9; AMS remains rate limiting factor to safe extubation acutely even if meets other criteria but will continue to monitor; he will need a tracheostomy for continued weaning / possible liberation from ventilator - continue Daily SAT and SBT assessment as tolerated - neurology evaluation is ongoing; initial CT head without gross acute process - Azotemia per nephrology; family deciding on HD/UF - continue care as below otherwise; - prn vasopressors for target MAP > 65 mmHg - continue to wean supplemental oxygen for target O2 sat's > 90% acutely - VAP bundle addressed - continue lung protective strategies - continue bronchodilators with pulmonary hygiene per RT - wean per pulmonary driven protocols otherwise - continue SSI - continue Lantus - continue accuchecks with glycemic control per SSI (While critically ill target blood glucose of 140-180 mg/dL; avoid hypoglycemia) - sedation prn for target RASS 0 to -1 - avoid nephrotoxins, renally dose all medications - continue to avoid benzodiazepine's, reduce the possibility of delirium - completed AB's per ID rec's - prn analgesia per CPOT score - Maintenance of sleep-wake cycle, avoid delirium - continue enteral nutritional support at goal rate as tolerated - G.I. & VTE prophylaxis - PT/OT/ROM exercises - continue mobility protocols for pressure ulcer prophylaxis - Monitor hemodynamics closely - continue other care per attending / other consultants - discharge planning ongoing concurrently COVID SPECIFIC INTERVENTIONS - Remdesivir / other COVID specific interventions per ID recommendations - continue systemic steroids for severe COVID-19 infection empirically - repeat COVID tests per facility protocol - Monitor inflammatory markers per facility protocol - ferritin, Ddimer, CRP - therapeutic anticoagulation per system Protocol based on d-dimer - Continue contact and airborne isolation - discharge planning ongoing concurrently .... Re-evaluate in am & prn CONDITION: CRITICAL PROGNOSIS: GUARDED CODE STATUS: FULL CODE The high probability of a clinically significant, sudden or life-threatening deterioration of the [respiratory, cardiovascular, hematologic, renal & sarwat rologic] system(s) required my full and direct attention, intervention and personal management. The aggregate critical care time was [34] minutes without overlap. Time includes spent on; [x] Data Review and interpretation [x] Patient assessment and monitoring of vital signs [x] Documentation [x] Medication orders and management Subjective Date of service: 09/16/20 Principal diagnosis: Ac hypoxemic resp failure; COVID-19; Pneumonia; Septic Shock; MYRON; H/O CVA Interval history: Patient is seen today for: Acute hypoxemic respiratory failure; COVID-19 infection; Bilateral pneumonia; Acute encephalopathy, presumably toxic metabolic; Severe sepsis with shock; Acute kidney injury; History of cerebrovascular accident Seen and examined at bedside; 24hour events reviewed; nursing and respiratory care staff consulted; no adverse overnight events reported to me; resting peacefully in bed; remains on MVS; tenuously tolerating SBT wit p-supp at 14 cm H2O; no emesis or overt aspiration; afebrile Objective Vital Signs - 12hr 09/16/20 09/16/20 09/16/20 03:27 04:00 05:00 Temperature 97.4 F L Pulse Rate 78 80 Pulse Rate [ From Monitor] Respiratory 13 14 Rate Blood Pressure 124/73 124/66 O2 Sat by Pulse 94 93 Oximetry 09/16/20 09/16/20 09/16/20 05:25 06:00 06:54 Temperature Pulse Rate 80 76 76 Pulse Rate [ 79 From Monitor] Respiratory 17 12 Rate Blood Pressure 123/72 123/72 O2 Sat by Pulse 97 93 Oximetry 09/16/20 09/16/20 09/16/20 07:00 07:36 07:50 Temperature Pulse Rate 76 78 79 Pulse Rate [ From Monitor] Respiratory 13 13 Rate Blood Pressure 123/72 136/64 135/73 O2 Sat by Pulse 94 94 93 Oximetry 09/16/20 09/16/20 09/16/20 08:00 10:36 11:35 Temperature 97.7 F Pulse Rate 80 80 Pulse Rate [ From Monitor] Respiratory 13 Rate Blood Pressure 135/73 130/79 O2 Sat by Pulse 93 Oximetry 09/16/20 09/16/20 12:00 14:59 Temperature 97.3 F L Pulse Rate 73 Pulse Rate [ From Monitor] Respiratory Rate Blood Pressure 133/77 O2 Sat by Pulse Oximetry Constitutional: appears uncomfortable, other (elderly obese male with mildly increased respiratory effort at rest on MVS) Eyes: non-icteric ENT: oropharynx moist, other (ETT 24 cm BREANN) Neck: supple, no lymphadenopathy, no JVD Effort: mildly labored Ascultation: Bilateral: diminished breath sounds, rhonchi Percussion: Bilateral: not dull Cardiovascular: regular rate and rhythm Gastrointestinal: normoactive bowel sounds, soft, non-tender, non-distended (protuberant) Integumentary: other (please see [facility] notes) Extremities: no cyanosis, pulses normal, no ischemia or petechiae Neurologic: pupils equal and round, unable to assess Psychiatric: other (unable to assess re: AMS) CBC and BMP: 09/17/20 06:34 09/17/20 06:34 ABG, PT/INR, D-dimer: ABG ABG pH 7.426 pH Units (7.350-7.450) 09/15/20 04:40 POC ABG pCO2 22.8 mmHg (32.0-48.0) L 09/11/20 05:11 ABG pCO2 21.6 mm Hg 09/15/20 04:40 POC ABG pO2 76.3 mmHg (83-108) L 09/11/20 05:11 ABG pO2 66.1 mm Hg (80.0-90.0) L 09/15/20 04:40 POC ABG HCO3 14.7 09/11/20 05:11 ABG O2 Saturation 94.1 % (95.0-99.0) L 09/15/20 04:40 PT/INR, D-dimer PT 15.8 Sec. (12.2-14.9) H 09/09/20 20:28 INR 1.26 (0.87-1.13) H 09/09/20 20:28 D-Dimer > 45417 ng/mlDDU (0-234) H 09/07/20 18:00 D-Dimer [facility] 09/07/20 18:00 Abnormal lab findings: Abnormal Labs 09/07/20 09/07/20 09/07/20 17:25 18:00 18:00 WBC 23.5 H RBC Hgb Hct MCHC RDW Plt Count Lymph % (Auto) Lymph # (Auto) Seg Neutrophils % Seg Neuts % (Manual) 94.0 H Lymphocytes % (Manual) 1.0 L Seg Neutrophils # Seg Neutrophils # Man 22.1 H Lymphocytes # (Manual) 0.2 L PT INR APTT D-Dimer > 59707 H Heparin Anti-Xa Level ABG pH POC ABG pCO2 POC ABG pO2 ABG pO2 ABG HCO3 ABG O2 Saturation ABG Base Excess ABG Hemoglobin ABG Glucose Oxyhemoglobin Carboxyhemoglobin Sodium Potassium Chloride Carbon Dioxide BUN Creatinine Glucose POC Glucose Hemoglobin A1c Lactic Acid Calcium Ferritin Total Bilirubin AST Lactate Dehydrogenase C-Reactive Protein Total Protein Albumin Prealbumin Arterial Blood Glucose Arterial Blood Ionized Calcium Urine Creatinine Coronavirus (PCR) Positive A 09/07/20 09/07/20 09/07/20 18:00 18:00 18:00 WBC RBC Hgb Hct MCHC RDW Plt Count Lymph % (Auto) Lymph # (Auto) Seg Neutrophils % Seg Neuts % (Manual) Lymphocytes % (Manual) Seg Neutrophils # Seg Neutrophils # Man Lymphocytes # (Manual) PT INR APTT 72.7 H* D-Dimer Heparin Anti-Xa Level ABG pH POC ABG pCO2 POC ABG pO2 ABG pO2 ABG HCO3 ABG O2 Saturation ABG Base Excess ABG Hemoglobin ABG Glucose Oxyhemoglobin Carboxyhemoglobin Sodium Potassium Chloride Carbon Dioxide 9 L* BUN 24 H Creatinine Glucose 143 H POC Glucose Hemoglobin A1c Lactic Acid Calcium 7.6 L Ferritin 849.7 H Total Bilirubin 1.80 H AST 45 H Lactate Dehydrogenase 507 H C-Reactive Protein 8.20 H Total Protein 5.6 L Albumin 2.8 L Prealbumin Arterial Blood Glucose Arterial Blood Ionized Calcium Urine Creatinine Coronavirus (PCR) 09/07/20 09/07/20 09/08/20 19:37 20:30 01:07 WBC RBC Hgb Hct MCHC RDW Plt Count Lymph % (Auto) Lymph # (Auto) Seg Neutrophils % Seg Neuts % (Manual) Lymphocytes % (Manual) Seg Neutrophils # Seg Neutrophils # Man Lymphocytes # (Manual) PT INR APTT D-Dimer Heparin Anti-Xa Level ABG pH 7.336 L POC ABG pCO2 POC ABG pO2 ABG pO2 91.2 H ABG HCO3 14.1 L ABG O2 Saturation ABG Base Excess -9.9 L ABG Hemoglobin ABG Glucose Oxyhemoglobin Carboxyhemoglobin Sodium Potassium Chloride Carbon Dioxide BUN Creatinine Glucose POC Glucose Hemoglobin A1c Lactic Acid 8.80 H* 3.80 H* Calcium Ferritin Total Bilirubin AST Lactate Dehydrogenase C-Reactive Protein Total Protein Albumin Prealbumin Arterial Blood Glucose Arterial Blood Ionized Calcium Urine Creatinine Coronavirus (PCR) 12/09/08/20 09/08/20 04:25 10:13 10:13 WBC 21.7 H RBC 5.49 H Hgb 17.1 H Hct 49.6 H MCHC 35 H RDW Plt Count Lymph % (Auto) Lymph # (Auto) Seg Neutrophils % Seg Neuts % (Manual) 96.0 H Lymphocytes % (Manual) 1.0 L Seg Neutrophils # Seg Neutrophils # Man 20.8 H Lymphocytes # (Manual) 0.2 L PT INR APTT D-Dimer Heparin Anti-Xa Level ABG pH 7.484 H POC ABG pCO2 POC ABG pO2 ABG pO2 148.2 H ABG HCO3 17.2 L ABG O2 Saturation ABG Base Excess -4.1 L ABG Hemoglobin ABG Glucose Oxyhemoglobin Carboxyhemoglobin Sodium Potassium Chloride Carbon Dioxide BUN Creatinine Glucose POC Glucose Hemoglobin A1c Lactic Acid 3.40 H* Calcium Ferritin Total Bilirubin AST Lactate Dehydrogenase C-Reactive Protein Total Protein Albumin Prealbumin Arterial Blood Glucose Arterial Blood Ionized Calcium Urine Creatinine Coronavirus (PCR) 09/08/20 09/08/20 09/08/20 10:13 10:13 10:13 WBC RBC Hgb Hct MCHC RDW Plt Count Lymph % (Auto) Lymph # (Auto) Seg Neutrophils % Seg Neuts % (Manual) Lymphocytes % (Manual) Seg Neutrophils # Seg Neutrophils # Man Lymphocytes # (Manual) PT INR APTT D-Dimer Heparin Anti-Xa Level ABG pH POC ABG pCO2 POC ABG pO2 ABG pO2 ABG HCO3 ABG O2 Saturation ABG Base Excess ABG Hemoglobin ABG Glucose Oxyhemoglobin Carboxyhemoglobin Sodium 135 L Potassium Chloride Carbon Dioxide 20 L D BUN 35 H Creatinine 1.6 H D Glucose 192 H POC Glucose Hemoglobin A1c 6.2 H Lactic Acid Calcium 8.3 L Ferritin Total Bilirubin 1.80 H AST 55 H Lactate Dehydrogenase C-Reactive Protein Total Protein Albumin 2.6 L Prealbumin 0.049 L Arterial Blood Glucose Arterial Blood Ionized Calcium Urine Creatinine Coronavirus (PCR) 09/08/20 09/08/20 09/08/20 20:18 20:18 20:18 WBC 29.8 H RBC Hgb 15.3 H Hct MCHC RDW Plt Count Lymph % (Auto) Lymph # (Auto) Seg Neutrophils % Seg Neuts % (Manual) Lymphocytes % (Manual) Seg Neutrophils # Seg Neutrophils # Man Lymphocytes # (Manual) PT INR APTT D-Dimer Heparin Anti-Xa Level ABG pH POC ABG pCO2 POC ABG pO2 ABG pO2 ABG HCO3 ABG O2 Saturation ABG Base Excess ABG Hemoglobin ABG Glucose Oxyhemoglobin Carboxyhemoglobin Sodium 136 L Potassium Chloride Carbon Dioxide 17 L BUN 42 H Creatinine 1.9 H Glucose 203 H POC Glucose Hemoglobin A1c Lactic Acid 2.20 H* Calcium 7.6 L Ferritin Total Bilirubin AST 51 H Lactate Dehydrogenase C-Reactive Protein Total Protein 6.2 L Albumin 2.1 L Prealbumin Arterial Blood Glucose Arterial Blood Ionized Calcium Urine Creatinine Coronavirus (PCR) 09/08/20 09/09/20 09/09/20 21:53 00:19 03:15 WBC RBC Hgb Hct MCHC RDW Plt Count Lymph % (Auto) Lymph # (Auto) Seg Neutrophils % Seg Neuts % (Manual) Lymphocytes % (Manual) Seg Neutrophils # Seg Neutrophils # Man Lymphocytes # (Manual) PT INR APTT D-Dimer Heparin Anti-Xa Level ABG pH POC ABG pCO2 POC ABG pO2 ABG pO2 97.0 H ABG HCO3 16.3 L ABG O2 Saturation ABG Base Excess -7.5 L ABG Hemoglobin ABG Glucose Oxyhemoglobin Carboxyhemoglobin Sodium Potassium Chloride Carbon Dioxide BUN Creatinine Glucose POC Glucose Hemoglobin A1c Lactic Acid 3.20 H* 2.10 H* Calcium Ferritin Total Bilirubin AST Lactate Dehydrogenase C-Reactive Protein Total Protein Albumin Prealbumin Arterial Blood Glucose Arterial Blood Ionized Calcium Urine Creatinine Coronavirus (PCR) 09/09/20 09/09/20 09/09/20 04:54 04:54 04:54 WBC 28.5 H RBC Hgb Hct MCHC RDW Plt Count Lymph % (Auto) 1.3 L Lymph # (Auto) 0.4 L Seg Neutrophils % 96.1 H Seg Neuts % (Manual) Lymphocytes % (Manual) Seg Neutrophils # 27.4 H Seg Neutrophils # Man Lymphocytes # (Manual) PT INR APTT D-Dimer Heparin Anti-Xa Level ABG pH POC ABG pCO2 POC ABG pO2 ABG pO2 ABG HCO3 ABG O2 Saturation ABG Base Excess ABG Hemoglobin ABG Glucose Oxyhemoglobin Carboxyhemoglobin Sodium Potassium Chloride Carbon Dioxide 17 L BUN 45 H Creatinine 2.2 H Glucose 201 H POC Glucose Hemoglobin A1c Lactic Acid 2.90 H* Calcium 7.8 L Ferritin Total Bilirubin AST Lactate Dehydrogenase C-Reactive Protein Total Protein Albumin Prealbumin Arterial Blood Glucose Arterial Blood Ionized Calcium Urine Creatinine Coronavirus (PCR) 09/09/20 09/09/20 09/09/20 06:56 09:04 20:28 WBC RBC Hgb Hct MCHC RDW Plt Count Lymph % (Auto) Lymph # (Auto) Seg Neutrophils % Seg Neuts % (Manual) Lymphocytes % (Manual) Seg Neutrophils # Seg Neutrophils # Man Lymphocytes # (Manual) PT 15.8 H INR 1.26 H APTT 40.7 H D-Dimer Heparin Anti-Xa Level ABG pH POC ABG pCO2 POC ABG pO2 ABG pO2 ABG HCO3 ABG O2 Saturation ABG Base Excess ABG Hemoglobin ABG Glucose Oxyhemoglobin Carboxyhemoglobin Sodium Potassium Chloride Carbon Dioxide BUN Creatinine Glucose POC Glucose Hemoglobin A1c Lactic Acid 4.70 H* 3.70 H* Calcium Ferritin Total Bilirubin AST Lactate Dehydrogenase C-Reactive Protein Total Protein Albumin Prealbumin Arterial Blood Glucose Arterial Blood Ionized Calcium Urine Creatinine Coronavirus (PCR) 09/09/20 09/10/20 09/10/20 Unknown 02:24 04:56 WBC 24.2 H RBC Hgb Hct MCHC RDW Plt Count Lymph % (Auto) Lymph # (Auto) Seg Neutrophils % Seg Neuts % (Manual) 97.5 H Lymphocytes % (Manual) 1.0 L Seg Neutrophils # Seg Neutrophils # Man 23.6 H Lymphocytes # (Manual) 0.2 L PT INR APTT D-Dimer Heparin Anti-Xa Level ABG pH POC ABG pCO2 POC ABG pO2 ABG pO2 120.7 H ABG HCO3 15.1 L ABG O2 Saturation ABG Base Excess -8.0 L ABG Hemoglobin ABG Glucose Oxyhemoglobin Carboxyhemoglobin Sodium Potassium Chloride Carbon Dioxide BUN Creatinine Glucose POC Glucose Hemoglobin A1c Lactic Acid Calcium Ferritin Total Bilirubin AST Lactate Dehydrogenase C-Reactive Protein Total Protein Albumin Prealbumin Arterial Blood Glucose Arterial Blood Ionized Calcium Urine Creatinine 213.6 H Coronavirus (PCR) 09/10/20 09/10/20 09/11/20 04:56 17:58 01:02 WBC RBC Hgb Hct MCHC RDW Plt Count Lymph % (Auto) Lymph # (Auto) Seg Neutrophils % Seg Neuts % (Manual) Lymphocytes % (Manual) Seg Neutrophils # Seg Neutrophils # Man Lymphocytes # (Manual) PT INR APTT D-Dimer Heparin Anti-Xa Level > 2.00 H 2.00 H ABG pH POC ABG pCO2 POC ABG pO2 ABG pO2 ABG HCO3 ABG O2 Saturation ABG Base Excess ABG Hemoglobin ABG Glucose Oxyhemoglobin Carboxyhemoglobin Sodium Potassium Chloride Carbon Dioxide 18 L BUN 62 H Creatinine 2.8 H Glucose 216 H POC Glucose Hemoglobin A1c Lactic Acid Calcium 7.9 L Ferritin Total Bilirubin AST Lactate Dehydrogenase C-Reactive Protein Total Protein Albumin Prealbumin Arterial Blood Glucose Arterial Blood Ionized Calcium Urine Creatinine Coronavirus (PCR) 09/11/20 09/11/20 09/11/20 05:11 05:42 05:42 WBC RBC Hgb Hct MCHC RDW Plt Count 116 L Lymph % (Auto) Lymph # (Auto) Seg Neutrophils % Seg Neuts % (Manual) Lymphocytes % (Manual) Seg Neutrophils # Seg Neutrophils # Man Lymphocytes # (Manual) PT INR APTT D-Dimer Heparin Anti-Xa Level ABG pH POC ABG pCO2 22.8 L POC ABG pO2 76.3 L ABG pO2 ABG HCO3 ABG O2 Saturation ABG Base Excess ABG Hemoglobin ABG Glucose 208 H Oxyhemoglobin Carboxyhemoglobin 0.2 L Sodium Potassium Chloride 108.7 H Carbon Dioxide 15 L BUN 76 H Creatinine 3.0 H Glucose 202 H POC Glucose Hemoglobin A1c Lactic Acid Calcium 7.5 L Ferritin Total Bilirubin AST Lactate Dehydrogenase C-Reactive Protein Total Protein Albumin Prealbumin Arterial Blood Glucose 208 H Arterial Blood Ionized Calcium 4.1 L Urine Creatinine Coronavirus (PCR) 09/11/20 09/11/20 09/11/20 05:42 11:39 17:41 WBC 16.2 H RBC Hgb Hct MCHC RDW 15.3 H Plt Count 118 L Lymph % (Auto) Lymph # (Auto) Seg Neutrophils % Seg Neuts % (Manual) Lymphocytes % (Manual) Seg Neutrophils # Seg Neutrophils # Man Lymphocytes # (Manual) PT INR APTT D-Dimer Heparin Anti-Xa Level 1.82 H 1.14 H ABG pH POC ABG pCO2 POC ABG pO2 ABG pO2 ABG HCO3 ABG O2 Saturation ABG Base Excess ABG Hemoglobin ABG Glucose Oxyhemoglobin Carboxyhemoglobin Sodium Potassium Chloride Carbon Dioxide BUN Creatinine Glucose POC Glucose Hemoglobin A1c Lactic Acid Calcium Ferritin Total Bilirubin AST Lactate Dehydrogenase C-Reactive Protein Total Protein Albumin Prealbumin Arterial Blood Glucose Arterial Blood Ionized Calcium Urine Creatinine Coronavirus (PCR) 09/12/20 09/12/20 09/12/20 05:25 05:50 09:52 WBC RBC Hgb Hct MCHC RDW Plt Count Lymph % (Auto) Lymph # (Auto) Seg Neutrophils % Seg Neuts % (Manual) Lymphocytes % (Manual) Seg Neutrophils # Seg Neutrophils # Man Lymphocytes # (Manual) PT INR APTT D-Dimer Heparin Anti-Xa Level < 0.10 L ABG pH POC ABG pCO2 POC ABG pO2 ABG pO2 195.5 H ABG HCO3 15.5 L ABG O2 Saturation 99.3 H ABG Base Excess -7.5 L ABG Hemoglobin 12.4 L ABG Glucose Oxyhemoglobin Carboxyhemoglobin Sodium Potassium Chloride Carbon Dioxide 15 L BUN 89 H Creatinine 3.5 H Glucose 282 H POC Glucose Hemoglobin A1c Lactic Acid Calcium 7.2 L Ferritin Total Bilirubin AST Lactate Dehydrogenase C-Reactive Protein Total Protein Albumin Prealbumin Arterial Blood Glucose Arterial Blood Ionized Calcium Urine Creatinine Coronavirus (PCR) 09/12/20 09/13/20 09/13/20 15:56 04:40 05:21 WBC RBC Hgb Hct MCHC RDW Plt Count 126 L Lymph % (Auto) Lymph # (Auto) Seg Neutrophils % Seg Neuts % (Manual) Lymphocytes % (Manual) Seg Neutrophils # Seg Neutrophils # Man Lymphocytes # (Manual) PT INR APTT D-Dimer Heparin Anti-Xa Level ABG pH POC ABG pCO2 POC ABG pO2 ABG pO2 72.8 L ABG HCO3 15.5 L ABG O2 Saturation ABG Base Excess -7.8 L ABG Hemoglobin 11.7 L ABG Glucose Oxyhemoglobin 93.6 L Carboxyhemoglobin Sodium Potassium Chloride Carbon Dioxide BUN Creatinine Glucose POC Glucose 202 H Hemoglobin A1c Lactic Acid Calcium Ferritin Total Bilirubin AST Lactate Dehydrogenase C-Reactive Protein Total Protein Albumin Prealbumin Arterial Blood Glucose Arterial Blood Ionized Calcium Urine Creatinine Coronavirus (PCR) 09/13/20 09/14/20 09/14/20 05:21 03:46 05:32 WBC RBC Hgb Hct MCHC RDW Plt Count Lymph % (Auto) Lymph # (Auto) Seg Neutrophils % Seg Neuts % (Manual) Lymphocytes % (Manual) Seg Neutrophils # Seg Neutrophils # Man Lymphocytes # (Manual) PT INR APTT D-Dimer Heparin Anti-Xa Level ABG pH POC ABG pCO2 POC ABG pO2 ABG pO2 ABG HCO3 ABG O2 Saturation ABG Base Excess ABG Hemoglobin ABG Glucose Oxyhemoglobin Carboxyhemoglobin Sodium Potassium 5.1 H Chloride 109.2 H Carbon Dioxide 16 L BUN 101 H Creatinine 3.8 H Glucose 230 H POC Glucose 163 H 202 H Hemoglobin A1c Lactic Acid Calcium 7.5 L Ferritin Total Bilirubin AST Lactate Dehydrogenase C-Reactive Protein Total Protein Albumin Prealbumin Arterial Blood Glucose Arterial Blood Ionized Calcium Urine Creatinine Coronavirus (PCR) 09/14/20 09/14/20 09/14/20 06:50 12:01 16:38 WBC RBC Hgb Hct MCHC RDW Plt Count Lymph % (Auto) Lymph # (Auto) Seg Neutrophils % Seg Neuts % (Manual) Lymphocytes % (Manual) Seg Neutrophils # Seg Neutrophils # Man Lymphocytes # (Manual) PT INR APTT D-Dimer Heparin Anti-Xa Level ABG pH POC ABG pCO2 POC ABG pO2 ABG pO2 ABG HCO3 ABG O2 Saturation ABG Base Excess ABG Hemoglobin ABG Glucose Oxyhemoglobin Carboxyhemoglobin Sodium Potassium 5.4 H Chloride 110.3 H Carbon Dioxide 17 L BUN 109 H Creatinine 3.8 H Glucose 270 H POC Glucose 231 H 292 H Hemoglobin A1c Lactic Acid Calcium 7.6 L Ferritin Total Bilirubin AST Lactate Dehydrogenase C-Reactive Protein Total Protein Albumin Prealbumin Arterial Blood Glucose Arterial Blood Ionized Calcium Urine Creatinine Coronavirus (PCR) 09/14/20 09/15/20 09/15/20 23:42 04:40 05:04 WBC RBC Hgb Hct MCHC RDW Plt Count 118 L Lymph % (Auto) Lymph # (Auto) Seg Neutrophils % Seg Neuts % (Manual) Lymphocytes % (Manual) Seg Neutrophils # Seg Neutrophils # Man Lymphocytes # (Manual) PT INR APTT D-Dimer Heparin Anti-Xa Level ABG pH POC ABG pCO2 POC ABG pO2 ABG pO2 66.1 L ABG HCO3 13.9 L ABG O2 Saturation 94.1 L ABG Base Excess -8.3 L ABG Hemoglobin 13.1 L ABG Glucose Oxyhemoglobin 92.7 L Carboxyhemoglobin Sodium Potassium Chloride Carbon Dioxide BUN Creatinine Glucose POC Glucose 299 H Hemoglobin A1c Lactic Acid Calcium Ferritin Total Bilirubin AST Lactate Dehydrogenase C-Reactive Protein Total Protein Albumin Prealbumin Arterial Blood Glucose Arterial Blood Ionized Calcium Urine Creatinine Coronavirus (PCR) 09/15/20 09/15/20 09/15/20 05:04 05:12 12:23 WBC RBC Hgb Hct MCHC RDW Plt Count Lymph % (Auto) Lymph # (Auto) Seg Neutrophils % Seg Neuts % (Manual) Lymphocytes % (Manual) Seg Neutrophils # Seg Neutrophils # Man Lymphocytes # (Manual) PT INR APTT D-Dimer Heparin Anti-Xa Level ABG pH POC ABG pCO2 POC ABG pO2 ABG pO2 ABG HCO3 ABG O2 Saturation ABG Base Excess ABG Hemoglobin ABG Glucose Oxyhemoglobin Carboxyhemoglobin Sodium Potassium 5.3 H Chloride 111.7 H Carbon Dioxide 15 L BUN > 112 H Creatinine 2.9 H Glucose 366 H POC Glucose 324 H 288 H Hemoglobin A1c Lactic Acid Calcium 7.2 L Ferritin Total Bilirubin AST Lactate Dehydrogenase C-Reactive Protein Total Protein Albumin Prealbumin Arterial Blood Glucose Arterial Blood Ionized Calcium Urine Creatinine Coronavirus (PCR) 09/15/20 09/15/20 09/16/20 18:15 21:24 00:16 WBC RBC Hgb Hct MCHC RDW Plt Count Lymph % (Auto) Lymph # (Auto) Seg Neutrophils % Seg Neuts % (Manual) Lymphocytes % (Manual) Seg Neutrophils # Seg Neutrophils # Man Lymphocytes # (Manual) PT INR APTT D-Dimer Heparin Anti-Xa Level ABG pH POC ABG pCO2 POC ABG pO2 ABG pO2 ABG HCO3 ABG O2 Saturation ABG Base Excess ABG Hemoglobin ABG Glucose Oxyhemoglobin Carboxyhemoglobin Sodium Potassium Chloride Carbon Dioxide BUN Creatinine Glucose POC Glucose 263 H 247 H 243 H Hemoglobin A1c Lactic Acid Calcium Ferritin Total Bilirubin AST Lactate Dehydrogenase C-Reactive Protein Total Protein Albumin Prealbumin Arterial Blood Glucose Arterial Blood Ionized Calcium Urine Creatinine Coronavirus (PCR) 09/16/20 09/16/20 09/16/20 05:30 07:17 13:00 WBC RBC Hgb Hct MCHC RDW Plt Count Lymph % (Auto) Lymph # (Auto) Seg Neutrophils % Seg Neuts % (Manual) Lymphocytes % (Manual) Seg Neutrophils # Seg Neutrophils # Man Lymphocytes # (Manual) PT INR APTT D-Dimer Heparin Anti-Xa Level ABG pH POC ABG pCO2 POC ABG pO2 ABG pO2 ABG HCO3 ABG O2 Saturation ABG Base Excess ABG Hemoglobin ABG Glucose Oxyhemoglobin Carboxyhemoglobin Sodium Potassium Chloride 113.1 H Carbon Dioxide 16 L BUN 106 H Creatinine 2.7 H Glucose 329 H POC Glucose 285 H 273 H Hemoglobin A1c Lactic Acid Calcium 7.3 L Ferritin Total Bilirubin AST Lactate Dehydrogenase C-Reactive Protein Total Protein Albumin Prealbumin Arterial Blood Glucose Arterial Blood Ionized Calcium Urine Creatinine Coronavirus (PCR) Chest x-ray: pending Allied health notes reviewed: nursing
--- NOTE | 2020-09-16 19:18 | Progress Note ---
Assessment and Plan - Patient Problems (1) Atrial fibrillation with rapid ventricular response Current Visit: Yes Status: Acute Plan to address problem: Continue treatment with diltiazem, beta-blockers as tolerated for paroxysmal atrial fibrillation. Subjective Date of service: 09/16/20 Principal diagnosis: Ac hypoxemic resp failure; COVID-19; Pneumonia; Septic Shock; MYRON; H/O CVA Interval history: Patient is sedated, on the vent, no new cardiac issues. Objective Vital Signs Temp Pulse Pulse Resp Resp BP Pulse Ox 09/16/20 18:54 70 118/62 09/16/20 16:16 66 11 L 127/73 92 09/16/20 14:59 73 133/77 09/16/20 12:00 97.3 F L 09/16/20 11:35 80 13 130/79 93 09/16/20 10:36 80 135/73 09/16/20 08:00 97.7 F 09/16/20 07:50 79 13 135/73 93 09/16/20 07:36 78 136/64 94 09/16/20 07:00 76 13 123/72 94 09/16/20 06:54 76 123/72 09/16/20 06:00 76 12 123/72 93 09/16/20 05:25 80 79 17 97 09/16/20 05:00 80 14 124/66 93 09/16/20 04:00 78 13 124/73 94 09/16/20 03:27 97.4 F L 09/16/20 03:00 79 13 124/73 93 09/16/20 02:28 73 17 97 09/16/20 02:00 79 15 118/61 93 09/16/20 01:00 82 16 128/80 92 09/16/20 00:49 82 09/16/20 00:00 97.9 F 82 18 128/80 98 09/15/20 23:54 79 118/61 93 09/15/20 23:50 79 118/61 09/15/20 23:00 76 14 110/58 91 09/15/20 22:00 74 14 122/66 91 09/15/20 21:50 73 17 16 97 09/15/20 21:00 72 16 117/65 91 09/15/20 20:41 73 110/58 95 09/15/20 20:00 97.8 F 66 12 110/58 88 - Physical Examination Narrative exam: Full physical exam deferred due to patient's acute COVID-19 infection. General: Other ([place], on the vent) - Labs and Meds Comprehensive Metabolic Panel 09/16/20 Range/Units 07:17 Sodium 143 (137-145) mmol/L Potassium 4.6 (3.6-5.0) mmol/L Chloride 113.1 H (98-107) mmol/L Carbon Dioxide 16 L (22-30) mmol/L BUN 106 H (9-20) mg/dL Creatinine 2.7 H (0.8-1.3) mg/dL Glucose 329 H (75-100) mg/dL Calcium 7.3 L (8.4-10.2) mg/dL - Allied health notes Allied health notes reviewed: nursing
--- NOTE | 2020-09-16 23:02 | Progress Note ---
Assessment and Plan 1. Acute kidney injury: Vasomotor nephropathy in the setting of Shock and severe COVID infection. Low FeNa. Renal US negative. Monitor renal function. Creatinine level is improving. Avoid nephrotoxic agents. Meds dosage based on GFR. 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 Ongoing goals of care discussion. Currently family haven't decided about dialysis. 2. FEN: Hyperkalemia, improved, monitor. Anion-gap metabolic acidosis, 2/2 lactic acidosis, monitor. Monitor lytes and volume status. 3. Acute hypoxic resp failure, POA: 2/2 COVID PNA. Currently intubated on vent. Followed by Pulmonary. 4. Septic shock: 2/2 severe COVID infection. Off pressors. 5. Pneumonia due to COVID-19 virus, POA: IV Decadron. S/p Remdesivir at [facility]. Followed by ID. 6. Acute Encephalopathy: Multi-factorial, most likely from covid 19 and pneumonia. Per Neuro Poor prognosis for full meaningful recovery. 7. H/o Hemorrhagic CVA. 8. Atrial fib: Mostly SR now. Followed by Cards. Prognosis is slim. Subjective: The patient was not examined today. However the examination findings from other providers noted. The current and previous medical records are reviewed in detail as are laboratory and imaging data reviewed when appropriate. Medications being given are also reviewed. In addition the case has been discussed with the attending hospitalist and the nurse when needed. New renal recommendations as above. Examination: Subjective Date of service: 09/16/20 Principal diagnosis: Ac hypoxemic resp failure; COVID-19; Pneumonia; Septic Shock; MYRON; H/O CVA Objective - Vital Signs Vital signs: Vital Signs - 12hr 09/16/20 09/16/20 09/16/20 11:35 12:00 13:00 Temperature 97.3 F L Pulse Rate 80 73 71 Pulse Rate [ 73 From Monitor] Respiratory 13 12 12 Rate Blood Pressure 130/79 133/74 136/75 O2 Sat by Pulse 93 94 93 Oximetry 09/16/20 09/16/20 09/16/20 14:00 14:59 15:00 Temperature Pulse Rate 70 73 72 Pulse Rate [ From Monitor] Respiratory 12 12 Rate Blood Pressure 133/77 133/77 127/73 O2 Sat by Pulse 93 94 Oximetry 09/16/20 09/16/20 09/16/20 16:00 16:16 17:00 Temperature 97.5 F L Pulse Rate 66 66 68 Pulse Rate [ 66 From Monitor] Respiratory 12 11 L 14 Rate Blood Pressure 122/72 127/73 117/61 O2 Sat by Pulse 94 92 92 Oximetry 09/16/20 09/16/20 09/16/20 18:00 18:54 19:00 Temperature Pulse Rate 67 70 68 Pulse Rate [ From Monitor] Respiratory 15 13 Rate Blood Pressure 118/62 118/62 122/63 O2 Sat by Pulse 90 91 Oximetry 09/16/20 09/16/20 09/16/20 20:00 20:36 21:00 Temperature 97.3 F L Pulse Rate 71 74 66 Pulse Rate [ 63 From Monitor] Respiratory 14 12 Rate Blood Pressure 127/64 127/64 121/60 O2 Sat by Pulse 87 92 Oximetry - Lab 09/15/20 05:04 09/16/20 07:17 Most recent lab results ABG pH 7.426 pH Units (7.350-7.450) 09/15/20 04:40 ABG pCO2 21.6 mm Hg 09/15/20 04:40 ABG pO2 66.1 mm Hg (80.0-90.0) L 09/15/20 04:40 ABG HCO3 13.9 mmol/L (20.0-26.0) L 09/15/20 04:40 ABG O2 Saturation 94.1 % (95.0-99.0) L 09/15/20 04:40 Calcium 7.3 mg/dL (8.4-10.2) L 09/16/20 07:17 Phosphorus 3.20 mg/dL (2.5-4.5) 09/08/20 10:13 Magnesium 2.00 mg/dL (1.7-2.3) 09/08/20 10:13 Urine Creatinine 213.6 mg/dL (0.1-20.0) H 09/09/20 Unknown Urine Sodium 19 mmol/L 09/09/20 Unknown Medications & Allergies - Medications Allergies/Adverse Reactions: Allergies ceftriaxone Allergy (Verified 09/11/20 11:49) Rash RASH AND ITCHING PER OCTAVIO Home Medications: Home Medications Medication Instructions Recorded Confirmed Last Taken Type Aspirin [Aspirin BABY CHEW TAB] 81 mg PO QDAY #30 tab.chew 12/12/13 09/11/20 Unknown Rx Atorvastatin [Lipitor Tab] 80 mg PO QHS 09/11/20 09/11/20 Unknown History amLODIPine [Norvasc] 5 mg PO DAILY 09/11/20 09/11/20 Unknown History Active Medications: Generic Name Dose Route Start Last Admin Trade Name Freq PRN Reason Stop Dose Admin Acetaminophen 650 mg 09/08/20 07:00 Acetaminophen 325 Mg/10.15 Ml Oral Liqd Unit Dose PO Q4H PRN Pain MILD(1-3)/Fever >100.5/BEST Lipase/Protease/Amylase 1 each 09/15/20 10:11 Lipase 10,500/Protease 25,000/Amylase 43,750 (Units) Dr Carey FEEDTUBE PRN PRN For Clogged Feeding Tube Dexamethasone 6 mg 09/09/20 20:56 09/16/20 10:38 Dexamethasone 4 Mg/Ml Vial IV 09/18/20 10:01 6 mg Q24HR CRISTIN Administration Dextrose 50 ml 09/14/20 17:44 Dextrose 50% In Water (25gm) 50 Ml Syringe IV Q30MIN PRN Hypoglycemia Protocol Diltiazem HCl 60 mg 09/10/20 14:00 09/16/20 18:54 Diltiazem 60 Mg Tab PO 60 mg Q6HR CRISTIN Administration Famotidine 20 mg 09/15/20 10:00 09/16/20 10:38 Famotidine 20 Mg Tab PO 20 mg DAILY CRISTIN Administration Fentanyl 50 mcg 09/09/20 19:53 Fentanyl 100 Mcg/2 Ml Inj IV Q10MIN PRN ANALGESIA Heparin Sodium (Porcine) 3,200 unit 09/09/20 19:53 09/10/20 05:53 Heparin 10,000 Units/10 Ml Vial 40 unit/kg (3200 unit) 3,200 unit IV Administration Q6H PRN Anti-Xa Assay < 0.1 units/ml Hydrophilic Ointment 1 applic 09/07/20 22:11 Lip Therapy Vaseline TP Q2HR PRN Dry Lips Heparin Sodium/Sodium Chloride 25,000 unit in 500 mls @ 23 mls/hr 09/09/20 20:00 09/11/20 15:47 Heparin/ 0.45% Nacl-25,000 Unit/500 Ml IV 700 units/hr TITR CRISTIN 14 mls/hr Administration Protocol 1,150 UNITS/HR Sodium Chloride 100 mls @ 999 mls/hr 09/12/20 12:00 Nacl 0.9% IV ANNA MARIE PRN Hypotension Insulin Glargine 15 units 09/15/20 10:00 09/16/20 10:37 Insulin Glargine 100 Units/Ml SUB-Q 15 units DAILY CRISTIN Administration Insulin Human Regular 0 unit 09/14/20 18:00 09/16/20 18:55 Insulin Regular, Human 100 Unit/Ml 3ml Vial SUB-Q 6 unit Q6H CRISTIN Administration Protocol Metoprolol Tartrate 5 mg 09/10/20 13:07 Metoprolol Tartrate 5 Mg/5 Ml Inj IV Q6HR PRN HR>130 Metoprolol Tartrate 25 mg 09/11/20 14:00 09/16/20 20:36 Metoprolol Tartrate 25 Mg Tab PO 25 mg Q6H [facility] Administration Multi-Ingred Cream/Lotion/Oil/Oint 1 applic 09/07/20 22:11 Mineral Oil/Petrolatum, White Ophth Oint 3.5 Gm OU Q4HR PRN Dry Eye(s) Ondansetron HCl 4 mg 09/08/20 06:29 Ondansetron 4 Mg/2 Ml Inj IV Q8H PRN Nausea And Vomiting Simple Syrup 15 ml 09/15/20 10:31 Simple Syrup 15 Ml FEEDTUBE PRN PRN Hypoglycemia Simple Syrup 30 ml 09/15/20 10:11 Simple Syrup 15 Ml FEEDTUBE PRN PRN Hypoglycemia Sodium Bicarbonate 325 mg 09/15/20 10:31 Sodium Bicarbonate 325 Mg Tab FEEDTUBE PRN PRN For Clogged Feeding Tube Sodium Chloride 10 ml 09/08/20 10:00 09/16/20 10:39 Sodium Chloride 0.9% 10 Ml Flush Syringe IV 10 ml BID CRISTIN Administration Sodium Chloride 10 ml 09/08/20 06:29 Sodium Chloride 0.9% 10 Ml Flush Syringe IV PRN PRN LINE FLUSH
[2020-09-17] MEDS: dilTIAZem 60 MG TAB PO SCH ×4 (00:20→18:43)
[2020-09-17] MEDS: METOPROLOL TARTRATE 25 MG TAB PO SCH ×4 (06:40→21:32)
[2020-09-17] MEDS: INSULIN REGULAR, HUMAN 100 UNIT/ML 3ML VIAL SUB-Q SCH ×4 (06:42→18:43)
[2020-09-17 07:00] LABS: Hematocrit 39.6 % (35.5-45.6); Hemoglobin 13.2 gm/dl (11.8-15.2)
[2020-09-17 07:10] LABS: Calcium 7.9 mg/dL (8.4-10.2)
--- NOTE | 2020-09-17 09:13 | Progress Note ---
Assessment and Plan Assessment and plan: 85-year-old male with a recent diagnosis of Covid pneumonia with acute respiratory failure/hypoxia discharged on Thursday [facility] on 09/03/2020 has been short of breath for the past 2 days because of which EMS was called. When the EMS arrived the patient was found to be hypoxic with room air oxy genation is running around 80s and also patient with altered sensorium. Patient was placed on nonrebreather and that his oxygen saturations improved to the 90s. No fever. Patient is lethargic. Patient also has increased work of breathing and was getting tired because of which ER physician has intubated the patient. No fevers. Known Covid positive patient with decompensation. No chest pain. No diaphoresis. No palpitations. 1: Reviewed lab, mar, and v/s Patient seen at bedside-reviewed specialist note and reces. patient is intubated on vent-noted agitation but no purposeful response-on prdx gtt Elevated potassium-given kayeoxalate yesterday we will check a repeat. Poor prognosis based on current evaluation. No acute pathology noted on CT scan. 09/16: Patient remains on full ventilatory support. Awaiting BMP reordered today. Steroids per ID. Antibiotics has been discontinued. Will monitor for any fever or any change in status. Will call family to discuss goals of care unfortunately this patient with poor prognosis. 09/17: Dicussed care extensively with consutlants and also with family, Daughter and Mother. Window Shade Ring Coverer also discussed with Patient son and the grave prognosis was conveyed. Will continue current management, Doubt chance of Meaninful recoverY. (1) Acute respiratory failure with hypoxia Current Visit: Yes Status: Acute Plan to address problem: Patient currently intubated . Vent management and wean off vent as tolerated Window Shade Ring Coverer following-keep Sa02 >90% (2) Pneumonia due to COVID-19 virus Current Visit: Yes Status: Acute Plan to address problem: Continue to monitor inflammatory [id number], CRP and ferritin Continue IV Decadron Patient was discharged on from [facility] We will get the records from [facility] ID consult (3) Sepsis Current Visit: Yes Status: Acute Qualifiers: Sepsis type: sepsis due to unspecified organism Plan to address problem: Mostly 2/2 secondary to Covid or coronavirus empiric antibiotics in the form of cefepime and vancomycin Blood culture abd ID consulted (4) 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: Chronic Qualifiers: CVA mechanism: thrombosis Laterality of affected vessel: unspecified Plan to address problem: PT OT after extubation 5) Encephalopathy due to 2019 novel coronavirus Current Visit: Yes Status: Acute Plan to address problem: Neurologist consultedpt seen by neurologist -input appreciated (6) Seizures Current Visit: Yes Status: Acute Plan to address problem: Continue IV Keprra BID Seizure precaution (7) A-fib Current Visit: Yes Status: Acute Plan to address problem: long chain quiller tender consulted reviewed long chain quiller tender note-input appreciated -Continue Cardizem and BB (8) MYRON (acute kidney injury) Current Visit: Yes Status: Acute Plan to address problem: Vasomotor nephropathy in the setting of Shock and severe COVID infection. Monitor kidney function Renal US -negative. Continue IV fluids.. elevated Creatinine level -continue to increase. Avoid nephrotoxic agents. Per dental internship -Patient require hemodialysis due to worsening renal function, metabolic abnormalities and decreased UOP. (9) Hyperkalemia Current Visit: Yes Status: Acute Plan to address problem: patient given kayeaxalte today Monitor potassium level PRN kayaexalate-monitor electrolytes 10) Septic shock Current Visit: Yes Status: Acute Plan to address problem: secondery to covid 19 Off pressors now sedated on prdx gtt (11) DVT prophylaxis Current Visit: Yes Status: Acute Plan to address problem: On Lovenox and GI prophylaxia The high probability of a clinically significant, sudden or life threatening deterioration of the [c application developer, 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 The aggregate critical care time was [35] minutes. This time is in addition to time spent performing reported procedures but includes the following: [x] Data Review and interpretation [x] Patient assessment and monitoring of vital signs [x] Documentation [x] Medication orders and management History Interval history: Patient seen and examined remains intubated altered mental status still persist, Unfortunately remains with encephalopathy and unresponsiveness. Hospitalist Physical - Physical exam Narrative exam: General appearance: Present: severe distress, unreponsive despite no sedation - EENT Eyes: PERRL, EOM intact ENT: hearing intact, clear oral mucosa Ears: bilateral: normal - Neck Neck: supple, normal ROM - Respiratory Respiratory effort: Ventilatory support Respiratory: bilateral: diminished - Breasts Breasts: normal - Cardiovascular Heart rate: 122 Rhythm: regular Heart Sounds: Present: S1 & S2. Absent: gallop, rub Extremities: pulses intact, No edema, normal color, Full ROM - Gastrointestinal General gastrointestinal: Present: soft, non-tender, non-distended, normal bowel sounds - Genitourinary Male genitourinary: normal - Integumentary Integumentary: clear, warm, dry - Musculoskeletal Musculoskeletal: generalized weakness - Neurologic Neurologic: moves all extremities - Psychiatric Psychiatric: unable to examine - Allied health notes Allied health notes reviewed: nursing - Constitutional Vitals: Temp Pulse Resp BP Pulse Ox 97.4 F L 79 19 142/80 93 09/17/20 03:07 09/17/20 09:01 09/17/20 09:01 09/17/20 09:01 09/17/20 09:01 General appearance: Present: severe distress, other (in distress-sedated with prdx) HEART Score - HEART Score Troponin: Troponin T < 0.010 ng/mL (0.00-0.029) 09/07/20 18:00 Results - Labs CBC & Chem 7: 09/17/20 06:34 09/17/20 06:34 Labs: Laboratory Last Values WBC 16.2 K/mm3 (4.5-11.0) H 09/11/20 05:42 RBC 4.29 M/mm3 (3.65-5.03) 09/11/20 05:42 Hgb 13.2 gm/dl (11.8-15.2) 09/17/20 06:34 Hct 39.6 % (35.5-45.6) 09/17/20 06:34 MCV 91 fl (84-94) 09/11/20 05:42 MCH 31 pg (28-32) 09/11/20 05:42 MCHC 34 % (32-34) 09/11/20 05:42 RDW 15.3 % (13.2-15.2) H 09/11/20 05:42 Plt Count 102 K/mm3 (140-440) L 09/17/20 06:34 Lymph % (Auto) 1.3 % (13.4-35.0) L 09/09/20 04:54 Metcalfe % (Auto) 2.5 % (0.0-7.3) 09/09/20 04:54 Eos % (Auto) 0.0 % (0.0-4.3) 09/09/20 04:54 Baso % (Auto) 0.1 % (0.0-1.8) 09/09/20 04:54 Lymph # (Auto) 0.4 K/mm3 (1.2-5.4) L 09/09/20 04:54 Metcalfe # (Auto) 0.7 K/mm3 (0.0-0.8) 09/09/20 04:54 Eos # (Auto) 0.0 K/mm3 (0.0-0.4) 09/09/20 04:54 Baso # (Auto) 0.0 K/mm3 (0.0-0.1) 09/09/20 04:54 Add Manual Diff Complete 09/10/20 04:56 Total Counted 200 09/10/20 04:56 Seg Neutrophils % Hris Specialist 09/10/20 04:56 Seg Neuts % (Manual) 97.5 % (40.0-70.0) H 09/10/20 04:56 Band Neutrophils % 4.0 % 09/07/20 18:00 Lymphocytes % (Manual) 1.0 % (13.4-35.0) L 09/10/20 04:56 Monocytes % (Manual) 1.5 % (0.0-7.3) 09/10/20 04:56 Nucleated RBC % Not Reportable 09/10/20 04:56 Seg Neutrophils # 27.4 K/mm3 (1.8-7.7) H 09/09/20 04:54 Seg Neutrophils # Man 23.6 K/mm3 (1.8-7.7) H 09/10/20 04:56 Band Neutrophils # 0.0 K/mm3 09/10/20 04:56 Lymphocytes # (Manual) 0.2 K/mm3 (1.2-5.4) L 09/10/20 04:56 Abs React Lymphs (Man) 0.0 K/mm3 09/10/20 04:56 Monocytes # (Manual) 0.4 K/mm3 (0.0-0.8) 09/10/20 04:56 Eosinophils # (Manual) 0.0 K/mm3 (0.0-0.4) 09/10/20 04:56 Basophils # (Manual) 0.0 K/mm3 (0.0-0.1) 09/10/20 04:56 Metamyelocytes # 0.0 K/mm3 09/10/20 04:56 Myelocytes # 0.0 K/mm3 09/10/20 04:56 Promyelocytes # 0.0 K/mm3 09/10/20 04:56 Blast Cells # 0.0 K/mm3 09/10/20 04:56 WBC Morphology Not Reportable 09/10/20 04:56 Hypersegmented Neuts Not Reportable 09/10/20 04:56 Hyposegmented Neuts Not Reportable 09/10/20 04:56 Hypogranular Neuts Not Reportable 09/10/20 04:56 Smudge Cells Not Reportable 09/10/20 04:56 Toxic Granulation Not Reportable 09/10/20 04:56 Toxic Vacuolation Not Reportable 09/10/20 04:56 Dohle Bodies Not Reportable 09/10/20 04:56 Pelger-Huet Anomaly Not Reportable 09/10/20 04:56 Miroslava Rods Not Reportable 09/10/20 04:56 Platelet Estimate Consistent w auto 09/10/20 04:56 Clumped Platelets Not Reportable 09/10/20 04:56 Plt Clumps, EDTA Not Reportable 09/10/20 04:56 Large Platelets Not Reportable 09/10/20 04:56 Giant Platelets Not Reportable 09/10/20 04:56 Platelet Satelliting Not Reportable 09/10/20 04:56 Plt Morphology Comment Not Reportable 09/10/20 04:56 RBC Morphology Not Reportable 09/10/20 04:56 Dimorphic RBCs Not Reportable 09/10/20 04:56 Polychromasia Not Reportable 09/10/20 04:56 Hypochromasia Not Reportable 09/10/20 04:56 Poikilocytosis Not Reportable 09/10/20 04:56 Anisocytosis 1+ 09/10/20 04:56 Microcytosis Not Reportable 09/10/20 04:56 Macrocytosis Not Reportable 09/10/20 04:56 Spherocytes Not Reportable 09/10/20 04:56 Pappenheimer Bodies Not Reportable 09/10/20 04:56 Sickle Cells Not Reportable 09/10/20 04:56 Target Cells Not Reportable 09/10/20 04:56 Tear Drop Cells Not Reportable 09/10/20 04:56 Ovalocytes Not Reportable 09/10/20 04:56 Helmet Cells Not Reportable 09/10/20 04:56 [place] Bodies Not Reportable 09/10/20 04:56 Williamson Rings Not Reportable 09/10/20 04:56 Vivienne Cells Not Reportable 09/10/20 04:56 Bite Cells Not Reportable 09/10/20 04:56 Crenated Cell Not Reportable 09/10/20 04:56 Elliptocytes Not Reportable 09/10/20 04:56 Acanthocytes (Spur) Not Reportable 09/10/20 04:56 Rouleaux Not Reportable 09/10/20 04:56 Hemoglobin C Crystals Not Reportable 09/10/20 04:56 Schistocytes Not Reportable 09/10/20 04:56 Malaria parasites Not Reportable 09/10/20 04:56 Marquise Bodies Not Reportable 09/10/20 04:56 Hem Pathologist Commnt No 09/10/20 04:56 PT 15.8 Sec. (12.2-14.9) H 09/09/20 20:28 INR 1.26 (0.87-1.13) H 09/09/20 20:28 APTT 40.7 Sec. (24.2-36.6) H 09/09/20 20:28 D-Dimer > 19837 ng/mlDDU (0-234) H 09/07/20 18:00 D-Dimer Hris Specialist 09/07/20 18:00 Heparin Anti-Xa Level < 0.10 U.I./ml (0.3-0.7) L 09/12/20 09:52 ABG pH 7.426 pH Units (7.350-7.450) 09/15/20 04:40 POC ABG pCO2 22.8 mmHg (32.0-48.0) L 09/11/20 05:11 ABG pCO2 21.6 mm Hg 09/15/20 04:40 POC ABG pO2 76.3 mmHg (83-108) L 09/11/20 05:11 ABG pO2 66.1 mm Hg (80.0-90.0) L 09/15/20 04:40 POC ABG HCO3 14.7 09/11/20 05:11 ABG HCO3 13.9 mmol/L (20.0-26.0) L 09/15/20 04:40 ABG O2 Saturation 94.1 % (95.0-99.0) L 09/15/20 04:40 ABG O2 Content 17.1 (0.0-44) 09/15/20 04:40 POC ABG Base Excess -7.1 09/11/20 05:11 ABG Base Excess -8.3 mmol/L (-2.0-3.0) L 09/15/20 04:40 ABG Hemoglobin 13.1 gm/dl (14.0-18.0) L 09/15/20 04:40 ABG Oxyhemoglobin 94.6 (94-98) 09/11/20 05:11 ABG Carboxyhemoglobin 0.9 % (0.0-5.0) 09/15/20 04:40 ABG Methemoglobin 0.6 % (0.0-1.5) 09/15/20 04:40 ABG Sodium 136.0 mmol/L (136.0-145.0) 09/11/20 05:11 ABG Potassium 4.2 mmol/L (3.40-4.50) 09/11/20 05:11 ABG Chloride 106.0 mmol/L (98-107) 09/11/20 05:11 ABG Glucose 208 mg/dL (65-95) H 09/11/20 05:11 Oxyhemoglobin 92.7 % (95.0-99.0) L 09/15/20 04:40 Carboxyhemoglobin 0.2 (0.5-1.5) L 09/11/20 05:11 FiO2 25 % 09/15/20 04:40 Sodium 143 mmol/L (137-145) 09/17/20 06:34 Potassium 4.5 mmol/L (3.6-5.0) 09/17/20 06:34 Chloride 112.9 mmol/L (98-107) H 09/17/20 06:34 Carbon Dioxide 15 mmol/L (22-30) L 09/17/20 06:34 Anion Gap 20 mmol/L 09/17/20 06:34 BUN 123 mg/dL (9-20) H 09/17/20 06:34 Creatinine 2.4 mg/dL (0.8-1.3) H 09/17/20 06:34 Estimated GFR 26 ml/min 09/17/20 06:34 BUN/Creatinine Ratio 51 % 09/17/20 06:34 Glucose 253 mg/dL (75-100) H 09/17/20 06:34 POC Glucose 228 mg/dL (70-105) H 09/17/20 05:27 Hemoglobin A1c 6.2 % (4-6) H 09/08/20 10:13 Lactic Acid 3.70 mmol/L (0.7-2.0) H* 09/09/20 09:04 Calcium 7.9 mg/dL (8.4-10.2) L 09/17/20 06:34 Phosphorus 3.20 mg/dL (2.5-4.5) 09/08/20 10:13 Magnesium 2.00 mg/dL (1.7-2.3) 09/08/20 10:13 Ferritin 849.7 ng/mL (30.0-300.0) H 09/07/20 18:00 Total Bilirubin 1.20 mg/dL (0.1-1.2) 09/08/20 20:18 AST 51 units/L (5-40) H 09/08/20 20:18 ALT 22 units/L (7-56) 09/08/20 20:18 Alkaline Phosphatase 69 units/L (35-129) 09/08/20 20:18 Lactate Dehydrogenase 507 units/L (91-180) H 09/07/20 18:00 Troponin T < 0.010 ng/mL (0.00-0.029) 09/07/20 18:00 C-Reactive Protein 8.20 mg/dL (0.00-1.30) H 09/07/20 18:00 Total Protein 6.2 g/dL (6.3-8.2) L 09/08/20 20:18 Albumin 2.1 g/dL (3.9-5) L 09/08/20 20:18 Albumin/Globulin Ratio 0.5 % 09/08/20 20:18 Prealbumin 0.049 g/L (0.200-0.400) L 09/08/20 10:13 Procalcitonin 0.33 ng/mL (<0.15) 09/07/20 18:00 Arterial Blood Glucose 208 mg/dL (65-95) H 09/11/20 05:11 Arterial Blood Ionized Calcium 4.1 mg/dL (4.6-5.3) L 09/11/20 05:11 Urine Color Leanna (Yellow) 09/07/20 17:25 Urine Turbidity Clear (Clear) 09/07/20 17:25 Urine pH 5.0 (5.0-7.0) 09/07/20 17:25 Ur Specific [place] 1.023 (1.003-1.030) 09/07/20 17: Urine Protein 30 mg/dl mg/dL (Negative) 09/07/20 17:25 Urine Glucose (UA) Neg mg/dL (Negative) 09/07/20 17:25 Urine Ketones Tr mg/dL (Negative) 09/07/20 17:25 Urine Blood Neg (Negative) 09/07/20 17:25 Urine Nitrite Neg (Negative) 09/07/20 17:25 Urine Bilirubin Neg (Negative) 09/07/20 17:25 Urine Urobilinogen 2.0 mg/dL (<2.0) 09/07/20 17:25 Ur Leukocyte Esterase Neg (Negative) 09/07/20 17:25 Urine WBC (Auto) 4.0 /HPF (0.0-6.0) 09/07/20 17:25 Urine RBC (Auto) 2.0 /HPF (0.0-6.0) 09/07/20 17:25 U Epithel Cells (Auto) 1.0 /HPF (0-13.0) 09/07/20 17:25 Urine Mucus 3+ /HPF 09/07/20 17:25 Urine Creatinine 213.6 mg/dL (0.1-20.0) H 09/09/20 Unknown Urine Sodium 19 mmol/L 09/09/20 Unknown Nasal Screen MRSA (PCR) Negative (Negative) 09/09/20 17: Random Vancomycin 14.3 ug/mL (0-40.0) 09/11/20 05:42 Coronavirus (PCR) Positive (Negative) A 09/07/20 17:25 Hepatitis A IgM Ab Non-reactive (NonReactive) 09/12/20 11:08 Hep Bs Antigen Non-reactive (Negative) 09/12/20 11:08 Hep B Core IgM Ab Non-reactive (NonReactive) 09/12/20 11:08 Hepatitis C Antibody Non-reactive (NonReactive) 09/12/20 11:08 Microbiology: Microbiology 09/16/20 16:05 Stool Stool Occult Blood (MARCOS) - Final Reyez/IV: Voiding Method Indwelling Catheter IV Catheter Type [Right Triple Lumen Cath Femoral] IV Catheter Type [Right INT / Saline Lock Antecubital] Active Medications - Current Medications Current Medications: Generic Name Dose Route Start Last Admin Trade Name Freq PRN Reason Stop Dose Admin Acetaminophen 650 mg 09/08/20 07:00 Acetaminophen 325 Mg/10.15 Ml Oral Liqd Unit Dose PO Q4H PRN Pain MILD(1-3)/Fever >100.5/BEST Lipase/Protease/Amylase 1 each 09/15/20 10:11 Lipase 10,500/Protease 25,000/Amylase 43,750 (Units) Dr Cap FEEDTUBE PRN PRN For Clogged Feeding Tube Dexamethasone 6 mg 09/09/20 20:56 09/16/20 10:38 Dexamethasone 4 Mg/Ml Vial IV 09/18/20 10:01 6 mg Q24HR CRISTIN Administration Dextrose 50 ml 09/14/20 17:44 Dextrose 50% In Water (25gm) 50 Ml Syringe IV Q30MIN PRN Hypoglycemia Protocol Diltiazem HCl 60 mg 09/10/20 14:00 09/17/20 06:41 Diltiazem 60 Mg Tab PO 60 mg Q6HR CRISTIN Administration Famotidine 20 mg 09/15/20 10:00 09/16/20 10:38 Famotidine 20 Mg Tab PO 20 mg DAILY CRISTIN Administration Fentanyl 50 mcg 09/09/20 19:53 Fentanyl 100 Mcg/2 Ml Inj IV Q10MIN PRN ANALGESIA Heparin Sodium (Porcine) 3,200 unit 09/09/20 19:53 09/10/20 05:53 Heparin 10,000 Units/10 Ml Vial 40 unit/kg (3200 unit) 3,200 unit IV Administration Q6H PRN Anti-Xa Assay < 0.1 units/ml Hydrophilic Ointment 1 applic 09/07/20 22:11 Lip Therapy Vaseline TP Q2HR PRN Dry Lips Heparin Sodium/Sodium Chloride 25,000 unit in 500 mls @ 23 mls/hr 09/09/20 20:00 09/11/20 15:47 Heparin/ 0.45% Nacl-25,000 Unit/500 Ml IV 700 units/hr TITR CRISTIN 14 mls/hr Administration Protocol 1,150 UNITS/HR Sodium Chloride 100 mls @ 999 mls/hr 09/12/20 12:00 Nacl 0.9% IV ANNA MARIE PRN Hypotension Insulin Glargine 20 units 09/17/20 10:00 Insulin Glargine 100 Units/Ml SUB-Q DAILY [facility] Insulin Human Regular 0 unit 09/14/20 18:00 09/17/20 06:43 Insulin Regular, Human 100 Unit/Ml 3ml Vial SUB-Q 4 unit Q6H [facility] Administration Protocol Metoprolol Tartrate 5 mg 09/10/20 13:07 Metoprolol Tartrate 5 Mg/5 Ml Inj IV Q6HR PRN HR>130 Metoprolol Tartrate 25 mg 09/11/20 14:00 09/17/20 06:40 Metoprolol Tartrate 25 Mg Tab PO 25 mg Q6H [facility] Administration Multi-Ingred Cream/Lotion/Oil/Oint 1 applic 09/07/20 22:11 Mineral Oil/Petrolatum, White Ophth Oint 3.5 Gm OU Q4HR PRN Dry Eye(s) Ondansetron HCl 4 mg 09/08/20 06:29 Ondansetron 4 Mg/2 Ml Inj IV Q8H PRN Nausea And Vomiting Simple Syrup 15 ml 09/15/20 10:31 Simple Syrup 15 Ml FEEDTUBE PRN PRN Hypoglycemia Simple Syrup 30 ml 09/15/20 10:11 Simple Syrup 15 Ml FEEDTUBE PRN PRN Hypoglycemia Sodium Bicarbonate 325 mg 09/15/20 10:31 Sodium Bicarbonate 325 Mg Tab FEEDTUBE PRN PRN For Clogged Feeding Tube Sodium Chloride 10 ml 09/08/20 10:00 09/17/20 06:47 Sodium Chloride 0.9% 10 Ml Flush Syringe IV 10 ml BID CRISTIN Administration Sodium Chloride 10 ml 09/08/20 06:29 Sodium Chloride 0.9% 10 Ml Flush Syringe IV PRN PRN LINE FLUSH Nutrition/Malnutrition Assess - Dietary Evaluation Nutrition/Malnutrition Findings: Nutrition Notes Start: 09/08/20 09:03 Freq: Status: Active Protocol: Document 09/15/20 09:59 MARION (Rec: 09/15/20 10:11 MARION [id number]) Nutrition Notes Initial or Follow up Reassessment Current Diagnosis Acute Kidney Injury,Sepsis, Respiratory Failure,Stroke Other Pertinent Diagnosis COVID-19 (+), pneu, acute encephalopathy Current Diet TF - Vital AF 1.2 at 55ml/hr Labs/Tests K 5.3 (K been >5 since 09/13) BUN >112 Cr 2.9 BG 366 Pertinent Medications Lantus, Humulin R Height 5 ft 4 in Weight 79.6 kg [place] Body Weight (kg) 59.09 BMI 30.1 Weight Status Obese Subjective/Other Information Pt remains on vent support. Awaiting family's decision regarding HD, as pt's renal function is worsening. Per RN , TF infusing as ordered. RN informed (via phone) that TF formula will be changed today. Burn Absent Trauma Absent #1 Nutrition Diagnosis Inadequate oral intake Diagnosis Progress(for reassessment Continues documentation) Is patient on ventilator? Yes Is Patient Ambulatory and/or Out of Bed No REE-([facility]-confined to bed) 1665.792 Kcal/Kg value to use for calculation 18 Approximate Energy Requirements Using 1433 kcal/Kg Calculation Used for Recommendations Kcal/kg Additional Notes Pro needs >1.2g/kg adjBW: at least 83g/day Fluid needs per MD Nutrition Intervention Nutrition Support: Change TF formula to Nepro at 35ml/hr with 150ml water flush q4h. Kcal 1,512 Protein (gm) 68 Carbohydrates (gm) 135 Fat (gm) 81 Fluid (mL) 611 Fiber (gm) 11 Goal #1 TF tolerance Goal #2 TF to meet at least 75% energy and pro needs Follow-Up By: 09/17/20 Additional Comments F/U: TF formula change and tolerance, vent status, initiation of HD
[2020-09-17] MEDS: FAMOTIDINE 20 MG TAB PO SCH (10:23)
[2020-09-17] MEDS: INSULIN GLARGINE 100 UNITS/ML SUB-Q SCH (10:32)
[2020-09-17] MEDS: dexAMETHasone 4 MG/ML VIAL IV SCH (11:22)
[2020-09-17] MEDS: HEPARIN/ 0.45% NACL DRIP 25,000 UNIT/500 ML BAG IV SCH (11:24)
--- NOTE | 2020-09-17 13:06 | Progress Note ---
Assessment and Plan Acute hypoxemic respiratory failure, on MVS COVID-19 infection. Bilateral pneumonia Acute encephalopathy, presumably toxic metabolic. Severe sepsis with shock. Acute kidney injury. History of cerebrovascular accident. Leukocytosis. Severe metabolic acidosis. Lactic acidosis. Elevated serum inflammatory markers to include D-dimers. (I spoke at length with his Son Marcus and explained the indications for a tracheostomy to him. He shared with me that his mother decided against dialysis and he will discuss the tracheostomy with her. I explained also the option of hospice care if their substituted judgment indicates he would rather go that route.) - ETT day # 10; AMS remains rate limiting factor to safe extubation acutely even if meets other criteria but will continue to monitor; he will need a tracheostomy for continued weaning / possible liberation from ventilator - continue Daily SAT and SBT assessment as tolerated - neurology evaluation is ongoing; initial CT head without gross acute process - Azotemia per nephrology; family decided against HD/UF - continue care as below otherwise; - prn vasopressors for target MAP > 65 mmHg - continue to wean supplemental oxygen for target O2 sat's > 90% acutely - VAP bundle addressed - continue lung protective strategies - continue bronchodilators with pulmonary hygiene per RT - wean per pulmonary driven protocols otherwise - continue SSI - continue Lantus - continue accuchecks with glycemic control per SSI (While critically ill target blood glucose of 140-180 mg/dL; avoid hypoglycemia) - sedation prn for target RASS 0 to -1 - avoid nephrotoxins, renally dose all medications - continue to avoid benzodiazepine's, reduce the possibility of delirium - completed AB's per ID rec's - prn analgesia per CPOT score - Maintenance of sleep-wake cycle, avoid delirium - continue enteral nutritional support at goal rate as tolerated - G.I. & VTE prophylaxis - PT/OT/ROM exercises - continue mobility protocols for pressure ulcer prophylaxis - Monitor hemodynamics closely - continue other care per attending / other consultants - discharge planning ongoing concurrently COVID SPECIFIC INTERVENTIONS - Remdesivir / other COVID specific interventions per ID recommendations - continue systemic steroids for severe COVID-19 infection empirically - repeat COVID tests per facility protocol - Monitor inflammatory markers per facility protocol - ferritin, Ddimer, CRP - therapeutic anticoagulation per system Protocol based on d-dimer - Continue contact and airborne isolation - discharge planning ongoing concurrently .... Re-evaluate in am & prn CONDITION: CRITICAL PROGNOSIS: GUARDED CODE STATUS: FULL CODE The high probability of a clinically significant, sudden or life-threatening deterioration of the [respiratory, cardiovascular, hematologic, renal & neurologic] system(s) required my full and direct attention, intervention and personal management. The aggregate critical care time was [45] minutes without overlap. Time includes spent on; [x] Data Review and interpretation [x] Patient assessment and monitoring of vital signs [x] Documentation [x] Medication orders and management Subjective Date of service: 09/17/20 Principal diagnosis: Ac hypoxemic resp failure; COVID-19; Pneumonia; Septic Shock; MYRON; H/O CVA Interval history: Patient is seen today for: Acute hypoxemic respiratory failure; COVID-19 infection; Bilateral pneumonia; Acute encephalopathy, presumably toxic metabolic; Severe sepsis with shock; Acute kidney injury; History of cerebrovascular accident Seen and examined at bedside; 24hour events reviewed; nursing and respiratory care staff consulted; no adverse overnight events reported to me; resting peacefully in bed; remains on MVS; tenuously tolerating SBT's; AMS is persistent; afebrile; no emesis or overt aspiration Objective Vital Signs - 12hr 09/17/20 09/17/20 09/17/20 02:00 03:00 03:07 Temperature 97.4 F L Pulse Rate 78 76 Pulse Rate [ From Monitor] Respiratory 13 15 Rate Blood Pressure 129/60 131/66 O2 Sat by Pulse 93 92 Oximetry 09/17/20 09/17/20 09/17/20 04:00 04:52 05:00 Temperature Pulse Rate 77 72 77 Pulse Rate [ 77 From Monitor] Respiratory 18 20 Rate Blood Pressure 132/68 134/59 134/59 O2 Sat by Pulse 92 92 91 Oximetry 09/17/20 09/17/20 09/17/20 06:00 06:40 06:41 Temperature Pulse Rate 71 75 73 Pulse Rate [ From Monitor] Respiratory 18 Rate Blood Pressure 110/64 114/70 110/74 O2 Sat by Pulse 93 Oximetry 09/17/20 09/17/20 09/17/20 07:00 08:00 08:03 Temperature Pulse Rate 74 65 67 Pulse Rate [ From Monitor] Respiratory 16 18 Rate Blood Pressure 125/59 115/58 116/58 O2 Sat by Pulse 92 94 94 Oximetry 09/17/20 09/17/20 09/17/20 08:32 09:00 09:01 Temperature Pulse Rate 68 79 Pulse Rate [ 66 From Monitor] Respiratory 12 19 Rate Blood Pressure 115/68 142/80 O2 Sat by Pulse 94 93 Oximetry 09/17/20 09/17/20 09/17/20 09:43 10:00 11:00 Temperature Pulse Rate 72 65 70 Pulse Rate [ From Monitor] Respiratory 18 15 11 L Rate Blood Pressure 142/80 125/64 119/68 O2 Sat by Pulse 93 93 92 Oximetry 09/17/20 09/17/20 11:14 11:22 Temperature Pulse Rate 72 85 Pulse Rate [ From Monitor] Respiratory 14 Rate Blood Pressure 119/68 119/65 O2 Sat by Pulse 93 Oximetry Constitutional: appears uncomfortable, other (elderly obese male with mildly increased respiratory effort at rest on MVS) Eyes: non-icteric ENT: oropharynx moist, other (ETT 24 cm BREANN) Neck: supple, no lymphadenopathy, no JVD Effort: mildly labored Ascultation: Bilateral: diminished breath sounds, rhonchi Percussion: Bilateral: not dull Cardiovascular: regular rate and rhythm Gastrointestinal: normoactive bowel sounds, soft, non-tender, non-distended (protuberant) Integumentary: other (please see [facility] notes) Extremities: no cyanosis, pulses normal, no ischemia or petechiae Neurologic: pupils equal and round, unable to assess Psychiatric: other (unable to assess re: AMS) CBC and BMP: 09/17/20 06:34 09/17/20 06:34 ABG, PT/INR, D-dimer: ABG ABG pH 7.426 pH Units (7.350-7.450) 09/15/20 04:40 POC ABG pCO2 22.8 mmHg (32.0-48.0) L 09/11/20 05:11 ABG pCO2 21.6 mm Hg 09/15/20 04:40 POC ABG pO2 76.3 mmHg (83-108) L 09/11/20 05:11 ABG pO2 66.1 mm Hg (80.0-90.0) L 09/15/20 04:40 POC ABG HCO3 14.7 09/11/20 05:11 ABG O2 Saturation 94.1 % (95.0-99.0) L 09/15/20 04:40 PT/INR, D-dimer PT 15.8 Sec. (12.2-14.9) H 09/09/20 20:28 INR 1.26 (0.87-1.13) H 09/09/20 20:28 D-Dimer > 27255 ng/mlDDU (0-234) H 09/07/20 18:00 D-Dimer [employer] 09/07/20 18:00 Abnormal lab findings: Abnormal Labs 09/07/20 09/07/20 09/07/20 17:25 18:00 18:00 WBC 23.5 H RBC Hgb Hct MCHC RDW Plt Count Lymph % (Auto) Lymph # (Auto) Seg Neutrophils % Seg Neuts % (Manual) 94.0 H Lymphocytes % (Manual) 1.0 L Seg Neutrophils # Seg Neutrophils # Man 22.1 H Lymphocytes # (Manual) 0.2 L PT INR APTT D-Dimer > 47565 H Heparin Anti-Xa Level ABG pH POC ABG pCO2 POC ABG pO2 ABG pO2 ABG HCO3 ABG O2 Saturation ABG Base Excess ABG Hemoglobin ABG Glucose Oxyhemoglobin Carboxyhemoglobin Sodium Potassium Chloride Carbon Dioxide BUN Creatinine Glucose POC Glucose Hemoglobin A1c Lactic Acid Calcium Ferritin Total Bilirubin AST Lactate Dehydrogenase C-Reactive Protein Total Protein Albumin Prealbumin Arterial Blood Glucose Arterial Blood Ionized Calcium Urine Creatinine Coronavirus (PCR) Positive A 09/07/20 09/07/20 09/07/20 18:00 18:00 18:00 WBC RBC Hgb Hct MCHC RDW Plt Count Lymph % (Auto) Lymph # (Auto) Seg Neutrophils % Seg Neuts % (Manual) Lymphocytes % (Manual) Seg Neutrophils # Seg Neutrophils # Man Lymphocytes # (Manual) PT INR APTT 72.7 H* D-Dimer Heparin Anti-Xa Level ABG pH POC ABG pCO2 POC ABG pO2 ABG pO2 ABG HCO3 ABG O2 Saturation ABG Base Excess ABG Hemoglobin ABG Glucose Oxyhemoglobin Carboxyhemoglobin Sodium Potassium Chloride Carbon Dioxide 9 L* BUN 24 H Creatinine Glucose 143 H POC Glucose Hemoglobin A1c Lactic Acid Calcium 7.6 L Ferritin 849.7 H Total Bilirubin 1.80 H AST 45 H Lactate Dehydrogenase 507 H C-Reactive Protein 8.20 H Total Protein 5.6 L Albumin 2.8 L Prealbumin Arterial Blood Glucose Arterial Blood Ionized Calcium Urine Creatinine Coronavirus (PCR) 09/07/20 09/07/20 09/08/20 19:37 20:30 01:07 WBC RBC Hgb Hct MCHC RDW Plt Count Lymph % (Auto) Lymph # (Auto) Seg Neutrophils % Seg Neuts % (Manual) Lymphocytes % (Manual) Seg Neutrophils # Seg Neutrophils # Man Lymphocytes # (Manual) PT INR APTT D-Dimer Heparin Anti-Xa Level ABG pH 7.336 L POC ABG pCO2 POC ABG pO2 ABG pO2 91.2 H ABG HCO3 14.1 L ABG O2 Saturation ABG Base Excess -9.9 L ABG Hemoglobin ABG Glucose Oxyhemoglobin Carboxyhemoglobin Sodium Potassium Chloride Carbon Dioxide BUN Creatinine Glucose POC Glucose Hemoglobin A1c Lactic Acid 8.80 H* 3.80 H* Calcium Ferritin Total Bilirubin AST Lactate Dehydrogenase C-Reactive Protein Total Protein Albumin Prealbumin Arterial Blood Glucose Arterial Blood Ionized Calcium Urine Creatinine Coronavirus (PCR) 09/08/20 09/08/20 09/08/20 04:25 10:13 10:13 WBC 21.7 H RBC 5.49 H Hgb 17.1 H Hct 49.6 H MCHC 35 H RDW Plt Count Lymph % (Auto) Lymph # (Auto) Seg Neutrophils % Seg Neuts % (Manual) 96.0 H Lymphocytes % (Manual) 1.0 L Seg Neutrophils # Seg Neutrophils # Man 20.8 H Lymphocytes # (Manual) 0.2 L PT INR APTT D-Dimer Heparin Anti-Xa Level ABG pH 7.484 H POC ABG pCO2 POC ABG pO2 ABG pO2 148.2 H ABG HCO3 17.2 L ABG O2 Saturation ABG Base Excess -4.1 L ABG Hemoglobin ABG Glucose Oxyhemoglobin Carboxyhemoglobin Sodium Potassium Chloride Carbon Dioxide BUN Creatinine Glucose POC Glucose Hemoglobin A1c Lactic Acid 3.40 H* Calcium Ferritin Total Bilirubin AST Lactate Dehydrogenase C-Reactive Protein Total Protein Albumin Prealbumin Arterial Blood Glucose Arterial Blood Ionized Calcium Urine Creatinine Coronavirus (PCR) 09/08/20 09/08/20 09/08/20 10:13 10:13 10:13 WBC RBC Hgb Hct MCHC RDW Plt Count Lymph % (Auto) Lymph # (Auto) Seg Neutrophils % Seg Neuts % (Manual) Lymphocytes % (Manual) Seg Neutrophils # Seg Neutrophils # Man Lymphocytes # (Manual) PT INR APTT D-Dimer Heparin Anti-Xa Level ABG pH POC ABG pCO2 POC ABG pO2 ABG pO2 ABG HCO3 ABG O2 Saturation ABG Base Excess ABG Hemoglobin ABG Glucose Oxyhemoglobin Carboxyhemoglobin Sodium 135 L Potassium Chloride Carbon Dioxide 20 L D BUN 35 H Creatinine 1.6 H D Glucose 192 H POC Glucose Hemoglobin A1c 6.2 H Lactic Acid Calcium 8.3 L Ferritin Total Bilirubin 1.80 H AST 55 H Lactate Dehydrogenase C-Reactive Protein Total Protein Albumin 2.6 L Prealbumin 0.049 L Arterial Blood Glucose Arterial Blood Ionized Calcium Urine Creatinine Coronavirus (PCR) 09/08/20 09/08/20 09/08/20 20:18 20:18 20:18 WBC 29.8 H RBC Hgb 15.3 H Hct MCHC RDW Plt Count Lymph % (Auto) Lymph # (Auto) Seg Neutrophils % Seg Neuts % (Manual) Lymphocytes % (Manual) Seg Neutrophils # Seg Neutrophils # Man Lymphocytes # (Manual) PT INR APTT D-Dimer Heparin Anti-Xa Level ABG pH POC ABG pCO2 POC ABG pO2 ABG pO2 ABG HCO3 ABG O2 Saturation ABG Base Excess ABG Hemoglobin ABG Glucose Oxyhemoglobin Carboxyhemoglobin Sodium 136 L Potassium Chloride Carbon Dioxide 17 L BUN 42 H Creatinine 1.9 H Glucose 203 H POC Glucose Hemoglobin A1c Lactic Acid 2.20 H* Calcium 7.6 L Ferritin Total Bilirubin AST 51 H Lactate Dehydrogenase C-Reactive Protein Total Protein 6.2 L Albumin 2.1 L Prealbumin Arterial Blood Glucose Arterial Blood Ionized Calcium Urine Creatinine Coronavirus (PCR) 09/08/20 09/09/20 09/09/20 21:53 00:19 03:15 WBC RBC Hgb Hct MCHC RDW Plt Count Lymph % (Auto) Lymph # (Auto) Seg Neutrophils % Seg Neuts % (Manual) Lymphocytes % (Manual) Seg Neutrophils # Seg Neutrophils # Man Lymphocytes # (Manual) PT INR APTT D-Dimer Heparin Anti-Xa Level ABG pH POC ABG pCO2 POC ABG pO2 ABG pO2 97.0 H ABG HCO3 16.3 L ABG O2 Saturation ABG Base Excess -7.5 L ABG Hemoglobin ABG Glucose Oxyhemoglobin Carboxyhemoglobin Sodium Potassium Chloride Carbon Dioxide BUN Creatinine Glucose POC Glucose Hemoglobin A1c Lactic Acid 3.20 H* 2.10 H* Calcium Ferritin Total Bilirubin AST Lactate Dehydrogenase C-Reactive Protein Total Protein Albumin Prealbumin Arterial Blood Glucose Arterial Blood Ionized Calcium Urine Creatinine Coronavirus (PCR) 09/09/20 09/09/20 09/09/20 04:54 04:54 04:54 WBC 28.5 H RBC Hgb Hct MCHC RDW Plt Count Lymph % (Auto) 1.3 L Lymph # (Auto) 0.4 L Seg Neutrophils % 96.1 H Seg Neuts % (Manual) Lymphocytes % (Manual) Seg Neutrophils # 27.4 H Seg Neutrophils # Man Lymphocytes # (Manual) PT INR APTT D-Dimer Heparin Anti-Xa Level ABG pH POC ABG pCO2 POC ABG pO2 ABG pO2 ABG HCO3 ABG O2 Saturation ABG Base Excess ABG Hemoglobin ABG Glucose Oxyhemoglobin Carboxyhemoglobin Sodium Potassium Chloride Carbon Dioxide 17 L BUN 45 H Creatinine 2.2 H Glucose 201 H POC Glucose Hemoglobin A1c Lactic Acid 2.90 H* Calcium 7.8 L Ferritin Total Bilirubin AST Lactate Dehydrogenase C-Reactive Protein Total Protein Albumin Prealbumin Arterial Blood Glucose Arterial Blood Ionized Calcium Urine Creatinine Coronavirus (PCR) 09/09/20 09/09/20 09/09/20 06:56 09:04 20:28 WBC RBC Hgb Hct MCHC RDW Plt Count Lymph % (Auto) Lymph # (Auto) Seg Neutrophils % Seg Neuts % (Manual) Lymphocytes % (Manual) Seg Neutrophils # Seg Neutrophils # Man Lymphocytes # (Manual) PT 15.8 H INR 1.26 H APTT 40.7 H D-Dimer Heparin Anti-Xa Level ABG pH POC ABG pCO2 POC ABG pO2 ABG pO2 ABG HCO3 ABG O2 Saturation ABG Base Excess ABG Hemoglobin ABG Glucose Oxyhemoglobin Carboxyhemoglobin Sodium Potassium Chloride Carbon Dioxide BUN Creatinine Glucose POC Glucose Hemoglobin A1c Lactic Acid 4.70 H* 3.70 H* Calcium Ferritin Total Bilirubin AST Lactate Dehydrogenase C-Reactive Protein Total Protein Albumin Prealbumin Arterial Blood Glucose Arterial Blood Ionized Calcium Urine Creatinine Coronavirus (PCR) 09/09/20 09/10/20 09/10/20 Unknown 02:24 04:56 WBC 24.2 H RBC Hgb Hct MCHC RDW Plt Count Lymph % (Auto) Lymph # (Auto) Seg Neutrophils % Seg Neuts % (Manual) 97.5 H Lymphocytes % (Manual) 1.0 L Seg Neutrophils # Seg Neutrophils # Man 23.6 H Lymphocytes # (Manual) 0.2 L PT INR APTT D-Dimer Heparin Anti-Xa Level ABG pH POC ABG pCO2 POC ABG pO2 ABG pO2 120.7 H ABG HCO3 15.1 L ABG O2 Saturation ABG Base Excess -8.0 L ABG Hemoglobin ABG Glucose Oxyhemoglobin Carboxyhemoglobin Sodium Potassium Chloride Carbon Dioxide BUN Creatinine Glucose POC Glucose Hemoglobin A1c Lactic Acid Calcium Ferritin Total Bilirubin AST Lactate Dehydrogenase C-Reactive Protein Total Protein Albumin Prealbumin Arterial Blood Glucose Arterial Blood Ionized Calcium Urine Creatinine 213.6 H Coronavirus (PCR) 09/10/20 09/10/20 09/11/20 04:56 17:58 01:02 WBC RBC Hgb Hct MCHC RDW Plt Count Lymph % (Auto) Lymph # (Auto) Seg Neutrophils % Seg Neuts % (Manual) Lymphocytes % (Manual) Seg Neutrophils # Seg Neutrophils # Man Lymphocytes # (Manual) PT INR APTT D-Dimer Heparin Anti-Xa Level > 2.00 H 2.00 H ABG pH POC ABG pCO2 POC ABG pO2 ABG pO2 ABG HCO3 ABG O2 Saturation ABG Base Excess ABG Hemoglobin ABG Glucose Oxyhemoglobin Carboxyhemoglobin Sodium Potassium Chloride Carbon Dioxide 18 L BUN 62 H Creatinine 2.8 H Glucose 216 H POC Glucose Hemoglobin A1c Lactic Acid Calcium 7.9 L Ferritin Total Bilirubin AST Lactate Dehydrogenase C-Reactive Protein Total Protein Albumin Prealbumin Arterial Blood Glucose Arterial Blood Ionized Calcium Urine Creatinine Coronavirus (PCR) 09/11/20 09/11/20 09/11/20 05:11 05:42 05:42 WBC RBC Hgb Hct MCHC RDW Plt Count 116 L Lymph % (Auto) Lymph # (Auto) Seg Neutrophils % Seg Neuts % (Manual) Lymphocytes % (Manual) Seg Neutrophils # Seg Neutrophils # Man Lymphocytes # (Manual) PT INR APTT D-Dimer Heparin Anti-Xa Level ABG pH POC ABG pCO2 22.8 L POC ABG pO2 76.3 L ABG pO2 ABG HCO3 ABG O2 Saturation ABG Base Excess ABG Hemoglobin ABG Glucose 208 H Oxyhemoglobin Carboxyhemoglobin 0.2 L Sodium Potassium Chloride 108.7 H Carbon Dioxide 15 L BUN 76 H Creatinine 3.0 H Glucose 202 H POC Glucose Hemoglobin A1c Lactic Acid Calcium 7.5 L Ferritin Total Bilirubin AST Lactate Dehydrogenase C-Reactive Protein Total Protein Albumin Prealbumin Arterial Blood Glucose 208 H Arterial Blood Ionized Calcium 4.1 L Urine Creatinine Coronavirus (PCR) 09/11/20 09/11/20 09/11/20 05:42 11:39 17:41 WBC 16.2 H RBC Hgb Hct MCHC RDW 15.3 H Plt Count 118 L Lymph % (Auto) Lymph # (Auto) Seg Neutrophils % Seg Neuts % (Manual) Lymphocytes % (Manual) Seg Neutrophils # Seg Neutrophils # Man Lymphocytes # (Manual) PT INR APTT D-Dimer Heparin Anti-Xa Level 1.82 H 1.14 H ABG pH POC ABG pCO2 POC ABG pO2 ABG pO2 ABG HCO3 ABG O2 Saturation ABG Base Excess ABG Hemoglobin ABG Glucose Oxyhemoglobin Carboxyhemoglobin Sodium Potassium Chloride Carbon Dioxide BUN Creatinine Glucose POC Glucose Hemoglobin A1c Lactic Acid Calcium Ferritin Total Bilirubin AST Lactate Dehydrogenase C-Reactive Protein Total Protein Albumin Prealbumin Arterial Blood Glucose Arterial Blood Ionized Calcium Urine Creatinine Coronavirus (PCR) 09/12/20 09/12/20 09/12/20 05:25 05:50 09:52 WBC RBC Hgb Hct MCHC RDW Plt Count Lymph % (Auto) Lymph # (Auto) Seg Neutrophils % Seg Neuts % (Manual) Lymphocytes % (Manual) Seg Neutrophils # Seg Neutrophils # Man Lymphocytes # (Manual) PT INR APTT D-Dimer Heparin Anti-Xa Level < 0.10 L ABG pH POC ABG pCO2 POC ABG pO2 ABG pO2 195.5 H ABG HCO3 15.5 L ABG O2 Saturation 99.3 H ABG Base Excess -7.5 L ABG Hemoglobin 12.4 L ABG Glucose Oxyhemoglobin Carboxyhemoglobin Sodium Potassium Chloride Carbon Dioxide 15 L BUN 89 H Creatinine 3.5 H Glucose 282 H POC Glucose Hemoglobin A1c Lactic Acid Calcium 7.2 L Ferritin Total Bilirubin AST Lactate Dehydrogenase C-Reactive Protein Total Protein Albumin Prealbumin Arterial Blood Glucose Arterial Blood Ionized Calcium Urine Creatinine Coronavirus (PCR) 09/12/20 09/13/20 09/13/20 15:56 04:40 05:21 WBC RBC Hgb Hct MCHC RDW Plt Count 126 L Lymph % (Auto) Lymph # (Auto) Seg Neutrophils % Seg Neuts % (Manual) Lymphocytes % (Manual) Seg Neutrophils # Seg Neutrophils # Man Lymphocytes # (Manual) PT INR APTT D-Dimer Heparin Anti-Xa Level ABG pH POC ABG pCO2 POC ABG pO2 ABG pO2 72.8 L ABG HCO3 15.5 L ABG O2 Saturation ABG Base Excess -7.8 L ABG Hemoglobin 11.7 L ABG Glucose Oxyhemoglobin 93.6 L Carboxyhemoglobin Sodium Potassium Chloride Carbon Dioxide BUN Creatinine Glucose POC Glucose 202 H Hemoglobin A1c Lactic Acid Calcium Ferritin Total Bilirubin AST Lactate Dehydrogenase C-Reactive Protein Total Protein Albumin Prealbumin Arterial Blood Glucose Arterial Blood Ionized Calcium Urine Creatinine Coronavirus (PCR) 09/13/20 09/14/20 09/14/20 05:21 03:46 05:32 WBC RBC Hgb Hct MCHC RDW Plt Count Lymph % (Auto) Lymph # (Auto) Seg Neutrophils % Seg Neuts % (Manual) Lymphocytes % (Manual) Seg Neutrophils # Seg Neutrophils # Man Lymphocytes # (Manual) PT INR APTT D-Dimer Heparin Anti-Xa Level ABG pH POC ABG pCO2 POC ABG pO2 ABG pO2 ABG HCO3 ABG O2 Saturation ABG Base Excess ABG Hemoglobin ABG Glucose Oxyhemoglobin Carboxyhemoglobin Sodium Potassium 5.1 H Chloride 109.2 H Carbon Dioxide 16 L BUN 101 H Creatinine 3.8 H Glucose 230 H POC Glucose 163 H 202 H Hemoglobin A1c Lactic Acid Calcium 7.5 L Ferritin Total Bilirubin AST Lactate Dehydrogenase C-Reactive Protein Total Protein Albumin Prealbumin Arterial Blood Glucose Arterial Blood Ionized Calcium Urine Creatinine Coronavirus (PCR) 09/14/20 09/14/20 09/14/20 06:50 12:01 16:38 WBC RBC Hgb Hct MCHC RDW Plt Count Lymph % (Auto) Lymph # (Auto) Seg Neutrophils % Seg Neuts % (Manual) Lymphocytes % (Manual) Seg Neutrophils # Seg Neutrophils # Man Lymphocytes # (Manual) PT INR APTT D-Dimer Heparin Anti-Xa Level ABG pH POC ABG pCO2 POC ABG pO2 ABG pO2 ABG HCO3 ABG O2 Saturation ABG Base Excess ABG Hemoglobin ABG Glucose Oxyhemoglobin Carboxyhemoglobin Sodium Potassium 5.4 H Chloride 110.3 H Carbon Dioxide 17 L BUN 109 H Creatinine 3.8 H Glucose 270 H POC Glucose 231 H 292 H Hemoglobin A1c Lactic Acid Calcium 7.6 L Ferritin Total Bilirubin AST Lactate Dehydrogenase C-Reactive Protein Total Protein Albumin Prealbumin Arterial Blood Glucose Arterial Blood Ionized Calcium Urine Creatinine Coronavirus (PCR) 09/14/20 09/15/20 09/15/20 23:42 04:40 05:04 WBC RBC Hgb Hct MCHC RDW Plt Count 118 L Lymph % (Auto) Lymph # (Auto) Seg Neutrophils % Seg Neuts % (Manual) Lymphocytes % (Manual) Seg Neutrophils # Seg Neutrophils # Man Lymphocytes # (Manual) PT INR APTT D-Dimer Heparin Anti-Xa Level ABG pH POC ABG pCO2 POC ABG pO2 ABG pO2 66.1 L ABG HCO3 13.9 L ABG O2 Saturation 94.1 L ABG Base Excess -8.3 L ABG Hemoglobin 13.1 L ABG Glucose Oxyhemoglobin 92.7 L Carboxyhemoglobin Sodium Potassium Chloride Carbon Dioxide BUN Creatinine Glucose POC Glucose 299 H Hemoglobin A1c Lactic Acid Calcium Ferritin Total Bilirubin AST Lactate Dehydrogenase C-Reactive Protein Total Protein Albumin Prealbumin Arterial Blood Glucose Arterial Blood Ionized Calcium Urine Creatinine Coronavirus (PCR) 09/15/20 09/15/20 09/15/20 05:04 05:12 12:23 WBC RBC Hgb Hct MCHC RDW Plt Count Lymph % (Auto) Lymph # (Auto) Seg Neutrophils % Seg Neuts % (Manual) Lymphocytes % (Manual) Seg Neutrophils # Seg Neutrophils # Man Lymphocytes # (Manual) PT INR APTT D-Dimer Heparin Anti-Xa Level ABG pH POC ABG pCO2 POC ABG pO2 ABG pO2 ABG HCO3 ABG O2 Saturation ABG Base Excess ABG Hemoglobin ABG Glucose Oxyhemoglobin Carboxyhemoglobin Sodium Potassium 5.3 H Chloride 111.7 H Carbon Dioxide 15 L BUN > 112 H Creatinine 2.9 H Glucose 366 H POC Glucose 324 H 288 H Hemoglobin A1c Lactic Acid Calcium 7.2 L Ferritin Total Bilirubin AST Lactate Dehydrogenase C-Reactive Protein Total Protein Albumin Prealbumin Arterial Blood Glucose Arterial Blood Ionized Calcium Urine Creatinine Coronavirus (PCR) 09/15/20 09/15/20 09/16/20 18:15 21:24 00:16 WBC RBC Hgb Hct MCHC RDW Plt Count Lymph % (Auto) Lymph # (Auto) Seg Neutrophils % Seg Neuts % (Manual) Lymphocytes % (Manual) Seg Neutrophils # Seg Neutrophils # Man Lymphocytes # (Manual) PT INR APTT D-Dimer Heparin Anti-Xa Level ABG pH POC ABG pCO2 POC ABG pO2 ABG pO2 ABG HCO3 ABG O2 Saturation ABG Base Excess ABG Hemoglobin ABG Glucose Oxyhemoglobin Carboxyhemoglobin Sodium Potassium Chloride Carbon Dioxide BUN Creatinine Glucose POC Glucose 263 H 247 H 243 H Hemoglobin A1c Lactic Acid Calcium Ferritin Total Bilirubin AST Lactate Dehydrogenase C-Reactive Protein Total Protein Albumin Prealbumin Arterial Blood Glucose Arterial Blood Ionized Calcium Urine Creatinine Coronavirus (PCR) 09/16/20 09/16/20 09/16/20 05:30 07:17 13:00 WBC RBC Hgb Hct MCHC RDW Plt Count Lymph % (Auto) Lymph # (Auto) Seg Neutrophils % Seg Neuts % (Manual) Lymphocytes % (Manual) Seg Neutrophils # Seg Neutrophils # Man Lymphocytes # (Manual) PT INR APTT D-Dimer Heparin Anti-Xa Level ABG pH POC ABG pCO2 POC ABG pO2 ABG pO2 ABG HCO3 ABG O2 Saturation ABG Base Excess ABG Hemoglobin ABG Glucose Oxyhemoglobin Carboxyhemoglobin Sodium Potassium Chloride 113.1 H Carbon Dioxide 16 L BUN 106 H Creatinine 2.7 H Glucose 329 H POC Glucose 285 H 273 H Hemoglobin A1c Lactic Acid Calcium 7.3 L Ferritin Total Bilirubin AST Lactate Dehydrogenase C-Reactive Protein Total Protein Albumin Prealbumin Arterial Blood Glucose Arterial Blood Ionized Calcium Urine Creatinine Coronavirus (PCR) 09/16/20 09/16/20 09/17/20 18:23 23:17 05:27 WBC RBC Hgb Hct MCHC RDW Plt Count Lymph % (Auto) Lymph # (Auto) Seg Neutrophils % Seg Neuts % (Manual) Lymphocytes % (Manual) Seg Neutrophils # Seg Neutrophils # Man Lymphocytes # (Manual) PT INR APTT D-Dimer Heparin Anti-Xa Level ABG pH POC ABG pCO2 POC ABG pO2 ABG pO2 ABG HCO3 ABG O2 Saturation ABG Base Excess ABG Hemoglobin ABG Glucose Oxyhemoglobin Carboxyhemoglobin Sodium Potassium Chloride Carbon Dioxide BUN Creatinine Glucose POC Glucose 298 H 290 H 228 H Hemoglobin A1c Lactic Acid Calcium Ferritin Total Bilirubin AST Lactate Dehydrogenase C-Reactive Protein Total Protein Albumin Prealbumin Arterial Blood Glucose Arterial Blood Ionized Calcium Urine Creatinine Coronavirus (PCR) 09/17/20 09/17/20 09/17/20 06:34 06:34 11:19 WBC RBC Hgb Hct MCHC RDW Plt Count 102 L Lymph % (Auto) Lymph # (Auto) Seg Neutrophils % Seg Neuts % (Manual) Lymphocytes % (Manual) Seg Neutrophils # Seg Neutrophils # Man Lymphocytes # (Manual) PT INR APTT D-Dimer Heparin Anti-Xa Level ABG pH POC ABG pCO2 POC ABG pO2 ABG pO2 ABG HCO3 ABG O2 Saturation ABG Base Excess ABG Hemoglobin ABG Glucose Oxyhemoglobin Carboxyhemoglobin Sodium Potassium Chloride 112.9 H Carbon Dioxide 15 L BUN 123 H Creatinine 2.4 H Glucose 253 H POC Glucose 207 H Hemoglobin A1c Lactic Acid Calcium 7.9 L Ferritin Total Bilirubin AST Lactate Dehydrogenase C-Reactive Protein Total Protein Albumin Prealbumin Arterial Blood Glucose Arterial Blood Ionized Calcium Urine Creatinine Coronavirus (PCR) Chest x-ray: pending Allied health notes reviewed: nursing
--- NOTE | 2020-09-17 13:07 | Progress Note ---
Assessment and Plan - Patient Problems (1) Atrial fibrillation with rapid ventricular response Current Visit: Yes Status: Acute Plan to address problem: Continue treatment with diltiazem, beta-blockers as tolerated for paroxysmal atrial fibrillation. Subjective Date of service: 09/17/20 Principal diagnosis: Ac hypoxemic resp failure; COVID-19; Pneumonia; Septic Shock; MYRON; H/O CVA Interval history: Patient is sedated, on the vent, no new cardiac issues. Objective Vital Signs Temp Pulse Pulse Resp BP Pulse Ox 09/17/20 11:22 85 119/65 09/17/20 11:14 72 14 119/68 93 09/17/20 11:00 70 11 L 119/68 92 09/17/20 10:00 65 15 125/64 93 09/17/20 09:43 72 18 142/80 93 09/17/20 09:01 79 19 142/80 93 09/17/20 09:00 66 12 94 09/17/20 08:32 68 115/68 09/17/20 08:03 67 116/58 94 09/17/20 08:00 65 18 115/58 94 09/17/20 07:00 74 16 125/59 92 09/17/20 06:41 73 110/74 09/17/20 06:40 75 114/70 09/17/20 06:00 71 18 110/64 93 09/17/20 05:00 77 77 20 134/59 91 09/17/20 04:52 72 134/59 92 09/17/20 04:00 77 18 132/68 92 09/17/20 03:07 97.4 F L 09/17/20 03:00 76 15 131/66 92 09/17/20 02:00 78 13 129/60 93 09/17/20 01:00 73 77 12 125/65 94 09/17/20 00:20 72 114/70 09/17/20 00:18 72 123/55 93 09/17/20 00:00 90 13 123/55 93 09/16/20 23:33 97.8 F 09/16/20 23:00 72 14 106/68 90 09/16/20 22:00 68 15 125/70 93 09/16/20 21:08 63 18 121/60 93 09/16/20 21:00 66 63 12 121/60 92 09/16/20 20:36 74 127/64 09/16/20 20:00 97.3 F L 71 14 127/64 87 09/16/20 19:00 68 13 122/63 91 09/16/20 18:54 70 118/62 09/16/20 18:00 67 15 118/62 90 09/16/20 17:00 68 14 117/61 92 09/16/20 16:16 66 11 L 127/73 92 09/16/20 16:00 97.5 F L 66 66 12 122/72 94 09/16/20 15:00 72 12 127/73 94 09/16/20 14:59 73 133/77 09/16/20 14:00 70 12 133/77 93 - Physical Examination Narrative exam: Full physical exam deferred due to patient's acute COVID-19 infection. General: Other (Sed[place], on the vent) - Labs and Meds CBC 09/17/20 Range/Units 06:34 Hgb 13.2 (11.8-15.2) gm/dl Hct 39.6 (35.5-45.6) % Plt Count 102 L (140-440) K/mm3 Comprehensive Metabolic Panel 09/17/20 Range/Units 06:34 Sodium 143 (137-145) mmol/L Potassium 4.5 (3.6-5.0) mmol/L Chloride 112.9 H (98-107) mmol/L Carbon Dioxide 15 L (22-30) mmol/L BUN 123 H (9-20) mg/dL Creatinine 2.4 H (0.8-1.3) mg/dL Glucose 253 H (75-100) mg/dL Calcium 7.9 L (8.4-10.2) mg/dL - Allied health notes Allied health notes reviewed: nursing
--- NOTE | 2020-09-17 15:03 | Progress Note ---
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 Urinalysis negative. #Severe COVID-19 pneumonia: Diagnosed initially on 08/26/2020, treated at [facility] with dexamethasone, remdesivir for 3 days. Anticoagulation was not given due to recent hemorrhagic CVA. Chest x-ray with bilateral patchy infiltrates. Inflammatory markers elevated, D-dimer> 10,000, ferritin 849, CRP 8.2. Procalcitonin 0.3. ? Bacterial pneumonia component. ?HAP. Rain in sputum is colonization, does not need treatment #Acute hypoxemic respiratory failure: Initial sats dropped to 89%. Patient intubated in the ED, remains on the vent. #A. fib: Diagnosed during recent admission at [facility]. Car diology following. #Elevated LFTs: Likely secondary to COVID-19. #Acute renal failure: renally dose abx. #Recent hemorrhagic CVA: Diagnosed in July 2020. Recent CT of the head at [facility] showed resolution of previous hyperdense intraparenchymal hemorrhage in the right basal ganglia. #Ceftriaxone allergy? Unclear details. #Acute encephalopathy: Neurology following. Recs: agree with steroids per pulmonary No benefit with remdesivir VTE evaluation given elevated D-dimer, although already on anticoagulation for A.fib poor prognosis, agree with goals of care discussion and possible comfort measures Paolo Villalobos MD [facility] O: [phone] F: [phone] Subjective Date of service: 09/17/20 Principal diagnosis: Ac hypoxemic resp failure; COVID-19; Pneumonia; Septic Shock; MYRON; H/O CVA Interval history: Afebrile, normal white count. Remains mechanically ventilated. Objective - Exam Narrative Exam: Physical exam deferred due to PPE conservation strategy. Please refer to primary team's note. - Constitutional Vitals: Vital Signs Temp Pulse Resp BP Pulse Ox 97.5 F L 82 17 130/69 92 09/17/20 12:00 09/17/20 14:01 09/17/20 14:01 09/17/20 14:01 09/17/20 14:01 Temperature -Last 24 Hours Temperature 97.5 F Temperature 97.3 F Temperature 97.4 F Temperature 97.8 F Temperature 97.3 F Temperature 97.5 F - Labs CBC & Chem 7: 09/17/20 06:34 09/17/20 06:34 Labs: Abnormal lab results 09/16/20 09/16/20 09/17/20 Range/Units 18:23 23:17 05:27 Plt Count (140-440) K/mm3 Chloride (98-107) mmol/L Carbon Dioxide (22-30) mmol/L BUN (9-20) mg/dL Creatinine (0.8-1.3) mg/dL Glucose (75-100) mg/dL POC Glucose 298 H 290 H 228 H (70-105) mg/dL Calcium (8.4-10.2) mg/dL 09/17/20 09/17/20 09/17/20 Range/Units 06:34 06:34 11:19 Plt Count 102 L (140-440) K/mm3 Chloride 112.9 H (98-107) mmol/L Carbon Dioxide 15 L (22-30) mmol/L BUN 123 H (9-20) mg/dL Creatinine 2.4 H (0.8-1.3) mg/dL Glucose 253 H (75-100) mg/dL POC Glucose 207 H (70-105) mg/dL Calcium 7.9 L (8.4-10.2) mg/dL
--- NOTE | 2020-09-17 23:58 | Progress Note ---
Assessment and Plan 1. Acute kidney injury: Vasomotor nephropathy in the setting of Shock and severe COVID infection. Low FeNa. Renal US negative. Monitor renal function. Creatinine level is improving now. Avoid nephrotoxic agents. Meds dosage based on GFR. Monitor for [employer] needs. Ongoing goals of care discussion. 2. FEN: Hyperkalemia, improved, monitor. Anion-gap metabolic acidosis, 2/2 lactic acidosis, monitor. Monitor lytes and volume status. 3. Acute hypoxic resp failure, POA: 2/2 COVID PNA. Currently intubated on vent. Followed by Pulmonary. 4. Septic shock: 2/2 severe COVID infection. Off pressors. 5. Pneumonia due to COVID-19 virus, POA: IV Decadron. S/p Remdesivir at [facility]. Followed by ID. 6. Acute Encephalopathy: Multi-factorial, most likely from covid 19 and pneumonia. Per Neuro Poor prognosis for full meaningful recovery. 7. H/o Hemorrhagic CVA. 8. Atrial fib: Mostly SR now. Followed by Cards. Prognosis is slim. Subjective: The patient was seen and examined at the bedside. Examination: General appearance: well-developed, appears emaciated, intubated, on vent HEENT: ATNC EYES: pupils are equal Neck: trachea midline Respiratory: MV sounds Heart: S1S2, regular, no murmur Gastrointestinal: soft, not tender, BS heard Integumentary: no rash, warm and dry Neurologic: not responding Ext: no edema : Reyez catheter Subjective Date of service: 09/17/20 Principal diagnosis: Ac hypoxemic resp failure; COVID-19; Pneumonia; Septic Shock; MYRON; H/O CVA Objective - Vital Signs Vital signs: Vital Signs - 12hr 09/17/20 09/17/20 09/17/20 12:00 13:00 14:01 Temperature 97.5 F L Pulse Rate 75 74 82 Pulse Rate [ 85 From Monitor] Respiratory 16 14 17 Rate Blood Pressure 120/61 123/68 130/69 O2 Sat by Pulse 93 93 92 Oximetry 09/17/20 09/17/20 09/17/20 14:04 15:00 15:19 Temperature Pulse Rate 76 87 75 Pulse Rate [ From Monitor] Respiratory 20 13 Rate Blood Pressure 135/89 144/92 O2 Sat by Pulse 94 93 Oximetry 0109/17/20 09/17/20 16:00 17:00 18:00 Temperature 97.3 F L Pulse Rate 94 H 70 62 Pulse Rate [ 72 From Monitor] Respiratory 26 H 12 14 Rate Blood Pressure 135/89 117/66 115/52 O2 Sat by Pulse 90 92 92 Oximetry 09/17/20 09/17/20 09/17/20 18:43 19:00 19:55 Temperature 97.4 F L Pulse Rate 64 65 Pulse Rate [ From Monitor] Respiratory 14 Rate Blood Pressure 115/52 108/52 O2 Sat by Pulse 91 Oximetry 09/17/20 09/17/20 09/17/20 20:00 20:34 21:32 Temperature Pulse Rate 69 72 70 Pulse Rate [ From Monitor] Respiratory 14 19 Rate Blood Pressure 117/56 117/56 130/75 O2 Sat by Pulse 90 94 Oximetry 09/17/20 23:52 Temperature 97.8 F Pulse Rate Pulse Rate [ From Monitor] Respiratory Rate Blood Pressure O2 Sat by Pulse Oximetry - Lab 09/17/20 06:34 09/18/20 08:24 Most recent lab results ABG pH 7.426 pH Units (7.350-7.450) 09/15/20 04:40 ABG pCO2 21.6 mm Hg 09/15/20 04:40 ABG pO2 66.1 mm Hg (80.0-90.0) L 09/15/20 04:40 ABG HCO3 13.9 mmol/L (20.0-26.0) L 09/15/20 04:40 ABG O2 Saturation 94.1 % (95.0-99.0) L 09/15/20 04:40 Calcium 7.9 mg/dL (8.4-10.2) L 09/17/20 06:34 Phosphorus 3.20 mg/dL (2.5-4.5) 09/08/20 10:13 Magnesium 2.00 mg/dL (1.7-2.3) 09/08/20 10:13 Urine Creatinine 213.6 mg/dL (0.1-20.0) H 09/09/20 Unknown Urine Sodium 19 mmol/L 09/09/20 Unknown Medications & Allergies - Medications Allergies/Adverse Reactions: Allergies ceftriaxone Allergy (Verified 09/11/20 11:49) Rash RASH AND ITCHING PER OCTAVIO Home Medications: Home Medications Medication Instructions Recorded Confirmed Last Taken Type Aspirin [Aspirin BABY CHEW TAB] 81 mg PO QDAY #30 tab.chew 12/12/13 09/11/20 Unknown Rx Atorvastatin [Lipitor Tab] 80 mg PO QHS 09/11/20 09/11/20 Unknown History amLODIPine [Norvasc] 5 mg PO DAILY 09/11/20 09/11/20 Unknown History Active Medications: Generic Name Dose Route Start Last Admin Trade Name Freq PRN Reason Stop Dose Admin Acetaminophen 650 mg 09/08/20 07:00 Acetaminophen 325 Mg/10.15 Ml Oral Liqd Unit Dose PO Q4H PRN Pain MILD(1-3)/Fever >100.5/BEST Lipase/Protease/Amylase 1 each 09/15/20 10:11 Lipase 10,500/Protease 25,000/Amylase 43,750 (Units) Dr Carey FEEDTUBE PRN PRN For Clogged Feeding Tube Dexamethasone 6 mg 09/09/20 20:56 09/17/20 11:22 Dexamethasone 4 Mg/Ml Vial IV 09/18/20 10:01 6 mg Q24HR CRISTIN Administration Dextrose 50 ml 09/14/20 17:44 Dextrose 50% In Water (25gm) 50 Ml Syringe IV Q30MIN PRN Hypoglycemia Protocol Diltiazem HCl 60 mg 09/10/20 14:00 09/17/20 18:43 Diltiazem 60 Mg Tab PO 60 mg Q6HR CRISTIN Administration Famotidine 20 mg 09/15/20 10:00 09/17/20 10:23 Famotidine 20 Mg Tab PO 20 mg DAILY CRISTIN Administration Fentanyl 50 mcg 09/09/20 19:53 Fentanyl 100 Mcg/2 Ml Inj IV Q10MIN PRN ANALGESIA Heparin Sodium (Porcine) 3,200 unit 09/09/20 19:53 09/10/20 05:53 Heparin 10,000 Units/10 Ml Vial 40 unit/kg (3200 unit) 3,200 unit IV Administration Q6H PRN Anti-Xa Assay < 0.1 units/ml Hydrophilic Ointment 1 applic 09/07/20 22:11 Lip Therapy Vaseline TP Q2HR PRN Dry Lips Heparin Sodium/Sodium Chloride 25,000 unit in 500 mls @ 23 mls/hr 09/09/20 20:00 09/17/20 11:24 Heparin/ 0.45% Nacl-25,000 Unit/500 Ml IV 700 units/hr TITR CRISTIN 14 mls/hr Administration Protocol 1,150 UNITS/HR Sodium Chloride 100 mls @ 999 mls/hr 09/12/20 12:00 Nacl 0.9% IV ANNA MARIE PRN Hypotension Insulin Glargine 20 units 09/17/20 10:00 09/17/20 10:32 Insulin Glargine 100 Units/Ml SUB-Q 20 units DAILY CRISTIN Administration Insulin Human Regular 0 unit 09/14/20 18:00 09/17/20 18:43 Insulin Regular, Human 100 Unit/Ml 3ml Vial SUB-Q 3 unit Q6H CRISTIN Administration Protocol Metoprolol Tartrate 5 mg 09/10/20 13:07 Metoprolol Tartrate 5 Mg/5 Ml Inj IV Q6HR PRN HR>130 Metoprolol Tartrate 25 mg 09/11/20 14:00 09/17/20 21:32 Metoprolol Tartrate 25 Mg Tab PO 25 mg Q6H CRISTIN Administration Multi-Ingred Cream/Lotion/Oil/Oint 1 applic 09/07/20 22:11 Mineral Oil/Petrolatum, White Ophth Oint 3.5 Gm OU Q4HR PRN Dry Eye(s) Ondansetron HCl 4 mg 09/08/20 06:29 Ondansetron 4 Mg/2 Ml Inj IV Q8H PRN Nausea And Vomiting Simple Syrup 15 ml 09/15/20 10:31 Simple Syrup 15 Ml FEEDTUBE PRN PRN Hypoglycemia Simple Syrup 30 ml 09/15/20 10:11 Simple Syrup 15 Ml FEEDTUBE PRN PRN Hypoglycemia Sodium Bicarbonate 325 mg 09/15/20 10:31 Sodium Bicarbonate 325 Mg Tab FEEDTUBE PRN PRN For Clogged Feeding Tube Sodium Chloride 10 ml 09/08/20 10:00 09/17/20 21:33 Sodium Chloride 0.9% 10 Ml Flush Syringe IV 10 ml BID CRISTIN Administration Sodium Chloride 10 ml 09/08/20 06:29 Sodium Chloride 0.9% 10 Ml Flush Syringe IV PRN PRN LINE FLUSH
[2020-09-18] MEDS: dilTIAZem 60 MG TAB PO SCH ×4 (01:31→18:16)
[2020-09-18] MEDS: INSULIN REGULAR, HUMAN 100 UNIT/ML 3ML VIAL SUB-Q SCH ×4 (01:32→18:28)
[2020-09-18] MEDS: METOPROLOL TARTRATE 25 MG TAB PO SCH ×4 (06:04→21:05)
--- NOTE | 2020-09-18 08:41 | Progress Note ---
Assessment and Plan Assessment and plan: 85-year-old male with a recent diagnosis of Covid pneumonia with acute respiratory failure/hypoxia discharged on Thursday [facility] on 09/03/2020 has been short of breath for the past 2 days because of which EMS was called. When the EMS arrived the patient was found to be hypoxic with room air oxy genation is running around 80s and also patient with altered sensorium. Patient was placed on nonrebreather and that his oxygen saturations improved to the 90s. No fever. Patient is lethargic. Patient also has increased work of breathing and was getting tired because of which ER physician has intubated the patient. No fevers. Known Covid positive patient with decompensation. No chest pain. No diaphoresis. No palpitations. 1/2: Reviewed lab, mar, and v/s Patient seen at bedside-reviewed specialist note and reces. patient is intubated on vent-noted agitation but no purposeful response-on prdx gtt Elevated potassium-given kayeoxalate yesterday we will check a repeat. Poor prognosis based on current evaluation. No acute pathology noted on CT scan. 09/16: Patient remains on full ventilatory support. Awaiting BMP reordered today. Steroids per ID. Antibiotics has been discontinued. Will monitor for any fever or any change in status. Will call family to discuss goals of care unfortunately this patient with poor prognosis. 09/17: Dicussed care extensively with consutlants and also with family, Daughter and Mother. Airplane Gas Tank Liner Assembler also discussed with Patient son and the grave prognosis was conveyed. Will continue current management, Doubt chance of Meaningful recovery. 09/18: Patient remains on full ventilatory support. Metabolic Acidosis persist. prognosis unchanged as patient not waking up despite no sedation. Continue supportive care. Will adjust Insulin for better control. (1) Acute respiratory failure with hypoxia Current Visit: Yes Status: Acute Plan to address problem: Patient currently intubated . Vent management and wean off vent as tolerated Airplane Gas Tank Liner Assembler following-keep Sa02 >90% (2) Pneumonia due to COVID-19 virus Current Visit: Yes Status: Acute Plan to address problem: Continue to monitor inflammatory [id number], CRP and ferritin Continue IV Decadron Patient was discharged on from [facility] We will get the records from [facility] ID consult (3) Sepsis Current Visit: Yes Status: Acute Qualifiers: Sepsis type: sepsis due to unspecified organism Plan to address problem: Mostly 2/2 secondary to Covid or coronavirus empiric antibiotics in the form of cefepime and vancomycin Blood culture abd ID consulted (4) 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: Chronic Qualifiers: CVA mechanism: thrombosis Laterality of affected vessel: unspecified Plan to address problem: PT OT after extubation 5) Encephalopathy due to 2019 novel coronavirus Current Visit: Yes Status: Acute Plan to address problem: Neurologist consultedpt seen by neurologist -input appreciated (6) Seizures Current Visit: Yes Status: Acute Plan to address problem: Continue IV Keprra BID Seizure precaution (7) A-fib Current Visit: Yes Status: Acute Plan to address problem: aviation ordnance officer consulted reviewed aviation ordnance officer note-input appreciated -Continue Cardizem and BB (8) MYRON (acute kidney injury) Current Visit: Yes Status: Acute Plan to address problem: Vasomotor nephropathy in the setting of Shock and severe COVID infection. Monitor kidney function Renal US -negative. Continue IV fluids.. elevated Creatinine level -continue to increase. Avoid nephrotoxic agents. Per brown stock washer -Patient require hemodialysis due to worsening renal function, metabolic abnormalities and decreased UOP. (9) Hyperkalemia Current Visit: Yes Status: Acute Plan to address problem: patient given kayeaxalte today Monitor potassium level PRN kayaexalate-monitor electrolytes 10) Septic shock Current Visit: Yes Status: Acute Plan to address problem: secondery to covid 19 Off pressors now sedated on prdx gtt (11) Acute Metabolic Acidosis Welt Rougher following (12) DVT prophylaxis Current Visit: Yes Status: Acute Plan to address problem: On Lovenox and GI prophylaxia The high probability of a clinically significant, sudden or life threatening deterioration of the [vice president media relations, 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 The aggregate critical care time was [35] minutes. This time is in addition to time spent performing reported procedures but includes the following: [x] Data Review and interpretation [x] Patient assessment and monitoring of vital signs [x] Documentation [x] Medication orders and management History Interval history: Patient seen and examined remains intubated altered mental status still persist, Unfortunately remains with encephalopathy and unresponsiveness. Hospitalist Physical - Physical exam Narrative exam: General appearance: Present: severe distress, unreponsive despite no sedation - EENT Eyes: PERRL, EOM intact ENT: hearing intact, clear oral mucosa Ears: bilateral: normal - Neck Neck: supple, normal ROM - Respiratory Respiratory effort: Ventilatory support Respiratory: bilateral: diminished - Breasts Breasts: normal - Cardiovascular Heart rate: 122 Rhythm: regular Heart Sounds: Present: S1 & S2. Absent: gallop, rub Extremities: pulses intact, No edema, normal color, Full ROM - Gastrointestinal General gastrointestinal: Present: soft, non-tender, non-distended, normal bowel sounds - Genitourinary Male genitourinary: normal - Integumentary Integumentary: clear, warm, dry - Musculoskeletal Musculoskeletal: generalized weakness - Neurologic Neurologic: moves all extremities - Psychiatric Psychiatric: unable to examine - Allied health notes Allied health notes reviewed: nursing - Constitutional Vitals: Temp Pulse Resp BP Pulse Ox 98.4 F 77 12 109/63 89 09/18/20 03:22 09/18/20 07:00 09/18/20 05:00 09/18/20 07:00 09/18/20 07:00 General appearance: Present: severe distress, other (in distress-sedated with prdx) HEART Score - HEART Score Troponin: Troponin T < 0.010 ng/mL (0.00-0.029) 09/07/20 18:00 Results - Labs CBC & Chem 7: 09/17/20 06:34 09/17/20 06:34 Labs: Laboratory Last Values WBC 16.2 K/mm3 (4.5-11.0) H 09/11/20 05:42 RBC 4.29 M/mm3 (3.65-5.03) 09/11/20 05:42 Hgb 13.2 gm/dl (11.8-15.2) 09/17/20 06:34 Hct 39.6 % (35.5-45.6) 09/17/20 06:34 MCV 91 fl (84-94) 09/11/20 05:42 MCH 31 pg (28-32) 09/11/20 05:42 MCHC 34 % (32-34) 09/11/20 05:42 RDW 15.3 % (13.2-15.2) H 09/11/20 05:42 Plt Count 102 K/mm3 (140-440) L 09/17/20 06:34 Lymph % (Auto) 1.3 % (13.4-35.0) L 09/09/20 04:54 Collin % (Auto) 2.5 % (0.0-7.3) 09/09/20 04:54 Eos % (Auto) 0.0 % (0.0-4.3) 09/09/20 04:54 Baso % (Auto) 0.1 % (0.0-1.8) 09/09/20 04:54 Lymph # (Auto) 0.4 K/mm3 (1.2-5.4) L 09/09/20 04:54 Collin # (Auto) 0.7 K/mm3 (0.0-0.8) 09/09/20 04:54 Eos # (Auto) 0.0 K/mm3 (0.0-0.4) 09/09/20 04:54 Baso # (Auto) 0.0 K/mm3 (0.0-0.1) 09/09/20 04:54 Add Manual Diff Complete 09/10/20 04:56 Total Counted 200 09/10/20 04:56 Seg Neutrophils % Mosaic Tile Maker 09/10/20 04:56 Seg Neuts % (Manual) 97.5 % (40.0-70.0) H 09/10/20 04:56 Band Neutrophils % 4.0 % 09/07/20 18:00 Lymphocytes % (Manual) 1.0 % (13.4-35.0) L 09/10/20 04:56 Monocytes % (Manual) 1.5 % (0.0-7.3) 09/10/20 04:56 Nucleated RBC % Not Reportable 09/10/20 04:56 Seg Neutrophils # 27.4 K/mm3 (1.8-7.7) H 09/09/20 04:54 Seg Neutrophils # Man 23.6 K/mm3 (1.8-7.7) H 09/10/20 04:56 Band Neutrophils # 0.0 K/mm3 09/10/20 04:56 Lymphocytes # (Manual) 0.2 K/mm3 (1.2-5.4) L 09/10/20 04:56 Abs React Lymphs (Man) 0.0 K/mm3 09/10/20 04:56 Monocytes # (Manual) 0.4 K/mm3 (0.0-0.8) 09/10/20 04:56 Eosinophils # (Manual) 0.0 K/mm3 (0.0-0.4) 09/10/20 04:56 Basophils # (Manual) 0.0 K/mm3 (0.0-0.1) 09/10/20 04:56 Metamyelocytes # 0.0 K/mm3 09/10/20 04:56 Myelocytes # 0.0 K/mm3 09/10/20 04:56 Promyelocytes # 0.0 K/mm3 09/10/20 04:56 Blast Cells # 0.0 K/mm3 09/10/20 04:56 WBC Morphology Not Reportable 09/10/20 04:56 Hypersegmented Neuts Not Reportable 09/10/20 04:56 Hyposegmented Neuts Not Reportable 09/10/20 04:56 Hypogranular Neuts Not Reportable 09/10/20 04:56 Smudge Cells Not Reportable 09/10/20 04:56 Toxic Granulation Not Reportable 09/10/20 04:56 Toxic Vacuolation Not Reportable 09/10/20 04:56 Dohle Bodies Not Reportable 09/10/20 04:56 Pelger-Huet Anomaly Not Reportable 09/10/20 04:56 Miroslava Rods Not Reportable 09/10/20 04:56 Platelet Estimate Consistent w auto 09/10/20 04:56 Clumped Platelets Not Reportable 09/10/20 04:56 Plt Clumps, EDTA Not Reportable 09/10/20 04:56 Large Platelets Not Reportable 09/10/20 04:56 Giant Platelets Not Reportable 09/10/20 04:56 Platelet Satelliting Not Reportable 09/10/20 04:56 Plt Morphology Comment Not Reportable 09/10/20 04:56 RBC Morphology Not Reportable 09/10/20 04:56 Dimorphic RBCs Not Reportable 09/10/20 04:56 Polychromasia Not Reportable 09/10/20 04:56 Hypochromasia Not Reportable 09/10/20 04:56 Poikilocytosis Not Reportable 09/10/20 04:56 Anisocytosis 1+ 09/10/20 04:56 Microcytosis Not Reportable 09/10/20 04:56 Macrocytosis Not Reportable 09/10/20 04:56 Spherocytes Not Reportable 09/10/20 04:56 Pappenheimer Bodies Not Reportable 09/10/20 04:56 Sickle Cells Not Reportable 09/10/20 04:56 Target Cells Not Reportable 09/10/20 04:56 Tear Drop Cells Not Reportable 09/10/20 04:56 Ovalocytes Not Reportable 09/10/20 04:56 Helmet Cells Not Reportable 09/10/20 04:56 [place] Bodies Not Reportable 09/10/20 04:56 [place] Rings Not Reportable 09/10/20 04:56 Vivienne Cells Not Reportable 09/10/20 04:56 Bite Cells Not Reportable 09/10/20 04:56 Crenated Cell Not Reportable 09/10/20 04:56 Elliptocytes Not Reportable 09/10/20 04:56 Acanthocytes (Spur) Not Reportable 09/10/20 04:56 Rouleaux Not Reportable 09/10/20 04:56 Hemoglobin C Crystals Not Reportable 09/10/20 04:56 Schistocytes Not Reportable 09/10/20 04:56 Malaria parasites Not Reportable 09/10/20 04:56 Marquise Bodies Not Reportable 09/10/20 04:56 Hem Pathologist Commnt No 09/10/20 04:56 PT 15.8 Sec. (12.2-14.9) H 09/09/20 20:28 INR 1.26 (0.87-1.13) H 09/09/20 20:28 APTT 40.7 Sec. (24.2-36.6) H 09/09/20 20:28 D-Dimer > 83367 ng/mlDDU (0-234) H 09/07/20 18:00 D-Dimer Mosaic Tile Maker 09/07/20 18:00 Heparin Anti-Xa Level 0.84 U.I./ml (0.3-0.7) H 09/17/20 18:25 ABG pH 7.426 pH Units (7.350-7.450) 09/15/20 04:40 POC ABG pCO2 22.8 mmHg (32.0-48.0) L 09/11/20 05:11 ABG pCO2 21.6 mm Hg 09/15/20 04:40 POC ABG pO2 76.3 mmHg (83-108) L 09/11/20 05:11 ABG pO2 66.1 mm Hg (80.0-90.0) L 09/15/20 04:40 POC ABG HCO3 14.7 09/11/20 05:11 ABG HCO3 13.9 mmol/L (20.0-26.0) L 09/15/20 04:40 ABG O2 Saturation 94.1 % (95.0-99.0) L 09/15/20 04:40 ABG O2 Content 17.1 (0.0-44) 09/15/20 04:40 POC ABG Base Excess -7.1 09/11/20 05:11 ABG Base Excess -8.3 mmol/L (-2.0-3.0) L 09/15/20 04:40 ABG Hemoglobin 13.1 gm/dl (14.0-18.0) L 09/15/20 04:40 ABG Oxyhemoglobin 94.6 (94-98) 09/11/20 05:11 ABG Carboxyhemoglobin 0.9 % (0.0-5.0) 09/15/20 04:40 ABG Methemoglobin 0.6 % (0.0-1.5) 09/15/20 04:40 ABG Sodium 136.0 mmol/L (136.0-145.0) 09/11/20 05:11 ABG Potassium 4.2 mmol/L (3.40-4.50) 09/11/20 05:11 ABG Chloride 106.0 mmol/L (98-107) 09/11/20 05:11 ABG Glucose 208 mg/dL (65-95) H 09/11/20 05:11 Oxyhemoglobin 92.7 % (95.0-99.0) L 09/15/20 04:40 Carboxyhemoglobin 0.2 (0.5-1.5) L 09/11/20 05:11 FiO2 25 % 09/15/20 04:40 Sodium 143 mmol/L (137-145) 09/17/20 06:34 Potassium 4.5 mmol/L (3.6-5.0) 09/17/20 06:34 Chloride 112.9 mmol/L (98-107) H 09/17/20 06:34 Carbon Dioxide 15 mmol/L (22-30) L 09/17/20 06:34 Anion Gap 20 mmol/L 09/17/20 06:34 BUN 123 mg/dL (9-20) H 09/17/20 06:34 Creatinine 2.4 mg/dL (0.8-1.3) H 09/17/20 06:34 Estimated GFR 26 ml/min 09/17/20 06:34 BUN/Creatinine Ratio 51 % 09/17/20 06:34 Glucose 253 mg/dL (75-100) H 09/17/20 06:34 POC Glucose 178 mg/dL (70-105) H 09/18/20 05:36 Hemoglobin A1c 6.2 % (4-6) H 09/08/20 10:13 Lactic Acid 3.70 mmol/L (0.7-2.0) H* 09/09/20 09:04 Calcium 7.9 mg/dL (8.4-10.2) L 09/17/20 06:34 Phosphorus 3.20 mg/dL (2.5-4.5) 09/08/20 10:13 Magnesium 2.00 mg/dL (1.7-2.3) 09/08/20 10:13 Ferritin 849.7 ng/mL (30.0-300.0) H 09/07/20 18:00 Total Bilirubin 1.20 mg/dL (0.1-1.2) 09/08/20 20:18 AST 51 units/L (5-40) H 09/08/20 20:18 ALT 22 units/L (7-56) 09/08/20 20:18 Alkaline Phosphatase 69 units/L (35-129) 09/08/20 20:18 Lactate Dehydrogenase 507 units/L (91-180) H 09/07/20 18:00 Troponin T < 0.010 ng/mL (0.00-0.029) 09/07/20 18:00 C-Reactive Protein 8.20 mg/dL (0.00-1.30) H 09/07/20 18:00 Total Protein 6.2 g/dL (6.3-8.2) L 09/08/20 20:18 Albumin 2.1 g/dL (3.9-5) L 09/08/20 20:18 Albumin/Globulin Ratio 0.5 % 09/08/20 20:18 Prealbumin 0.049 g/L (0.200-0.400) L 09/08/20 10:13 Procalcitonin 0.33 ng/mL (<0.15) 09/07/20 18:00 Arterial Blood Glucose 208 mg/dL (65-95) H 09/11/20 05:11 Arterial Blood Ionized Calcium 4.1 mg/dL (4.6-5.3) L 09/11/20 05:11 Urine Color Leanna (Yellow) 09/07/20 17:25 Urine Turbidity Clear (Clear) 09/07/20 17:25 Urine pH 5.0 (5.0-7.0) 09/07/20 17:25 Ur Specific [place] 1.023 (1.003-1.030) 09/07/20 17: Urine Protein 30 mg/dl mg/dL (Negative) 09/07/20 17:25 Urine Glucose (UA) Neg mg/dL (Negative) 09/07/20 17:25 Urine Ketones Tr mg/dL (Negative) 09/07/20 17:25 Urine Blood Neg (Negative) 09/07/20 17:25 Urine Nitrite Neg (Negative) 09/07/20 17:25 Urine Bilirubin Neg (Negative) 09/07/20 17:25 Urine Urobilinogen 2.0 mg/dL (<2.0) 09/07/20 17:25 Ur Leukocyte Esterase Neg (Negative) 09/07/20 17:25 Urine WBC (Auto) 4.0 /HPF (0.0-6.0) 09/07/20 17:25 Urine RBC (Auto) 2.0 /HPF (0.0-6.0) 09/07/20 17:25 U Epithel Cells (Auto) 1.0 /HPF (0-13.0) 09/07/20 17:25 Urine Mucus 3+ /HPF 09/07/20 17:25 Urine Creatinine 213.6 mg/dL (0.1-20.0) H 09/09/20 Unknown Urine Sodium 19 mmol/L 09/09/20 Unknown Nasal Screen MRSA (PCR) Negative (Negative) 09/09/20 17:33 Random Vancomycin 14.3 ug/mL (0-40.0) 09/11/20 05:42 Coronavirus (PCR) Positive (Negative) A 09/07/20 17:25 Hepatitis A IgM Ab Non-reactive (NonReactive) 09/12/20 11:08 Hep Bs Antigen Non-reactive (Negative) 09/12/20 11:08 Hep B Core IgM Ab Non-reactive (NonReactive) 09/12/20 11:08 Hepatitis C Antibody Non-reactive (NonReactive) 09/12/20 11:08 Reyez/IV: Voiding Method Indwelling Catheter IV Catheter Type [Right Triple Lumen Cath Femoral] IV Catheter Type [Right INT / Saline Lock Antecubital] Active Medications - Current Medications Current Medications: Generic Name Dose Route Start Last Admin Trade Name Freq PRN Reason Stop Dose Admin Acetaminophen 650 mg 09/08/20 07:00 Acetaminophen 325 Mg/10.15 Ml Oral Liqd Unit Dose PO Q4H PRN Pain MILD(1-3)/Fever >100.5/BEST Lipase/Protease/Amylase 1 each 09/15/20 10:11 Lipase 10,500/Protease 25,000/Amylase 43,750 (Units) Dr Carey FEEDTUBE PRN PRN For Clogged Feeding Tube Dexamethasone 6 mg 09/09/20 20:56 09/17/20 11:22 Dexamethasone 4 Mg/Ml Vial IV 09/18/20 10:01 6 mg Q24HR CRISTIN Administration Dextrose 50 ml 09/14/20 17:44 Dextrose 50% In Water (25gm) 50 Ml Syringe IV Q30MIN PRN Hypoglycemia Protocol Diltiazem HCl 60 mg 09/10/20 14:00 09/18/20 06:20 Diltiazem 60 Mg Tab PO Not Given Q6HR CRISTIN Famotidine 20 mg 09/15/20 10:00 09/17/20 10:23 Famotidine 20 Mg Tab PO 20 mg DAILY CRISTIN Administration Fentanyl 50 mcg 09/09/20 19:53 Fentanyl 100 Mcg/2 Ml Inj IV Q10MIN PRN ANALGESIA Heparin Sodium (Porcine) 3,200 unit 09/09/20 19:53 09/10/20 05:53 Heparin 10,000 Units/10 Ml Vial 40 unit/kg (3200 unit) 3,200 unit IV Administration Q6H PRN Anti-Xa Assay < 0.1 units/ml Hydrophilic Ointment 1 applic 09/07/20 22:11 Lip Therapy Vaseline TP Q2HR PRN Dry Lips Heparin Sodium/Sodium Chloride 25,000 unit in 500 mls @ 23 mls/hr 09/09/20 20:00 09/18/20 01:30 Heparin/ 0.45% Nacl-25,000 Unit/500 Ml IV 600 units/hr TITR CRISTIN 12 mls/hr Titration Protocol 1,150 UNITS/HR Sodium Chloride 100 mls @ 999 mls/hr 09/12/20 12:00 Nacl 0.9% IV ANNA MARIE PRN Hypotension Insulin Glargine 20 units 09/17/20 10:00 09/17/20 10:32 Insulin Glargine 100 Units/Ml SUB-Q 20 units DAILY CRISTIN Administration Insulin Human Regular 0 unit 09/14/20 18:00 09/18/20 06:20 Insulin Regular, Human 100 Unit/Ml 3ml Vial SUB-Q 3 unit Q6H CRISTIN Administration Protocol Metoprolol Tartrate 5 mg 09/10/20 13:07 Metoprolol Tartrate 5 Mg/5 Ml Inj IV Q6HR PRN HR>130 Metoprolol Tartrate 25 mg 09/11/20 14:00 09/18/20 06:04 Metoprolol Tartrate 25 Mg Tab PO Not Given Q6H [facility] Multi-Ingred Cream/Lotion/Oil/Oint 1 applic 09/07/20 22:11 Mineral Oil/Petrolatum, White Ophth Oint 3.5 Gm OU Q4HR PRN Dry Eye(s) Ondansetron HCl 4 mg 09/08/20 06:29 Ondansetron 4 Mg/2 Ml Inj IV Q8H PRN Nausea And Vomiting Simple Syrup 15 ml 09/15/20 10:31 Simple Syrup 15 Ml FEEDTUBE PRN PRN Hypoglycemia Simple Syrup 30 ml 09/15/20 10:11 Simple Syrup 15 Ml FEEDTUBE PRN PRN Hypoglycemia Sodium Bicarbonate 325 mg 09/15/20 10:31 Sodium Bicarbonate 325 Mg Tab FEEDTUBE PRN PRN For Clogged Feeding Tube Sodium Chloride 10 ml 09/08/20 10:00 09/17/20 21:33 Sodium Chloride 0.9% 10 Ml Flush Syringe IV 10 ml BID CRISTIN Administration Sodium Chloride 10 ml 09/08/20 06:29 Sodium Chloride 0.9% 10 Ml Flush Syringe IV PRN PRN LINE FLUSH Nutrition/Malnutrition Assess - Dietary Evaluation Nutrition/Malnutrition Findings: Nutrition Notes Start: 12/26/20 09:03 Freq: Status: Active Protocol: Document 09/17/20 14:32 MARION (Rec: 09/17/20 14:35 MARION [id number]) Nutrition Notes Initial or Follow up Brief Note Subjective/Other Information Spoke with RN via phone at 14: 33. TF formula not changed to Nepro yet; Vital AF still infusing. RN to change TF formula today. Pt's family decided against HD. Pt remains on vent support. Nutrition Intervention Follow-Up By: 09/18/20 Additional Comments F/U: TF formula change
[2020-09-18 09:09] LABS: Calcium 7.7 mg/dL (8.4-10.2)
[2020-09-18] MEDS: dexAMETHasone 4 MG/ML VIAL IV SCH (10:02)
[2020-09-18] MEDS: FAMOTIDINE 20 MG TAB PO SCH (10:04)
[2020-09-18] MEDS: INSULIN GLARGINE 100 UNITS/ML SUB-Q SCH (10:04)
--- NOTE | 2020-09-18 12:25 | Progress Note ---
Assessment and Plan - Patient Problems (1) Atrial fibrillation with rapid ventricular response Current Visit: Yes Status: Acute Plan to address problem: Continue treatment with diltiazem, beta-blockers as tolerated for paroxysmal atrial fibrillation. Subjective Date of service: 09/18/20 Principal diagnosis: Ac hypoxemic resp failure; COVID-19; Pneumonia; Septic Shock; MYRON; H/O CVA Interval history: Patient is sedated, on the vent, no new cardiac issues. Objective Vital Signs Temp Pulse Pulse Resp BP Pulse Ox 09/18/20 12:00 97.7 F 88 84 18 96/60 91 09/18/20 11:00 85 106/59 91 09/18/20 10:03 82 103/61 09/18/20 10:00 85 103/61 90 09/18/20 09:00 85 105/60 90 09/18/20 08:55 78 108/62 92 09/18/20 08:00 97.9 F 79 78 12 108/62 92 09/18/20 07:00 77 109/63 89 09/18/20 06:20 75 106/54 09/18/20 06:04 65 100/56 09/18/20 06:00 73 106/54 88 09/18/20 05:00 71 80 12 121/64 94 09/18/20 04:21 68 90/47 93 09/18/20 04:00 70 102/55 92 09/18/20 03:22 98.4 F 09/18/20 03:00 69 84/45 92 09/18/20 02:01 75 133/76 91 09/18/20 01:31 73 101/59 09/18/20 01:00 71 74 12 101/59 86 09/18/20 00:10 66 111/57 92 09/18/20 00:00 76 100/56 90 09/17/20 23:52 97.8 F 09/17/20 23:00 65 111/57 89 09/17/20 22:00 63 16 102/52 89 09/17/20 21:32 70 130/75 09/17/20 21:01 82 26 H 130/75 90 09/17/20 21:00 80 12 92 09/17/20 20:51 69 19 117/56 87 09/17/20 20:34 72 19 117/56 94 09/17/20 20:00 69 14 117/56 90 09/17/20 19:55 97.4 F L 09/17/20 19:00 65 14 108/52 91 09/17/20 18:43 64 115/52 09/17/20 18:00 62 14 115/52 92 09/17/20 17:00 70 72 12 117/66 92 09/17/20 16:00 97.3 F L 94 H 26 H 135/89 90 09/17/20 15:19 75 13 93 09/17/20 15:00 87 20 144/92 94 09/17/20 14:04 76 135/89 09/17/20 14:01 82 17 130/69 92 09/17/20 13:00 74 85 14 123/68 93 - Physical Examination Narrative exam: Full physical exam deferred due to patient's acute COVID-19 infection. General: Other ([place]ed[place], on the vent) - Labs and Meds Comprehensive Metabolic Panel 09/18/20 Range/Units 08:24 Sodium 142 (137-145) mmol/L Potassium 5.2 H (3.6-5.0) mmol/L Chloride 115.5 H (98-107) mmol/L Carbon Dioxide 16 L (22-30) mmol/L BUN 140 H (9-20) mg/dL Creatinine 2.4 H (0.8-1.3) mg/dL Glucose 229 H (75-100) mg/dL Calcium 7.7 L (8.4-10.2) mg/dL - Allied health notes Allied health notes reviewed: nursing
[2020-09-18] MEDS ORDERED: SODIUM POLYSTYRENE 15 GM/60 ML ORAL LIQD PO ONE (13:00)
--- NOTE | 2020-09-18 13:12 | Progress Note ---
Assessment and Plan Acute hypoxemic respiratory failure, on MVS COVID-19 infection. Bilateral pneumonia Acute encephalopathy, presumably toxic metabolic. Severe sepsis with shock. Acute kidney injury. History of cerebrovascular accident. Leukocytosis. Severe metabolic acidosis. Lactic acidosis. Elevated serum inflammatory markers to include D-dimers. (I spoke at length with his Son Marcus and explained the indications for a tracheostomy to him. He shared with me that his mother decided against dialysis and he will discuss the tracheostomy with her. I explained also the option of hospice care if their substituted judgment indicates he would rather go that route.) - hospice case manager discussing hospice care issues - continue Daily SAT and SBT assessment as tolerated meanwhile - he remains a full CODE - Azotemia per nephrology; family decided against HD/UF - continue care as below otherwise; - prn vasopressors for target MAP > 65 mmHg - continue to wean supplemental oxygen for target O2 sat's > 90% acutely - VAP bundle addressed - continue lung protective strategies - continue bronchodilators with pulmonary hygiene per RT - wean per pulmonary driven protocols otherwise - continue SSI - continue Lantus - continue accuchecks with glycemic control per SSI (While critically ill target blood glucose of 140-180 mg/dL; avoid hypoglycemia) - sedation prn for target RASS 0 to -1 - avoid nephrotoxins, renally dose all medications - continue to avoid benzodiazepine's, reduce the possibility of delirium - completed AB's per ID rec's - prn analgesia per CPOT score - Maintenance of sleep-wake cycle, avoid delirium - continue enteral nutritional support at goal rate as tolerated - G.I. & VTE prophylaxis - PT/OT/ROM exercises - continue mobility protocols for pressure ulcer prophylaxis - Monitor hemodynamics closely - continue other care per attending / other consultants - discharge planning ongoing concurrently COVID SPECIFIC INTERVENTIONS - Remdesivir / other COVID specific interventions per ID recommendations - continue systemic steroids for severe COVID-19 infection empirically - repeat COVID tests per facility protocol - Monitor inflammatory markers per facility protocol - ferritin, Ddimer, CRP - therapeutic anticoagulation per system Protocol based on d-dimer - Continue contact and airborne isolation - discharge planning ongoing concurrently .... Re-evaluate in am & prn CONDITION: CRITICAL PROGNOSIS: GRAVE CODE STATUS: FULL CODE The high probability of a clinically significant, sudden or life-threatening deterioration of the [respiratory, cardiovascular, hematologic, renal & neurol ogic] system(s) required my full and direct attention, intervention and personal management. The aggregate critical care time was [35] minutes without overlap. Time includes spent on; [x] Data Review and interpretation [x] Patient assessment and monitoring of vital signs [x] Documentation [x] Medication orders and management Subjective Date of service: 09/18/20 Principal diagnosis: Ac hypoxemic resp failure; COVID-19; Pneumonia; Septic Shock; MYRON; H/O CVA Interval history: Patient is seen today for: Acute hypoxemic respiratory failure; COVID-19 infection; Bilateral pneumonia; Acute encephalopathy, presumably toxic metabolic; Severe sepsis with shock; Acute kidney injury; History of cerebrovascular accident Seen and examined at bedside; 24hour events reviewed; nursing and respiratory care staff consulted; no adverse overnight events reported to me; resting peacefully in bed; remains on MVS; family has refused dialysis and are contempla ting hospice transfer; AMS is persistent and tenuously tolerating SBT's now. Objective Vital Signs - 12hr 09/18/20 09/18/20 09/18/20 01:31 02:01 03:00 Temperature Pulse Rate 73 75 69 Pulse Rate [ From Monitor] Respiratory Rate Blood Pressure 101/59 133/76 84/45 O2 Sat by Pulse 91 92 Oximetry 09/18/20 09/18/20 09/18/20 03:22 04:00 04:21 Temperature 98.4 F Pulse Rate 70 68 Pulse Rate [ From Monitor] Respiratory Rate Blood Pressure 102/55 90/47 O2 Sat by Pulse 92 93 Oximetry 09/18/20 09/18/20 09/18/20 05:00 06:00 06:04 Temperature Pulse Rate 71 73 65 Pulse Rate [ 80 From Monitor] Respiratory 12 Rate Blood Pressure 121/64 106/54 100/56 O2 Sat by Pulse 94 88 Oximetry 09/18/20 09/18/20 09/18/20 06:20 07:00 08:00 Temperature 97.9 F Pulse Rate 75 77 79 Pulse Rate [ 78 From Monitor] Respiratory 12 Rate Blood Pressure 106/54 109/63 108/62 O2 Sat by Pulse 89 92 Oximetry 09/18/20 09/18/20 09/18/20 08:55 09:00 09:45 Temperature Pulse Rate 78 85 92 H Pulse Rate [ From Monitor] Respiratory 21 Rate Blood Pressure 108/62 105/60 O2 Sat by Pulse 92 90 92 Oximetry 09/18/20 09/18/20 09/18/20 10:00 10:03 11:00 Temperature Pulse Rate 85 82 85 Pulse Rate [ From Monitor] Respiratory Rate Blood Pressure 103/61 103/61 106/59 O2 Sat by Pulse 90 91 Oximetry 09/18/20 09/18/20 12:00 12:38 Temperature 97.7 F Pulse Rate 88 88 Pulse Rate [ 84 From Monitor] Respiratory 18 22 Rate Blood Pressure 96/60 96/60 O2 Sat by Pulse 91 91 Oximetry Constitutional: appears uncomfortable, other (elderly obese male with mildly increased respiratory effort at rest on MVS) Eyes: non-icteric ENT: oropharynx moist, other (ETT 24 cm BREANN) Neck: supple, no lymphadenopathy, no JVD Effort: mildly labored Ascultation: Bilateral: diminished breath sounds, rhonchi Percussion: Bilateral: not dull Cardiovascular: regular rate and rhythm Gastrointestinal: normoactive bowel sounds, soft, non-tender, non-distended (protuberant) Integumentary: other (please see [facility] notes) Extremities: no cyanosis, pulses normal, no ischemia or petechiae Neurologic: pupils equal and round, unable to assess Psychiatric: other (unable to assess re: AMS) CBC and BMP: 09/19/20 04:26 09/19/20 04:26 ABG, PT/INR, D-dimer: ABG ABG pH 7.426 pH Units (7.350-7.450) 09/15/20 04:40 POC ABG pCO2 22.8 mmHg (32.0-48.0) L 09/11/20 05:11 ABG pCO2 21.6 mm Hg 09/15/20 04:40 POC ABG pO2 76.3 mmHg (83-108) L 09/11/20 05:11 ABG pO2 66.1 mm Hg (80.0-90.0) L 09/15/20 04:40 POC ABG HCO3 14.7 09/11/20 05:11 ABG O2 Saturation 94.1 % (95.0-99.0) L 09/15/20 04:40 PT/INR, D-dimer PT 15.8 Sec. (12.2-14.9) H 09/09/20 20:28 INR 1.26 (0.87-1.13) H 09/09/20 20:28 D-Dimer > 92971 ng/mlDDU (0-234) H 09/07/20 18:00 D-Dimer [employer] 09/07/20 18:00 Abnormal lab findings: Abnormal Labs 09/07/20 09/07/20 09/07/20 17:25 18:00 18:00 WBC 23.5 H RBC Hgb Hct MCHC RDW Plt Count Lymph % (Auto) Lymph # (Auto) Seg Neutrophils % Seg Neuts % (Manual) 94.0 H Lymphocytes % (Manual) 1.0 L Seg Neutrophils # Seg Neutrophils # Man 22.1 H Lymphocytes # (Manual) 0.2 L PT INR APTT D-Dimer > 39212 H Heparin Anti-Xa Level ABG pH POC ABG pCO2 POC ABG pO2 ABG pO2 ABG HCO3 ABG O2 Saturation ABG Base Excess ABG Hemoglobin ABG Glucose Oxyhemoglobin Carboxyhemoglobin Sodium Potassium Chloride Carbon Dioxide BUN Creatinine Glucose POC Glucose Hemoglobin A1c Lactic Acid Calcium Ferritin Total Bilirubin AST Lactate Dehydrogenase C-Reactive Protein Total Protein Albumin Prealbumin Arterial Blood Glucose Arterial Blood Ionized Calcium Urine Creatinine Coronavirus (PCR) Positive A 09/07/20 09/07/20 09/07/20 18:00 18:00 18:00 WBC RBC Hgb Hct MCHC RDW Plt Count Lymph % (Auto) Lymph # (Auto) Seg Neutrophils % Seg Neuts % (Manual) Lymphocytes % (Manual) Seg Neutrophils # Seg Neutrophils # Man Lymphocytes # (Manual) PT INR APTT 72.7 H* D-Dimer Heparin Anti-Xa Level ABG pH POC ABG pCO2 POC ABG pO2 ABG pO2 ABG HCO3 ABG O2 Saturation ABG Base Excess ABG Hemoglobin ABG Glucose Oxyhemoglobin Carboxyhemoglobin Sodium Potassium Chloride Carbon Dioxide 9 L* BUN 24 H Creatinine Glucose 143 H POC Glucose Hemoglobin A1c Lactic Acid Calcium 7.6 L Ferritin 849.7 H Total Bilirubin 1.80 H AST 45 H Lactate Dehydrogenase 507 H C-Reactive Protein 8.20 H Total Protein 5.6 L Albumin 2.8 L Prealbumin Arterial Blood Glucose Arterial Blood Ionized Calcium Urine Creatinine Coronavirus (PCR) 09/07/20 09/07/20 09/08/20 19:37 20:30 01:07 WBC RBC Hgb Hct MCHC RDW Plt Count Lymph % (Auto) Lymph # (Auto) Seg Neutrophils % Seg Neuts % (Manual) Lymphocytes % (Manual) Seg Neutrophils # Seg Neutrophils # Man Lymphocytes # (Manual) PT INR APTT D-Dimer Heparin Anti-Xa Level ABG pH 7.336 L POC ABG pCO2 POC ABG pO2 ABG pO2 91.2 H ABG HCO3 14.1 L ABG O2 Saturation ABG Base Excess -9.9 L ABG Hemoglobin ABG Glucose Oxyhemoglobin Carboxyhemoglobin Sodium Potassium Chloride Carbon Dioxide BUN Creatinine Glucose POC Glucose Hemoglobin A1c Lactic Acid 8.80 H* 3.80 H* Calcium Ferritin Total Bilirubin AST Lactate Dehydrogenase C-Reactive Protein Total Protein Albumin Prealbumin Arterial Blood Glucose Arterial Blood Ionized Calcium Urine Creatinine Coronavirus (PCR) 09/08/20 09/08/20 09/08/20 04:25 10:13 10:13 WBC 21.7 H RBC 5.49 H Hgb 17.1 H Hct 49.6 H MCHC 35 H RDW Plt Count Lymph % (Auto) Lymph # (Auto) Seg Neutrophils % Seg Neuts % (Manual) 96.0 H Lymphocytes % (Manual) 1.0 L Seg Neutrophils # Seg Neutrophils # Man 20.8 H Lymphocytes # (Manual) 0.2 L PT INR APTT D-Dimer Heparin Anti-Xa Level ABG pH 7.484 H POC ABG pCO2 POC ABG pO2 ABG pO2 148.2 H ABG HCO3 17.2 L ABG O2 Saturation ABG Base Excess -4.1 L ABG Hemoglobin ABG Glucose Oxyhemoglobin Carboxyhemoglobin Sodium Potassium Chloride Carbon Dioxide BUN Creatinine Glucose POC Glucose Hemoglobin A1c Lactic Acid 3.40 H* Calcium Ferritin Total Bilirubin AST Lactate Dehydrogenase C-Reactive Protein Total Protein Albumin Prealbumin Arterial Blood Glucose Arterial Blood Ionized Calcium Urine Creatinine Coronavirus (PCR) 09/08/20 09/08/20 09/08/20 10:13 10:13 10:13 WBC RBC Hgb Hct MCHC RDW Plt Count Lymph % (Auto) Lymph # (Auto) Seg Neutrophils % Seg Neuts % (Manual) Lymphocytes % (Manual) Seg Neutrophils # Seg Neutrophils # Man Lymphocytes # (Manual) PT INR APTT D-Dimer Heparin Anti-Xa Level ABG pH POC ABG pCO2 POC ABG pO2 ABG pO2 ABG HCO3 ABG O2 Saturation ABG Base Excess ABG Hemoglobin ABG Glucose Oxyhemoglobin Carboxyhemoglobin Sodium 135 L Potassium Chloride Carbon Dioxide 20 L D BUN 35 H Creatinine 1.6 H D Glucose 192 H POC Glucose Hemoglobin A1c 6.2 H Lactic Acid Calcium 8.3 L Ferritin Total Bilirubin 1.80 H AST 55 H Lactate Dehydrogenase C-Reactive Protein Total Protein Albumin 2.6 L Prealbumin 0.049 L Arterial Blood Glucose Arterial Blood Ionized Calcium Urine Creatinine Coronavirus (PCR) 09/08/20 09/08/20 09/08/20 20:18 20:18 20:18 WBC 29.8 H RBC Hgb 15.3 H Hct MCHC RDW Plt Count Lymph % (Auto) Lymph # (Auto) Seg Neutrophils % Seg Neuts % (Manual) Lymphocytes % (Manual) Seg Neutrophils # Seg Neutrophils # Man Lymphocytes # (Manual) PT INR APTT D-Dimer Heparin Anti-Xa Level ABG pH POC ABG pCO2 POC ABG pO2 ABG pO2 ABG HCO3 ABG O2 Saturation ABG Base Excess ABG Hemoglobin ABG Glucose Oxyhemoglobin Carboxyhemoglobin Sodium 136 L Potassium Chloride Carbon Dioxide 17 L BUN 42 H Creatinine 1.9 H Glucose 203 H POC Glucose Hemoglobin A1c Lactic Acid 2.20 H* Calcium 7.6 L Ferritin Total Bilirubin AST 51 H Lactate Dehydrogenase C-Reactive Protein Total Protein 6.2 L Albumin 2.1 L Prealbumin Arterial Blood Glucose Arterial Blood Ionized Calcium Urine Creatinine Coronavirus (PCR) 09/08/20 09/09/20 09/09/20 21:53 00:19 03:15 WBC RBC Hgb Hct MCHC RDW Plt Count Lymph % (Auto) Lymph # (Auto) Seg Neutrophils % Seg Neuts % (Manual) Lymphocytes % (Manual) Seg Neutrophils # Seg Neutrophils # Man Lymphocytes # (Manual) PT INR APTT D-Dimer Heparin Anti-Xa Level ABG pH POC ABG pCO2 POC ABG pO2 ABG pO2 97.0 H ABG HCO3 16.3 L ABG O2 Saturation ABG Base Excess -7.5 L ABG Hemoglobin ABG Glucose Oxyhemoglobin Carboxyhemoglobin Sodium Potassium Chloride Carbon Dioxide BUN Creatinine Glucose POC Glucose Hemoglobin A1c Lactic Acid 3.20 H* 2.10 H* Calcium Ferritin Total Bilirubin AST Lactate Dehydrogenase C-Reactive Protein Total Protein Albumin Prealbumin Arterial Blood Glucose Arterial Blood Ionized Calcium Urine Creatinine Coronavirus (PCR) 09/09/20 09/09/20 09/09/20 04:54 04:54 04:54 WBC 28.5 H RBC Hgb Hct MCHC RDW Plt Count Lymph % (Auto) 1.3 L Lymph # (Auto) 0.4 L Seg Neutrophils % 96.1 H Seg Neuts % (Manual) Lymphocytes % (Manual) Seg Neutrophils # 27.4 H Seg Neutrophils # Man Lymphocytes # (Manual) PT INR APTT D-Dimer Heparin Anti-Xa Level ABG pH POC ABG pCO2 POC ABG pO2 ABG pO2 ABG HCO3 ABG O2 Saturation ABG Base Excess ABG Hemoglobin ABG Glucose Oxyhemoglobin Carboxyhemoglobin Sodium Potassium Chloride Carbon Dioxide 17 L BUN 45 H Creatinine 2.2 H Glucose 201 H POC Glucose Hemoglobin A1c Lactic Acid 2.90 H* Calcium 7.8 L Ferritin Total Bilirubin AST Lactate Dehydrogenase C-Reactive Protein Total Protein Albumin Prealbumin Arterial Blood Glucose Arterial Blood Ionized Calcium Urine Creatinine Coronavirus (PCR) 09/09/20 09/09/20 09/09/20 06:56 09:04 20:28 WBC RBC Hgb Hct MCHC RDW Plt Count Lymph % (Auto) Lymph # (Auto) Seg Neutrophils % Seg Neuts % (Manual) Lymphocytes % (Manual) Seg Neutrophils # Seg Neutrophils # Man Lymphocytes # (Manual) PT 15.8 H INR 1.26 H APTT 40.7 H D-Dimer Heparin Anti-Xa Level ABG pH POC ABG pCO2 POC ABG pO2 ABG pO2 ABG HCO3 ABG O2 Saturation ABG Base Excess ABG Hemoglobin ABG Glucose Oxyhemoglobin Carboxyhemoglobin Sodium Potassium Chloride Carbon Dioxide BUN Creatinine Glucose POC Glucose Hemoglobin A1c Lactic Acid 4.70 H* 3.70 H* Calcium Ferritin Total Bilirubin AST Lactate Dehydrogenase C-Reactive Protein Total Protein Albumin Prealbumin Arterial Blood Glucose Arterial Blood Ionized Calcium Urine Creatinine Coronavirus (PCR) 09/09/20 09/10/20 09/10/20 Unknown 02:24 04:56 WBC 24.2 H RBC Hgb Hct MCHC RDW Plt Count Lymph % (Auto) Lymph # (Auto) Seg Neutrophils % Seg Neuts % (Manual) 97.5 H Lymphocytes % (Manual) 1.0 L Seg Neutrophils # Seg Neutrophils # Man 23.6 H Lymphocytes # (Manual) 0.2 L PT INR APTT D-Dimer Heparin Anti-Xa Level ABG pH POC ABG pCO2 POC ABG pO2 ABG pO2 120.7 H ABG HCO3 15.1 L ABG O2 Saturation ABG Base Excess -8.0 L ABG Hemoglobin ABG Glucose Oxyhemoglobin Carboxyhemoglobin Sodium Potassium Chloride Carbon Dioxide BUN Creatinine Glucose POC Glucose Hemoglobin A1c Lactic Acid Calcium Ferritin Total Bilirubin AST Lactate Dehydrogenase C-Reactive Protein Total Protein Albumin Prealbumin Arterial Blood Glucose Arterial Blood Ionized Calcium Urine Creatinine 213.6 H Coronavirus (PCR) 09/10/20 09/10/20 09/11/20 04:56 17:58 01:02 WBC RBC Hgb Hct MCHC RDW Plt Count Lymph % (Auto) Lymph # (Auto) Seg Neutrophils % Seg Neuts % (Manual) Lymphocytes % (Manual) Seg Neutrophils # Seg Neutrophils # Man Lymphocytes # (Manual) PT INR APTT D-Dimer Heparin Anti-Xa Level > 2.00 H 2.00 H ABG pH POC ABG pCO2 POC ABG pO2 ABG pO2 ABG HCO3 ABG O2 Saturation ABG Base Excess ABG Hemoglobin ABG Glucose Oxyhemoglobin Carboxyhemoglobin Sodium Potassium Chloride Carbon Dioxide 18 L BUN 62 H Creatinine 2.8 H Glucose 216 H POC Glucose Hemoglobin A1c Lactic Acid Calcium 7.9 L Ferritin Total Bilirubin AST Lactate Dehydrogenase C-Reactive Protein Total Protein Albumin Prealbumin Arterial Blood Glucose Arterial Blood Ionized Calcium Urine Creatinine Coronavirus (PCR) 09/11/20 09/11/20 09/11/20 05:11 05:42 05:42 WBC RBC Hgb Hct MCHC RDW Plt Count 116 L Lymph % (Auto) Lymph # (Auto) Seg Neutrophils % Seg Neuts % (Manual) Lymphocytes % (Manual) Seg Neutrophils # Seg Neutrophils # Man Lymphocytes # (Manual) PT INR APTT D-Dimer Heparin Anti-Xa Level ABG pH POC ABG pCO2 22.8 L POC ABG pO2 76.3 L ABG pO2 ABG HCO3 ABG O2 Saturation ABG Base Excess ABG Hemoglobin ABG Glucose 208 H Oxyhemoglobin Carboxyhemoglobin 0.2 L Sodium Potassium Chloride 108.7 H Carbon Dioxide 15 L BUN 76 H Creatinine 3.0 H Glucose 202 H POC Glucose Hemoglobin A1c Lactic Acid Calcium 7.5 L Ferritin Total Bilirubin AST Lactate Dehydrogenase C-Reactive Protein Total Protein Albumin Prealbumin Arterial Blood Glucose 208 H Arterial Blood Ionized Calcium 4.1 L Urine Creatinine Coronavirus (PCR) 09/11/20 09/11/20 09/11/20 05:42 11:39 17:41 WBC 16.2 H RBC Hgb Hct MCHC RDW 15.3 H Plt Count 118 L Lymph % (Auto) Lymph # (Auto) Seg Neutrophils % Seg Neuts % (Manual) Lymphocytes % (Manual) Seg Neutrophils # Seg Neutrophils # Man Lymphocytes # (Manual) PT INR APTT D-Dimer Heparin Anti-Xa Level 1.82 H 1.14 H ABG pH POC ABG pCO2 POC ABG pO2 ABG pO2 ABG HCO3 ABG O2 Saturation ABG Base Excess ABG Hemoglobin ABG Glucose Oxyhemoglobin Carboxyhemoglobin Sodium Potassium Chloride Carbon Dioxide BUN Creatinine Glucose POC Glucose Hemoglobin A1c Lactic Acid Calcium Ferritin Total Bilirubin AST Lactate Dehydrogenase C-Reactive Protein Total Protein Albumin Prealbumin Arterial Blood Glucose Arterial Blood Ionized Calcium Urine Creatinine Coronavirus (PCR) 09/12/20 09/12/20 09/12/20 05:25 05:50 09:52 WBC RBC Hgb Hct MCHC RDW Plt Count Lymph % (Auto) Lymph # (Auto) Seg Neutrophils % Seg Neuts % (Manual) Lymphocytes % (Manual) Seg Neutrophils # Seg Neutrophils # Man Lymphocytes # (Manual) PT INR APTT D-Dimer Heparin Anti-Xa Level < 0.10 L ABG pH POC ABG pCO2 POC ABG pO2 ABG pO2 195.5 H ABG HCO3 15.5 L ABG O2 Saturation 99.3 H ABG Base Excess -7.5 L ABG Hemoglobin 12.4 L ABG Glucose Oxyhemoglobin Carboxyhemoglobin Sodium Potassium Chloride Carbon Dioxide 15 L BUN 89 H Creatinine 3.5 H Glucose 282 H POC Glucose Hemoglobin A1c Lactic Acid Calcium 7.2 L Ferritin Total Bilirubin AST Lactate Dehydrogenase C-Reactive Protein Total Protein Albumin Prealbumin Arterial Blood Glucose Arterial Blood Ionized Calcium Urine Creatinine Coronavirus (PCR) 09/12/20 09/13/20 09/13/20 15:56 04:40 05:21 WBC RBC Hgb Hct MCHC RDW Plt Count 126 L Lymph % (Auto) Lymph # (Auto) Seg Neutrophils % Seg Neuts % (Manual) Lymphocytes % (Manual) Seg Neutrophils # Seg Neutrophils # Man Lymphocytes # (Manual) PT INR APTT D-Dimer Heparin Anti-Xa Level ABG pH POC ABG pCO2 POC ABG pO2 ABG pO2 72.8 L ABG HCO3 15.5 L ABG O2 Saturation ABG Base Excess -7.8 L ABG Hemoglobin 11.7 L ABG Glucose Oxyhemoglobin 93.6 L Carboxyhemoglobin Sodium Potassium Chloride Carbon Dioxide BUN Creatinine Glucose POC Glucose 202 H Hemoglobin A1c Lactic Acid Calcium Ferritin Total Bilirubin AST Lactate Dehydrogenase C-Reactive Protein Total Protein Albumin Prealbumin Arterial Blood Glucose Arterial Blood Ionized Calcium Urine Creatinine Coronavirus (PCR) 09/13/20 09/14/20 09/14/20 05:21 03:46 05:32 WBC RBC Hgb Hct MCHC RDW Plt Count Lymph % (Auto) Lymph # (Auto) Seg Neutrophils % Seg Neuts % (Manual) Lymphocytes % (Manual) Seg Neutrophils # Seg Neutrophils # Man Lymphocytes # (Manual) PT INR APTT D-Dimer Heparin Anti-Xa Level ABG pH POC ABG pCO2 POC ABG pO2 ABG pO2 ABG HCO3 ABG O2 Saturation ABG Base Excess ABG Hemoglobin ABG Glucose Oxyhemoglobin Carboxyhemoglobin Sodium Potassium 5.1 H Chloride 109.2 H Carbon Dioxide 16 L BUN 101 H Creatinine 3.8 H Glucose 230 H POC Glucose 163 H 202 H Hemoglobin A1c Lactic Acid Calcium 7.5 L Ferritin Total Bilirubin AST Lactate Dehydrogenase C-Reactive Protein Total Protein Albumin Prealbumin Arterial Blood Glucose Arterial Blood Ionized Calcium Urine Creatinine Coronavirus (PCR) 09/14/20 09/14/20 09/14/20 06:50 12:01 16:38 WBC RBC Hgb Hct MCHC RDW Plt Count Lymph % (Auto) Lymph # (Auto) Seg Neutrophils % Seg Neuts % (Manual) Lymphocytes % (Manual) Seg Neutrophils # Seg Neutrophils # Man Lymphocytes # (Manual) PT INR APTT D-Dimer Heparin Anti-Xa Level ABG pH POC ABG pCO2 POC ABG pO2 ABG pO2 ABG HCO3 ABG O2 Saturation ABG Base Excess ABG Hemoglobin ABG Glucose Oxyhemoglobin Carboxyhemoglobin Sodium Potassium 5.4 H Chloride 110.3 H Carbon Dioxide 17 L BUN 109 H Creatinine 3.8 H Glucose 270 H POC Glucose 231 H 292 H Hemoglobin A1c Lactic Acid Calcium 7.6 L Ferritin Total Bilirubin AST Lactate Dehydrogenase C-Reactive Protein Total Protein Albumin Prealbumin Arterial Blood Glucose Arterial Blood Ionized Calcium Urine Creatinine Coronavirus (PCR) 09/14/20 09/15/20 09/15/20 23:42 04:40 05:04 WBC RBC Hgb Hct MCHC RDW Plt Count 118 L Lymph % (Auto) Lymph # (Auto) Seg Neutrophils % Seg Neuts % (Manual) Lymphocytes % (Manual) Seg Neutrophils # Seg Neutrophils # Man Lymphocytes # (Manual) PT INR APTT D-Dimer Heparin Anti-Xa Level ABG pH POC ABG pCO2 POC ABG pO2 ABG pO2 66.1 L ABG HCO3 13.9 L ABG O2 Saturation 94.1 L ABG Base Excess -8.3 L ABG Hemoglobin 13.1 L ABG Glucose Oxyhemoglobin 92.7 L Carboxyhemoglobin Sodium Potassium Chloride Carbon Dioxide BUN Creatinine Glucose POC Glucose 299 H Hemoglobin A1c Lactic Acid Calcium Ferritin Total Bilirubin AST Lactate Dehydrogenase C-Reactive Protein Total Protein Albumin Prealbumin Arterial Blood Glucose Arterial Blood Ionized Calcium Urine Creatinine Coronavirus (PCR) 09/15/20 09/15/20 09/15/20 05:04 05:12 12:23 WBC RBC Hgb Hct MCHC RDW Plt Count Lymph % (Auto) Lymph # (Auto) Seg Neutrophils % Seg Neuts % (Manual) Lymphocytes % (Manual) Seg Neutrophils # Seg Neutrophils # Man Lymphocytes # (Manual) PT INR APTT D-Dimer Heparin Anti-Xa Level ABG pH POC ABG pCO2 POC ABG pO2 ABG pO2 ABG HCO3 ABG O2 Saturation ABG Base Excess ABG Hemoglobin ABG Glucose Oxyhemoglobin Carboxyhemoglobin Sodium Potassium 5.3 H Chloride 111.7 H Carbon Dioxide 15 L BUN > 112 H Creatinine 2.9 H Glucose 366 H POC Glucose 324 H 288 H Hemoglobin A1c Lactic Acid Calcium 7.2 L Ferritin Total Bilirubin AST Lactate Dehydrogenase C-Reactive Protein Total Protein Albumin Prealbumin Arterial Blood Glucose Arterial Blood Ionized Calcium Urine Creatinine Coronavirus (PCR) 09/15/20 09/15/20 09/16/20 18:15 21:24 00:16 WBC RBC Hgb Hct MCHC RDW Plt Count Lymph % (Auto) Lymph # (Auto) Seg Neutrophils % Seg Neuts % (Manual) Lymphocytes % (Manual) Seg Neutrophils # Seg Neutrophils # Man Lymphocytes # (Manual) PT INR APTT D-Dimer Heparin Anti-Xa Level ABG pH POC ABG pCO2 POC ABG pO2 ABG pO2 ABG HCO3 ABG O2 Saturation ABG Base Excess ABG Hemoglobin ABG Glucose Oxyhemoglobin Carboxyhemoglobin Sodium Potassium Chloride Carbon Dioxide BUN Creatinine Glucose POC Glucose 263 H 247 H 243 H Hemoglobin A1c Lactic Acid Calcium Ferritin Total Bilirubin AST Lactate Dehydrogenase C-Reactive Protein Total Protein Albumin Prealbumin Arterial Blood Glucose Arterial Blood Ionized Calcium Urine Creatinine Coronavirus (PCR) 09/16/20 09/16/20 09/16/20 05:30 07:17 13:00 WBC RBC Hgb Hct MCHC RDW Plt Count Lymph % (Auto) Lymph # (Auto) Seg Neutrophils % Seg Neuts % (Manual) Lymphocytes % (Manual) Seg Neutrophils # Seg Neutrophils # Man Lymphocytes # (Manual) PT INR APTT D-Dimer Heparin Anti-Xa Level ABG pH POC ABG pCO2 POC ABG pO2 ABG pO2 ABG HCO3 ABG O2 Saturation ABG Base Excess ABG Hemoglobin ABG Glucose Oxyhemoglobin Carboxyhemoglobin Sodium Potassium Chloride 113.1 H Carbon Dioxide 16 L BUN 106 H Creatinine 2.7 H Glucose 329 H POC Glucose 285 H 273 H Hemoglobin A1c Lactic Acid Calcium 7.3 L Ferritin Total Bilirubin AST Lactate Dehydrogenase C-Reactive Protein Total Protein Albumin Prealbumin Arterial Blood Glucose Arterial Blood Ionized Calcium Urine Creatinine Coronavirus (PCR) 09/16/20 09/16/20 09/17/20 18:23 23:17 05:27 WBC RBC Hgb Hct MCHC RDW Plt Count Lymph % (Auto) Lymph # (Auto) Seg Neutrophils % Seg Neuts % (Manual) Lymphocytes % (Manual) Seg Neutrophils # Seg Neutrophils # Man Lymphocytes # (Manual) PT INR APTT D-Dimer Heparin Anti-Xa Level ABG pH POC ABG pCO2 POC ABG pO2 ABG pO2 ABG HCO3 ABG O2 Saturation ABG Base Excess ABG Hemoglobin ABG Glucose Oxyhemoglobin Carboxyhemoglobin Sodium Potassium Chloride Carbon Dioxide BUN Creatinine Glucose POC Glucose 298 H 290 H 228 H Hemoglobin A1c Lactic Acid Calcium Ferritin Total Bilirubin AST Lactate Dehydrogenase C-Reactive Protein Total Protein Albumin Prealbumin Arterial Blood Glucose Arterial Blood Ionized Calcium Urine Creatinine Coronavirus (PCR) 09/17/20 09/17/20 09/17/20 06:34 06:34 11:19 WBC RBC Hgb Hct MCHC RDW Plt Count 102 L Lymph % (Auto) Lymph # (Auto) Seg Neutrophils % Seg Neuts % (Manual) Lymphocytes % (Manual) Seg Neutrophils # Seg Neutrophils # Man Lymphocytes # (Manual) PT INR APTT D-Dimer Heparin Anti-Xa Level ABG pH POC ABG pCO2 POC ABG pO2 ABG pO2 ABG HCO3 ABG O2 Saturation ABG Base Excess ABG Hemoglobin ABG Glucose Oxyhemoglobin Carboxyhemoglobin Sodium Potassium Chloride 112.9 H Carbon Dioxide 15 L BUN 123 H Creatinine 2.4 H Glucose 253 H POC Glucose 207 H Hemoglobin A1c Lactic Acid Calcium 7.9 L Ferritin Total Bilirubin AST Lactate Dehydrogenase C-Reactive Protein Total Protein Albumin Prealbumin Arterial Blood Glucose Arterial Blood Ionized Calcium Urine Creatinine Coronavirus (PCR) 09/17/20 09/17/20 09/17/20 17:35 18:25 23:24 WBC RBC Hgb Hct MCHC RDW Plt Count Lymph % (Auto) Lymph # (Auto) Seg Neutrophils % Seg Neuts % (Manual) Lymphocytes % (Manual) Seg Neutrophils # Seg Neutrophils # Man Lymphocytes # (Manual) PT INR APTT D-Dimer Heparin Anti-Xa Level 0.84 H ABG pH POC ABG pCO2 POC ABG pO2 ABG pO2 ABG HCO3 ABG O2 Saturation ABG Base Excess ABG Hemoglobin ABG Glucose Oxyhemoglobin Carboxyhemoglobin Sodium Potassium Chloride Carbon Dioxide BUN Creatinine Glucose POC Glucose 192 H 152 H Hemoglobin A1c Lactic Acid Calcium Ferritin Total Bilirubin AST Lactate Dehydrogenase C-Reactive Protein Total Protein Albumin Prealbumin Arterial Blood Glucose Arterial Blood Ionized Calcium Urine Creatinine Coronavirus (PCR) 09/18/20 09/18/20 09/18/20 05:36 08:24 11:44 WBC RBC Hgb Hct MCHC RDW Plt Count Lymph % (Auto) Lymph # (Auto) Seg Neutrophils % Seg Neuts % (Manual) Lymphocytes % (Manual) Seg Neutrophils # Seg Neutrophils # Man Lymphocytes # (Manual) PT INR APTT D-Dimer Heparin Anti-Xa Level ABG pH POC ABG pCO2 POC ABG pO2 ABG pO2 ABG HCO3 ABG O2 Saturation ABG Base Excess ABG Hemoglobin ABG Glucose Oxyhemoglobin Carboxyhemoglobin Sodium Potassium 5.2 H Chloride 115.5 H Carbon Dioxide 16 L BUN 140 H Creatinine 2.4 H Glucose 229 H POC Glucose 178 H 191 H Hemoglobin A1c Lactic Acid Calcium 7.7 L Ferritin Total Bilirubin AST Lactate Dehydrogenase C-Reactive Protein Total Protein Albumin Prealbumin Arterial Blood Glucose Arterial Blood Ionized Calcium Urine Creatinine Coronavirus (PCR) Chest x-ray: pending Allied health notes reviewed: nursing
--- NOTE | 2020-09-18 13:56 | Progress Note ---
Assessment and Plan 1. Acute kidney injury: Vasomotor nephropathy in the setting of Shock and severe COVID infection. Low FeNa. Renal US negative. Monitor renal function. Creatinine level is improving now. Avoid nephrotoxic agents. Meds dosage based on GFR. 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 Ongoing goals of care discussion. 2. FEN: Hyperkalemia, Kayexalate ordered, monitor. Anion-gap metabolic acidosis, 2/2 lactic acidosis, monitor. Started PO Sodium bicarbonate. Monitor lytes and volume status. 3. Acute hypoxic resp failure, POA: 2/2 COVID PNA. Currently intubated on vent. Followed by Pulmonary. 4. Septic shock: 2/2 severe COVID infection. Off pressors. 5. Pneumonia due to COVID-19 virus, POA: S/p IV Decadron. S/p Remdesivir at [facility]. Followed by ID. 6. Acute Encephalopathy: Multi-factorial, most likely from covid 19 and pneumonia. Per Neuro Poor prognosis for full meaningful recovery. 7. H/o Hemorrhagic CVA. 8. Atrial fib: Mostly SR now. Followed by Cards. Prognosis is slim. Subjective: The patient was not examined today. However the examination findings from other providers noted. The current and previous medical records are reviewed in detail as are laboratory and imaging data reviewed when appropriate. Medications being given are also reviewed. In addition the case has been discussed with the attending hospitalist and the nurse when needed. New renal recommendations as above. Examination: Subjective Date of service: 09/18/20 Principal diagnosis: Ac hypoxemic resp failure; COVID-19; Pneumonia; Septic Shock; MYRON; H/O CVA Objective - Vital Signs Vital signs: Vital Signs - 12hr 09/18/20 09/18/20 09/18/20 02:01 03:00 03:22 Temperature 98.4 F Pulse Rate 75 69 Pulse Rate [ From Monitor] Respiratory Rate Blood Pressure 133/76 84/45 O2 Sat by Pulse 91 92 Oximetry 09/18/20 09/18/20 09/18/20 04:00 04:21 05:00 Temperature Pulse Rate 70 68 71 Pulse Rate [ 80 From Monitor] Respiratory 12 Rate Blood Pressure 102/55 90/47 121/64 O2 Sat by Pulse 92 93 94 Oximetry 09/18/20 09/18/20 09/18/20 06:00 06:04 06:20 Temperature Pulse Rate 73 65 75 Pulse Rate [ From Monitor] Respiratory Rate Blood Pressure 106/54 100/56 106/54 O2 Sat by Pulse 88 Oximetry 09/18/20 09/18/20 09/18/20 07:00 08:00 08:55 Temperature 97.9 F Pulse Rate 77 79 78 Pulse Rate [ 78 From Monitor] Respiratory 12 Rate Blood Pressure 109/63 108/62 108/62 O2 Sat by Pulse 89 92 92 Oximetry 09/18/20 09/18/20 09/18/20 09:00 09:45 10:00 Temperature Pulse Rate 85 92 H 85 Pulse Rate [ From Monitor] Respiratory 21 Rate Blood Pressure 105/60 103/61 O2 Sat by Pulse 90 92 90 Oximetry 09/18/20 09/18/20 09/18/20 10:03 11:00 12:00 Temperature 97.7 F Pulse Rate 82 85 88 Pulse Rate [ 84 From Monitor] Respiratory 18 Rate Blood Pressure 103/61 106/59 96/60 O2 Sat by Pulse 91 91 Oximetry 09/18/20 12:38 Temperature Pulse Rate 88 Pulse Rate [ From Monitor] Respiratory 22 Rate Blood Pressure 96/60 O2 Sat by Pulse 91 Oximetry - Lab 09/17/20 06:34 09/18/20 08:24 Most recent lab results ABG pH 7.426 pH Units (7.350-7.450) 09/15/20 04:40 ABG pCO2 21.6 mm Hg 09/15/20 04:40 ABG pO2 66.1 mm Hg (80.0-90.0) L 09/15/20 04:40 ABG HCO3 13.9 mmol/L (20.0-26.0) L 09/15/20 04:40 ABG O2 Saturation 94.1 % (95.0-99.0) L 09/15/20 04:40 Calcium 7.7 mg/dL (8.4-10.2) L 09/18/20 08:24 Phosphorus 3.20 mg/dL (2.5-4.5) 09/08/20 10:13 Magnesium 2.00 mg/dL (1.7-2.3) 09/08/20 10:13 Urine Creatinine 213.6 mg/dL (0.1-20.0) H 09/09/20 Unknown Urine Sodium 19 mmol/L 09/09/20 Unknown Medications & Allergies - Medications Allergies/Adverse Reactions: Allergies ceftriaxone Allergy (Verified 09/11/20 11:49) Rash RASH AND ITCHING PER OCTVAIO Home Medications: Home Medications Medication Instructions Recorded Confirmed Last Taken Type Aspirin [Aspirin BABY CHEW TAB] 81 mg PO QDAY #30 tab.chew 12/12/13 09/11/20 Unknown Rx Atorvastatin [Lipitor Tab] 80 mg PO QHS 09/11/20 09/11/20 Unknown History amLODIPine [Norvasc] 5 mg PO DAILY 09/11/20 09/11/20 Unknown History Active Medications: Generic Name Dose Route Start Last Admin Trade Name Freq PRN Reason Stop Dose Admin Acetaminophen 650 mg 09/08/20 07:00 Acetaminophen 325 Mg/10.15 Ml Oral Liqd Unit Dose PO Q4H PRN Pain MILD(1-3)/Fever >100.5/BEST Lipase/Protease/Amylase 1 each 09/15/20 10:11 Lipase 10,500/Protease 25,000/Amylase 43,750 (Units) Dr Carey FEEDTUBE PRN PRN For Clogged Feeding Tube Dextrose 50 ml 09/14/20 17:44 Dextrose 50% In Water (25gm) 50 Ml Syringe IV Q30MIN PRN Hypoglycemia Protocol Diltiazem HCl 60 mg 09/10/20 14:00 09/18/20 06:20 Diltiazem 60 Mg Tab PO Not Given Q6HR CRISTIN Famotidine 20 mg 09/15/20 10:00 09/18/20 10:04 Famotidine 20 Mg Tab PO 20 mg DAILY CRISTIN Administration Fentanyl 50 mcg 09/09/20 19:53 Fentanyl 100 Mcg/2 Ml Inj IV Q10MIN PRN ANALGESIA Heparin Sodium (Porcine) 3,200 unit 09/09/20 19:53 09/10/20 05:53 Heparin 10,000 Units/10 Ml Vial 40 unit/kg (3200 unit) 3,200 unit IV Administration Q6H PRN Anti-Xa Assay < 0.1 units/ml Hydrophilic Ointment 1 applic 09/07/20 22:11 Lip Therapy Vaseline TP Q2HR PRN Dry Lips Heparin Sodium/Sodium Chloride 25,000 unit in 500 mls @ 23 mls/hr 09/09/20 20:00 09/18/20 01:30 Heparin/ 0.45% Nacl-25,000 Unit/500 Ml IV 600 units/hr TITR CRISTIN 12 mls/hr Titration Protocol 1,150 UNITS/HR Sodium Chloride 100 mls @ 999 mls/hr 09/12/20 12:00 Nacl 0.9% IV ANNA MARIE PRN Hypotension Insulin Glargine 20 units 09/17/20 10:00 09/18/20 10:04 Insulin Glargine 100 Units/Ml SUB-Q 20 units DAILY CRISTIN Administration Insulin Human Regular 0 unit 09/14/20 18:00 09/18/20 12:11 Insulin Regular, Human 100 Unit/Ml 3ml Vial SUB-Q 3 unit Q6H [facility] Administration Protocol Metoprolol Tartrate 5 mg 09/10/20 13:07 Metoprolol Tartrate 5 Mg/5 Ml Inj IV Q6HR PRN HR>130 Metoprolol Tartrate 25 mg 09/11/20 14:00 09/18/20 10:03 Metoprolol Tartrate 25 Mg Tab PO Not Given Q6H [facility] Multi-Ingred Cream/Lotion/Oil/Oint 1 applic 09/07/20 22:11 Mineral Oil/Petrolatum, White Ophth Oint 3.5 Gm OU Q4HR PRN Dry Eye(s) Ondansetron HCl 4 mg 09/08/20 06:29 Ondansetron 4 Mg/2 Ml Inj IV Q8H PRN Nausea And Vomiting Simple Syrup 15 ml 09/15/20 10:31 Simple Syrup 15 Ml FEEDTUBE PRN PRN Hypoglycemia Simple Syrup 30 ml 09/15/20 10:11 Simple Syrup 15 Ml FEEDTUBE PRN PRN Hypoglycemia Sodium Bicarbonate 325 mg 09/15/20 10:31 Sodium Bicarbonate 325 Mg Tab FEEDTUBE PRN PRN For Clogged Feeding Tube Sodium Bicarbonate 650 mg 09/18/20 14:00 Sodium Bicarbonate 650 Mg Tab PO TID CRISTIN Sodium Chloride 10 ml 09/08/20 10:00 09/18/20 10:04 Sodium Chloride 0.9% 10 Ml Flush Syringe IV 10 ml BID CRISTIN Administration Sodium Chloride 10 ml 09/08/20 06:29 Sodium Chloride 0.9% 10 Ml Flush Syringe IV PRN PRN LINE FLUSH
--- NOTE | 2020-09-18 14:47 | Progress Note ---
Assessment and Plan Cultures: Blood cultures 09/07/2020 no growth Sputum culture 09/07/2020: Rain albicans SARS-CoV-2 PCR + 08/26/2020 at [facility] and here Assessment: 85 year old male with history of hypertension, recent hemorrhagic CVA in July 2020, COVID-19 pneumonia requiring admission to [facility] from 08/26/2020 -09/01/2020, admitted on 09/07/2020 secondary to worsening cough, dyspnea on exertion and shortness of breath: #Severe sepsis with shock: present on admission with tachycardia, hypotension, leukocytosis, elevated lactate; source persistent COVID-19 pneumonia versus hospital-acquired pneumonia. Urinalysis negative. #Severe COVID-19 pneumonia: Diagnosed initially on 08/26/2020, treated at [facility] with dexamethasone, remdesivir for 3 days. Anticoagulation was not given due to recent hemorrhagic CVA. Chest x-ray with bilateral patchy infiltrates. Inflammatory markers elevated, D-dimer> 10,000, ferritin 849, CRP 8.2. Procalcitonin 0.3. ? Bacterial pneumonia component. ?HAP. Rain in sputum is colonization, does not need treatment #Acute hypoxemic respiratory failure: Initial sats dropped to 89%. Patient intubated in the ED, remains on the vent. #A. fib: Diagnosed during recent admission at [facility]. Car diology following. #Elevated LFTs: Likely secondary to COVID-19. #Acute renal failure: renally dose abx. #Recent hemorrhagic CVA: Diagnosed in July 2020. Recent CT of the head at [facility] showed resolution of previous hyperdense intraparenchymal hemorrhage in the right basal ganglia. #Ceftriaxone allergy? Unclear details. #Acute encephalopathy: Neurology following. Recs: agree with steroids per pulmonary No benefit with remdesivir VTE evaluation given elevated D-dimer, although already on anticoagulation for A.fib poor prognosis, agree with goals of care discussion and possible comfort measures Paolo Villalobos MD [facility] O: [phone] F: [phone] Subjective Date of service: 09/18/20 Principal diagnosis: Ac hypoxemic resp failure; COVID-19; Pneumonia; Septic Shock; MYRON; H/O CVA Interval history: Afebrile, normal white count. No acute changes at present. Remains mechanically ventilated. Objective - Exam Narrative Exam: Physical exam deferred due to PPE conservation strategy. Please refer to primary team's note. - Constitutional Vitals: Vital Signs Temp Pulse Resp BP Pulse Ox 97.7 F 88 22 96/60 91 09/18/20 12:00 09/18/20 12:38 09/18/20 12:38 09/18/20 12:38 09/18/20 12:38 Temperature -Last 24 Hours Temperature 97.7 F Temperature 97.9 F Temperature 98.4 F Temperature 97.8 F Temperature 97.4 F Temperature 97.3 F - Labs CBC & Chem 7: 09/17/20 06:34 09/18/20 08:24 Labs: Abnormal lab results 09/17/20 09/17/20 09/17/20 Range/Units 17:35 18:25 23:24 Heparin Anti-Xa Level 0.84 H (0.3-0.7) U.I./ml Potassium (3.6-5.0) mmol/L Chloride (98-107) mmol/L Carbon Dioxide (22-30) mmol/L BUN (9-20) mg/dL Creatinine (0.8-1.3) mg/dL Glucose (75-100) mg/dL POC Glucose 192 H 152 H (70-105) mg/dL Calcium (8.4-10.2) mg/dL 09/18/20 09/18/20 09/18/20 Range/Units 05:36 08:24 11:44 Heparin Anti-Xa Level (0.3-0.7) U.I./ml Potassium 5.2 H (3.6-5.0) mmol/L Chloride 115.5 H (98-107) mmol/L Carbon Dioxide 16 L (22-30) mmol/L BUN 140 H (9-20) mg/dL Creatinine 2.4 H (0.8-1.3) mg/dL Glucose 229 H (75-100) mg/dL POC Glucose 178 H 191 H (70-105) mg/dL Calcium 7.7 L (8.4-10.2) mg/dL
[2020-09-18] MEDS: SODIUM BICARBONATE 650 MG TAB PO SCH ×2 (15:19→21:05)
[2020-09-18] MEDS: NORepinephrine 8 MG in SODIUM CHLORIDE 0.9% 250ML 242 ML IV SCH (22:19)
[2020-09-19] MEDS: INSULIN REGULAR, HUMAN 100 UNIT/ML 3ML VIAL SUB-Q SCH ×2 (00:24→06:24)
[2020-09-19] MEDS: dilTIAZem 60 MG TAB PO SCH ×2 (00:24→05:35)
[2020-09-19] MEDS ORDERED: SODIUM CHLORIDE 0.9% 1000 ML 1,000 ML ONE (01:05)
[2020-09-19] MEDS: HEPARIN/ 0.45% NACL DRIP 25,000 UNIT/500 ML BAG IV SCH (01:20)
[2020-09-19] MEDS ORDERED: VASOPRESSIN 20 UNIT in SODIUM CHLORIDE 0.9% 100 ML IV SCH (04:00)
[2020-09-19] MEDS ORDERED: PHENYLEPHRINE 10 MG/1 ML INJ SDV IV SCH (04:45)
[2020-09-19] MEDS: NORepinephrine 8 MG in SODIUM CHLORIDE 0.9% 250ML 242 ML IV SCH (05:26)
[2020-09-19] MEDS: METOPROLOL TARTRATE 25 MG TAB PO SCH ×2 (05:34→07:57)
[2020-09-19] MEDS ORDERED: EPINEPHrine 1 MG/1 ML 8 MG in SODIUM CHLORIDE 0.9% 250ML 242 ML IV SCH (06:00)
[2020-09-19 06:07] LABS: Hematocrit 23.7 % (35.5-45.6); Hemoglobin 7.6 gm/dl (11.8-15.2); Mean Corpuscular HGB Conc 32 % (32-34); Mean Corpuscular Volume 97 fl (84-94); Platelet Count 124 K/mm3 (140-440); Red Blood Count 2.44 M/mm3 (3.65-5.03); Red Cell Distribution Width 17.4 % (13.2-15.2)
[2020-09-19 06:17] LABS: Calcium 7.4 mg/dL (8.4-10.2)
[2020-09-19] MEDS: PHENYLEPHRINE 100 MG in SODIUM CHLORIDE 0.9% 90 ML IV SCH ×2 (06:26→08:08)
[2020-09-19 08:28] VITALS: BP 75/49
[2020-09-19] MEDS: SODIUM BICARBONATE 650 MG TAB PO SCH (08:50)
--- NOTE | 2020-09-19 09:21 | Event Note ---
Date: 09/19/20 Family called and requested that the he be made a DNR, We explain his clinical condition.
[2020-09-19] MEDS ORDERED: SODIUM BICARBONATE 650 MG TAB PO SCH (10:13)
--- NOTE | 2020-09-19 10:14 | Death Summary ---
Summary - Providers Date of service: 09/19/20 Consults: 09/08/20 06:29 Consult to Physician [CONS] Routine Comment: Consulting Provider: KRYSTYNA PIERRE Physician Instructions: Reason For Exam: Acute respiratory failure, COVID-19 09/08/20 06:31 Consult to Dietitian/Nutrition [CONS] Routine Physician Instructions: Assess nutrtn needs, initiate, modify, manage TF Reason For Exam: Reason for Consult: Write/Manage Tube Feeding Reason for Consult: Write/Manage Tube Feeding 09/08/20 06:33 Consult to Physician [CONS] Routine Comment: Consulting Provider: TEREZA RODRIGUEZ Physician Instructions: Reason For Exam: Covid: Sepsis 09/09/20 14:31 Consult to Physician [CONS] Routine Comment: Consulting Provider: JESS PAULINO Physician Instructions: Reason For Exam: MYRON 09/09/20 14:40 Consult to Physician [CONS] Routine Comment: Consulting Provider: TONY COVARRUBIAS Physician Instructions: Reason For Exam: atrial fib 09/12/20 10:56 Consult to Physician [CONS] Routine Comment: Consulting Provider: DIMITRY DUTTON Physician Instructions: Reason For Exam: comatose, assess for brain 09/12/20 11:33 Consult to Interventional Radiology [CONS] Routine Consulting Provider: TREVOR SUÁREZ Reason For Exam: Hemodialysis catheter. Notified:: Bridgett Attending: MEMO SPIVEY MD - summary Date of admission: 09/07/20 21:40 Date of : 09/19/20 Reason for admission: Acute Hypoxic Respiratory failure Significant findings: 85-year-old male with a recent diagnosis of Covid pneumonia with acute respiratory failure/hypoxia discharged on [facility] on 09/03/2020 has been short of breath for the past 2 days because of which EMS was called. When the EMS arrived the patient was found to be hypoxic with room air oxygenation is running around 80s and also patient with altered sensorium. Patient was placed on nonrebreather and that his oxygen saturations improved to the 90s. No fever. Patient is lethargic. Patient also has increased work of breathing and was getting tired because of which ER physician has intubated the patient. No fevers. Known Covid positive patient with decompensation. No chest pain. No diaphoresis. No palpitations. 1/2: Reviewed lab, mar, and v/s Patient seen at bedside-reviewed specialist note and reces. patient is intubated on vent-noted agitation but no purposeful response-on prdx gtt Elevated potassium-given kayeoxalate yesterday we will check a repeat. Poor prognosis based on current evaluation. No acute pathology noted on CT scan. 09/16: Patient remains on full ventilatory support. Awaiting BMP reordered today. Steroids per ID. Antibiotics has been discontinued. Will monitor for any fe elyssa or any change in status. Will call family to discuss goals of care unfortunately this patient with poor prognosis. 09/17: Dicussed care extensively with consultants and also with family, Daughter and Mother. Member Service Specialist also discussed with Patient son and the grave prognosis was conveyed. Will continue current management, Doubt chance of Meaningful recovery. 09/18: Patient remains on full ventilatory support. Metabolic Acidosis persist. prognosis unchanged as patient not waking up despite no sedation. Continue supportive care. Will adjust Insulin for better control. 09/19: Patient with worsening condition, family called and made the patient a DNR. Patient shortly Became Apenic and bradycardia (1) Acute respiratory failure with hypoxia (2) Pneumonia due to COVID-19 virus (3) Sepsis (4) CVA (cerebral vascular accident) (5) Encephalopathy due to 2019 novel coronavirus (6) Seizures (7) A-fib (8) MYRON (acute kidney injury) secondary to vasomotor nephropathy (9) Hyperkalemia (10) Septic shock (11) Acute Metabolic Acidosis
== END 2020-09-19 10:30 | DRG 870 ==
LOC: ED 16:32 → CC1 21:40
PROVIDERS: ADMIT Internal Medicine; ATTEND Internal Medicine
PROC: 02HV33Z Insertion of Infusion Device into Superior Vena Cava, Percutaneous Approach (ICD-10-PCS; 2020-09-07)
PROC: 0BH17EZ Insertion of Endotracheal Airway into Trachea, Via Natural or Artificial Opening (ICD-10-PCS; principal; 2020-09-12)
PROC: 5A1955Z Respiratory Ventilation, Greater than 96 Consecutive Hours (ICD-10-PCS; 2020-09-12)
DX: A41.9 Sepsis, unspecified organism (principal); J96.01 Acute respiratory failure with hypoxia; U07.1 COVID-19; R65.21 Severe sepsis with septic shock; N17.0 Acute kidney failure with tubular necrosis; J12.82 Pneumonia due to coronavirus disease 2019; I63.9 Cerebral infarction, unspecified; G93.40 Encephalopathy, unspecified; I48.0 Paroxysmal atrial fibrillation; E87.5 Hyperkalemia; I62.9 Nontraumatic intracranial hemorrhage, unspecified; R57.9 Shock, unspecified; E87.2 Acidosis; D72.829 Elevated white blood cell count, unspecified; Z88.8 Allergy status to other drugs, medicaments and biological substances; Z79.899 Other long term (current) drug therapy; Z79.82 Long term (current) use of aspirin; Z79.891 Long term (current) use of opiate analgesic; Z79.01 Long term (current) use of anticoagulants
CPT/HCPCS: 31500; 36415; 36600; 70450; 71045; 74018; 76770; 80048; 80053; 80074; 80202; 81001; 82140; 82270; 82570; 82728; 82803; 82805; 82962; 83036; 83615; 83735; 84100; 84134; 84145; 84300; 84484; 85007; 85014; 85018; 85025; 85027; 85049; 85379; 85520; 85610; 85730; 86140; 87040; 87070; 87205; 87641; 93005; 94002; 94003; 95819; 96361; 96365; 96375; 96376; G0378; J0171; J0330; J1100; J1644; J1815; J1956; J2250; J2370; J2543; J3370; J7030; J7040; J7042; J7050; U0003